=== PATIENT | female | born 1950 | race Caucasian/White ===

== ENCOUNTER → 2016-12-22 | Outpatient (REF) | payer MEDICARE ==
[2016-12-22 13:45] LABS: ALBUMIN 4.1 GM/DL (3.2-5.2); ALBUMIN/GLOBULIN RATIO 1.24 (1.00-1.93); ALKALINE PHOSPHATASE 90 U/L (45-117); ALT/SGPT 28 U/L (12-78); ANION GAP 11 MEQ/L (8-16); AST/SGOT 11 U/L (15-37); BILIRUBIN,TOTAL 0.6 MG/DL (0.2-1.0); BLOOD UREA NITROGEN 13 MG/DL (7-18); CALCIUM LEVEL 9.2 MG/DL (8.8-10.2); CARBON DIOXIDE LEVEL 27 MEQ/L (21-32); CHLORIDE LEVEL 106 MEQ/L (98-107); CHOLESTEROL LEVEL 152 MG/DL (<200); CREATININE FOR GFR 0.59 MG/DL (0.55-1.02); GLOMERULAR FILTRATION RATE > 60.0 (>45); GLUCOSE, FASTING 127 MG/DL (80-110); POTASSIUM SERUM 3.5 MEQ/L (3.5-5.1); SODIUM LEVEL 144 MEQ/L (136-145); TOTAL PROTEIN 7.4 GM/DL (6.4-8.2); TRIGLYCERIDES LEVEL 165 MG/DL (<150)
== END ==
LOC: M LABDRAW1 11:30
PROVIDERS: ATTEND General Practice
DX: I10 Essential (primary) hypertension (principal); E11.9 Type 2 diabetes mellitus without complications; E78.00 Pure hypercholesterolemia, unspecified

== ENCOUNTER → 2017-06-09 | Outpatient (REF) | payer MEDICARE ==
[2017-06-09 16:28] LABS: MEAN CORPUSCULAR HEMOGLOBIN 30.4 pg (27.0-33.0); MEAN CORPUSCULAR HGB CONC 33.5 g/dl (32.0-36.5); MEAN CORPUSCULAR VOLUME 90.7 fl (80.0-96.0); RED CELL DISTRIBUTION WIDTH 13.2 % (11.5-14.5); WHITE BLOOD COUNT 5.6 K/mm3 (4.0-10.0)
[2017-06-09 16:48] LABS: ALBUMIN 4.2 GM/DL (3.2-5.2); ALBUMIN/GLOBULIN RATIO 1.45 (1.00-1.93); ALKALINE PHOSPHATASE 82 U/L (45-117); ALT/SGPT 26 U/L (12-78); ANION GAP 8 MEQ/L (8-16); AST/SGOT 19 U/L (15-37); BILIRUBIN,TOTAL 0.9 MG/DL (0.2-1.0); BLOOD UREA NITROGEN 16 MG/DL (7-18); CALCIUM LEVEL 8.9 MG/DL (8.8-10.2); CARBON DIOXIDE LEVEL 26 MEQ/L (21-32); CHLORIDE LEVEL 108 MEQ/L (98-107); CHOLESTEROL LEVEL 175 MG/DL (<200); CREATININE FOR GFR 0.59 MG/DL (0.55-1.02); GLOMERULAR FILTRATION RATE > 60.0 (>45); GLUCOSE, FASTING 110 MG/DL (80-110); POTASSIUM SERUM 3.8 MEQ/L (3.5-5.1); SODIUM LEVEL 142 MEQ/L (136-145); TOTAL PROTEIN 7.1 GM/DL (6.4-8.2); TRIGLYCERIDES LEVEL 113 MG/DL (<150)
== END ==
LOC: M LABDRAW1 11:21
PROVIDERS: ATTEND General Practice
DX: G43.909 Migraine, unspecified, not intractable, without status migrainosus (principal); Z79.899 Other long term (current) drug therapy

== ENCOUNTER → 2017-07-24 | Outpatient (REF) ==
[2017-07-24 13:25] LABS: MEAN CORPUSCULAR HEMOGLOBIN 30.3 pg (27.0-33.0); MEAN CORPUSCULAR HGB CONC 33.6 g/dl (32.0-36.5); RED CELL DISTRIBUTION WIDTH 12.7 % (11.5-14.5); WHITE BLOOD COUNT 4.6 K/mm3 (4.0-10.0)
[2017-07-24 13:47] LABS: ANION GAP 11 MEQ/L (8-16); BLOOD UREA NITROGEN 11 MG/DL (7-18); CALCIUM LEVEL 7.9 MG/DL (8.8-10.2); CARBON DIOXIDE LEVEL 28 MEQ/L (21-32); CHLORIDE LEVEL 104 MEQ/L (98-107); CREATININE FOR GFR 0.41 MG/DL (0.55-1.02); GLOMERULAR FILTRATION RATE > 60.0 (>45); GLUCOSE, FASTING 151 MG/DL (80-110); POTASSIUM SERUM 3.7 MEQ/L (3.5-5.1); SODIUM LEVEL 143 MEQ/L (136-145)
== END ==
PROVIDERS: ATTEND Internal Medicine
DX: L03.115 Cellulitis of right lower limb (principal); Z96.641 Presence of right artificial hip joint

== ENCOUNTER → 2017-07-28 | Outpatient (REF) ==
[2017-07-28 10:36] LABS: MEAN CORPUSCULAR HEMOGLOBIN 30.1 pg (27.0-33.0); MEAN CORPUSCULAR HGB CONC 33.4 g/dl (32.0-36.5); MEAN CORPUSCULAR VOLUME 90.1 fl (80.0-96.0); RED CELL DISTRIBUTION WIDTH 13.5 % (11.5-14.5)
[2017-07-28 11:10] LABS: ANION GAP 11 MEQ/L (8-16); BLOOD UREA NITROGEN 14 MG/DL (7-18); CARBON DIOXIDE LEVEL 26 MEQ/L (21-32); CHLORIDE LEVEL 105 MEQ/L (98-107); CREATININE FOR GFR 0.54 MG/DL (0.55-1.02); GLOMERULAR FILTRATION RATE > 60.0 (>45); GLUCOSE, FASTING 169 MG/DL (80-110); MAGNESIUM LEVEL 2.3 MG/DL (1.8-2.4); POTASSIUM SERUM 4.2 MEQ/L (3.5-5.1); SODIUM LEVEL 142 MEQ/L (136-145)
== END ==
PROVIDERS: ATTEND Internal Medicine
DX: Z96.641 Presence of right artificial hip joint (principal); E11.9 Type 2 diabetes mellitus without complications; E55.9 Vitamin D deficiency, unspecified

== ENCOUNTER → 2017-07-31 | Outpatient (REF) | PROVIDERS: ATTEND Internal Medicine | DX: Z96.641 Presence of right artificial hip joint (principal); Z53.9 Procedure and treatment not carried out, unspecified reason ==

== ENCOUNTER → 2017-08-05 | Outpatient (REF) | payer MEDICARE, BC | PROVIDERS: ATTEND Internal Medicine | DX: R10.9 Unspecified abdominal pain (principal); R31.9 Hematuria, unspecified ==

== ENCOUNTER → 2017-10-15 | Outpatient (REF) | payer MEDICARE, BC | LOC: M SMT 13:15 | PROVIDERS: ATTEND Urology | DX: R33.9 Retention of urine, unspecified (principal) | CPT/HCPCS: 51701; 81001; 87186; G0463 ==

== ENCOUNTER → 2018-07-08 | Outpatient (REF) | payer MEDICARE, BC ==
[2018-07-08 13:44] LABS: APPEARANCE, URINE CLOUDY (CLEAR); BACTERIA, URINE AUTO 3+ (NEGATIVE); BILIRUBIN, URINE AUTO NEGATIVE (NEGATIVE); BLOOD, URINE BLOOD 3+ (NEGATIVE); COLOR, URINE YELLOW (YELLOW); GLUCOSE, URINE (UA) AUTO NEGATIVE (NEGATIVE); KETONE, URINE AUTO NEGATIVE (NEGATIVE); LEUKOCYTE ESTERASE, URINE AUTO 3+ (NEGATIVE); MUCUS, URINE SMALL (NEGATIVE); NITRITE, URINE AUTO POSITIVE (NEGATIVE); PROTEIN, URINE AUTO 1+ mg/dL (NEGATIVE); RBC, URINE AUTO 156 /HPF (0-3); SPECIFIC GRAVITY URINE AUTO 1.015 (1.002-1.035); SQUAMOUS EPITHELIAL CELL UR AU 1 /HPF (0-6); UROBILINOGEN, URINE AUTO 0.2 mg/dL (0.0-2.0); WBC, URINE AUTO TNTC /HPF (0-3)
== END ==
LOC: M SMT 13:21
DX: R82.90 Unspecified abnormal findings in urine (principal)
CPT/HCPCS: 81001

== ENCOUNTER → 2018-07-29 | Outpatient (REF) | payer MEDICARE, BC | LOC: M SMT 12:53 | DX: N39.0 Urinary tract infection, site not specified (principal) | CPT/HCPCS: 87186 ==

== ENCOUNTER → 2018-08-26 | Outpatient (REF) | payer MEDICARE, BC ==
[2018-08-26 14:00] LABS: APPEARANCE, URINE CLOUDY (CLEAR); BACTERIA, URINE AUTO 1+ (NEGATIVE); BILIRUBIN, URINE AUTO NEGATIVE (NEGATIVE); BLOOD, URINE BLOOD 1+ (NEGATIVE); COLOR, URINE YELLOW (YELLOW); GLUCOSE, URINE (UA) AUTO NEGATIVE (NEGATIVE); KETONE, URINE AUTO NEGATIVE (NEGATIVE); LEUKOCYTE ESTERASE, URINE AUTO 3+ (NEGATIVE); MUCUS, URINE SMALL (NEGATIVE); NITRITE, URINE AUTO NEGATIVE (NEGATIVE); PROTEIN, URINE AUTO NEGATIVE (NEGATIVE); RBC, URINE AUTO 25 /HPF (0-3); SPECIFIC GRAVITY URINE AUTO 1.015 (1.002-1.035); SQUAMOUS EPITHELIAL CELL UR AU 2 /HPF (0-6); UROBILINOGEN, URINE AUTO 0.2 mg/dL (0.0-2.0); WBC, URINE AUTO TNTC /HPF (0-3)
== END ==
LOC: M SMT 13:07
DX: N39.0 Urinary tract infection, site not specified (principal)
CPT/HCPCS: 81001

== ENCOUNTER → 2018-10-13 | Outpatient (CLI) | payer MEDICARE | LOC: M WHC 11:37 | DX: Z12.31 Encounter for screening mammogram for malignant neoplasm of breast (principal); Z80.0 Family history of malignant neoplasm of digestive organs | CPT/HCPCS: 77067 ==

== ENCOUNTER → 2018-10-28 | Outpatient (REF) | payer MEDICARE | LOC: M SMT 13:13 | DX: R33.9 Retention of urine, unspecified (principal) | CPT/HCPCS: 87186 ==

== ENCOUNTER → 2018-11-25 | Outpatient (REF) | payer MEDICARE ==
[2018-11-25 17:41] LABS: APPEARANCE, URINE MANUAL HAZY (CLEAR); BILIRUBIN, URINE MANUAL NEGATIVE (NEGATIVE); COLOR, URINE MANUAL YELLOW (YELLOW); GLUCOSE, URINE (UA) MANUAL NEGATIVE (NEGATIVE); KETONE, URINE MANUAL NEGATIVE (NEGATIVE); PROTEIN, URINE MANUAL 2+ mg/dL (NEGATIVE); UROBILINOGEN, URINE MANUAL NORMAL (NORMAL)
[2018-11-25 17:42] LABS: BLOOD URINE MANUAL POSITIVE (NEGATIVE); LEUKOCYTE ESTERASE, URINE MAN POSITIVE (NEGATIVE); NITRITE, URINE MANUAL NEGATIVE (NEGATIVE)
[2018-11-25 17:43] LABS: SQUAMOUS EPITHELIAL CELL URINE MOD AMOUNT /hpf (SMALL AMT); TRANSITIONAL EPI CELLS, URINE SMALL AMOUNT /hpf; WBC, URINE TNTC /hpf (0-3)
[2018-11-25 17:44] LABS: BACTERIA, URINE LARGE AMOUNT; HYALINE CAST, URINE NONE SEEN /lpf (0-1)
== END ==
LOC: M SMT 16:30
PROVIDERS: ATTEND Urology
DX: N39.0 Urinary tract infection, site not specified (principal)

== ENCOUNTER → 2019-01-24 | Outpatient (REF) | payer MEDICARE | LOC: M LAB REF 12:51 | PROVIDERS: ATTEND Internal Medicine Endocrinology, Diabetes & Metabolism | DX: E04.1 Nontoxic single thyroid nodule (principal) ==

== ENCOUNTER → 2019-02-04 | Outpatient (REF) | payer MEDICARE ==
[2019-02-04 14:43] LABS: C REACTIVE PROTEIN QUANTITATIV < 0.30 MG/DL (0.00-0.30); CORTISOL AM 18.5 UG/DL (4.3-22.4)
[2019-02-07 15:42] LABS: ESTROGENS TOTAL 77 pg/mL (.); TESTOSTERONE FREE (DIRECT) 2.8 pg/mL (0.0-4.2)
== END ==
LOC: M LAB REF 12:35
PROVIDERS: ATTEND Internal Medicine
DX: F07.81 Postconcussional syndrome (principal)

== ENCOUNTER 2019-04-01 17:34 | Emergency (ER) | payer MEDICARE ==
[~2019-04-01] VITALS: Ht 175.3 cm; Wt 93.9 kg
--- NOTE | 2019-04-01 20:05 | REPVR ---
EXAM: CT Cervical Spine Without Contrast EXAM DATE/TIME: 04/01/2019 7:02 PM CLINICAL HISTORY: 68 years old, female; Injury or trauma; Fall; Initial encounter; Blunt trauma; Additional info: Fall, chi TECHNIQUE: Imaging protocol: Axial computed tomography images of the cervical spine without contrast. Coronal and sagittal reformatted images were created and reviewed. Radiation optimization: All CT scans at this facility use at least one of these dose optimization techniques: automated exposure control; mA and/or kV adjustment per patient size (includes targeted exams where dose is matched to clinical indication); or iterative reconstruction. COMPARISON: No relevant prior studies available. FINDINGS: No traumatic segmental malalignment of cervical spine or craniocervical junction. Vertebral body height is maintained at all levels. No acute fracture. No destructive or blastic cervical spine osseous lesion. Disc height is decreased at multiple levels, with typical degenerative pattern and associated endplate, articular pillar and uncovertebral spurs. Posterior longitudinal ligament ossification C6-7 results in severe spinal canal stenosis at this level and C3-4 also demonstrates marked spinal canal stenosis secondary to degenerative retrolisthesis Prevertebral soft tissues demonstrate no asymmetry. No concerning abnormality of the imaged lung apices. IMPRESSION: No acute fracture or traumatic subluxation of the cervical spine. Multilevel degenerative disc and articular pillar arthropathy. High-grade osseous spinal canal stenosis C3-4 and C6-7 and multilevel severe degenerative facet arthropathy Electronically signed by: Richard aRmos On 04/01/2019 20:05:01 PM
--- NOTE | 2019-04-01 20:06 | REPVR ---
EXAM: CT Head Without Contrast EXAM DATE/TIME: 04/01/2019 7:02 PM CLINICAL HISTORY: 68 years old, female; Injury or trauma; Fall; Initial encounter; Blunt trauma (contusions or hematomas); Without loss of consciousness; Additional info: Fall, chi TECHNIQUE: Imaging protocol: Axial computed tomography images of the head/brain without contrast. Radiation optimization: All CT scans at this facility use at least one of these dose optimization techniques: automated exposure control; mA and/or kV adjustment per patient size (includes targeted exams where dose is matched to clinical indication); or iterative reconstruction. COMPARISON: No relevant prior studies available. FINDINGS: Brain: No intracranial mass, mass effect or midline shift. No acute intracranial hemorrhage. No focal effacement of cortical sulci to indicate acute cortical infarct. Ventricles: Ventricles, basilar cisterns, and sulci are normal in size for age. Bones/joints: No calvarial fracture or destructive process. Sinuses: No abnormal opacification of paranasal sinuses. Mastoid air cells: Mastoid air cells are normally aerated. Orbits: Imaged ocular globes and orbital structures are unremarkable. Soft tissues: Mild left frontal asymmetric extracranial scalp swelling. IMPRESSION: Mild left frontal extracranial scalp swelling. No underlying acute intracranial abnormality. Electronically signed by: Richard Ramos On 04/01/2019 20:05:53 PM
[2019-04-01 20:55] VITALS: BP 187/79
--- NOTE | 2019-04-04 15:11 | ED PDOC ---
Post-Departure Follow-Up dr tipton faxed formal report of ct c spine for fu Gisela Wilburn MD April 04, 2019 15:11
== END 2019-04-01 21:26 | disposition home or self-care (01) ==
LOC: M ED 17:34
DX: S00.93XA Contusion of unspecified part of head, initial encounter (principal); W01.198A Fall on same level from slipping, tripping and stumbling with subsequent striking against other object, initial encounter; Y92.098 Other place in other non-institutional residence as the place of occurrence of the external cause; E11.9 Type 2 diabetes mellitus without complications; Z89.512 Acquired absence of left leg below knee; M50.30 Other cervical disc degeneration, unspecified cervical region; M48.02 Spinal stenosis, cervical region; Z91.048 Other nonmedicinal substance allergy status; Z91.040 Latex allergy status; Z91.013 Allergy to seafood; Z88.4 Allergy status to anesthetic agent

== ENCOUNTER → 2019-05-23 | Outpatient (REF) | payer MEDICARE | LOC: M LAB REF 12:36 | PROVIDERS: ATTEND Internal Medicine | DX: F07.81 Postconcussional syndrome (principal) ==

== ENCOUNTER → 2019-06-01 | Outpatient (REF) | payer MEDICARE ==
[2019-06-01 13:41] LABS: APPEARANCE, URINE TURBID (CLEAR); BACTERIA, URINE AUTO 2+ (NEGATIVE); BILIRUBIN, URINE AUTO NEGATIVE (NEGATIVE); BLOOD, URINE BLOOD 3+ (NEGATIVE); COLOR, URINE YELLOW (YELLOW); GLUCOSE, URINE (UA) AUTO NEGATIVE (NEGATIVE); KETONE, URINE AUTO NEGATIVE (NEGATIVE); LEUKOCYTE ESTERASE, URINE AUTO 3+ (NEGATIVE); NITRITE, URINE AUTO POSITIVE (NEGATIVE); PROTEIN, URINE AUTO 2+ mg/dL (NEGATIVE); RBC, URINE AUTO TNTC /HPF (0-3); RENAL EPITHELIAL CELLS 2 /HPF; SPECIFIC GRAVITY URINE AUTO 1.016 (1.002-1.035); SQUAMOUS EPITHELIAL CELL UR AU 23 /HPF (0-6); UROBILINOGEN, URINE AUTO 0.2 mg/dL (0.0-2.0); WBC, URINE AUTO TNTC /HPF (0-3)
== END ==
LOC: M SMT 12:54
PROVIDERS: ATTEND Urology
DX: R82.90 Unspecified abnormal findings in urine (principal)

== ENCOUNTER → 2019-07-12 | Outpatient (CLI) | payer MEDICARE ==
--- NOTE | 2019-07-12 17:55 | REP ---
CT HEAD WITHOUT CONTRAST: REASON FOR EXAMINATION: Headaches, dizziness, status-post fall. COMPARISON: CT head without contrast of 04/01/2019. TECHNIQUE: Axial CT of the head was performed without contrast. FINDINGS: There is no soft swelling or acute calvarial fracture. There is no acute intracranial hemorrhage, midline shift or mass effect. Wagner white matter differentiation is maintained. There is similar mild diffuse hyperdensity of the vascular structures which may be related to calcification or dehydration. There is no basal cistern effacement. The orbit contents are unremarkable. The paranasal sinuses and mastoid air cells are clear. IMPRESSION: No acute intracranial abnormality. Electronically Signed by Saleem Bentley MD 07/13/2019 07:32 A
== END ==
LOC: M RAD 12:24
PROVIDERS: ATTEND Internal Medicine
DX: R51 Headache (principal); R42 Dizziness and giddiness; Z91.81 History of falling

== ENCOUNTER → 2019-08-29 | Outpatient (REF) | payer MEDICARE ==
[2019-08-29 11:07] LABS: APPEARANCE, URINE CLOUDY (CLEAR); BACTERIA, URINE AUTO 1+ (NEGATIVE); BILIRUBIN, URINE AUTO NEGATIVE (NEGATIVE); BLOOD, URINE BLOOD 1+ (NEGATIVE); COLOR, URINE YELLOW (YELLOW); GLUCOSE, URINE (UA) AUTO NEGATIVE (NEGATIVE); KETONE, URINE AUTO NEGATIVE (NEGATIVE); LEUKOCYTE ESTERASE, URINE AUTO 3+ (NEGATIVE); NITRITE, URINE AUTO NEGATIVE (NEGATIVE); PROTEIN, URINE AUTO NEGATIVE (NEGATIVE); RBC, URINE AUTO 4 /HPF (0-3); SPECIFIC GRAVITY URINE AUTO 1.009 (1.002-1.035); SQUAMOUS EPITHELIAL CELL UR AU 3 /HPF (0-6); UROBILINOGEN, URINE AUTO 0.2 mg/dL (0.0-2.0); WBC, URINE AUTO TNTC /HPF (0-3)
== END ==
LOC: M SMT 10:22
PROVIDERS: ATTEND Nurse Practitioner Family
DX: R32 Unspecified urinary incontinence (principal)
CPT/HCPCS: 51798; 81001; 87086; G0463

== ENCOUNTER → 2019-08-31 | Outpatient (CLI) | payer MEDICARE ==
--- NOTE | 2019-08-31 15:29 | REP ---
Renal sonography: History: Urinary retention. Findings: There is a simple cyst in the upper pole of the right kidney measuring 4.3 x 3.6 x 4.0 cm. No hydronephrosis is seen. No other cyst or mass is observed. Renal cortical echogenicity pattern is normal. Right renal dimensions are 11.7 x 4.5 x 5.8 cm. The left kidney measures 10.6 x 4.8 x 5.3 cm. Impression: 4.3 cm cyst right kidney. Otherwise negative renal sonography. Electronically Signed by Deepak Hogan MD 08/31/2019 04:07 P
--- NOTE | 2019-08-31 15:30 | REP ---
Limited pelvic bladder sonography: History: Urinary retention. Findings: The urinary bladder is somewhat distended. Prevoid volume is calculated at 668 ml. A 32% postvoid residual is seen calculated at 215 ml. No bladder mass lesion is observed. No extra vesicle abnormality is observed. Impression: Post void residual and mild bladder dilation. Electronically Signed by Deepak Hogan MD 08/31/2019 04:06 P
== END ==
LOC: M RAD 10:12
PROVIDERS: ATTEND Nurse Practitioner Family
DX: R33.9 Retention of urine, unspecified (principal)

== ENCOUNTER 2019-11-04 11:36 | Emergency (ER) | payer MEDICARE ==
[2019-11-04] MEDS ORDERED: ASPI81CH33 PO (11:56)
[2019-11-04] MEDS ORDERED: METF500T13 PO (11:56)
--- NOTE | 2019-11-04 12:39 | REP ---
CT brain: 11/04/2019. Indication: Head trauma. Comparison: 07/12/2019. New findings: There is no acute intracranial hemorrhage, acute cortical infarction, mass effect, hydrocephalus or acute calvarial fracture. The left parietal parenchymal calcification is redemonstrated with no significant mass effect. Age-related volume loss and chronic small vessel disease are present. Impression: No acute intracranial process. Electronically Signed by Jacob Herrmann DO 11/04/2019 12:31 P
--- NOTE | 2019-11-04 12:45 | REP ---
CT cervical spine: 11/04/2019. Indication: Cervical spine trauma. Comparison: 04/01/2019. Technique: Unenhanced axial images of the cervical spine were obtained with coronal and sagittal reconstructions provided. Findings: There is no acute fracture, subluxation or dislocation. Extensive multi level degenerative sequelae are redemonstrated most pronounced at C6/C7 with moderate to severe narrowing of the spinal canal. No hemorrhage or additional acute post traumatic findings of the central canal are present. The visualized lungs are clear. Impression: No acute osseous injuries of the cervical spine. Degenerative sequelae most pronounced at C6/C7. Electronically Signed by Jacob Herrmann DO 11/04/2019 12:37 P
[2019-11-04 14:18] VITALS: BP 142/82
== END 2019-11-04 14:19 | disposition home or self-care (01) ==
LOC: EDBD 11:36 → M ED 11:36
DX: S00.03XA Contusion of scalp, initial encounter (principal); W01.10XA Fall on same level from slipping, tripping and stumbling with subsequent striking against unspecified object, initial encounter; Y92.89 Other specified places as the place of occurrence of the external cause; Y93.9 Activity, unspecified; Y99.0 Civilian activity done for income or pay; E11.9 Type 2 diabetes mellitus without complications; Z79.82 Long term (current) use of aspirin; Z79.84 Long term (current) use of oral hypoglycemic drugs; Z91.040 Latex allergy status; Z91.89 Other specified personal risk factors, not elsewhere classified; Z91.013 Allergy to seafood; Z88.8 Allergy status to other drugs, medicaments and biological substances

== ENCOUNTER 2020-03-14 15:07 | Emergency (ER) | payer MEDICARE ==
[~2020-03-14] VITALS: Ht 172.7 cm; Wt 90.9 kg
[~2020-03-14 15:07] MED LIST: ASPI81CH33 PO; METF500T13 PO
[2020-03-14] MEDS ORDERED: NORCO, ANEXSIA 5/325MG TABLET (HYDROcodone/ACETAMINOPHEN) PO ONE (16:00)
[2020-03-14] MEDS ORDERED: IBUP-1022 PO (17:13)
[2020-03-14 17:35] VITALS: BP 151/65
--- NOTE | 2020-03-14 17:43 | REP ---
HISTORY: Left rib series: Four views of the left ribs performed. No fracture or bone lesion is seen. An accompanying view of the chest demonstrates minor linear fibroatelectatic change inferiorly in the left base. No pneumothorax or pleural effusion is seen. There are degenerative changes of the spine. IMPRESSION: No radiographic evidence of left rib fracture. Electronically Signed by Leonard Wagner MD 03/14/2020 07:28 P
== END 2020-03-14 18:41 | disposition home or self-care (01) ==
LOC: EDBD 15:07 → M ED 15:07
DX: S20.212A Contusion of left front wall of thorax, initial encounter (principal); W19.XXXA Unspecified fall, initial encounter; Y92.099 Unspecified place in other non-institutional residence as the place of occurrence of the external cause; Y93.9 Activity, unspecified; Y99.9 Unspecified external cause status; E11.9 Type 2 diabetes mellitus without complications; R33.9 Retention of urine, unspecified; M48.02 Spinal stenosis, cervical region; Z79.82 Long term (current) use of aspirin; Z79.84 Long term (current) use of oral hypoglycemic drugs; Z91.040 Latex allergy status; Z91.018 Allergy to other foods; Z88.8 Allergy status to other drugs, medicaments and biological substances; Z91.89 Other specified personal risk factors, not elsewhere classified

== ENCOUNTER → 2020-04-16 | Outpatient (REF) | payer MEDICARE ==
[~2020-04-16] MED LIST changes: +IBUP-1022 PO
[2020-04-16 18:07] LABS: APPEARANCE, URINE TURBID (CLEAR); BACTERIA, URINE AUTO NEGATIVE (NEGATIVE); BILIRUBIN, URINE AUTO NEGATIVE (NEGATIVE); BLOOD, URINE BLOOD 1+ (NEGATIVE); CALCIUM OXALATE CRYSTALS LARGE; COLOR, URINE YELLOW (YELLOW); GLUCOSE, URINE (UA) AUTO NEGATIVE (NEGATIVE); KETONE, URINE AUTO NEGATIVE (NEGATIVE); LEUKOCYTE ESTERASE, URINE AUTO 3+ (NEGATIVE); NITRITE, URINE AUTO NEGATIVE (NEGATIVE); PROTEIN, URINE AUTO 2+ mg/dL (NEGATIVE); RBC, URINE AUTO 23 /HPF (0-3); SPECIFIC GRAVITY URINE AUTO 1.018 (1.002-1.035); SQUAMOUS EPITHELIAL CELL UR AU 11 /HPF (0-6); TRANSITIONAL EPITHELIAL AUTO 1 /HPF; UROBILINOGEN, URINE AUTO 0.2 mg/dL (0.0-2.0); WBC, URINE AUTO TNTC /HPF (0-3)
== END ==
LOC: M SMT 17:20
PROVIDERS: ATTEND Nurse Practitioner Family
DX: R30.0 Dysuria (principal)

== ENCOUNTER → 2020-07-12 | Outpatient (REF) | payer MEDICARE ==
[2020-08-15 11:55] LABS: APPEARANCE, URINE TURBID (CLEAR); BACTERIA, URINE AUTO 3+ (NEGATIVE); BILIRUBIN, URINE AUTO NEGATIVE (NEGATIVE); BLOOD, URINE BLOOD 2+ (NEGATIVE); COLOR, URINE YELLOW (YELLOW); GLUCOSE, URINE (UA) AUTO 1+ mg/dL (NEGATIVE); KETONE, URINE AUTO NEGATIVE (NEGATIVE); LEUKOCYTE ESTERASE, URINE AUTO 2+ (NEGATIVE); NITRITE, URINE AUTO POSITIVE (NEGATIVE); PROTEIN, URINE AUTO 2+ mg/dL (NEGATIVE); RBC, URINE AUTO 19 /HPF (0-3); SPECIFIC GRAVITY URINE AUTO 1.011 (1.002-1.035); SQUAMOUS EPITHELIAL CELL UR AU 12 /HPF (0-6); UROBILINOGEN, URINE AUTO 0.2 mg/dL (0.0-2.0); WBC, URINE AUTO TNTC /HPF (0-3)
== END ==
LOC: M SMT 15:05
PROVIDERS: ATTEND Nurse Practitioner Family
DX: N39.0 Urinary tract infection, site not specified (principal)

== ENCOUNTER 2020-07-21 12:22 | Emergency (ER) | payer MEDICARE ==
[~2020-07-21] VITALS: Ht 172.7 cm; Wt 83.2 kg
--- NOTE | 2020-07-21 13:30 | REPVR ---
PROCEDURE INFORMATION: Exam: XR Chest, 1 View Exam date and time: 07/21/2020 12:44 PM Age: 69 years old Clinical indication: Shortness of breath; Additional info: Fall injury TECHNIQUE: Imaging protocol: XR of the chest Views: 1 view. COMPARISON: CR Ribs uni W-PA CHEST ONLY 03/14/2020 4:40 PM FINDINGS: Limitations: The image is overpenetrated, limiting evaluation of the lungs and skeleton. Lungs: No pulmonary consolidation or edema. Pleural space: No pleural effusion. No pneumothorax. Heart/Mediastinum: Heart size is within normal limits given the portable technique. Vasculature: Unchanged tortuosity of the thoracic aorta. Bones/joints: Left glenohumeral joint loose bodies redemonstrated. Narrowing of the left acromial humeral interval consistent with left rotator cuff thinning/tear. Bilateral glenohumeral osteoarthritis. Multilevel degenerative spine disease. IMPRESSION: 1. The image is overpenetrated, limiting evaluation of the lungs and skeleton. 2. No radiographic evidence of acute cardiopulmonary disease. Electronically signed by: Sherman Wright On 07/21/2020 13:30:18 PM
--- NOTE | 2020-07-21 13:34 | REPVR ---
PROCEDURE INFORMATION: Exam: XR Right Shoulder Exam date and time: 07/21/2020 12:44 PM Age: 69 years old Clinical indication: Pain; Shoulder; Right; Additional info: Fall injury TECHNIQUE: Imaging protocol: XR Right shoulder. Views: 2 or more views. COMPARISON: No relevant prior studies available. FINDINGS: Bones/joints: Glenohumeral osteophytosis consistent with osteoarthritis. Subacromial spurring. No acute fracture. No dislocation. Soft tissues: Unremarkable as visualized. IMPRESSION: No acute findings. Electronically signed by: Sherman Wright On 07/21/2020 13:35:15 PM
--- NOTE | 2020-07-21 13:44 | REPVR ---
PROCEDURE INFORMATION: Exam: XR Right Hip with Pelvis when Performed Exam date and time: 07/21/2020 12:44 PM Age: 69 years old Clinical indication: Hip pain; Right hip; Prior surgery; Surgery date: 6+ months; Additional info: Fall injury TECHNIQUE: Imaging protocol: XR Right hip with pelvis when performed. Views: 2 or 3 views. COMPARISON: No relevant prior studies available. FINDINGS: Bones/joints: The bones are diffusely demineralized. This limits evaluation for fractures. Bowel contents overlie and obscure portions of the pelvis, limiting evaluation. A small portion of the left lateral iliac wing is not imaged. The sacroiliac joints are unremarkable. The pubic symphysis is unremarkable. No acute pelvic fracture is identified. Multilevel degenerative appearing lumbar facet sclerosis. Indwelling right total hip arthroplasty hardware. No evidence of hardware failure. No acute right hip fracture is identified. No right hip dislocation. Soft tissues: Unremarkable as visualized. IMPRESSION: 1. No radiographic evidence of acute fracture is identified. If there is persistent clinical concern for an acute pelvic or hip fracture, then CT is recommended for further evaluation. 2. Indwelling right total hip arthroplasty hardware. No evidence of hardware failure. 3. The bones are diffusely demineralized. This limits evaluation for fractures. Electronically signed by: Sherman Wright On 07/21/2020 13:44:04 PM
--- NOTE | 2020-07-21 13:50 | REPVR ---
PROCEDURE INFORMATION: Exam: XR Right Femur Exam date and time: 07/21/2020 12:44 PM Age: 69 years old Clinical indication: Pain; Thigh; Right; Additional info: Fall injury TECHNIQUE: Imaging protocol: XR Right femur. Views: 2 views. COMPARISON: No relevant prior studies available. FINDINGS: Bones/joints: The bones are diffusely demineralized. This significantly limits evaluation for fractures. Evaluation of the distal femur and patella is limited on the lateral view due to the obliquity of the projection. The proximal femur is imaged on the contemporaneously performed right hip x-ray examination. Indwelling right total hip arthroplasty hardware. No acute femur fracture is identified. Inferior patella osteophytosis is present. There is additional cortical angularity of the superior posterior patella which may represent additional osteophytosis, however a nondisplaced patellar fracture is not excluded. Soft tissues: Unremarkable as visualized. IMPRESSION: 1. No acute femur fracture is identified. 2. Limited evaluation of the patella. Potential nondisplaced patellar fracture versus patellar osteophytosis. If there is any clinical concern for a patellar fracture, then further evaluation with a true lateral x-ray and sunrise x-ray of the patella is recommended. 3. The bones are diffusely demineralized. This significantly limits evaluation for fractures. Electronically signed by: Sherman Wright On 07/21/2020 13:51:05 PM
[2020-07-21 14:40] VITALS: O2SAT 98
[2020-07-21 15:04] VITALS: BP 130/78
== END 2020-07-21 15:06 | disposition home or self-care (01) ==
LOC: M ED 12:22 → EDBD 12:22 → M ED 15:06
DX: S70.01XA Contusion of right hip, initial encounter (principal); S40.011A Contusion of right shoulder, initial encounter; S20.211A Contusion of right front wall of thorax, initial encounter; W19.XXXA Unspecified fall, initial encounter; Y92.099 Unspecified place in other non-institutional residence as the place of occurrence of the external cause; Y93.89 Activity, other specified; Y99.9 Unspecified external cause status; E11.9 Type 2 diabetes mellitus without complications; Z96.641 Presence of right artificial hip joint; Z79.84 Long term (current) use of oral hypoglycemic drugs; Z88.8 Allergy status to other drugs, medicaments and biological substances; Z91.89 Other specified personal risk factors, not elsewhere classified; Z91.040 Latex allergy status; Z91.013 Allergy to seafood

== ENCOUNTER → 2020-10-22 | Outpatient (REF) | payer MEDICARE | LOC: M LAB REF 11:17 | PROVIDERS: ATTEND Internal Medicine | DX: R33.9 Retention of urine, unspecified (principal) ==

== ENCOUNTER → 2020-12-21 | Outpatient (REF) | payer MEDICARE ==
[~2020-12-21] MED LIST changes: +BIOT1000 PO; +CENT1TAB PO; +FURO20TA2 PO; +HM V4000 PO; +LEVO250T12 PO; +POTA10CA32 PO; +VITA-158 PO; +ZINC220CA PO; +ZINC220T6 PO
[2020-12-21 18:14] LABS: BLOOD UREA NITROGEN 16 MG/DL (7-18); CALCIUM LEVEL 9.7 MG/DL (8.8-10.2); CARBON DIOXIDE LEVEL 32 MEQ/L (21-32); CHLORIDE LEVEL 107 MEQ/L (98-107); CREATININE FOR GFR 0.78 MG/DL (0.55-1.30); GLOMERULAR FILTRATION RATE > 60.0 (>39); GLUCOSE, FASTING 123 MG/DL (70-100); POTASSIUM SERUM 3.8 MEQ/L (3.5-5.1); SODIUM LEVEL 143 MEQ/L (136-145)
== END ==
LOC: M LAB REF 16:25
PROVIDERS: ATTEND Internal Medicine
DX: E11.9 Type 2 diabetes mellitus without complications (principal); E87.6 Hypokalemia

== ENCOUNTER 2021-01-05 14:25 | Inpatient (IN) | payer MEDICARE ==
[~2021-01-05] VITALS: Ht 172.7 cm; Wt 77.3 kg
[~2021-01-05 14:25] MED LIST changes: -BIOT1000 PO; -CENT1TAB PO; -FURO20TA2 PO; -HM V4000 PO; -LEVO250T12 PO; -POTA10CA32 PO; -VITA-158 PO; -ZINC220CA PO; -ZINC220T6 PO
[2021-01-05] MEDS ORDERED: LIDOCAINE 2% 5ML JELLY UROJET TOP ONE (14:45)
[2021-01-05 15:18] LABS: HEMATOCRIT 34.3 % (36.0-47.0); HEMOGLOBIN 11.2 g/dl (12.0-15.5); LYMPH # 0.6 10^3/uL (1.5-5.0); LYMPH % 13.3 % (24.0-44.0); MEAN CORPUSCULAR HEMOGLOBIN 27.2 pg (27.0-33.0); MEAN CORPUSCULAR HGB CONC 32.7 g/dl (32.0-36.5); MEAN CORPUSCULAR VOLUME 83.3 fl (80.0-96.0); MONO # 0.5 10^3/uL (0.0-0.8); MONO % 10.5 % (0.0-5.0); NEUTROPHILS # 3.5 10^3/uL (1.5-8.5); NEUTROPHILS % 75.8 % (36.0-66.0); PLATELET COUNT, AUTOMATED 165 10^3/uL (150-450); RED BLOOD COUNT 4.12 10^6/uL (4.00-5.40); WHITE BLOOD COUNT 4.7 10^3/uL (4.0-10.0)
[2021-01-05] MEDS ORDERED: ACETAMINOPHEN 325 MG TAB PO ONE (15:30)
--- NOTE | 2021-01-05 15:37 | REP ---
INDICATION: DYSPNEA/COUGH. COMPARISON: [id number]. TECHNIQUE: SINGLE PORTABLE AP VIEW OF THE CHEST WAS PERFORMED. FINDINGS: THERE IS NO ACUTE INFILTRATE OR PULMONARY EDEMA. LUNGS ARE CLEAR. HEART IS NOT SIGNIFICANTLY ENLARGED. MEDIASTINAL SILHOUETTE IS UNREMARKABLE. THE VISUALIZED OSSEOUS STRUCTURES ARE INTACT. IMPRESSION: NO ACUTE PULMONARY DISEASE. <Electronically signed by Leonard Wagner > 01/05/21 [id number]
[2021-01-05 15:44] LABS: BILIRUBIN,DIRECT 0.2 MG/DL (0.0-0.2); BILIRUBIN,TOTAL 0.6 MG/DL (0.2-1.0); THYROID STIMULATING HORMONE 0.982 uIU/ML (0.358-3.740); THYROXINE (T4) 9.9 UG/DL (4.5-12.0); TOTAL PROTEIN 6.8 GM/DL (6.4-8.2)
[2021-01-05] MEDS ORDERED: POTASSIUM CHLORIDE 10 MEQ SR TABLET PO ONE (16:00)
--- NOTE | 2021-01-05 16:25 | REP ---
INDICATION: fall, w bumps mid leg COMPARISON: None. TECHNIQUE: AP and lateral views right lower leg. FINDINGS: There is an old healed fracture of the distal fibula. Probable old avulsion fracture noted of the medial malleolus. The ankle mortise is anatomic. Mild scattered vascular calcifications are seen in the soft tissues. There is mild medial joint space narrowing at the knee joint. There is mild inferior calcaneal and dorsal talonavicular spurring. There is no acute fracture or dislocation. IMPRESSION: No acute fracture or dislocation. Old healed fracture distal fibula and old avulsion fracture medial malleolus. Arthritic changes. <Electronically signed by Leonard Wagner > 01/05/21 [id number]
[2021-01-05] MEDS ORDERED: cefTRIAXone SOD 1 GM in D5W MINI-BAG PLUS 50 ML IV ONE (17:30)
--- NOTE | 2021-01-05 17:31 | ECGEPIP ---
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
[2021-01-05] MEDS ORDERED: POTA10CA32 PO (17:32)
[2021-01-05] MEDS ORDERED: FURO20TA2 PO (17:32)
[2021-01-05] MEDS ORDERED: CENT1TAB PO (17:42)
[2021-01-05] MEDS ORDERED: BIOT1000 PO (17:42)
[2021-01-05] MEDS ORDERED: VITA-158 PO (17:42)
[2021-01-05] MEDS ORDERED: HM V4000 PO (17:42)
[2021-01-05] MEDS ORDERED: ALBUTEROL 90 MCG/ACT 8GM HFA INHALER INH PRN (17:45)
[2021-01-05] MEDS ORDERED: ACETAMINOPHEN TAB 650MG DOSE (2X325MG) PO PRN (17:45)
--- NOTE | 2021-01-05 17:55 | HPEPDOC ---
General Date of Admission 01/05/21 Date of Service: Jan 05, 2021 Chief Complaint The patient is a 70-year-old female admitted with a reason for visit of General Weakness. Source: Patient Exam Limitations: Clinical conditions Timing/Duration: Day(s) Severity: Moderate History of Present Illness Patient 70 years old female with past medical history of type 2 diabetes, hypertension presented hospital with generalized weakness. According to her life partner patient developed generalized weakness for past few days with inability to take care about herself. In ER patient was found to have fever of 101, pyuria and positive COVID 19 test. Chest x-ray unremarkable Home Medications Scheduled Ascorbic Acid (Vitamin C) 500 Mg Tablet, 500 MG PO DAILY, (Reported) Biotin (Biotin) 1 Mg Tablet, 1,000 MCG PO DAILY, (Reported) Cholecalciferol (Vitamin D3) (Vitamin D3) 100 Mcg (4000 Unit) Capsule, 100 MCG PO DAILY, (Reported) Metformin HCl (Metformin HCl) 500 Mg Tablet, 500 MG PO BIDWM, (Reported) Multivit-Min/FA/Lycopen/Lutein (Centrum Silver Tablet) 1 Each Tablet, 1 TAB PO QPM, (Reported) WITH DINNER Allergies Coded Allergies: shrimp (Verified Allergy, Severe, throat swelling, 03/14/20) latex (Verified Allergy, Intermediate, "my skin peels", 03/14/20) nickel (Verified Allergy, Intermediate, "makes my skin peel", 03/14/20) thiopental (Verified Allergy, Unknown, 03/14/20) Past Medical History Medical History Type 2 diabetes, hypertension Surgical History HYSTERECTOMY, TOTAL WITH USO LEFT OVARY INTACT 1985 CHOLECYSTECTOMY 1979 ROTATOR CUFF TEAR REPAIR 2001 CATARACT SURGERY BILATERAL 2006 RIGHT HIP REPLACEMENT 06/2017 BELOW LEFT KNEE AMPUTATION Family History FATHER: , HEART ATTACK MOTHER: , BLADDER AND COLON CANCER 1 BROTHER(S) . MOTHER HAD BLADDER CANCER. Social History * Smoker: Denies Alcohol: Denies Drugs: denies A-FIB/CHADSVASC A-FIB History Current/History of A-Fib/PAF?: No Current PO Anticoag Therapy: No Review of Systems Constitutional: Reports: Chills, Fever, Weakness Eyes: Denies: Pain ENT: Reports: Head Aches Skin: Denies: Rash, Lesions Pulmonary: Denies: Dyspnea Cardiovascular: Denies: Chest Pain, Palpitations Gastrointestinal: Denies: Nausea, Vomiting Genitourinary: Denies: Dysuria Hematologic: Denies: Bruising Musculoskeletal: Denies: Neck Pain Neurological: Denies: Weakness Psych: Reports: Mood Normal Physical Examination General Exam: Positive: Alert, Cooperative ENT Exam: Positive: Atraumatic Neck Exam: Positive: Supple; Negative: JVD Chest Exam: Positive: Diminished Heart Exam: Positive: Rate Normal Telemetry: Positive: No significant arrhythmia Abdomen Exam: Positive: Normal bowel sounds Extremity Exam: Negative: Clubbing Skin Exam: Positive: Nl turgor and temperature Neuro Exam: Positive: Cranial Nerves 3-12 NL, Reflexes 2+ Psych Exam: Positive: Mental status NL Vital Signs Vital Signs Date Time Temp Pulse Resp B/P (MAP) Pulse Ox O2 Delivery O2 Flow Rate FiO2 01/05/21 15:40 68 97 01/05/21 15:24 101.0 16 Room Air 01/05/21 15:00 148/61 (90) Laboratory Data Labs 24H Laboratory Tests 2 01/05/21 15:01: Urine Color WILNER, Urine Appearance TURBIDH, Urine pH 5.0, Urine Specific Emery 1.012, Urine Protein 2+H, Urine Glucose (UA) NEGATIVE, Urine Ketones TRACEH, Urine Blood 2+H, Urine Nitrite POSITIVEH, Urine Bilirubin NEGATIVE, Urine Urobilinogen 0.2, Urine Leukocyte Esterase 3+H, Urine WBC (Auto) TNTCH, Urine RBC (Auto) 16H, Urine Hyaline Casts (Auto) 0, Urine Bacteria (Auto) NEGATIVE, Urine Squamous Epithelial Cells 0, Urine Sperm (Auto) 01/05/21 15:02: Immature Granulocyte % (Auto) 0.4, Neutrophils (%) (Auto) 75.8H, Lymphocytes (%) (Auto) 13.3L, Monocytes (%) (Auto) 10.5H, Eosinophils (%) (Auto) 0.0, Basophils (%) (Auto) 0.0, Neutrophils # (Auto) 3.5, Lymphocytes # (Auto) 0.6L, Monocytes # (Auto) 0.5, Eosinophils # (Auto) 0.0, Basophils # (Auto) 0.0, Nucleated Red Blood Cells % (auto) 0.0, Lactic Acid Level 1.3, Magnesium Level 2.0, Total Bilirubin 0.6, Direct Bilirubin 0.2, Aspartate Amino Transf (AST/SGOT) 30, Alanine Aminotransferase (ALT/SGPT) 19, Alkaline Phosphatase 64, [id number]-Gmw-[id number]-Type Natriuretic Peptide 727H, Total Protein 6.8, Albumin 3.0L, Albumin/Globulin Ratio 0.8L, Thyroid Stimulating Hormone (TSH) 0.982, Thyroxine (T4) 9.9 01/05/21 15:22: POC Glucose (Misc Panel) 115H, POC Sodium (Misc Panel) 139, POC Potassium (Misc Panel) 3.0L, POC Chloride (Misc Panel) 102, POC Total CO2 (Misc Panel) 24.0, POC Blood Urea Nitrogen (Misc Panel 23, POC Ionized Calcium (Misc Panel) 4.2L, POC Creatinine (Misc Panel) 1.1, POC Hematocrit (Misc Panel) 35.0L 01/05/21 15:31: POC Troponin I (Misc) 0.03 01/05/21 15:37: SARS Antigen (LFIA) POSITIVEH 01/05/21 15:39: Influenza A Immunofluorescence NEGATIVE, Influenza B Immunofluorescence NEGATIVE CBC/BMP Laboratory Tests 01/05/21 15:02 Microbiology Microbiology 01/05/21 Blood Culture, Received Pending 01/05/21 Urine Culture, Received Pending 01/05/21 Blood Culture, Received Pending Assessment/Plan Patient 70 years old female with past medical history of type 2 diabetes, hypertension presented hospital with generalized weakness. According to her life partner patient developed generalized weakness for past few days with inability to take care about herself. In ER patient was found to have fever of 101, pyuria and positive COVID 19 test. Chest x-ray unremarkable Problems (1) COVID-19 Status: Acute Problem Text: Patient febrile and has generalized weakness Remdesevir IV Levofloxacin IV due to pyuria and cover possible respiratory bacterial infection. Will check pro calcitonin Incentive spirometry PT/OT (2) Diabetes mellitus Status: Chronic Problem Text: Diabetes diet Insulin sliding scale (3) UTI (urinary tract infection) Status: Acute Problem Text: Levofloxacin IV (4) Inability to walk Status: Acute Problem Text: Secondary to viral infection with Covid 19 PT/OT (5) Weakness Status: Acute Problem Text: See above Plan / VTE VTE Prophylaxis Ordered?: Yes BERNADETTE LOCKETT DO Jan 05, 2021 17:55
[2021-01-05] MEDS ORDERED: GLUCAGON INJ 1MG VIAL SC PRN (18:00)
[2021-01-05] MEDS ORDERED: DEXTROSE 50% 50 ML SYRINGE IV PRN (18:00)
[2021-01-05] MEDS ORDERED: GLUCOSE 4GM CHEW TABLET PO PRN (18:00)
[2021-01-05] MEDS: dexameTHASONE 4 MG/ML 1ML VIAL (J1100 PER 1MG) IV SCH (18:19)
[2021-01-05] MEDS: NS 1,000 ML IV SCH (19:18)
[2021-01-05] MEDS ORDERED: REMDESIVIR 200 MG in NS 250 ML IV ONE (20:00)
[2021-01-05] MEDS: HumaLOG INSULIN (NovoLOG) PER UNIT SC SCH ×2 (20:17→21:00)
[2021-01-05 20:24] LABS: ALBUMIN 2.8 GM/DL (3.2-5.2); BILIRUBIN,DIRECT 0.2 MG/DL (0.0-0.2); BILIRUBIN,TOTAL 0.6 MG/DL (0.2-1.0); TOTAL PROTEIN 6.4 GM/DL (6.4-8.2)
[2021-01-05 21:15] VITALS: O2SAT 94
[2021-01-05] MEDS: ENOXAPARIN 40MG/0.4ML SYRINGE (J1650 PER 10MG) SC SCH (21:32)
[2021-01-05 21:37] VITALS: BP 159/68
[2021-01-05] MEDS ORDERED: SODIUM CHLORIDE 0.9% INJ 10 ML SYR IV ONE (22:00)
[2021-01-05] MEDS: LevoFLOXacin IV 750 MG in IV 1 EA IV SCH (22:51)
[2021-01-06] VITALS (11 sets, daily range): BP systolic 129–178; BP diastolic 62–77; O2SAT 96–100
[2021-01-06] MEDS: HumaLOG INSULIN (NovoLOG) PER UNIT SC SCH ×4 (07:30→19:55)
[2021-01-06 08:41] LABS: BASO % 0.3 % (0.0-1.0); EOS % 0.3 % (0.0-3.0); HEMATOCRIT 37.6 % (36.0-47.0); LYMPH # 0.7 10^3/uL (1.5-5.0); MEAN CORPUSCULAR HEMOGLOBIN 26.7 pg (27.0-33.0); MEAN CORPUSCULAR HGB CONC 31.9 g/dl (32.0-36.5); MEAN CORPUSCULAR VOLUME 83.7 fl (80.0-96.0); MONO # 0.4 10^3/uL (0.0-0.8); MONO % 12.6 % (0.0-5.0); NEUTROPHILS # 2.3 10^3/uL (1.5-8.5); NEUTROPHILS % 66.2 % (36.0-66.0); PLATELET COUNT, AUTOMATED 123 10^3/uL (150-450); RED BLOOD COUNT 4.49 10^6/uL (4.00-5.40); WHITE BLOOD COUNT 3.4 10^3/uL (4.0-10.0)
[2021-01-06 08:50] LABS: INR 1.24; PROTHROMBIN TIME 15.9 SECONDS (12.5-14.3)
[2021-01-06 09:08] LABS: ALBUMIN 2.7 GM/DL (3.2-5.2); ALT/SGPT 21 U/L (12-78); BILIRUBIN,DIRECT 0.2 MG/DL (0.0-0.2); BILIRUBIN,TOTAL 0.5 MG/DL (0.2-1.0); BLOOD UREA NITROGEN 23 MG/DL (7-18); CALCIUM LEVEL 8.4 MG/DL (8.8-10.2); CARBON DIOXIDE LEVEL 18 MEQ/L (21-32); CHLORIDE LEVEL 112 MEQ/L (98-107); CREATININE FOR GFR 0.94 MG/DL (0.55-1.30); GLOMERULAR FILTRATION RATE > 60.0 (>39); GLUCOSE, FASTING 107 MG/DL (70-100); MAGNESIUM LEVEL 2.3 MG/DL (1.8-2.4); POTASSIUM SERUM 3.8 MEQ/L (3.5-5.1); SODIUM LEVEL 144 MEQ/L (136-145); TOTAL PROTEIN 6.6 GM/DL (6.4-8.2)
[2021-01-06] MEDS: NS 1,000 ML IV SCH ×2 (09:34→20:00)
[2021-01-06] MEDS: dexameTHASONE 4 MG/ML 1ML VIAL (J1100 PER 1MG) IV SCH (09:34)
--- NOTE | 2021-01-06 12:28 | IPNPDOC ---
Text Note Date of Service The patient was seen on 01/06/21. NOTE Subjective: No any acute overnight. Patient is on the room air. Patient afebrile for 24 hours Objective: GENERAL APPEARANCE: NAD HEENT: no scleral icterus, no JVD, EOMI CARDIOVASCULAR: Diminished lung sounds bilaterally LUNGS: Diminished lung sounds bilaterally ABDOMEN: soft & not tender w palpitation MUSCULOSKELETAL: no cyanosis, no swelling INTEGUMENT: no generalized pallor NEUROLOGICAL: cranial nerve function from 2-12 intact intact, follows commands, speech not dysarthric Assessment/Plan Patient 70 years old female with past medical history of type 2 diabetes, hypertension presented hospital with generalized weakness. According to her life partner patient developed generalized weakness for past few days with inability to take care about herself. In ER patient was found to have fever of 101, pyuria and positive COVID 19 test. Chest x-ray unremarkable Problems COVID-19 Patient was febrile and had generalized weakness on admission Remdesevir IV Levofloxacin IV due to pyuria and cover possible respiratory bacterial infection. Incentive spirometry PT/OT (2) Diabetes mellitus Diabetes diet Insulin sliding scale (3) UTI (urinary tract infection) Levofloxacin IV (4) Inability to walk Secondary to viral infection with Covid 19 PT/OT (5) Weakness See above VS,Fishbone, I+O VS, Fishbone, I+O Laboratory Tests 01/05/21 15:02 01/06/21 08:24 Vital Signs Date Time Temp Pulse Resp B/P (MAP) Pulse Ox O2 Delivery O2 Flow Rate FiO2 01/06/21 11:29 97.0 74 18 129/62 (84) 98 Room Air I&O- Last 24 Hours up to 6 AM 01/06/21 06:00 Intake Total 50 ml Balance 50 ml BERNADETTE LOCKETT DO Jan 06, 2021 12:28
[2021-01-06] MEDS: REMDESIVIR 100 MG in NS 250 ML IV SCH (17:41)
[2021-01-06] MEDS: SODIUM CHLORIDE 0.9% INJ 10 ML SYR IV SCH (18:39)
[2021-01-06] MEDS: LevoFLOXacin IV 750 MG in IV 1 EA IV SCH (20:01)
[2021-01-06] MEDS: ENOXAPARIN 40MG/0.4ML SYRINGE (J1650 PER 10MG) SC SCH (20:01)
[2021-01-07] VITALS (8 sets, daily range): BP systolic 136–171; BP diastolic 65–76; O2SAT 92–97
[2021-01-07] MEDS: HumaLOG INSULIN (NovoLOG) PER UNIT SC SCH ×4 (07:30→20:25)
[2021-01-07 07:47] LABS: BASO % 0.2 % (0.0-1.0); HEMATOCRIT 36.3 % (36.0-47.0); HEMOGLOBIN 12.1 g/dl (12.0-15.5); LYMPH # 1.4 10^3/uL (1.5-5.0); LYMPH % 21.3 % (24.0-44.0); MEAN CORPUSCULAR HEMOGLOBIN 27.8 pg (27.0-33.0); MEAN CORPUSCULAR HGB CONC 33.3 g/dl (32.0-36.5); MEAN CORPUSCULAR VOLUME 83.3 fl (80.0-96.0); MONO # 0.7 10^3/uL (0.0-0.8); MONO % 11.2 % (0.0-5.0); NEUTROPHILS # 4.4 10^3/uL (1.5-8.5); NEUTROPHILS % 66.8 % (36.0-66.0); PLATELET COUNT, AUTOMATED 194 10^3/uL (150-450); RED BLOOD COUNT 4.36 10^6/uL (4.00-5.40); WHITE BLOOD COUNT 6.6 10^3/uL (4.0-10.0)
[2021-01-07 07:52] LABS: INR 1.19; PROTHROMBIN TIME 15.4 SECONDS (12.5-14.3)
[2021-01-07 07:53] LABS: PARTIAL THROMBOPLASTIN TIME 52.9 SECONDS (24.2-38.5)
[2021-01-07 08:17] LABS: ALBUMIN 2.5 GM/DL (3.2-5.2); ALT/SGPT 19 U/L (12-78); BILIRUBIN,DIRECT 0.2 MG/DL (0.0-0.2); BILIRUBIN,TOTAL 0.3 MG/DL (0.2-1.0); BLOOD UREA NITROGEN 26 MG/DL (7-18); CALCIUM LEVEL 8.3 MG/DL (8.8-10.2); CARBON DIOXIDE LEVEL 20 MEQ/L (21-32); CHLORIDE LEVEL 115 MEQ/L (98-107); CPK CREATINE PHOSPHOKINASE 231 U/L (26-192); CREATININE FOR GFR 1.01 MG/DL (0.55-1.30); FERRITIN 304 NG/ML (8-252); GLOMERULAR FILTRATION RATE 57.4 (>39); GLUCOSE, FASTING 102 MG/DL (70-100); LDH LACTATE DEHYDROGENASE 250 U/L (84-246); MAGNESIUM LEVEL 2.1 MG/DL (1.8-2.4); NT-PRO BNP 1124 PG/ML (<125); SODIUM LEVEL 145 MEQ/L (136-145); TOTAL PROTEIN 6.3 GM/DL (6.4-8.2); TROPONIN I < 0.02 NG/ML (< 0.10)
[2021-01-07] MEDS: dexameTHASONE 4 MG/ML 1ML VIAL (J1100 PER 1MG) IV SCH (09:29)
[2021-01-07] MEDS: NS 1,000 ML IV SCH (09:31)
--- NOTE | 2021-01-07 13:08 | IPNPDOC ---
Text Note Date of Service The patient was seen on 01/07/21. NOTE Subjective: No acute events overnight. Patient denies any headache, visual changes, chest pain, or abd pain. Patient states that she has been feeling slightly short of breath since admission and has been having occasional cough. She states that she has been using her incentive spirometer. Patient is on the room air and is sating around 94%. Patient has been afebrile for over 24 hours. Objective: GENERAL APPEARANCE: NAD HEENT: no scleral icterus, no JVD, EOMI CARDIOVASCULAR: Regular rate and rhythm. No murmurs, rubs, or gallops. LUNGS: Lungs clear to auscultation. No rhonchi, wheezes, or rales. ABDOMEN: soft & not tender w palpitation MUSCULOSKELETAL: no cyanosis, no edema INTEGUMENT: no generalized pallor NEUROLOGICAL: cranial nerve function from 2-12 intact intact, follows commands, speech not dysarthric Assessment/Plan: Patient 70 years old female with past medical history of type 2 diabetes, hy pertension presented hospital with generalized weakness. According to her life partner patient developed generalized weakness for past few days with inability to take care about herself. In ER patient was found to have fever of 101, pyuria and positive COVID 19 test. Chest x-ray unremarkable. Problems: # COVID-19 -Demonstrates continued clinical improvement. -Patient was febrile and had generalized weakness on admission. However patient has been afebrile for over 24 hours at this point -Dexamethasone (Day #3) -Will discontinue IV remdesevir as it is unclear why patient was started on antibody therapy. -Levofloxacin IV due to pyuria. Bacterial superinfection unlikely given negative procalcitonin. # Diabetes mellitus -Keep patient on a diabetes diet -Continue insulin sliding scale # UTI (urinary tract infection), history of neurogenic bladder -Continue Levofloxacin IV (Day #3) -Continues to be incontinent of urine -If discharged tomorrow, will give levofloxicin PO for a total of 5 days. #Inability to walk/weakness -S/P L knee amputation, prosthesis for ambulation -Home partner shares concerns that patient may not be safe at home and may be in need of home care given her physical limitations including DVT Prophylaxis: Prophylactic Lovenox Disposition: Anticipate D/C tomorrow VS,Bettina, I+O VS, Bettina, I+O Laboratory Tests 01/07/21 06:41 Vital Signs Date Time Temp Pulse Resp B/P (MAP) Pulse Ox O2 Delivery O2 Flow Rate FiO2 01/07/21 04:00 98.2 50 18 136/65 (88) 94 Room Air I&O- Last 24 Hours up to 6 AM 01/07/21 06:00 Intake Total 1290 ml Output Total 0 ml Balance 1290 ml GME ATTESTATION GME ATTESTATION My faculty preceptor for this patient encounter was physically present during the encounter and was fully available. All aspects of the patient interview, examination, medical decision making process, and medical care plan development were reviewed and approved by the faculty preceptor. The faculty preceptor is aware and concurs with the plan as stated in the body of this note and will attest to such by his/her cosignature. ATTENDING NOTE I, Jonathan Perez MD, have independently examined this patient and performed my own physical exam, as well as reviewed the documentation and edited where necessary. I have discussed in detail with the resident / student the findings and plan of treatment as documented by the resident / student and edited their note. I agree with their findings and treatment plan and have edited their documentation. I will continue to follow the patient during this hospital stay. On discharge, the patient would require a Wheelchair 1) The beneficiary has a mobility limitation that significantly impairs her ability to participate in one or more mobility related activities of daily living (MRADL) such as toileting, feeding dressing, grooming and bathing in customary locations in the home. A mobility limitation is one that: a) Prevents her from accomplishing an MRADL entirely b) Places the beneficiary at reasonably determined heightened risk of morbidity or mortality secondary to the attempts to perform an MRADL c) Prevents the beneficiary from completing an MRADL within a reasonable time f rame 2) The beneficiary's mobility limitation cannot be sufficiently resolved by the use of an appropriate fitted cane or walker 3) Her home provides adequate access between rooms, maneuvering space and surface for use of the manual wheelchair that is provided 4) Use of manual wheelchair will significantly improve the beneficiary's ability to participate in MRADLs and she will use it on a regular basis in the home 5) The beneficiary has not expressed unwillingness to use the manual wheelchair that is provided in the home. 6) She has a caregiver who is available, willing and able to provide assistance with the wheelchair Delphine PRESSLEY-3 Jan 07, 2021 10:54 BIBIANA CORTEZ DO Jan 07, 2021 13:08 JONATHAN PEREZ MD Jan 08, 2021 16:16
[2021-01-07] MEDS: REMDESIVIR 100 MG in NS 250 ML IV SCH (17:53)
[2021-01-07] MEDS: SODIUM CHLORIDE 0.9% INJ 10 ML SYR IV SCH (17:53)
[2021-01-07] MEDS: ENOXAPARIN 40MG/0.4ML SYRINGE (J1650 PER 10MG) SC SCH (20:23)
[2021-01-07] MEDS: LevoFLOXacin IV 750 MG in IV 1 EA IV SCH (20:24)
[2021-01-08] VITALS (10 sets, daily range): BP systolic 152–170; BP diastolic 62–82; O2SAT 93–97
[2021-01-08] MEDS: HumaLOG INSULIN (NovoLOG) PER UNIT SC SCH ×4 (07:30→20:00)
[2021-01-08 07:33] LABS: HEMATOCRIT 35.7 % (36.0-47.0); HEMOGLOBIN 11.9 g/dl (12.0-15.5); LYMPH # 1.6 10^3/uL (1.5-5.0); LYMPH % 25.7 % (24.0-44.0); MEAN CORPUSCULAR HEMOGLOBIN 27.8 pg (27.0-33.0); MEAN CORPUSCULAR HGB CONC 33.3 g/dl (32.0-36.5); MEAN CORPUSCULAR VOLUME 83.4 fl (80.0-96.0); MONO # 0.8 10^3/uL (0.0-0.8); MONO % 13.1 % (0.0-5.0); NEUTROPHILS # 3.8 10^3/uL (1.5-8.5); NEUTROPHILS % 60.7 % (36.0-66.0); PLATELET COUNT, AUTOMATED 193 10^3/uL (150-450); RED BLOOD COUNT 4.28 10^6/uL (4.00-5.40); WHITE BLOOD COUNT 6.2 10^3/uL (4.0-10.0)
[2021-01-08 07:44] LABS: INR 1.22; PROTHROMBIN TIME 15.7 SECONDS (12.5-14.3)
[2021-01-08 08:01] LABS: BLOOD UREA NITROGEN 29 MG/DL (7-18); CALCIUM LEVEL 8.5 MG/DL (8.8-10.2); CARBON DIOXIDE LEVEL 21 MEQ/L (21-32); CHLORIDE LEVEL 117 MEQ/L (98-107); CREATININE FOR GFR 0.94 MG/DL (0.55-1.30); GLOMERULAR FILTRATION RATE > 60.0 (>39); GLUCOSE, FASTING 92 MG/DL (70-100); POTASSIUM SERUM 3.7 MEQ/L (3.5-5.1); SODIUM LEVEL 147 MEQ/L (136-145)
[2021-01-08] MEDS: dexameTHASONE 4 MG/ML 1ML VIAL (J1100 PER 1MG) IV SCH (09:36)
[2021-01-08] MEDS ORDERED: LEVO250T12 PO (11:14)
[2021-01-08] MEDS ORDERED: ZINC220CA PO (11:18)
--- NOTE | 2021-01-08 11:48 | DS.PDOC ---
Discharge Summary General Date of Admission Jan 05, 2021 at 18:01 Date of Discharge 01/08/21 Attending Physician: JONATHAN MORENO MD Discharge Summary PROCEDURES PERFORMED DURING STAY: None ADMITTING DIAGNOSES: Covid 19 Urinary tract infection Diabetes mellitus Inability to walk Weakness DISCHARGE DIAGNOSES: Urinary tract infection, Enterobacter Covid 19 Diabetes mellitus Incontinence secondary to neurogenic bladder COMPLICATIONS/CHIEF COMPLAINT: Covid-19,Weakness,Inability To Walk. HISTORY OF PRESENT ILLNESS: Patient is a 70-year-old female, history of diabetes, left knee amputation with prosthesis, who was admitted to the hospital on 01/05/21 after presenting to the emergency department with chief complaint generalized weakness. According to patient's partner, she developed generalized weakness over the preceding 2-3 days and has since been incapable of appropriately taking care of herself. Bone emergency department, patient was found to be febrile with a fever of 101, pyuria and a positive Covid 19 test. Chest was unremarkable. Patient was admitt ed to the floor for continued management of her UTI in the setting of Covid 19. HOSPITAL COURSE: On admission and presentation floor, patient remained overly asymptomatic. She was started on remdesevir and dexamethasone IV for COVID 19. She was given antibiotic therapy with levofloxacin secondary to her pyuria. This was given at the respiratory dose to cover for possible bacterial infection secondary to her Covid 19. Procalcitonin was ordered and found to be unconvincing. Urine culture returned positive for Enterobacter with fair number of sensitivities, including levofloxacin. On 01/08/21, patient's IV levofloxacin was transitioned to oral over to continue at home. She has been afebrile, non-tachycardic, nontachypneic, normotensive and maintaining an appropriate saturation without supplemental oxygen. The morning of discharge, physical therapy cleared to return home with in-home PT. Clinically, the maximum benefit of the patient's hospitalization has been obtained. Given her physical limitations secondary to left knee amputation, home health services was also prescribed in addition to numerous items of DME. Discharge was explained to the patient as well as lack of any medical necessity for her to remain in the acute care setting. Unfortunately, patient stated that she did not agree with her decision for discharge. The risks of remaining in the hospital were explained to the patient in detail, particularly her increased risk of developing a bacterial infection in the setting of her underlying COVID- 19. Despite these risks, and per her rights, patient wishes to challenge the grounds of her discharge. DISCHARGE MEDICATIONS: Please see below. ALLERGIES: Please see below. PHYSICAL EXAMINATION ON DISCHARGE: VITAL SIGNS: Please see below. GENERAL APPEARANCE: NAD, pleasant. Pt was examined in her hospital room. She was on the resting in bed comfortably HEENT: no scleral icterus, no JVD, EOMI CARDIOVASCULAR: Regular rate and rhythm. No murmurs, rubs, or gallops. LUNGS: Lungs clear to auscultation. No rhonchi, wheezes, or rales. ABDOMEN: soft & not tender w palpitation MUSCULOSKELETAL: no cyanosis, no edema INTEGUMENT: no generalized pallor NEUROLOGICAL: cranial nerve function from 2-12 intact intact, follows commands, speech not dysarthric LABORATORY DATA: Please see below. IMAGING: Chest x-ray (01/05/21): No acute pulmonary disease Tibia/fibular x-ray (01/05/21): No acute fracture dislocation. Old healed fracture of the distal fibula and old avulsion fracture of the medial malleolus. Arthritic changes. PROGNOSIS: Fair ACTIVITY: As tolerated DIET: Diabetic diet DISCHARGE PLAN: Please take your medications as prescribed, including your Levofloxacin for 2 days. Please continue to remain under isolation per [facility] protocols. Please follow-up with your PCP when possible per [facility] protocols. Please continue with in-home physical therapy and home-health services. If your symptoms return, or should you begin to experience shortness of breath, chest pain or a fever, please return to the ED for evaluation. DISCHARGE CONDITION: Stable TIME SPENT ON DISCHARGE: Greater than 32 minutes. Vital Signs/I&Os Vital Signs Date Time Temp Pulse Resp B/P (MAP) Pulse Ox O2 Delivery O2 Flow Rate FiO2 01/08/21 08:00 97.0 59 18 152/67 (95) 97 Room Air I&O- Last 24 Hours up to 6 AM 01/08/21 06:00 Intake Total 1300 ml Output Total 0 ml Balance 1300 ml Laboratory Data Labs 24H Laboratory Tests 2 01/07/21 11:46: Bedside Glucose (Misc Panel) 125H 01/07/21 16:48: Bedside Glucose (Misc Panel) 161H 01/07/21 20:02: Bedside Glucose (Misc Panel) 183H 01/08/21 07:15: Immature Granulocyte % (Auto) 0.5, Neutrophils (%) (Auto) 60.7, Lymphocytes (%) (Auto) 25.7, Monocytes (%) (Auto) 13.1H, Eosinophils (%) (Auto) 0.0, Basophils (%) (Auto) 0.0, Neutrophils # (Auto) 3.8, Lymphocytes # (Auto) 1.6, Monocytes # (Auto) 0.8, Eosinophils # (Auto) 0.0, Basophils # (Auto) 0.0, Nucleated Red Blood Cells % (auto) 0.0, Prothrombin Time 15.7H, Prothromb Time International Ratio 1.22, Anion Gap 9, Glomerular Filtration Rate > 60.0, Calcium Level 8.5L, Magnesium Level 2.0 CBC/BMP Laboratory Tests 01/08/21 07:15 FSBS Laboratory Tests Test 01/07/21 11:46 01/07/21 16:48 01/07/21 20:02 Range/Units Bedside Glucose (Misc Panel) 125 161 183 83-110 MG/DL Microbiology Microbiology 01/05/21 Blood Culture - Preliminary, Resulted No Growth after 48 hours. All Specime... 01/05/21 Urine Culture - Final, Complete Enterobacter Aerogenes 01/05/21 Blood Culture - Preliminary, Resulted No Growth after 48 hours. All Specime... Discharge Medications Scheduled Ascorbic Acid (Vitamin C) 500 Mg Tablet, 500 MG PO DAILY, (Reported) Biotin (Biotin) 1 Mg Tablet, 1,000 MCG PO DAILY, (Reported) Cholecalciferol (Vitamin D3) (Vitamin D3) 100 Mcg (4000 Unit) Capsule, 100 MCG PO DAILY, (Reported) Levofloxacin (Levofloxacin) 250 Mg Tablet, 250 MG PO QHS, (Reported) FOR 2 DAYS, STARTED 01/09 Metformin HCl (Metformin HCl) 500 Mg Tablet, 500 MG PO BIDWM, (Reported) Multivit-Min/FA/Lycopen/Lutein (Centrum Silver Tablet) 1 Each Tablet, 1 TAB PO QPM, (Reported) WITH DINNER Zinc Sulfate (Zinc Sulfate) 220 Mg Tablet, 220 MG PO DAILY, (Reported) Allergies Coded Allergies: shrimp (Verified Allergy, Severe, throat swelling, 03/14/20) latex (Verified Allergy, Intermediate, "my skin peels", 03/14/20) nickel (Verified Allergy, Intermediate, "makes my skin peel", 03/14/20) thiopental (Verified Allergy, Unknown, 03/14/20) GME ATTESTATION GME ATTESTATION My faculty preceptor for this patient encounter was physically present during the encounter and was fully available. All aspects of the patient interview, examination, medical decision making process, and medical care plan development were reviewed and approved by the faculty preceptor. The faculty preceptor is aware and concurs with the plan as stated in the body of this note and will attest to such by his/her cosignature. ATTENDING NOTE I, Jonathan Moreno MD, have independently examined this patient and performed my own physical exam, as well as reviewed the documentation and edited where necessary. I have discussed in detail with the resident / student the findings and plan of treatment as documented by the resident / student and edited their note. I agree with their findings and treatment plan and have edited their documentation. BIBIANA CORTEZ DO Jan 08, 2021 11:48 JONATHAN MORNEO MD Jan 11, 2021 14:16
[2021-01-08] MEDS: REMDESIVIR 100 MG in NS 250 ML IV SCH (18:24)
[2021-01-08] MEDS: ENOXAPARIN 40MG/0.4ML SYRINGE (J1650 PER 10MG) SC SCH (20:01)
[2021-01-08] MEDS: SODIUM CHLORIDE 0.9% INJ 10 ML SYR IV SCH (20:02)
[2021-01-08] MEDS ORDERED: LevoFLOXacin 250 MG TABLET PO SCH (21:00)
[2021-01-09 04:00] VITALS: BP 177/86
[2021-01-09 05:31] VITALS: BP 170/80
[2021-01-09 05:55] VITALS: BP 170/80
[2021-01-09 06:38] LABS: HEMATOCRIT 34.9 % (36.0-47.0); HEMOGLOBIN 11.6 g/dl (12.0-15.5); MEAN CORPUSCULAR HEMOGLOBIN 27.9 pg (27.0-33.0); MEAN CORPUSCULAR HGB CONC 33.2 g/dl (32.0-36.5); MEAN CORPUSCULAR VOLUME 83.9 fl (80.0-96.0); PLATELET COUNT, AUTOMATED 182 10^3/uL (150-450); RED BLOOD COUNT 4.16 10^6/uL (4.00-5.40); WHITE BLOOD COUNT 5.6 10^3/uL (4.0-10.0)
[2021-01-09 07:13] LABS: INR 1.37; PROTHROMBIN TIME 17.2 SECONDS (12.5-14.3)
[2021-01-09 07:14] LABS: PARTIAL THROMBOPLASTIN TIME 44.7 SECONDS (24.2-38.5)
[2021-01-09 07:20] LABS: ALBUMIN 2.3 GM/DL (3.2-5.2); ALT/SGPT 22 U/L (12-78); BILIRUBIN,DIRECT 0.1 MG/DL (0.0-0.2); BILIRUBIN,TOTAL 0.4 MG/DL (0.2-1.0); BLOOD UREA NITROGEN 31 MG/DL (7-18); CALCIUM LEVEL 8.2 MG/DL (8.8-10.2); CARBON DIOXIDE LEVEL 19 MEQ/L (21-32); CHLORIDE LEVEL 115 MEQ/L (98-107); CPK CREATINE PHOSPHOKINASE 89 U/L (26-192); CREATININE FOR GFR 0.97 MG/DL (0.55-1.30); FERRITIN 243 NG/ML (8-252); GLOMERULAR FILTRATION RATE > 60.0 (>39); GLUCOSE, FASTING 108 MG/DL (70-100); LDH LACTATE DEHYDROGENASE 243 U/L (84-246); MAGNESIUM LEVEL 1.9 MG/DL (1.8-2.4); NT-PRO BNP 2205 PG/ML (<125); POTASSIUM SERUM 3.7 MEQ/L (3.5-5.1); SODIUM LEVEL 146 MEQ/L (136-145); TOTAL PROTEIN 6.3 GM/DL (6.4-8.2); TROPONIN I < 0.02 NG/ML (< 0.10)
[2021-01-09 07:25] LABS: ATYPICAL LYMPH 1 % (0-5); BURR CELLS 1+; LYMPHOCYTES 33 % (16-44); MONOCYTES 7 % (0-5); NEUTROPHILS 59 % (28-66); OVALOCYTES 1+; PLATELET ESTIMATE NORMAL (NORMAL)
[2021-01-09] MEDS: HumaLOG INSULIN (NovoLOG) PER UNIT SC SCH ×2 (07:50→12:00)
[2021-01-09] MEDS: dexameTHASONE 4 MG/ML 1ML VIAL (J1100 PER 1MG) IV SCH (07:50)
[2021-01-09] MEDS ORDERED: metFORMIN (GLUCOPHAGE) 500MG TAB PO SCH (18:00)
[2021-01-10] MEDS ORDERED: LEVO250T12 PO (12:44)
[2021-01-10] MEDS ORDERED: ZINC220T6 PO (12:44)
== END 2021-01-09 17:03 | disposition home health service (06) | DRG 178 ==
LOC: M ED 14:25 → EDBD 14:25 → M ED INP 18:01 → M 4MAIN 21:08
PROVIDERS: ADMIT Internal Medicine; ATTEND Internal Medicine
DX: U07.1 COVID-19 (principal); N39.0 Urinary tract infection, site not specified; E11.9 Type 2 diabetes mellitus without complications; R53.1 Weakness; N31.9 Neuromuscular dysfunction of bladder, unspecified; Z79.899 Other long term (current) drug therapy; Z91.040 Latex allergy status; Z91.013 Allergy to seafood; Z88.8 Allergy status to other drugs, medicaments and biological substances; Z89.512 Acquired absence of left leg below knee; Z96.641 Presence of right artificial hip joint; Z98.41 Cataract extraction status, right eye; Z98.42 Cataract extraction status, left eye

== ENCOUNTER 2021-01-10 09:11 | Observation (INO) | payer MEDICARE ==
[~2021-01-10] VITALS: Ht 172.7 cm; Wt 77.0 kg
[~2021-01-10 09:11] MED LIST changes: +BIOT1000 PO; +CENT1TAB PO; +FURO20TA2 PO; +HM V4000 PO; +LEVO250T12 PO; +POTA10CA32 PO; +VITA-158 PO; +ZINC220CA PO
--- NOTE | 2021-01-10 09:43 | ECGEPIP ---
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
--- NOTE | 2021-01-10 09:55 | REP ---
INDICATION: TRAUMA. COMPARISON: Comparison chest x-ray January 05, 2021.. TECHNIQUE: Sitting AP portable chest radiograph. FINDINGS: Monitoring electrodes are seen. Cardiomegaly is observed. The aorta is somewhat tortuous. There is no evidence of pneumothorax or hydrothorax. No definite infiltrate. The pleural angles are sharp. There are multiple rounded osteophytic bodies along the inferior margin and medial margin of the humeral head and glenohumeral articulation on the left consistent with intra-articular loose bodies. Osteoarthritic changes are seen in the right shoulder as well. IMPRESSION: Cardiomegaly. No active cardiopulmonary disease. Loose body suggested left shoulder. No traumatic abnormality seen. <Electronically signed by Duane Hogan > 01/10/21 [id number]
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
--- OUTSIDE RECORDS SUMMARY | 2021-01-10 09:56 | CCD | Continuity of Care Document ---
Author Author Reina SILVA Organization Unknown Address [address] [facility] [address] [place] [address] Phone [phone] Care Team Providers Care Field Broomer Name Role Phone Bren Silva DO AUTM Unavailable Chadwick Camarena M.D. AUTM [phone] Morgan Miller O.D. AUTM [phone] Rio Proctor MD AUTM [phone] [facility] Con[facility] AUTM [phone] Chadwick Camarena MD - Urology AUTM Arsalan Kenney OD AUTM [phone] Flaquito Hogue DPM AUTM [phone] Problems Description No Information Available Social History Type Date Description Comments Sex Unknown ETOH Use Denies alcohol use Tobacco Use Start: Unknown Patient has never smoked Allergies, Adverse Reactions, Alerts Active Allergies Reaction Severity Comments Date NKDA 03/04/2019 Latex hands peel 10/16/2017 Nickel hands peel 10/16/2017 Shrimp Edema 10/16/2017 Medications Active Medications SIG Qnty Indications Ordering Provide r Date Vitamin C 500mg Tablets 1 by mouth twice daily Bren Silva DO 12/25/2020 Lasix 20mg Tablets 1 p o every other day 30tabs Bren Silva DO 12/25/2020 Klor-Con Sprinkle 10Meq Capsules E R 1 by mouth daily. 30caps Bren Silva DO 10/23/2020 Shingrix 50mcg/0.5ML Suspension Re c administer 0.5 milliliters intramuscular, repeat in 2 to 6 months 2units Bren Silva,DO 06/11/2020 Vitamin D-3 1000Unit Capsules 4 by mouth every day Bren Silva,DO 03/04/2019 Biotin 1000mcg Chewtabs 1 by mouth qd prn Bren Silva DO 02/15/2018 Metformin HCL 500mg Tablets take 1 in am and 1 in pm 270tabs Bren SilvaDO 10/16/2017 Centrum Silver Tablets 1 by mouth everyday ( contains Vit D 1000mg) 30tabs Bren Silva,DO 10/16/2017 Magnesium 250mg Tablets 1 po qd prn constipation Bren Silva,DO 10/16/2017 History Medications Ciprofloxacin HCL 500mg Tablets one by mouth twice a day for 7 days 14tabs Bren Silva,DO - 12/25/2020 Levofloxacin 500mg Tablets one by mouth for 5 days 5tabs Bren Silva,DO 10/23/2020 - Lasix 20mg Tablets 2 by mouth every day for 3 days then once a day after that. 30tabs Bren almonte,DO 10/22/2020 - 12/25/2020 Immunizations CPT Code Status Date Vaccine Lot # [id number] Given 05/02/2016 Prevnar 13 U-Pneum Given 08/25/2012 Pneumococcal,Unspecified [id number] Given 07/11/2011 Zostavax [id number] Given 05/09/2010 Adacel- Tetanus Diphtheria P ertussis (Age64 & Under) 79189 Refused 11/03/2018 Influenza Virus Vaccine, Quadrivalent (Cciiv4), Derived From Cell [id number] Refused 10/16/2017 Influenza Vaccin e Quadrivalent Preser/Antibiotic Free Im Use Vital Signs Date Vital Result Comment 12/25/2020 2:19pm BP Systolic 136 mmHg RT Arm BP Diastolic 80 mmHg RT Arm Heart Rate 80 /min Height 68 inches 5'8" 10/22/2020 3:07pm BP Systolic 124 mmHg BP Diastolic 72 mmHg Heart Rate 88 /min Height 68 inches 5'8" Results Test Acquired Date Facility Test Result H/L Range Note Laboratory test finding 12/25/2020 [place] [address] [phone] Magnesium Level <pending> Thyroid Stimulating Hormone <pending> Basic Metabolic Profile 12/21/2020 [facility] [address] [place] [address] [phone] Glucose, Fasting 123 mg/dL High 70-100 Blood Urea Nitrogen 16 mg/dL Normal 7-18 Creatinine For GFR 0.78 mg/dL Normal 0.55-1.30 Glomerular Filtration Rate > 60.0 Normal >39 1 Sodium Level 143 mEq/L Normal 136-145 Potassium Serum 3.8 mEq/L Normal 3.5-5.1 Chloride Level 107 mEq/L Normal 98-107 Carbon Dioxide Level 32 mEq/L Normal 21-32 Anion Gap 4 mEq/L Low 8-16 Calcium Level 9.7 mg/dL Normal 8.8-10.2 A1c 12/21/2020 [facility] , Instructional Systems Design Consultant: Dr Tye Blanco [place], [place] [id number] [phone] Hba1c 6.9 % High <5.7 2 Est Avg Glucose 151 mg/dL High 60 - 110 Laboratory test finding 10/22/2020 [facility] [address] [id number] [phone] Urine Culture FULL REPORT IN L <SEE NOTE> Normal 3 Ua Dipstick Only 10/22/2020 [facility] Instructional Systems Design Consultant: [place] [address] [phone] Urine Color YELLOW Yellow Urine Appearance TURBID Abnormal Clear Urine PH 6.0 units 5.0 - 9.0 Urine Specific [place] 1.020 1.005 - 1.030 Urine Leukocytes LARGE Abnormal Negative Urine Blood LARGE Abnormal Negative Urine Protein 2+ Abnormal Negative -Trace Urine Glucose NEGATIVE mg/dL Negative Urine Nitrite POSITIVE Abnormal Negative Urine Ketone NEGATIVE mg/dL Negative Urine Bilirubin NEGATIVE Negative Urine Urobilinogen 0.2 mg/dL 0.2 - 1.0 Complete Blood Count 10/22/2020 [facility] Instructional Systems Design Consultant: [place] [address] [phone] WBC 9.1 x10*3/UL 4.1 - 10.9 RBC 4.13 x10*6/UL Low 4.20 - 6.30 Hemoglobin 12.2 g/dL 12.0 - 18.0 Hematocrit 35.3 % Low 37.0 - 51.0 MCV 85.6 fL 80.0 - 97.0 MCH 29.6 pg 26.0 - 32.0 MCHC 34.6 g/dL 31.0 - 38.0 RDW 13.2 % 11.6 - 13.7 PLT 308 x10*3/UL 140 - 440 MPV 9.4 FL 7.8 - 11.0 Lymph % 24.2 % 10.0 - 58.5 Mid % 6.2 % 1.7 - 9.3 Neut % 69.6 % 37.0 - 92.0 Lymph # 2.2 x10*3/UL 0.6 - 4.1 Mid # 0.6 x10*3/UL 0.1 - 0.6 Neut # 6.3 x10*3/UL 2.0 - 7.8 A1c 10/22/2020 [facility] , Instructional Systems Design Consultant: Dr Tye Blanco [place], [place] [id number] [phone] Hba1c 6.3 % High <5.7 4 Est Avg Glucose 134 mg/dL High 60 - 110 Comprehensive Chem Profile 10/22/2020 [facility], Instructional Systems Design Consultant: Dr Tye Blanco [place], [place] [id number] [phone] Glucose 131 mg/dL High 74 - 99 5 BUN 11 mg/dL 7 - 18 Creatinine 0.7 mg/dL 0.6 - 1.3 Sodium 144 mEq/L 136 - 145 Potassium 3.2 mEq/L Low 3.5 - 5.1 Chloride 106 mEq/L 98 - 107 Carbon Dioxide 27 mEq/L 21 - 32 Calcium 8.8 mg/dL 8.5 - 10.1 Alk. Phosphatase 100 mg/dL 46 - 116 Total Bilirubin 1.0 mg/dL 0.2 - 1.0 Ast (Sgot) 11 U/L Low 15 - 37 Alt (SGPT) 17 U/L 12 - 78 Albumin 3.7 g/dL 3.4 - 5.0 Total Protein 7.8 g/dL 6.4 - 8.2 A/G Ratio 0.90 CALC Low 1.00 - 1.90 GFR >= 60 mL/min >60 GFR >= 60 mL/min >60 6 Lipid Profile 10/22/2020 [facility] Instructional Systems Design Consultant: [place] [address] [phone] Cholesterol 167 mg/dL 131 - 200 Triglycerides 105 mg/dL 30 - 150 HDL Cholesterol 49 mg/dL 35 - 60 LDL (Calculated) 97 CALC 50 - 159 Laboratory test finding 10/22/2020 [facility] Instructional Systems Design Consultant: [place] [address] [phone] Magnesium 1.8 mg/dL 1.8 - 2.4 1 Units are mL/min/1.73 m2 Chronic Kidney Disease Staging per NKF: Stage I & II GFR >=60 Normal to Mildly Decreased Stage III GFR 30-59 Moderately Decreased Stage IV GFR 15-29 Severely Decreased Stage V GFR <15 Very Little GFR Left ESRD GFR <15 on PUBLIC HEALTH OFFICER 2 Lab Result Notes: Pre-Diabetes 5.7 - 6.4 % Diabetes = or > 6.5% 3 FULL REPORT IN LAB NOTES (eC W and Meddanny). ORGANISM 1: ESCHERICHIA COLI COLONY COUNT >100,000 ORGANISM 1: ESCHERICHIA COLI ESCHERICHIA COLI: REACTION TRIMETHOPRIM/SULFAMETHOXAZOLE IV 160mg TMP & 800mg SMXq6h <=20 S TRIMETHOPRIM/SULFAMETHOXAZOLE PO Bactrim DS Bid <=20 S AMPICILLIN IV 500mg q6h <=2 S AMPICILLIN PO 500mg q6h fasting <=2 S GENTAMICIN IV 80mg q8h <=1 S NITROFURANTOIN PO 100mg BID 32 S CEFAZOLIN IV 1gm q8h <=4 S LEVOFLOXACIN IV 500mg qd <=0.12 S LEVOFLOXACIN PO 250mg qd <=0.12 S LEVOFLOXACIN PO 500mg qd <=0.12 S TOBRAMYCIN IV 80mg q8h <=1 S CEFTRIAXONE IV 1gm q24h <=1 S CEFTAZIDIME IV 1gm q8h <=1 S AMPICILLIN/SULBACTAM IV 1.5g q6h <=2 S PIPERACILLIN/TAZOBACTAM IV 2.25 gm q6h <=4 S AZTREONAM IV 1gm q8h <=1 S ERTAPENEM IV 1gm qd <=0.5 S MEROPENEM IV 1 gm q8h <=0.25 S MEROPENEM IV 500 mg q8h <=0.25 S TIGECYCLINE IV 50mg q12h <=0.5 S CEFEPIME IV 1 gm q12h <=1 S CEFEPIME IV 2 gm q12h <=1 S EXTD BRD SPCTRM BETA LACTAMASE IV NEGATIVE FOR ESBL 4 Lab Result Notes: Pre-Diabetes 5.7 - 6.4 % Diabetes = or > 6.5% 5 100-125 mg/dL PRE-DIABET ES/FASTING >126 mg/dL DIABETES/FASTING 6 CHRONIC KIDNEY DISEASE STAGI NG PER NKF STAGE I & II GFR >= 60 NORMAL TO MILDLY DECREASED STAGE III GFR 30-59 MODERATELY DECREASED STAGE IV GFR 15-29 SEVERELY DECREASED STAGE V GFR <15 VERY LITTLE GFR LEFT ESRD GFR <15 ON PUBLIC HEALTH OFFICER Procedures Date Code Description Status 04/05/2019 [id number] Diabetic Foot Exam Completed 10/13/2018 [id number] Mammogram Completed 09/28/2017 [id number] Diabetic Retinal Eye Exam [facility] 12/12/2016 [id number] Diabetic Retinal Eye Exam [facility] 05/30/2016 [id number] Mammogram Completed Medical Devices Description No Information Available Encounters Type Date Location Provider Dx Diagnosis Office Visit 10/22/2020 2:45p [facility] Bren Silva , L04.3 Acute lymphadenitis of lower limb R29.6 Repeated falls R33.9 Retention of urine, unspecif ied I87.2 Venous insufficiency (chroni c) (peripheral) R60.0 Localized edema M48.061 Spinal stenosis, lumbar vincent on without neurogenic vivienne M48.02 Spinal stenosis, cervical re gion E11.9 Type 2 diabetes mellitus wit hout complications Z89.512 Acquired absence of left leg below knee E78.5 Hyperlipidemia, unspecified E87.6 Hypokalemia Assessments Date Code Description Provider 12/25/2020 I87.2 Venous insufficiency (chronic) ( peripheral) Bren Silva DO 12/25/2020 Z89.512 Acquired absence of left leg bel ow knee Bren Silva DO 12/25/2020 E11.9 Type 2 diabetes mellitus without complications Bren Silva DO 12/25/2020 R29.6 Repeated falls Bren Silva DO 12/25/2020 R33.9 Retention of urine, unspecified Bren Silva DO 12/25/2020 M48.061 [facility] Bren Silva,DO 12/25/2020 M48.02 Spinal stenosis, cervical region Bren Silva,DO 12/25/2020 E83.42 Hypomagnesemia Bren Silva,DO 12/25/2020 R00.2 Palpitations Bren Silva,DO 12/21/2020 E11.9 Type 2 diabetes mellitus without complications Bren Silva,DO 12/21/2020 E11.9 Type 2 diabetes mellitus without complications Lab Schedule 10/22/2020 L04.3 Acute lymphadenitis of lower doll b Bren Silva,DO 10/22/2020 R29.6 Repeated falls Bren Silva,DO 10/22/2020 R33.9 Retention of urine, unspecified Brenromario Silva,DO 10/22/2020 I87.2 Venous insufficiency (chronic) ( peripheral) Bren Silva,DO 10/22/2020 R60.0 Localized edema Bren Silva,DO 10/22/2020 M48.061 Spinal stenosis, lumbar region w [facility] neurogenic claudicati Bren Silva,DO 10/22/2020 M48.02 Spinal stenosis, cervical region Bren Silva,DO 10/22/2020 E11.9 Type 2 diabetes mellitus without complications Bren Silva,DO 10/22/2020 Z89.512 Acquired absence of left leg bel ow knee Bren Silva,DO 10/22/2020 E78.5 Hyperlipidemia, unspecified Casa Silva,DO 10/22/2020 E87.6 Hypokalemia Bren Sivla DO Plan of Treatment Future Appointment(s):* 07/01/2021 10:20 am - Bren Silva DO at [facility] 12/25/2020 - Bren SilvaDO* I87.2 Venous insufficiency (chronic) (peripheral) * Z89.512 Acquired absence of left leg below knee * E11.9 Type 2 diabetes mellitus without complications * R29.6 Repeated falls * R33.9 Retention of urine, unspecified * M48.061 Spinal stenosis, lumbar region without neurogenic claudicati * M48.02 Spinal stenosis, cervical region * E83.42 Hypomagnesemia * R00.2 Palpitations * All * New Medication:* Vitamin C 500 mg - 1 by mouth twice daily * Lasix 20 mg - 1 po every other day Functional Status Description No Information Available Mental Status Description No Information Available Referrals Description No Information Available
--- OUTSIDE RECORDS SUMMARY | 2021-01-10 09:56 | CCD | Continuity of Care Document ---
Author Author Reina SILVA Organization Unknown Address [address] [facility] [address] [place] [address] Phone [phone] Care Team Providers Care Assistant Professor Of Dietetics Name Role Phone Bren Silva DO AUTM Unavailable Chadwick Camarena M.D. AUTM [phone] Morgan Miller O.D. AUTM [phone] Rio Proctor MD AUTM [phone] [facility] Concussion Program AUTM Chadwick Camarena MD - Urology AUTM Arsalan Kenney OD AUTM [phone] Flaquito Hogue DPM AUTM [phone] Problems Description No Information Available Social History [...] Capsules 4 by mouth every day Bren Silva, 03/04/2019 Biotin 1000mcg Chewtabs 1 by mouth qd prn Bren Silva DO 02/15/2018 Metformin HCL 500mg Tablets take 1 in am and 1 in pm 270tabs Bren Silva,DO 10/16/2017 Centrum Silver Tablets 1 by mouth everyday ( contains Vit D 1000mg) 30tabs Bren Silva,DO 10/16/2017 Magnesium 250mg Tablets 1 po qd prn constipation Bren Silva,DO 10/16/2017 History Medications Ciprofloxacin HCL 500mg Tablets one by mouth twice a day for 7 days 14tabs Bren Silva,DO - 12/25/2020 Levofloxacin 500mg Tablets one by mouth for 5 days 5tabs Bren SilvaDO 10/23/2020 - Lasix 20mg Tablets 2 by mouth every day for 3 days then once a day after that. 30tabs Bren almonteDO 10/22/2020 - 12/25/2020 Immunizations CPT Code Status Date Vaccine Lot # U-PneuC Given 05/02/2016 Prevnar 13 U-Pneum Given 08/25/2012 Pneumococcal,Unspecified [id number] Given 07/11/2011 Zostavax [id number] Given 05/09/2010 Adacel- Tetanus Diphtheria P ertussis (Age64 & Under) 23265 Refused 11/03/2018 Influenza Virus Vaccine, Quadrivalent (Cciiv4), Derived From Cell 92881 Refused 10/16/2017 Influenza Vaccin e Quadrivalent Preser/Antibiotic [...] Date Facility Test Result H/L Range Note Basic Metabolic Profile 12/21/[address] [id number] [phone] Glucose, Fasting 123 mg/dL High 70-100 Blood [...] 8-16 Calcium Level 9.7 mg/dL Normal 8.8-10.2 Laboratory test finding 12/21/2020 [facility] [address] [place] [address] [phone] Magnesium Level 2.0 mg/dL Normal 1.8-2.4 Thyroid Stimulating Hormone 1.580 uIU/ML Normal 0.358-3.740 A1c 12/21/2020 [facility] , Magazine Designer: [place] [address] [phone] Hba1c 6.9 % High <5.7 2 Est Avg Glucose 151 mg/dL High 60 - 110 Laboratory test finding 10/22/[address] [address] [phone] Urine Culture FULL REPORT IN L <SEE NOTE> Normal 3 Ua Dipstick Only 10/22/2020 [facility] Magazine Designer: [place] [address] [phone] Urine Color YELLOW Yellow Urine Appearance TURBID Abnormal Clear Urine PH 6.0 units 5.0 - 9.0 Urine Specific Ryan 1.020 1.005 - 1.030 Urine Leukocytes LARGE Abnormal Negative Urine Blood LARGE Abnormal Negative Urine Protein 2+ Abnormal Negative -Trace Urine Glucose NEGATIVE mg/dL Negative Urine Nitrite POSITIVE Abnormal Negative Urine Ketone NEGATIVE mg/dL Negative Urine Bilirubin NEGATIVE Negative Urine Urobilinogen 0.2 mg/dL 0.2 - 1.0 Complete Blood Count 10/22/2020 [facility] Magazine Designer: [place] [address] [phone] WBC 9.1 x10*3/UL 4.1 - 10.9 RBC [...] 6.3 x10*3/UL 2.0 - 7.8 A1c 10/22/2020 [facility] , Magazine Designer: [place] [address] [phone] Hba1c 6.3 % High <5.7 4 Est Avg Glucose 134 mg/dL High 60 - 110 Comprehensive Chem Profile 10/22/2020 [facility], Magazine Designer: [place] [address] [phone] Glucose 131 mg/dL High 74 - 99 [...] 60 mL/min >60 6 Lipid Profile 10/22/2020 [facility] Magazine Designer: [place] [address] [phone] Cholesterol 167 mg/dL 131 - 200 Triglycerides 105 mg/dL 30 - 150 HDL Cholesterol 49 mg/dL 35 - 60 LDL (Calculated) 97 CALC 50 - 159 Laboratory test finding 10/22/2020 [facility] Magazine Designer: Dr Tye [place] [id number] [phone] Magnesium 1.8 mg/dL 1.8 - 2.4 1 Units are mL/min/1.73 m2 Chronic Kidney Disease Staging per NKF: Stage I & II GFR >=60 Normal to Mildly Decreased Stage III GFR 30-59 Moderately Decreased Stage IV GFR 15-29 Severely Decreased Stage V GFR <15 Very Little GFR Left ESRD GFR <15 on DRILL IN[employer]CTOR 2 Lab Result Notes: Pre-Diabetes 5.7 - [...] LITTLE GFR LEFT ESRD GFR <15 ON [employer] IN[employer] Procedures Date Code Description Status 04/05/2019 [id number] Diabetic Foot Exam Completed 10/13/2018 [id number] Mammogram Completed 09/28/2017 [id number] Diabetic Retinal Eye Exam [facility] 12/12/2016 [id number] Diabetic Retinal Eye Exam [facility] 05/30/2016 [id number] Mammogram Completed Medical Devices Description No Information Available Encounters Type Date Location Provider Dx Diagnosis Office Visit 12/25/2020 2:30p [facility] DO I87.2 Venous insufficiency (chronic) (peripheral) Z89.512 Acquired absence of left leg below knee E11.9 Type 2 diabetes mellitus wit hout complications R29.6 Repeated falls R33.9 Retention of urine, unspecif ied M48.061 Spinal stenosis, lumbar vincent on without neurogenic vivienne M48.02 Spinal stenosis, cervical re gion E83.42 Hypomagnesemia R00.2 Palpitations E03.9 Hypothyroidism, unspecified Office Visit 10/22/2020 2:45p [facility] DO L04.3 Acute lymphadenitis of lower limb R29.6 [...] Venous insufficiency (chronic) ( peripheral) Bren Silva,DO 12/25/2020 Z89.512 Acquired absence of left leg bel ow knee Bren Silva,DO 12/25/2020 E11.9 Type 2 diabetes mellitus without complications Bren Silva,DO 12/25/2020 R29.6 Repeated falls Bren Gisselle,DO 12/25/2020 R33.9 Retention of urine, unspecified Bren Gisselle,DO 12/25/2020 M48.061 Spinal stenosis, [facility] w [facility] neurogenic claudicati Bren Silva,DO 12/25/2020 M48.02 Spinal stenosis, cervical region Bren Gisselle,DO 12/25/2020 E83.42 Hypomagnesemia Bren Silva,DO 12/25/2020 R00.2 Palpitations Bren Silva,DO 12/25/2020 E03.9 Hypothyroidism, unspecified Casa romario Gisselle,DO 12/21/2020 E11.9 Type 2 diabetes mellitus without complications Bren Silva,DO 12/21/2020 E11.9 Type 2 diabetes mellitus without complications Lab Schedule 10/22/2020 L04.3 Acute lymphadenitis of lower doll b Bren Silva,DO 10/22/2020 R29.6 Repeated falls Bren Jorgegs,DO 10/22/2020 R33.9 Retention of urine, unspecified Bren Gisselle,DO 10/22/2020 I87.2 Venous insufficiency (chronic) ( peripheral) Bren Gisselle,DO 10/22/2020 R60.0 Localized edema Bren Silva,DO 10/22/2020 M48.061 Spinal stenosis, lumbar region w ithout neurogenic claudicati Bren Gisselle,DO 10/22/2020 M48.02 Spinal stenosis, cervical region Bren Gisselle,DO 10/22/2020 E11.9 Type 2 diabetes mellitus without complications Bren Gisselle,DO 10/22/2020 Z89.512 Acquired absence of left leg bel ow knee Bren Jorgegs,DO 10/22/2020 E78.5 Hyperlipidemia, unspecified Casa a Gisselle,DO 10/22/2020 E87.6 Hypokalemia Bren Silva DO Plan of Treatment Future Appointment(s):* 07/01/2021 10:00 am - Nurse #2 at [facility] * 07/01/2021 10:20 am - Bren Silva DO at [facility] 12/25/2020 - Bren Silva DO* I87.2 Venous insufficiency (chronic) (peripheral) * Z89.512 Acquired absence of left leg below knee * E11.9 Type 2 diabetes mellitus without complications * R29.6 Repeated falls * R33.9 Retention of urine, unspecified * M48.061 Spinal stenosis, lumbar region without neurogenic claudicati * M48.02 Spinal stenosis, cervical region * E83.42 Hypomagnesemia * R00.2 Palpitations * E03.9 Hypothyroidism, unspecified * All * New Medication:* Vitamin C 500 mg - 1 by mouth twice daily * Lasix 20 mg - 1 po every other day Functional Status Description No Information Available Mental Status Description No Information Available Referrals Description No Information Available
--- OUTSIDE RECORDS SUMMARY | 2021-01-10 09:56 | CCD | Continuity of Care Document ---
Author Author Lab Schedule, Reina Desai Organization Unknown Address [address] [address] Phone Unavailable Care Team Providers Care Venetian Blind Cleaner Name Role Phone Bren Pitts DO AUTM Unavailable Chadwick Camarena M.D. AUTM [phone] Morgan Miller O.D. AUTM [phone] Rio Proctor MD AUTM [phone] [facility] Concussion Program AUTM Chadwick Camarena MD - Urology AUTM [phone] Arsalan Kenney OD AUTM [phone] Flaquito Hogue DPM AUTM [phone] Problems Description No Information Available Social History Type Date Description Comments Sex Unknown ETOH Use Denies alcohol use Tobacco Use Start: Unknown Patient has never smoked Allergies, Adverse Reactions, Alerts Active Allergies Reaction Severity Comments Date NKDA 03/04/2019 Latex hands peel 10/16/2017 Nickel hands peel 10/16/2017 Shrimp Edema 10/16/2017 Medications Active Medications SIG Qnty Indications Ordering Provide r Date Ciprofloxacin HCL 500mg Tablets one by mouth twice a day for 7 days 14tabs Bren Pitts DO Klor-Con Sprinkle 10Meq Capsules E R 1 by mouth daily. 30caps Bren Pitts DO 10/23/2020 Lasix 20mg Tablets 2 by mouth every day for 3 days then once a day after that. 30tabs Bren almonte DO 10/22/2020 Shingrix 50mcg/0.5ML Suspension Re c administer 0.5 milliliters intramuscular, repeat in 2 to 6 months 2units Bren Pitts DO 06/11/[address] 1 by mouth daily Bren Pitts DO 03/04/2019 Vitamin D-3 1000Unit Capsules 3 by mouth every day Bren Pitts DO 03/04/2019 Biotin 1000mcg Chewtabs 1 by mouth qd prn Bren Pitts DO 02/15/2018 Metformin HCL 500mg Tablets take 1 in am and 1 in pm 270tabs Bren Pitts DO 10/16/2017 Centrum Silver Tablets 1 by mouth everyday ( contains Vit D 1000mg) 30tabs Bren Pitts DO 10/16/2017 Magnesium 250mg Tablets 1 po qd prn ( uses for a laxative ) Bren Pitts DO 10/16/2017 History Medications Levofloxacin 500mg Tablets one by mouth for 5 days 5tabs Bren Pitts DO 10/23/2020 - Immunizations CPT Code Status Date Vaccine Lot # [id number] Given 05/02/2016 Prevnar 13 U-Pneum Given 08/25/2012 Pneumococcal,Unspecified 72382 Given 07/11/2011 Zostavax 51208 Given 05/09/2010 Adacel- Tetanus Diphtheria P ertussis (Age64 & Under) 43680 Refused 11/03/2018 Influenza Virus Vaccine, Quadrivalent (Cciiv4), Derived From Cell 00289 Refused 10/16/2017 Influenza Vaccin e Quadrivalent Preser/Antibiotic Free Im Use Vital Signs Date Vital Result Comment 10/22/2020 3:07pm BP Systolic 124 mmHg BP Diastolic 72 mmHg Heart Rate 88 /min Height 68 inches 5'8" 06/11/2020 1:45pm BP Systolic 120 mmHg BP Diastolic 70 mmHg Height 68 inches 5'8" Weight 183.50 lb BMI (Body Mass Index) 27.9 kg/m2 Results Test Acquired Date Facility Test Result H/L Range Note Laboratory test finding 12/21/2020 [facility] beatrice lee Reservations Agent: Dr Tye Blanco [place], [place] [id number] [phone] A1c <pending> Laboratory test finding 10/22/2020 [facility] [address] [place], [place] [id number] [phone] Urine Culture FULL REPORT IN L <SEE NOTE> Normal 1 Ua Dipstick Only 10/22/2020 [facility] , Reservations Agent: [place] [address] [phone] Urine Color YELLOW Yellow Urine Appearance TURBID Abnormal Clear Urine PH 6.0 units 5.0 - 9.0 Urine Specific [place] 1.020 1.005 - 1.030 Urine Leukocytes LARGE Abnormal Negative Urine Blood LARGE Abnormal Negative Urine Protein 2+ Abnormal Negative -Trace Urine Glucose NEGATIVE mg/dL Negative Urine Nitrite POSITIVE Abnormal Negative Urine Ketone NEGATIVE mg/dL Negative Urine Bilirubin NEGATIVE Negative Urine Urobilinogen 0.2 mg/dL 0.2 - 1.0 Complete Blood Count 10/22/2020 [facility], Reservations Agent: Dr Tye [place] [address] [phone] WBC 9.1 x10*3/UL 4.1 - 10.9 RBC [...] 6.3 x10*3/UL 2.0 - 7.8 A1c 10/22/2020 [facility] , Reservations Agent: [place] [address] [phone] Hba1c 6.3 % High <5.7 2 Est Avg Glucose 134 mg/dL High 60 - 110 Comprehensive Chem Profile 10/22/2020 [facility] Reservations Agent: [place] [address] [phone] Glucose 131 mg/dL High 74 - 99 3 BUN 11 mg/dL 7 - 18 Creatinine [...] mL/min >60 GFR >= 60 mL/min >60 4 Lipid Profile 10/22/2020 [facility] Reservations Agent: [place] [address] [phone] Cholesterol 167 mg/dL 131 - 200 Triglycerides 105 mg/dL 30 - 150 HDL Cholesterol 49 mg/dL 35 - 60 LDL (Calculated) 97 CALC 50 - 159 Laboratory test finding 10/22/2020 [facility] Reservations Agent: [place] [address] [phone] Magnesium 1.8 mg/dL 1.8 - 2.4 1 FULL REPORT IN LAB NOTES (eC W and Medent). ORGANISM 1: ESCHERICHIA COLI COLONY COUNT >100,000 [...] SPCTRM BETA LACTAMASE IV NEGATIVE FOR ESBL 2 Lab Result Notes: Pre-Diabetes 5.7 - 6.4 % Diabetes = or > 6.5% 3 100-125 mg/dL PRE-DIABET ES/FASTING >126 mg/dL DIABETES/FASTING 4 CHRONIC KIDNEY DISEASE STAGI NG PER NKF STAGE I & II GFR >= 60 NORMAL TO MILDLY DECREASED STAGE III GFR 30-59 MODERATELY DECREASED STAGE IV GFR 15-29 SEVERELY DECREASED STAGE V GFR <15 VERY LITTLE GFR LEFT ESRD GFR <15 ON FOREST BOTANY INSTRUCTOR Procedures Date Code Description Status 04/05/2019 [id number] Diabetic Foot Exam Completed 10/13/2018 [id number] Mammogram Completed 09/28/2017 [id number] Diabetic Retinal Eye Exam [facility] 12/12/2016 [id number] Diabetic Retinal Eye Exam [facility] 05/30/2016 [id number] Mammogram Completed Medical Devices Description No Information Available Encounters Type Date Location Provider Dx Diagnosis Office Visit 10/22/2020 2:45p [facility] Bren Pitts DO L04.3 Acute lymphadenitis of lower limb [...] E87.6 Hypokalemia Assessments Date Code Description Provider 10/22/2020 L04.3 Acute lymphadenitis of lower doll b Bren Gisselle,DO 10/22/2020 R29.6 Repeated falls Brenromario Pitts,DO 10/22/2020 R33.9 Retention of urine, unspecified Bren Pitts,DO 10/22/2020 I87.2 Venous insufficiency (chronic) ( peripheral) Bren Pitts,DO 10/22/2020 R60.0 Localized edema Brenromario Pitts,DO 10/22/2020 M48.061 Spinal stenosis, lumbar region w ithout neurogenic claudicati Bren Pitts,DO 10/22/2020 M48.02 Spinal stenosis, cervical region Bren Pitts,DO 10/22/2020 E11.9 Type 2 diabetes mellitus without complications Brenromario Pitts,DO 10/22/2020 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 10/22/2020 - Bren Pitts DO* L04.3 Acute lymphadenitis of lower limb * R29.6 Repeated falls * R33.9 Retention of urine, unspecified * I87.2 Venous insufficiency (chronic) (peripheral) * R60.0 Localized edema * M48.061 Spinal stenosis, lumbar region without neurogenic claudicati * M48.02 Spinal stenosis, cervical region * E11.9 Type 2 diabetes mellitus without complications * Z89.512 Acquired absence of left leg below knee * E78.5 Hyperlipidemia, unspecified * E87.6 Hypokalemia * All * New Medication:* Lasix 20 mg - 2 by mouth every day for 3 days then once a day after that. Functional Status Description No Information Available Mental Status Description No Information Available Referrals Description No Information Available
--- OUTSIDE RECORDS SUMMARY | 2021-01-10 09:56 | CCD | Continuity of Care Document ---
Author Author Lab Schedule, Reina Desai Organization Unknown Address [address] [address] Phone Unavailable Care Team Providers Care Financial Accounting Analyst Name Role Phone Bren Pitts DO AUTM Unavailable Chadwick Camarena M.D. AUTM [phone] Morgan Miller O.D. AUTM [phone] Rio Proctor MD AUTM [phone] [facility] Concussion Program AUTM Chadwick Camarena MD - Urology AUTM Arsalan Kenney OD AUTM [phone] Flaquito Hogue DPM AUTM [phone] Problems Description No Information Available Social History [...] Tablets 1 by mouth twice daily Bren Pitts DO 12/25/2020 Lasix 20mg Tablets 1 p o every other day 30tabs Bren Pitts DO 12/25/2020 Klor-Con Sprinkle 10Meq Capsules E R 1 by mouth daily. 30caps Bren Pitts DO 10/23/2020 Shingrix 50mcg/0.5ML Suspension Re c administer 0.5 milliliters intramuscular, repeat in 2 to 6 months 2units Bren Pitts DO 06/11/2020 Vitamin D-3 1000Unit Capsules 4 by mouth every day Bren Pitts,DO 03/04/2019 Biotin 1000mcg Chewtabs 1 by mouth qd prn Bren Pitts,DO 02/15/2018 Metformin HCL 500mg Tablets take 1 in am and 1 in pm 270tabs Bren Pitts,DO 10/16/2017 Centrum Silver Tablets 1 by mouth everyday ( contains Vit D 1000mg) 30tabs Bren Pitts,DO 10/16/2017 Magnesium 250mg Tablets 1 po qd prn constipation Bren Pitts,DO 10/16/2017 History Medications Ciprofloxacin HCL 500mg Tablets one by mouth twice a day for 7 days 14tabs Bren Pitts,DO - 12/25/2020 Levofloxacin 500mg Tablets one by mouth for 5 days 5tabs Bren Pitts,DO 10/23/2020 - Lasix 20mg Tablets 2 by mouth every day for 3 days then once a day after that. 30tabs Bren almonte,DO 10/22/2020 - 12/25/2020 Immunizations CPT Code Status Date Vaccine Lot # U-PneuC Given 05/02/2016 Prevnar 13 U-Pneum Given 08/25/2012 Pneumococcal,Unspecified 34840 Given 07/11/2011 Zostavax 89823 Given 05/09/2010 Adacel- Tetanus Diphtheria P ertussis (Age64 & Under) 50049 Refused 11/03/2018 Influenza Virus Vaccine, Quadrivalent (Cciiv4), Derived From Cell 21416 Refused 10/16/2017 Influenza Vaccin e Quadrivalent Preser/Antibiotic [...] H/L Range Note Basic Metabolic Profile 12/21/[address] [address] [phone] Glucose, Fasting 123 mg/dL High 70-100 Blood [...] mg/dL Normal 8.8-10.2 Laboratory test finding 12/21/2020 [facility] [address] [place] [address] [phone] Magnesium Level 2.0 mg/dL Normal 1.8-2.4 Thyroid Stimulating Hormone 1.580 uIU/ML Normal 0.358-3.740 A1c 12/21/2020 [facility] Meat Inspector: Dr Tye Blanco [place] [id number] [phone] Hba1c 6.9 % High <5.7 2 Est Avg Glucose 151 mg/dL High 60 - 110 Laboratory test finding 10/22/2020 [place] [address] [place] [id number] [phone] Urine Culture FULL REPORT IN L <SEE NOTE> Normal 3 Ua Dipstick Only 10/22/2020 [facility] , Meat Inspector: [place] [address] [phone] Urine Color YELLOW Yellow Urine Appearance TURBID Abnormal Clear Urine PH 6.0 units 5.0 - 9.0 Urine Specific [place] 1.020 1.005 - 1.030 Urine Leukocytes LARGE Abnormal Negative Urine Blood LARGE Abnormal Negative Urine Protein 2+ Abnormal Negative -Trace Urine Glucose NEGATIVE mg/dL Negative Urine Nitrite POSITIVE Abnormal Negative Urine Ketone NEGATIVE mg/dL Negative Urine Bilirubin NEGATIVE Negative Urine Urobilinogen 0.2 mg/dL 0.2 - 1.0 Complete Blood Count 10/22/2020 [facility] Meat Inspector: [place] [address] [phone] WBC 9.1 x10*3/UL 4.1 - 10.9 RBC [...] 6.3 x10*3/UL 2.0 - 7.8 A1c 10/22/2020 [facility] , Meat Inspector: [place] [address] [phone] Hba1c 6.3 % High <5.7 4 Est Avg Glucose 134 mg/dL High 60 - 110 Comprehensive Chem Profile 10/22/2020 [facility], Meat Inspector: [place] [address] [phone] Glucose 131 mg/dL High 74 - 99 [...] 60 mL/min >60 6 Lipid Profile 10/22/2020 [facility] Meat Inspector: [place] [address] [phone] Cholesterol 167 mg/dL 131 - 200 Triglycerides 105 mg/dL 30 - 150 HDL Cholesterol 49 mg/dL 35 - 60 LDL (Calculated) 97 CALC 50 - 159 Laboratory test finding 10/22/2020 [facility] Meat Inspector: [place] [address] [phone] Magnesium 1.8 mg/dL 1.8 - 2.4 1 Units are mL/min/1.73 m2 Chronic Kidney Disease Staging per NKF: Stage I & II GFR >=60 Normal to Mildly Decreased Stage III GFR 30-59 Moderately Decreased Stage IV GFR 15-29 Severely Decreased Stage V GFR <15 Very Little GFR Left ESRD GFR <15 on MIXOLOGIST 2 Lab Result Notes: Pre-Diabetes 5.7 - [...] LITTLE GFR LEFT ESRD GFR <15 ON MIXOLOGIST Procedures Date Code Description Status 04/05/2019 [id number] Diabetic Foot Exam Completed 10/13/2018 [id number] Mammogram Completed 09/28/2017 [id number] Diabetic Retinal Eye Exam [facility] 12/12/2016 [id number] Diabetic Retinal Eye Exam [facility] 05/30/2016 [id number] Mammogram Completed Medical Devices Description No Information Available Encounters Type Date Location Provider Dx Diagnosis Office Visit 10/22/2020 2:45p [facility] 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 Bren Pitts DO 12/25/2020 E11.9 Type 2 diabetes mellitus without complications Bren Pitts DO 12/25/2020 R29.6 Repeated falls Bren Pitts DO 12/25/2020 R33.9 Retention of urine, unspecified Bren Pitts DO 12/25/2020 M48.061 Spinal stenosis, lumbar region w ithout neurogenic claudicati Bren Pitts,DO 12/25/2020 M48.02 Spinal stenosis, cervical region Bren Pitts,DO 12/25/2020 E83.42 Hypomagnesemia Bren Pitts,DO 12/25/2020 R00.2 Palpitations Bren Pitts,DO 12/21/2020 E11.9 Type 2 diabetes mellitus without complications Bren Pitts,DO 12/21/2020 E11.9 Type 2 diabetes mellitus without complications Lab Schedule 10/22/2020 L04.3 Acute lymphadenitis of lower doll b Bren Pitts,DO 10/22/2020 R29.6 Repeated falls Bren Pitts,DO 10/22/2020 R33.9 Retention of urine, unspecified Bren Pitts,DO 10/22/2020 I87.2 Venous insufficiency (chronic) ( peripheral) Bren Pitts,DO 10/22/2020 R60.0 Localized edema Bren Pitts,DO 10/22/2020 M48.061 Spinal stenosis, lumbar region w ithout neurogenic claudicati Bren Pitts,DO 10/22/2020 M48.02 Spinal stenosis, cervical region Bren Pitts,DO 10/22/2020 E11.9 Type 2 diabetes mellitus without complications Bren Pitts,DO 10/22/2020 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 * 07/01/2021 10:20 am - Bren Pitts DO at [facility] 12/25/2020 - Bren Pitts DO* I87.2 Venous insufficiency (chronic) (peripheral) * [...]
--- OUTSIDE RECORDS SUMMARY | 2021-01-10 09:56 | CCD | Continuity of Care Document ---
Author Author Lab Schedule, Reina Desai Organization Unknown Address [address] [address] Phone Unavailable Care Team Providers Care Hand Plug Shaper Name Role Phone Bren Pitts DO AUTM Unavailable Chadwick Camarena M.D. AUTM [phone] Morgan Miller O.D. AUTM [phone] Rio Proctor MD AUTM [phone] [facility] Concussion Program AUTM Chadwick Camarena MD - Urology AUTM Arsalan Kenney OD AUTM [phone] Flaquito Hogue DPM AUTM [phone] Problems Description No Information Available Social History [...] 05/02/2016 Prevnar 13 U-Pneum Given 08/25/2012 Pneumococcal,Unspecified 96974 Given 07/11/2011 Zostavax 30685 Given 05/09/2010 Adacel- Tetanus Diphtheria P ertussis (Age64 & Under) 52649 Refused 11/03/2018 Influenza Virus Vaccine, Quadrivalent (Cciiv4), Derived From Cell 63964 Refused 10/16/2017 Influenza Vaccin e Quadrivalent Preser/Antibiotic [...] H/L Range Note Laboratory test finding 12/21/2020 [facility] beatrice lee Eligibility Worker: Dr Tye Blanco [place], [place] [id number] [phone] A1c <pending> Laboratory test finding 10/22/2020 [facility] [address] [place], [place] [id number] [phone] Urine Culture FULL REPORT IN L <SEE NOTE> Normal 1 Ua Dipstick Only 10/22/2020 [facility] , Eligibility Worker: [place] [address] [phone] Urine Color YELLOW Yellow Urine Appearance TURBID Abnormal Clear Urine PH 6.0 units 5.0 - 9.0 Urine Specific [place] 1.020 1.005 - 1.030 Urine Leukocytes LARGE Abnormal Negative Urine Blood LARGE Abnormal Negative Urine Protein 2+ Abnormal Negative -Trace Urine Glucose NEGATIVE mg/dL Negative Urine Nitrite POSITIVE Abnormal Negative Urine Ketone NEGATIVE mg/dL Negative Urine Bilirubin NEGATIVE Negative Urine Urobilinogen 0.2 mg/dL 0.2 - 1.0 Complete Blood Count 10/22/2020 [facility], Eligibility Worker: [place] [address] [phone] WBC 9.1 x10*3/UL 4.1 - 10.9 RBC [...] 6.3 x10*3/UL 2.0 - 7.8 A1c 10/22/2020 [facility] , Eligibility Worker: [place] [address] [phone] Hba1c 6.3 % High <5.7 2 Est Avg Glucose 134 mg/dL High 60 - 110 Comprehensive Chem Profile 10/22/2020 [facility] Eligibility Worker: [place] [address] [phone] Glucose 131 mg/dL High 74 - 99 [...] 60 mL/min >60 4 Lipid Profile 10/22/2020 [facility] Eligibility Worker: [place] [address] [phone] Cholesterol 167 mg/dL 131 - 200 Triglycerides 105 mg/dL 30 - 150 HDL Cholesterol 49 mg/dL 35 - 60 LDL (Calculated) 97 CALC 50 - 159 Laboratory test finding 10/22/2020 [facility] Eligibility Worker: [place] [address] [phone] Magnesium 1.8 mg/dL 1.8 - 2.4 1 [...] LITTLE GFR LEFT ESRD GFR <15 ON PROTECTIVE SIGNAL SUPERINTENDENT Procedures Date Code Description Status 04/05/2019 [id number] Diabetic Foot Exam Completed 10/13/2018 [id number] Mammogram Completed 09/28/2017 [id number] Diabetic Retinal Eye Exam [facility] 12/12/2016 [id number] Diabetic Retinal Eye Exam [facility] 05/30/2016 [id number] Mammogram Completed Medical Devices Description No Information Available Encounters Type Date Location Provider Dx Diagnosis Office Visit 10/22/2020 2:45p [facility] Bren Pitts DO L04.3 Acute [...] Pitts,DO 10/22/2020 R33.9 Retention of urine, unspecified rBen Pitts,DO 10/22/2020 I87.2 Venous insufficiency (chronic) ( [...] 2:30 pm - Bren Pitts DO at [facility] 10/22/2020 - Bren Pitts DO* [...]
--- OUTSIDE RECORDS SUMMARY | 2021-01-10 09:57 | CCD | Continuity of Care Document ---
Author Author Reina SILVA Organization Unknown Address [address] [facility] [address] [place] [address] Phone [phone] Care Team Providers Care Parts Cleaner Name Role Phone Bren Silva DO AUTM Unavailable Chadwick Camarena M.D. AUTM [phone] Morgan Miller O.D. AUTM [phone] Rio Proctor MD AUTM [phone] [facility] AUTM [phone] Chadwick Camarena MD - Urology AUTM Arsalan Kenney OD AUTM [phone] Flaquito Hogue DPM AUTM [phone] Problems Description No Information Available Social History Type Date Description Comments Sex Unknown ETOH Use Denies alcohol use Tobacco Use Start: Unknown Patient has never smoked Allergies, Adverse Reactions, Alerts Active Allergies Reaction Severity Comments Date NKDA 03/04/2019 Latex hands peel 10/16/2017 Nickel hands peel 10/16/2017 Shrimp Edema 10/16/2017 Medications Active Medications SIG Qnty Indications Ordering Provide r Date Klor-Con Sprinkle 10Meq Capsules E R 2 by mouth daily. 60caps Bren Silva DO 10/23/2020 Levofloxacin 500mg Tablets one by mouth for 5 days 5tabs Bren Silva DO 10/23/2020 Lasix 20mg Tablets 2 by mouth every day for 3 days then once a day after that. 30tabs Bren almonte DO 10/22/2020 Shingrix 50mcg/0.5ML Suspension Re c administer 0.5 milliliters intramuscular, repeat in 2 to 6 months 2units Bren Silva DO 06/11/[address] 1 by mouth daily Bren Silva DO 03/04/2019 Vitamin D-3 1000Unit Capsules 3 by mouth every day Bren Silva DO 03/04/2019 Biotin 1000mcg Chewtabs 1 by mouth qd prn Bren Silva DO 02/15/2018 Metformin HCL 500mg Tablets take 1 in am and 1 in pm 270tabs Bren Silva DO 10/16/2017 Centrum Silver Tablets 1 by mouth everyday ( contains Vit D 1000mg) 30tabs Bren Silva DO 10/16/2017 Magnesium 250mg Tablets 1 po qd prn ( uses for a laxative ) Bren Silva DO 10/16/2017 Immunizations CPT Code Status Date Vaccine Lot # U-PneuC Given 05/02/2016 Prevnar 13 U-Pneum Given 08/25/2012 Pneumococcal,Unspecified [id number] Given 07/11/2011 Zostavax 14420 Given 05/09/2010 Adacel- Tetanus Diphtheria P ertussis (Age64 & Under) 18629 Refused 11/03/2018 Influenza Virus Vaccine, Quadrivalent (Cciiv4), Derived From Cell [id number] Refused 10/16/2017 Influenza Vaccin e Quadrivalent Preser/Antibiotic [...] Result H/L Range Note Laboratory test finding 10/22/2020 [facility] [address] [place] [address] [phone] Urine Culture <pending> Ua Dipstick Only 10/22/2020 [facility] Terrazzo Polisher Helper: [place] [address] [phone] Urine Color YELLOW Yellow Urine Appearance TURBID Abnormal Clear Urine PH 6.0 units 5.0 - 9.0 Urine Specific [place] 1.020 1.005 - 1.030 Urine Leukocytes LARGE Abnormal Negative Urine Blood LARGE Abnormal Negative Urine Protein 2+ Abnormal Negative -Trace Urine Glucose NEGATIVE mg/dL Negative Urine Nitrite POSITIVE Abnormal Negative Urine Ketone NEGATIVE mg/dL Negative Urine Bilirubin NEGATIVE Negative Urine Urobilinogen 0.2 mg/dL 0.2 - 1.0 Complete Blood Count 10/22/2020 [facility] Terrazzo Polisher Helper: [place] [address] [phone] WBC 9.1 x10*3/UL 4.1 - 10.9 RBC [...] 6.3 x10*3/UL 2.0 - 7.8 A1c 10/22/2020 [facility] , Terrazzo Polisher Helper: [place] [address] [phone] Hba1c 6.3 % High <5.7 1 Est Avg Glucose 134 mg/dL High 60 - 110 Comprehensive Chem Profile 10/22/2020 [facility] Terrazzo Polisher Helper: [place] [address] [phone] Glucose 131 mg/dL High 74 - 99 2 BUN 11 mg/dL 7 - 18 Creatinine [...] mL/min >60 GFR >= 60 mL/min >60 3 Lipid Profile 10/22/2020 [facility] , Terrazzo Polisher Helper: [place] [address] [phone] Cholesterol 167 mg/dL 131 - 200 Triglycerides 105 mg/dL 30 - 150 HDL Cholesterol 49 mg/dL 35 - 60 LDL (Calculated) 97 CALC 50 - 159 Laboratory test finding 10/22/2020 [facility] Terrazzo Polisher Helper: Dr Tye [place] [id number] [phone] Magnesium 1.8 mg/dL 1.8 - 2.4 Complete Blood Count 06/06/2020 [facility] Terrazzo Polisher Helper: Dr Tye [place] [address] [phone] WBC 8.7 x10*3/UL 4.1 - 10.9 RBC 4.33 x10*6/UL 4.20 - 6.30 Hemoglobin 12.6 g/dL 12.0 - 18.0 Hematocrit 36.8 % Low 37.0 - 51.0 MCV 85.0 fL 80.0 - 97.0 MCH 29.3 pg 26.0 - 32.0 MCHC 34.4 g/dL 31.0 - 38.0 RDW 13.1 % 11.6 - 13.7 PLT 238 x10*3/UL 140 - 440 MPV 9.9 FL 7.8 - 11.0 Lymph % 23.2 % 10.0 - 58.5 Mid % 8.0 % 1.7 - 9.3 Neut % 68.8 % 37.0 - 92.0 Lymph # 2.0 x10*3/UL 0.6 - 4.1 Mid # 0.7 x10*3/UL High 0.1 - 0.6 Neut # 6.0 x10*3/UL 2.0 - 7.8 A1c 06/06/2020 [facility] , Terrazzo Polisher Helper: [place] [address] [phone] Hba1c 6.7 g/dL High 4.8 - 5.6 4 Est Avg Glucose 146 mg/dL High 60 - 110 Comprehensive Chem Profile 06/06/2020 [facility], Terrazzo Polisher Helper: [place] [address] [phone] Glucose 127 mg/dL High 74 - 99 5 BUN 19 mg/dL High 7 - 18 Creatinine 0.8 mg/dL 0.6 - 1.3 Sodium 145 mEq/L 136 - 145 Potassium 3.7 mEq/L 3.5 - 5.1 Chloride 108 mEq/L High 98 - 107 Carbon Dioxide 22 mEq/L 21 - 32 Calcium 9.3 mg/dL 8.5 - 10.1 Alk. Phosphatase 95 mg/dL 46 - 116 Total Bilirubin 1.1 mg/dL High 0.2 - 1.0 Ast (Sgot) 11 U/L Low 15 - 37 Alt (SGPT) 21 U/L 12 - 78 Albumin 4.0 g/dL 3.4 - 5.0 Total Protein 7.5 g/dL 6.4 - 8.2 A/G Ratio 1.14 CALC 1.00 - 1.90 GFR >= 60 mL/min >60 GFR >= 60 mL/min >60 6 Lipid Profile 06/06/2020 [facility] Terrazzo Polisher Helper: [place] [address] [phone] Cholesterol 164 mg/dL 131 - 200 Triglycerides 94 mg/dL 30 - 150 HDL Cholesterol 45 mg/dL 35 - 60 LDL (Calculated) 100 CALC 50 - 159 1 Lab Result Notes: Pre-Diabetes 5.7 - 6.4 % Diabetes = or > 6.5% 2 100-125 mg/dL PRE-DIABET ES/FASTING >126 mg/dL DIABETES/FASTING 3 CHRONIC KIDNEY DISEASE STAGI NG PER NKF STAGE I & II GFR >= 60 NORMAL TO MILDLY DECREASED STAGE III GFR 30-59 MODERATELY DECREASED STAGE IV GFR 15-29 SEVERELY DECREASED STAGE V GFR <15 VERY LITTLE GFR LEFT ESRD GFR <15 ON SERVICE SPRINKLER HELPER 4 Lab Result Notes: Pre-Diabetes 5.7 - [...] LITTLE GFR LEFT ESRD GFR <15 ON SERVICE SPRINKLER HELPER Procedures Date Code Description Status 04/05/2019 [id number] Diabetic Foot Exam Completed 10/13/2018 [id number] Mammogram Completed 09/28/2017 [id number] Diabetic Retinal Eye Exam Comple divya 12/12/2016 [id number] Diabetic Retinal Eye Exam Comple divya 05/30/2016 [id number] Mammogram Completed Medical Devices Description No Information Available Encounters Type Date Location Provider Dx Diagnosis Office Visit 06/11/2020 2:00p [facility] Bren Silva ,DO I87.2 Venous insufficiency (chronic) (peripheral) R33.9 Retention of urine, unspecif ied M48.061 Spinal stenosis, lumbar vincent on without neurogenic vivienne M48.02 Spinal stenosis, cervical re gion E11.9 Type 2 diabetes mellitus wit hout complications R26.9 Unspecified abnormalities of gait and mobility Z89.512 Acquired absence of left leg below knee R29.6 Repeated falls Z13.89 Encounter for screening for other disorder Assessments Date Code Description Provider 10/22/2020 I87.2 Venous insufficiency (chronic) ( peripheral) Bren Silva,DO 10/22/2020 R60.0 Localized edema Bren Silva,DO 10/22/2020 R33.9 Retention of urine, unspecified Bren Silva,DO 10/22/2020 M48.061 Spinal stenosis, lumbar region w ithout neurogenic claudicati Bren Silva,DO 10/22/2020 M48.02 Spinal stenosis, cervical region Bren Silva,DO 10/22/2020 E11.9 Type 2 diabetes mellitus without complications Bren Silva,DO 10/22/2020 Z89.512 Acquired absence of left leg bel ow knee Bren Silva,DO 10/22/2020 R29.6 Repeated falls Bren Silva,DO 10/22/2020 L04.3 Acute lymphadenitis of lower doll b Brenromario Silva,DO 06/11/2020 I87.2 Venous insufficiency (chronic) ( peripheral) Bren Gisselle,DO 06/11/2020 R33.9 Retention of urine, unspecified Bren Silva,DO 06/11/2020 M48.061 Spinal stenosis, lumbar region w ithout neurogenic claudicati Bren Silva,DO 06/11/2020 M48.02 Spinal stenosis, cervical region Bren Gisselle,DO 06/11/2020 E11.9 Type 2 diabetes mellitus without complications Bren Silva,DO 06/11/2020 R26.9 Unspecified abnormalities of gai t and mobility Bren Silva,DO 06/11/2020 Z89.512 Acquired absence of left leg bel ow knee Bren Silva,DO 06/11/2020 R29.6 Repeated falls Bren Silva,DO 06/11/2020 Z13.89 Encounter for screening for othe r disorder Bren Silva,DO 06/06/2020 E11.9 Type 2 diabetes mellitus without complications Bren Silva,DO 06/06/2020 E11.9 Type 2 diabetes mellitus without complications Lab Schedule 06/06/2020 E78.5 Hyperlipidemia, unspecified Casa Silva,DO 06/06/2020 E78.5 Hyperlipidemia, unspecified Lab Schedule Plan of Treatment Future Appointment(s):* 12/18/2020 10:40 am - Bren Silva DO at [facility] 10/22/2020 - Bren Silva DO* I87.2 Venous insufficiency (chronic) (peripheral) * R60.0 Localized edema * R33.9 Retention of urine, unspecified * M48.061 Spinal stenosis, lumbar region without neurogenic claudicati * M48.02 Spinal stenosis, cervical region * E11.9 Type 2 diabetes mellitus without complications * Z89.512 Acquired absence of left leg below knee * R29.6 Repeated falls * L04.3 Acute lymphadenitis of lower limb * All * New Medication:* Lasix 20 mg - 2 by mouth every day for 3 days then once a day after that. Functional Status Description No Information Available Mental Status Description No Information Available Referrals Refer to Dr Reason for Referral Status Appt Date Miguel Pizarro MD CONSULT FOR SCREENING COLONOSCOPY Estefany hi Notified 08/30/[address] [place], [place] [address] [phone]
--- OUTSIDE RECORDS SUMMARY | 2021-01-10 09:57 | CCD ---
Author Author [facility] Organization [facility] Address Unknown Phone Unavailable Care Team Providers Care Toe Former Stitchdowns Name Role Phone MigueChadwick szymanski Unavailable PROBLEMS Type Condition ICD9-CM Code JHK96-SC Code Onset Dates Condition S tatus SNOMED Code Notes Problem UTI (urinary tract infection) N39.0 Active 68 887549 Problem Incontinence R32 Active 89997076 Problem Furuncle 680.9 Active 60124328 Problem Urinary retention R33.9 Active 219944746 ALLERGIES Allergen (clinical drug ingredient) Drug/Non Drug Allergy do cumented on EMR Reaction Allergy Type Onset Date Status Latex (for allergy use only) CAUSES PEELING OF SKIN Drug A llergy Active nickel Rash Non Drug Allergy Active dust Rash Non Drug Allergy Active ENCOUNTERS from 1950 to 2020-10-28 Encounter Location Date Provider Diagnosis [facility] [address] [place] [address] Jun Chadwick Camarena Urinary retention R33.9 and UTI (urinary tract infection) N39.0 IMMUNIZATIONS Vaccine Route Administration Date Status Influenza (6mo & up) Fluzone Unknown February 18, 2018 Ref used SOCIAL HISTORY Tobacco Use: Social History Observation Description Date Details (start date - stop date) Former Smoker Sex Assigned At : Social History Observation Description Sex Assigned At Unknown Language: Question Answer Notes Languages spoken: Faroese Congregation: Question Answer Notes Congregation No holiness beliefs that would impact health care. Sexual [...] REASON FOR REFERRAL No Information VITAL SIGNS Weight 200 lbs Jun, Height 67 in Jun, BMI 31.32 kg/m2 Jun, Heart Rate 78 /min Jun, Respiratory Rate 18 /min Jun, Temperature 97.1 degrees Fahrenheit Jun, Oximetry 96 Jun, Blood pressure systolic 120 mm Hg Jun, Blood pressure diastolic 82 mm Hg Jun, MEDICATIONS Medication SIG (Take, Route, Frequency, Duration) [...] for 30 da y(s) Oct, Not-Taking PROCEDURES Procedure Date Ordered Result Body Site Chapman Catheter Insertion 16F 2018-07-29 N/A Medication: Lidocaine HCl 2% Jelly 5mL Intravesically 2018-07-29 N/A RESULTS Component Value Reference Range URINE CULTURE Reviewed date:08/03/2018 10:30:51 Interpretation: Performing Lab:[facility] [place] [address], ,[place] [address] REASON FOR VISIT Give urine sample - possible UTI MEDICAL (GENERAL) HISTORY Type Description Date Medical [...] No Information FUNCTIONAL STATUS No Information ASSESSMENTS Encounter Date Diagnosis Assessment Notes Treatment Notes Treatm ent Clinical Notes Jun, Urinary retention (ICD-10 - R33.9) Jun, UTI (urinary tract infection) (ICD-10 - N39.0) PLAN OF TREATMENT Medication Medication Name Sig Start Date Stop Date Bactrim DS 800-160 MG 1 tablet Orally Twice a day for 14 days March, Next Appt Details 4 Weeks Reason:cath change Follow Up:4 Weekscath change Insurance Providers Payer Name Payer Address Payer Phone Insured Name Patient Relati onship to Insured Coverage Start Date Coverage End Date [employer] [facility] CLAIM DIV [address] [facility] [place] [id number] SHAKIRA CUTLER MEDICARE Part A and B [address] [facility] [id number] SHAKIRA CUTLER
--- OUTSIDE RECORDS SUMMARY | 2021-01-10 09:57 | CCD | Continuity of Care Document ---
Author Author Reina SILVA Organization Unknown Address [address] [facility] [address] [place] [address] Phone [phone] Care Team Providers Care Rural Health Consultant Name Role Phone Bren Silva DO AUTM Unavailable Chadwick Camarena M.D. AUTM [phone] Morgan Miller O.D. AUTM [phone] Rio Proctor MD AUTM [phone] [facility] Concussion Program AUTM [phone] Chadwick Camarena MD - Urology AUTM Arsalan Kenney OD AUTM [phone] Flaquito Hogue DPM AUTM [phone] Problems Description No Information Available Social History [...] a day for 7 days 14tabs Bren Silva DO Klor-Con Sprinkle 10Meq Capsules E R 2 by mouth daily. 60caps Bren Silva DO 10/23/2020 Lasix 20mg Tablets 2 by mouth every day for 3 days then once a day after that. 30tabs Bren almonte DO 10/22/2020 Shingrix 50mcg/0.5ML Suspension Re c administer 0.5 milliliters intramuscular, repeat in 2 to 6 months 2units Bren Silva, 06/11/[address] 1 [...] ( contains Vit D 1000mg) 30tabs Bren SilvaDO 10/16/2017 Magnesium 250mg Tablets 1 po qd prn ( uses for a laxative ) Bren Silva DO 10/16/2017 History Medications Levofloxacin 500mg Tablets one by mouth for 5 days 5tabs Bren SilvaDO 10/23/2020 - Immunizations CPT Code Status Date Vaccine Lot # U-PneuC Given 05/02/2016 Prevnar 13 U-Pneum Given 08/25/2012 Pneumococcal,Unspecified 66762 Given 07/11/2011 Zostavax 94684 Given 05/09/2010 Adacel- Tetanus Diphtheria P ertussis (Age64 & Under) 40565 Refused 11/03/2018 Influenza Virus Vaccine, Quadrivalent (Cciiv4), Derived From Cell 38520 Refused 10/16/2017 Influenza Vaccin e Quadrivalent Preser/Antibiotic [...] H/L Range Note Laboratory test finding 10/22/2020 [facility] [address] [place] [address] [phone] Urine Culture FULL REPORT IN L <SEE NOTE> Normal 1 Ua Dipstick Only 10/22/2020 [facility] Safety Supervisor: [place] [address] [phone] Urine Color YELLOW Yellow Urine Appearance TURBID Abnormal Clear Urine PH 6.0 units 5.0 - 9.0 Urine Specific [place] 1.020 1.005 - 1.030 Urine Leukocytes LARGE Abnormal Negative Urine Blood LARGE Abnormal Negative Urine Protein 2+ Abnormal Negative -Trace Urine Glucose NEGATIVE mg/dL Negative Urine Nitrite POSITIVE Abnormal Negative Urine Ketone NEGATIVE mg/dL Negative Urine Bilirubin NEGATIVE Negative Urine Urobilinogen 0.2 mg/dL 0.2 - 1.0 Complete Blood Count 10/22/2020 [facility] Safety Supervisor: [place] [address] [phone] WBC 9.1 x10*3/UL 4.1 - 10.9 RBC [...] 6.3 x10*3/UL 2.0 - 7.8 A1c 10/22/2020 [facility] , Safety Supervisor: [place] [address] [phone] Hba1c 6.3 % High <5.7 2 Est Avg Glucose 134 mg/dL High 60 - 110 Comprehensive Chem Profile 10/22/2020 [facility], Safety Supervisor: [place] [address] [phone] Glucose 131 mg/dL High 74 - 99 [...] 60 mL/min >60 4 Lipid Profile 10/22/2020 [facility] , Safety Supervisor: [place] [address] [phone] Cholesterol 167 mg/dL 131 - 200 Triglycerides 105 mg/dL 30 - 150 HDL Cholesterol 49 mg/dL 35 - 60 LDL (Calculated) 97 CALC 50 - 159 Laboratory test finding 10/22/2020 [facility] Safety Supervisor: [place] [address] [phone] Magnesium 1.8 mg/dL 1.8 - 2.4 Complete Blood Count 06/06/2020 [facility] Safety Supervisor: [place] [address] [phone] WBC 8.7 x10*3/UL 4.1 - 10.9 RBC [...] 6.0 x10*3/UL 2.0 - 7.8 A1c 06/06/2020 [facility] , Safety Supervisor: [place] [address] [phone] Hba1c 6.7 g/dL High 4.8 - 5.6 5 Est Avg Glucose 146 mg/dL High 60 - 110 Comprehensive Chem Profile 06/06/2020 [facility], Safety Supervisor: [place] [address] [phone] Glucose 127 mg/dL High 74 - 99 6 BUN 19 mg/dL High 7 - 18 [...] mL/min >60 GFR >= 60 mL/min >60 7 Lipid Profile 06/06/2020 [facility] , Safety Supervisor: [place] [address] [phone] Cholesterol 164 mg/dL 131 - 200 Triglycerides 94 mg/dL 30 - 150 HDL Cholesterol 45 mg/dL 35 - 60 LDL (Calculated) 100 CALC 50 - 159 1 FULL REPORT IN LAB NOTES (eC [...] LITTLE GFR LEFT ESRD GFR <15 ON GLASS ROBOT OPERATOR 5 Lab Result Notes: Pre-Diabetes 5.7 - 6.4 % Diabetes = or > 6.5% 6 100-125 mg/dL PRE-DIABET ES/FASTING >126 mg/dL DIABETES/FASTING 7 CHRONIC KIDNEY DISEASE STAGI NG PER NKF STAGE I & II GFR >= 60 NORMAL TO MILDLY DECREASED STAGE III GFR 30-59 MODERATELY DECREASED STAGE IV GFR 15-29 SEVERELY DECREASED STAGE V GFR <15 VERY LITTLE GFR LEFT ESRD GFR <15 ON GLASS ROBOT OPERATOR Procedures Date Code Description Status 04/05/2019 [id number] Diabetic Foot Exam Completed 10/13/2018 [id number] Mammogram Completed 09/28/2017 [id number] Diabetic Retinal Eye Exam Comple divya 12/12/2016 [id number] Diabetic Retinal Eye Exam Comple divya 05/30/2016 [id number] Mammogram Completed Medical Devices Description No Information Available Encounters Type Date Location Provider Dx Diagnosis Office Visit 10/22/2020 2:45p [facility] L04.3 Acute lymphadenitis of lower limb R29.6 Repeated falls R33.9 Retention of urine, unspecif ied I87.2 Venous insufficiency (chroni c) (peripheral) R60.0 Localized edema M48.061 Spinal stenosis, lumbar vincent on without neurogenic vivienne M48.02 Spinal stenosis, cervical re gion E11.9 Type 2 diabetes mellitus wit hout complications Z89.512 Acquired absence of left leg below knee E78.5 Hyperlipidemia, unspecified E87.6 Hypokalemia Office Visit 06/11/2020 2:00p [facility] Silva[facility] I87.2 Venous insufficiency (chronic) (peripheral) R33.9 Retention [...] disorder Assessments Date Code Description Provider 10/22/2020 L04.3 Acute lymphadenitis of lower doll b Bren Silva,DO 10/22/2020 R29.6 Repeated falls Bren Silva,DO 10/22/2020 R33.9 Retention of urine, unspecified Bren Silva,DO 10/22/2020 I87.2 Venous insufficiency (chronic) ( peripheral) Bren Silva,DO 10/22/2020 R60.0 Localized edema Bren Silva,DO 10/22/2020 M48.061 Spinal stenosis, lumbar region w ithout neurogenic claudicati Bren Silva,DO 10/22/2020 M48.02 Spinal stenosis, cervical region Bren Silva,DO 10/22/2020 E11.9 Type 2 diabetes mellitus without complications Bren Silva,DO 10/22/2020 Z89.512 Acquired absence of left leg bel ow knee Bren Silva,DO 10/22/2020 E78.5 Hyperlipidemia, unspecified Casa doss Gisselle,DO 10/22/2020 E87.6 Hypokalemia Bren Gisselle,DO 06/11/2020 I87.2 Venous insufficiency (chronic) ( peripheral) Bren Gisselle,DO 06/11/2020 R33.9 Retention of urine, unspecified Bren Jorgegs,DO 06/11/2020 M48.061 Spinal stenosis, lumbar region w [facility] neurogenic claudicati Bren Silva,DO 06/11/2020 M48.02 Spinal stenosis, cervical region Bren Silva,DO 06/11/2020 E11.9 Type 2 diabetes mellitus without complications Bren Gisselle,DO 06/11/2020 R26.9 Unspecified abnormalities of gai t and mobility Bren Silva,DO 06/11/2020 Z89.512 Acquired absence of left leg bel ow knee Bren Silva,DO 06/11/2020 R29.6 Repeated falls Brenromario Silva,DO 06/11/2020 Z13.89 Encounter for screening for othe r disorder Bren Silva,DO 06/06/2020 E11.9 Type 2 diabetes mellitus without complications Bren Silva,DO 06/06/2020 E11.9 Type 2 diabetes mellitus without complications Lab Schedule 06/06/2020 E78.5 Hyperlipidemia, unspecified Casa Silva,DO 06/06/2020 E78.5 Hyperlipidemia, unspecified Lab Schedule Plan of Treatment Future Appointment(s):* 12/18/2020 10:40 am - Bren Silva DO at [facility] 10/22/2020 - Bren Silva DO* L04.3 Acute lymphadenitis of lower limb [...] FOR SCREENING COLONOSCOPY Estefany hi Notified 08/30/[address] [place] [address] [phone]
--- OUTSIDE RECORDS SUMMARY | 2021-01-10 09:57 | CCD | Continuity of Care Document ---
Author Author Reina SÁNCHEZ DPM Organization Unknown Address [address] [place] [address], [address] [place] [address] Phone [phone] Care Team Providers Care Guide Domestic Tour Name Role Phone Gisselle RM, Bren DE LOS SANTOSM [phone] Problems Active Problems Provider Date Onychomycosis Flaquito Sánchez DPM Onset: 04/19/2019 Dystrophia unguium Flaquito Sánchez DPM Onset: 04/19/2019 Hammer toe Flaquito Sánchez DPM Onset: 04/19/2019 Type 2 diabetes mellitus Flaquito Sánchez DPM Onset: 019 Injury of lower leg Flaquito Sánchez DPM Onset: 05/30/2019 Social History Type Date Description Comments Sex Unknown ETOH Use Never used alcohol Tobacco Use Start: Unknown Patient has never smoked Allergies, Adverse Reactions, Alerts Active Allergies Reaction Severity Comments Date Shrimp 04/05/2019 Nickel 04/05/2019 Latex 04/05/2019 Pentobarbital Sodium 019 Medications Active Medications SIG Qnty Indications Ordering Provide r Date Ahajermo-Otjdlylvy-BR 1% Solution apply one drop to base of nail after betadine soaks as directed 10units Flaquito Sánchez DPM 04/26/2019 Ciclopirox 8% Solution apply to affected nail(s) as directed 6.6units Flaquito Sánchez DPM 019 Metformin HCL 500mg Tablets Take One Tablet By Mouth Twice A Day Unknown 00/0 Sulfamethoxazole/Trimethoprim DS 800-160mg Tablets Take One Tablet By Mouth Twice A Day For 10 Days Unknown Amoxicillin 500mg Capsules take four capsules by mouth 1 hour prior to procedure 4caps Andr chris Sánchez DPM Nitrofurantoin Monohyd Macro 100mg Capsules Take One Capsule By Mouth Every 12 Hours For 10 Days Unknown Ciprofloxacin HCL 500mg Tablets Take One Tablet By Mouth Every 12 Hours For 10 Days Unkno wn Immunizations Description No Information Available Vital Signs Date Vital Result Comment 06/15/2020 10:25am Height 68 inches 5'8" Weight 183.00 lb BP Systolic 122 mmHg BP Diastolic 68 mmHg Heart Rate 92 /min BMI (Body Mass Index) 27.8 kg/m2 04/05/2019 10:02am Height 68 inches 5'8" Weight 202.00 lb BP Systolic 136 mmHg BP Diastolic 70 mmHg Heart Rate 95 /min BMI (Body Mass Index) 30.7 kg/m2 Results Description No Information Available Procedures Date Code Description Status 09/03/2020 10994 Debridement 5 Nails Electric Com pleted Medical Devices Description No Information Available Encounters Type Date Location Provider Dx Diagnosis Office Visit 06/15/2020 10:00a [facility] Flaquito Sánchez DPM B35.1 Tinea unguium E11.9 Type 2 diabetes mellitus wit hout complications Assessments Date Code Description Provider 09/03/2020 B35.1 Tinea unguium Flaquito Sánchez DPM 09/03/2020 E11.9 Type 2 diabetes mellitus without complications Flaquito Sánchez DPM 06/15/2020 B35.1 Tinea unguium Flaquito Sánchez DPM 06/15/2020 E11.9 Type 2 diabetes mellitus without complications Flaquito Sánchez DPM Plan of Treatment Future Appointment(s):* 01/21/2021 8:45 am - Flaquito Sánchez DPM at [facility] Functional Status Description No Information Available Mental Status Description No Information Available Referrals Description No Information Available
--- OUTSIDE RECORDS SUMMARY | 2021-01-10 09:57 | CCD ---
Author Author [facility] Organization [facility] Address Unknown Phone Unavailable Care Team Providers Care Radiation Protection Technician Name Role Phone MigueChadwick szymanski Unavailable PROBLEMS Type Condition ICD9-CM Code [id number] Code Onset Dates Condition S tatus SNOMED Code Notes Problem UTI (urinary tract infection) N39.0 Active 68 093203 Problem Incontinence R32 Active 39909117 Problem Furuncle 680.9 Active 97375472 Problem Urinary retention R33.9 Active 041928578 ALLERGIES Allergen (clinical drug ingredient) Drug/Non Drug Allergy do cumented on EMR Reaction Allergy Type Onset Date Status Latex (for allergy use only) CAUSES PEELING OF SKIN Drug A llergy Active nickel Rash Non Drug Allergy Active dust Rash Non Drug Allergy Active ENCOUNTERS from 1950 to 2020-10-27 Encounter Location Date Provider Diagnosis [facility] [address] [place] [address] Jun Chadwick Camarena Urinary retention R33.9 and [...] Unknown Language: Question Answer Notes Languages spoken: Romanian Orthodoxy: Question Answer Notes Orthodoxy No temple beliefs that would impact health care. Sexual [...] URINE CULTURE Reviewed date:08/03/2018 10:30:51 Interpretation: Performing Lab:[facility],[address] [place] [address], ,[place] [address] REASON FOR VISIT Give urine sample - [...] Coverage End Date [employer] OPTIONS [facility] CLAIM DIV [address] [facility] [phone] SHAKIRA CUTLER MEDICARE Part A and B [address] [facility] [phone] SHAKIRA CUTLER
--- OUTSIDE RECORDS SUMMARY | 2021-01-10 09:57 | CCD | Continuity of Care Document ---
Author Author Reina SÁNCHEZ DPM Organization Unknown Address [address] [place] [address], [address] [place] [address] Phone [phone] Care Team Providers Care Water Pipe Installer Name Role Phone Gisselle RM, Bren DE LOS SANTOSM [phone] Problems Active Problems Provider Date Onychomycosis Flaquito [...] SIG Qnty Indications Ordering Provide r Date Ljwnoxyv-Pnsqzautf-IS 1% Solution apply one drop to base [...] Available Procedures Date Code Description Status 09/03/2020 61232 Debridement 5 Nails Electric Com pleted Medical Devices Description No Information Available Encounters Type Date Location Provider Dx Diagnosis Office Visit 11/12/2020 8:45a [facility] Flaquito Sánchez DPM B35.1 Tinea unguium E11.9 Type 2 diabetes mellitus wit hout complications Office Visit 06/15/2020 10:00a [facility] Flaquito Sánchez DPM B35.1 Tinea unguium E11.9 Type 2 diabetes mellitus wit hout complications Assessments Date Code Description Provider 11/12/2020 B35.1 Tinea unguium Flqauito Sánchez DPM 11/12/2020 E11.9 Type 2 diabetes mellitus without complications Flaquito Sánchez DPM 09/03/2020 B35.1 Tinea unguium Flaquito Sánchez DPM 09/03/2020 E11.9 Type 2 diabetes mellitus without complications Flaquito Sánchez DPM 06/15/2020 B35.1 Tinea unguium Flaquito Sánchez DPM 06/15/2020 E11.9 Type 2 diabetes mellitus without complications Flaquito Sánchez DPM Plan of Treatment Future Appointment(s):* 01/21/2021 8:45 am - Flaquito Sánchez DPM at [facility] Functional Status Description No Information Available Mental Status Description No Information Available Referrals Description No Information Available
--- OUTSIDE RECORDS SUMMARY | 2021-01-10 09:57 | CCD | Continuity of Care Document ---
Author Author Reina SILVA Organization Unknown Address [address] [facility] [address] [place] [address] Phone [phone] Care Team Providers Care Police Academy Instructor Name Role Phone Bren Silva DO AUTM Unavailable Chadwick Camarena M.D. AUTM [phone] Morgan Miller O.D. AUTM [phone] Rio Proctor MD AUTM [phone] [facility] Concussion Program AUTM [phone] Chadwick Camarena MD - Urology AUTM [phone] Arsalan Kenney OD AUTM [phone] Flaquito Hogue DPM AUTM [phone] Problems Description No Information Available Social History [...] 05/02/2016 Prevnar 13 U-Pneum Given 08/25/2012 Pneumococcal,Unspecified 44819 Given 07/11/2011 Zostavax 49556 Given 05/09/2010 Adacel- Tetanus Diphtheria P ertussis (Age64 & Under) 20373 Refused 11/03/2018 Influenza Virus Vaccine, Quadrivalent (Cciiv4), Derived From Cell 52720 Refused 10/16/2017 Influenza Vaccin e Quadrivalent Preser/Antibiotic [...] H/L Range Note Laboratory test finding 10/22/2020 [facility] [address] [place] [address] [phone] Urine Culture FULL REPORT IN L <SEE NOTE> Normal 1 Ua Dipstick Only 10/22/2020 [facility] Fiscal Technician: [place] [address] [phone] Urine Color YELLOW Yellow Urine Appearance TURBID Abnormal Clear Urine PH 6.0 units 5.0 - 9.0 Urine Specific [place] 1.020 1.005 - 1.030 Urine Leukocytes LARGE Abnormal Negative Urine Blood LARGE Abnormal Negative Urine Protein 2+ Abnormal Negative -Trace Urine Glucose NEGATIVE mg/dL Negative Urine Nitrite POSITIVE Abnormal Negative Urine Ketone NEGATIVE mg/dL Negative Urine Bilirubin NEGATIVE Negative Urine Urobilinogen 0.2 mg/dL 0.2 - 1.0 Complete Blood Count 10/22/2020 [facility] Fiscal Technician: [place] [address] [phone] WBC 9.1 x10*3/UL 4.1 - 10.9 RBC [...] 6.3 x10*3/UL 2.0 - 7.8 A1c 10/22/2020 [facility] , Fiscal Technician: [place] [address] [phone] Hba1c 6.3 % High <5.7 2 Est Avg Glucose 134 mg/dL High 60 - 110 Comprehensive Chem Profile 10/22/2020 [facility], Fiscal Technician: [place] [address] [phone] Glucose 131 mg/dL High 74 - 99 [...] 60 mL/min >60 4 Lipid Profile 10/22/2020 [facility] , Fiscal Technician: [place] [address] [phone] Cholesterol 167 mg/dL 131 - 200 Triglycerides 105 mg/dL 30 - 150 HDL Cholesterol 49 mg/dL 35 - 60 LDL (Calculated) 97 CALC 50 - 159 Laboratory test finding 10/22/2020 [facility] Fiscal Technician: [place] [address] [phone] Magnesium 1.8 mg/dL 1.8 - 2.4 Complete Blood Count 06/06/2020 [facility], Fiscal Technician: Dr Tye [place] [id number] [phone] WBC 8.7 x10*3/UL 4.1 - 10.9 RBC [...] 6.0 x10*3/UL 2.0 - 7.8 A1c 06/06/2020 [facility] , Fiscal Technician: [place] [address] [phone] Hba1c 6.7 g/dL High 4.8 - 5.6 5 Est Avg Glucose 146 mg/dL High 60 - 110 Comprehensive Chem Profile 06/06/2020 [facility], Fiscal Technician: [place] [address] [phone] Glucose 127 mg/dL High 74 - 99 [...] 60 mL/min >60 7 Lipid Profile 06/06/2020 [facility] , Fiscal Technician: [place] [address] [phone] Cholesterol 164 mg/dL 131 - 200 Triglycerides [...] LITTLE GFR LEFT ESRD GFR <15 ON FINANCE BUSINESS PARTNER 5 Lab Result Notes: Pre-Diabetes 5.7 - [...] LITTLE GFR LEFT ESRD GFR <15 ON FINANCE BUSINESS PARTNER Procedures Date Code Description Status 04/05/2019 [id number] Diabetic Foot Exam Completed 10/13/2018 [id number] Mammogram Completed 09/28/2017 [id number] Diabetic Retinal Eye Exam Comple divya 12/12/2016 [id number] Diabetic Retinal Eye Exam Comple divya 05/30/2016 [id number] Mammogram Completed Medical Devices Description No Information Available Encounters Type Date Location Provider Dx Diagnosis Office Visit 06/11/2020 2:00p [facility] 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 10/22/2020 - Bren Silva DO* [...] Description No Information Available Referrals Refer to Reason for Referral Status Appt Date Miguel Pizarro MD CONSULT FOR SCREENING COLONOSCOPY Estefany hi Notified 08/30/2020 [address] [id number] [phone]
--- OUTSIDE RECORDS SUMMARY | 2021-01-10 09:57 | CCD | Continuity of Care Document ---
Author Author Reina PACE Organization Unknown Address [address] [place] [address] Phone [phone] Care Team Providers Care Iron Installer Name Role Phone Buster Tatum M.D. AUTM [phone] Bren Pitts M.D. AUTM [phone] Problems Description No Information Available Social History Type Date Description Comments Sex Unknown ETOH Use Denies alcohol use Tobacco Use Start: Unknown End: Unknown Denies Nons moker Smoking Status Reviewed: 10/19/20 Denies Nonsmoker Allergies, Adverse Reactions, Alerts Active Allergies Reaction Severity Comments Date NKDA 10/19/2020 Latex skin peeling 10/19/2020 Shrimp swelling 10/19/2020 Nickel skin peeling 10/19/2020 Medications Active Medications SIG Qnty Indications Ordering Provide r Date Metformin HCL 500mg Tablets twice a day Unknown Immunizations Description No Information Available Vital Signs Date Vital Result Comment 10/19/2020 11:46am Height 68 inches 5'8" Weight 180.00 lb Weight 81.648 kg BMI (Body Mass Index) 27.4 kg/m2 Results Description No Information Available Procedures Description No Information Available Medical Devices Description No Information Available Encounters Type Date Location Provider Dx Diagnosis Office Visit 10/19/2020 11:00a Main Office Maryam Bowman I89.0 Lymphedema, not elsewhere classified Assessments Date Code Description Provider 10/19/2020 I89.0 Lymphedema, not elsewhere classi Maryam Velasco Plan of Treatment Future Appointment(s):* 01/21/2021 1:00 pm - Maryam Bowman at Main Office 10/19/2020 - Maryam Bowman* I89.0 Lymphedema, not elsewhere classified * * Follow up:* 3 MONTH OV/ Functional Status Description No Information Available Mental Status Description No Information Available Referrals Description No Information Available
--- OUTSIDE RECORDS SUMMARY | 2021-01-10 09:57 | CCD | Continuity of Care Document ---
Author Author Reina SILVA Organization Unknown Address [address] [facility] [address] [place] [address] Phone [phone] Care Team Providers Care Grocery Packer Name Role Phone Bren Silva DO AUTM Unavailable Chadwick Camarena M.D. AUTM [phone] Morgan Miller O.D. AUTM [phone] Rio Proctor MD AUTM [phone] [facility] Concussion Program AUTM Chadwick Camarena MD - Urology AUTM Arsalan Kenney OD AUTM [phone] Flaquito Hogue DPM AUTM [phone] Problems Description No Information Available Social History [...] 05/02/2016 Prevnar 13 U-Pneum Given 08/25/2012 Pneumococcal,Unspecified 93623 Given 07/11/2011 Zostavax 68494 Given 05/09/2010 Adacel- Tetanus Diphtheria P ertussis (Age64 & Under) 80710 Refused 11/03/2018 Influenza Virus Vaccine, Quadrivalent (Cciiv4), Derived From Cell 57895 Refused 10/16/2017 Influenza Vaccin e Quadrivalent Preser/Antibiotic [...] H/L Range Note Laboratory test finding 10/22/2020 [facility] [address] [place] [address] [phone] Urine Culture <pending> Ua Dipstick Only 10/22/2020 [facility] Escalator Constructor: [place] [address] [phone] Urine Color YELLOW Yellow Urine Appearance TURBID Abnormal Clear Urine PH 6.0 units 5.0 - 9.0 Urine Specific [place] 1.020 1.005 - 1.030 Urine Leukocytes LARGE Abnormal Negative Urine Blood LARGE Abnormal Negative Urine Protein 2+ Abnormal Negative -Trace Urine Glucose NEGATIVE mg/dL Negative Urine Nitrite POSITIVE Abnormal Negative Urine Ketone NEGATIVE mg/dL Negative Urine Bilirubin NEGATIVE Negative Urine Urobilinogen 0.2 mg/dL 0.2 - 1.0 Complete Blood Count 10/22/2020 [facility] Escalator Constructor: [place] [address] [phone] WBC 9.1 x10*3/UL 4.1 - 10.9 RBC [...] 6.3 x10*3/UL 2.0 - 7.8 A1c 10/22/2020 [facility] , Escalator Constructor: [place] [address] [phone] Hba1c 6.3 % High <5.7 1 Est Avg Glucose 134 mg/dL High 60 - 110 Comprehensive Chem Profile 10/22/2020 [facility] Escalator Constructor: [place] [address] [phone] Glucose 131 mg/dL High 74 - 99 [...] 60 mL/min >60 3 Lipid Profile 10/22/2020 [facility] , Escalator Constructor: Dr Tye [place] [address] [phone] Cholesterol 167 mg/dL 131 - 200 Triglycerides 105 mg/dL 30 - 150 HDL Cholesterol 49 mg/dL 35 - 60 LDL (Calculated) 97 CALC 50 - 159 Laboratory test finding 10/22/2020 [facility] Escalator Constructor: Dr Tye Blanco [place] [address] [phone] Magnesium 1.8 mg/dL 1.8 - 2.4 Complete Blood Count 06/06/2020 [facility] Escalator Constructor: Dr Tye [place] [address] [phone] WBC 8.7 x10*3/UL 4.1 - 10.9 RBC [...] 6.0 x10*3/UL 2.0 - 7.8 A1c 06/06/2020 [facility] , Escalator Constructor: [place] [address] [phone] Hba1c 6.7 g/dL High 4.8 - 5.6 4 Est Avg Glucose 146 mg/dL High 60 - 110 Comprehensive Chem Profile 06/06/2020 [facility], Escalator Constructor: [place] [address] [phone] Glucose 127 mg/dL High 74 - 99 [...] 60 mL/min >60 6 Lipid Profile 06/06/2020 [facility] , Escalator Constructor: [place] [address] [phone] Cholesterol 164 mg/dL 131 - 200 Triglycerides [...] LITTLE GFR LEFT ESRD GFR <15 ON COMBINATION PRESSER 4 Lab Result Notes: Pre-Diabetes 5.7 - [...] LITTLE GFR LEFT ESRD GFR <15 ON COMBINATION PRESSER Procedures Date Code Description Status 04/05/2019 [id number] Diabetic Foot Exam Completed 10/13/2018 [id number] Mammogram Completed 09/28/2017 [id number] Diabetic Retinal Eye Exam Comple divya 12/12/2016 [id number] Diabetic Retinal Eye Exam Comple divya 05/30/2016 [id number] Mammogram Completed Medical Devices Description No Information Available Encounters Type Date Location Provider Dx Diagnosis Office Visit 06/11/2020 2:00p [facility] Bren Silva ,DO I87.2 Venous [...] 10:40 am - Bren Silva DO at [facility] 10/22/2020 - Bren Silva DO* [...] FOR SCREENING COLONOSCOPY Estefany hi Notified 08/30/[address] [place], [place] [address] [phone]
--- OUTSIDE RECORDS SUMMARY | 2021-01-10 09:58 | CCD | Continuity of Care Document ---
Author Author Reina SILVA Organization Unknown Address [address] [facility] [address] [place] [address] Phone [phone] Care Team Providers Care Jailer Name Role Phone Bren Silva DO AUTM Unavailable Chadwick Camarena M.D. AUTM [phone] Morgan Miller O.D. AUTM [phone] Rio Proctor MD AUTM [phone] [facility] Concussion Program AUTM Chadwick Camarena MD - Urology AUTM [phone] Arsalan Kenney OD AUTM [phone] Flaquito Hogue DPM AUTM [phone] Problems Description No Information Available Social History [...] 05/02/2016 Prevnar 13 U-Pneum Given 08/25/2012 Pneumococcal,Unspecified 91461 Given 07/11/2011 Zostavax 31434 Given 05/09/2010 Adacel- Tetanus Diphtheria P ertussis (Age64 & Under) 36033 Refused 11/03/2018 Influenza Virus Vaccine, Quadrivalent (Cciiv4), Derived From Cell 44940 Refused 10/16/2017 Influenza Vaccin e Quadrivalent Preser/Antibiotic [...] H/L Range Note Laboratory test finding 10/22/2020 [facility] [address] [place] [address] [phone] Urine Culture <pending> Ua Dipstick Only 10/22/2020 [facility] Technical Aid: [place] [address] [phone] Urine Color YELLOW Yellow Urine Appearance TURBID Abnormal Clear Urine PH 6.0 units 5.0 - 9.0 Urine Specific [place] 1.020 1.005 - 1.030 Urine Leukocytes LARGE Abnormal Negative Urine Blood LARGE Abnormal Negative Urine Protein 2+ Abnormal Negative -Trace Urine Glucose NEGATIVE mg/dL Negative Urine Nitrite POSITIVE Abnormal Negative Urine Ketone NEGATIVE mg/dL Negative Urine Bilirubin NEGATIVE Negative Urine Urobilinogen 0.2 mg/dL 0.2 - 1.0 Complete Blood Count 10/22/2020 [facility] Technical Aid: [place] [address] [phone] WBC 9.1 x10*3/UL 4.1 - 10.9 RBC [...] 6.3 x10*3/UL 2.0 - 7.8 A1c 10/22/2020 [facility] , Technical Aid: [place] [address] [phone] Hba1c 6.3 % High <5.7 1 Est Avg Glucose 134 mg/dL High 60 - 110 Comprehensive Chem Profile 10/22/2020 [facility] Technical Aid: [place] [address] [phone] Glucose 131 mg/dL High 74 - 99 [...] 60 mL/min >60 3 Lipid Profile 10/22/2020 [facility] , Technical Aid: [place] [address] [phone] Cholesterol 167 mg/dL 131 - 200 Triglycerides 105 mg/dL 30 - 150 HDL Cholesterol 49 mg/dL 35 - 60 LDL (Calculated) 97 CALC 50 - 159 Laboratory test finding 10/22/2020 [facility] Technical Aid: Dr Tye Blanco [place] [address] [phone] Magnesium, Serum <pending> Complete Blood Count 06/06/2020 [facility] Technical Aid: [place] [address] [phone] WBC 8.7 x10*3/UL 4.1 - 10.9 RBC [...] 6.0 x10*3/UL 2.0 - 7.8 A1c 06/06/2020 [facility] , Technical Aid: [place] [address] [phone] Hba1c 6.7 g/dL High 4.8 - 5.6 4 Est Avg Glucose 146 mg/dL High 60 - 110 Comprehensive Chem Profile 06/06/2020 [facility], Technical Aid: [place] [address] [phone] Glucose 127 mg/dL High 74 - 99 [...] 60 mL/min >60 6 Lipid Profile 06/06/2020 [facility] , Technical Aid: [place] [address] [phone] Cholesterol 164 mg/dL 131 - 200 Triglycerides [...] LITTLE GFR LEFT ESRD GFR <15 ON SANITATION WORKER 4 Lab Result Notes: Pre-Diabetes 5.7 - [...] LITTLE GFR LEFT ESRD GFR <15 ON SANITATION WORKER Procedures Date Code Description Status 04/05/2019 [id number] Diabetic Foot Exam Completed 10/13/2018 [id number] Mammogram Completed 09/28/2017 [id number] Diabetic Retinal Eye Exam Comple divya 12/12/2016 [id number] Diabetic Retinal Eye Exam Comple divya 05/30/2016 [id number] Mammogram Completed Medical Devices Description No Information Available Encounters Type Date Location Provider Dx Diagnosis Office Visit 06/11/2020 2:00p [facility] 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 Bren Silva,DO 10/22/2020 R29.6 Repeated falls Bren Silva,DO 10/22/2020 L04.3 Acute lymphadenitis of lower doll b Bren Silva,DO 06/11/2020 I87.2 Venous insufficiency (chronic) ( peripheral) Bren Jorgegs,DO 06/11/2020 R33.9 Retention of urine, unspecified Bren Gisselle,DO 06/11/2020 M48.061 Spinal stenosis, lumbar region w ithout neurogenic claudicati Bren Silva,DO 06/11/2020 M48.02 Spinal stenosis, cervical region Brenromario Silva,DO 06/11/2020 E11.9 Type 2 diabetes mellitus without complications Bren Gisselle,DO 06/11/2020 R26.9 Unspecified abnormalities of gai t and mobility Bren Gisselle,DO 06/11/2020 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 10/22/2020 - Bren Silva DO* [...] FOR SCREENING COLONOSCOPY Estefany hi Notified 08/30/[address] [place], [place] [address] [phone]
--- OUTSIDE RECORDS SUMMARY | 2021-01-10 09:58 | CCD | Continuity of Care Document ---
Author Author Reina PACE Organization Unknown Address [address] [place] [address] Phone [phone] Care Team Providers Care Knurling Machine Operator Name Role Phone Buster Tatum M.D. AUTM [phone] Bren Pitts M.D. AUTM [phone] Problems Description No Information Available Social History [...] Medical Devices Description No Information Available Encounters Description No Information Available Assessments Description No Information Available Plan of Treatment Future Appointment(s):* 01/21/2021 1:00 pm - Maryam Bowman at Main Office 10/19/2020 - Maryam Bowman* * Follow up:* 3 MONTH OV/ Functional Status Description No Information Available Mental Status Description No Information Available Referrals Description No Information Available
--- OUTSIDE RECORDS SUMMARY | 2021-01-10 09:58 | CCD | Continuity of Care Document ---
Author Author Reina SILVA Organization Unknown Address [address] [facility] [address] [place] [address] Phone [phone] Care Team Providers Care Grocery Sacker Name Role Phone Bren Silva DO AUTM Unavailable Chadwick Camarena M.D. AUTM [phone] Morgan Miller O.D. AUTM [phone] Rio Proctor MD AUTM [phone] [facility] AUTM [phone] Chadwick Camarena MD - Urology AUTM Arsalan Kenney OD AUTM [phone] Flaquito Hogue DPM AUTM [phone] Problems Description No Information Available Social History Type Date Description Comments Sex Unknown ETOH Use Denies alcohol use Tobacco Use Start: Unknown Patient has never smoked Allergies, Adverse Reactions, Alerts Active Allergies Reaction Severity Comments Date NKDA 03/04/2019 Latex hands peel 10/16/2017 Nickel hands peel 10/16/2017 Shrimp Edema 10/16/2017 Medications Active Medications SIG Qnty Indications Ordering Provide r Date Lasix 20mg Tablets 2 by mouth every [...] 05/02/2016 Prevnar 13 U-Pneum Given 08/25/2012 Pneumococcal,Unspecified 06241 Given 07/11/2011 Zostavax 55062 Given 05/09/2010 Adacel- Tetanus Diphtheria P ertussis (Age64 & Under) 00634 Refused 11/03/2018 Influenza Virus Vaccine, Quadrivalent (Cciiv4), Derived From Cell 48374 Refused 10/16/2017 Influenza Vaccin e Quadrivalent Preser/Antibiotic [...] H/L Range Note Laboratory test finding 10/22/2020 [facility] [address] [place], [place] [id number] [phone] Urine Culture <pending> Laboratory test finding 10/22/2020 [facility]: [place] [address] [phone] A1c <pending> Complete Blood Count 06/06/2020 [facility]: Dr Tye [address] [place], [place] [id number] [phone] WBC 8.7 x10*3/UL 4.1 - 10.9 RBC [...] 6.0 x10*3/UL 2.0 - 7.8 A1c 06/06/2020 [facility]: [place] [address] [phone] Hba1c 6.7 g/dL High 4.8 - 5.6 1 Est Avg Glucose 146 mg/dL High 60 - 110 Comprehensive Chem Profile 06/06/2020 [facility]: [place] [address] [phone] Glucose 127 mg/dL High 74 - 99 2 BUN 19 mg/dL High 7 - 18 [...] >= 60 mL/min >60 3 Lipid Profile 06/06/2020 [facility]: [place] [address] [phone] Cholesterol 164 mg/dL 131 - 200 Triglycerides [...] GFR LEFT ESRD GFR <15 ON PUBLIC RELATIONS REPRESENTATIVE Procedures Date Code Description Status 04/05/2019 [id number] Diabetic Foot Exam Completed 10/13/2018 [id number] Mammogram Completed 09/28/2017 [id number] Diabetic Retinal Eye Exam [facility] 12/12/2016 [id number] Diabetic Retinal Eye Exam [facility] 05/30/2016 [id number] Mammogram Completed Medical Devices Description No Information Available Encounters Type Date Location Provider Dx Diagnosis Office Visit 06/11/2020 2:00p [facility] Bren Silva DO I87.2 Venous insufficiency (chronic) (peripheral) R33.9 Retention [...] other disorder Assessments Date Code Description Provider 06/11/2020 I87.2 Venous insufficiency (chronic) ( peripheral) Bren Silav DO 06/11/2020 R33.9 Retention of urine, unspecified Bren Silva DO 06/11/2020 M48.061 Spinal stenosis, lumbar region w ithout neurogenic claudicati Bren Silva DO 06/11/2020 M48.02 Spinal stenosis, cervical region Bren Silva DO 06/11/2020 E11.9 Type 2 diabetes mellitus without [...] 10:40 am - Bren Silva DO at [facility] 06/11/2020 - Bren Silva DO* I87.2 Venous insufficiency (chronic) (peripheral) * R33.9 Retention of urine, unspecified * M48.061 Spinal stenosis, lumbar region without neurogenic claudicati * M48.02 Spinal stenosis, cervical region * E11.9 Type 2 diabetes mellitus without complications * R26.9 Unspecified abnormalities of gait and mobility * Z89.512 Acquired absence of left leg below knee * R29.6 Repeated falls * Z13.89 Encounter for screening for other disorder * All * New Medication:* Shingrix 50 mcg/0.5ML - administer 0.5 milliliters intramuscular, repeat in 2 to 6 months Functional Status Description No Information Available Mental Status Description No Information Available Referrals Refer to Reason for Referral Status Appt Date Miguel Pizarro MD CONSULT FOR SCREENING COLONOSCOPY Estefany hi Notified 08/30/2020 [address] [address] [phone]
--- OUTSIDE RECORDS SUMMARY | 2021-01-10 09:58 | CCD ---
Author Author [facility] Organization [facility] Address Unknown Phone Unavailable Care Team Providers Care Floor Polisher Name Role Phone Kali Urrutia Unavailable PROBLEMS Type Condition ICD9-CM Code NYJ63-FV Code Onset Dates Condition S tatus SNOMED Code Notes Problem UTI (urinary tract infection) N39.0 Active 68 871337 Problem Incontinence R32 Active 84588396 Problem Furuncle 680.9 Active 36025629 Problem Urinary retention R33.9 Active 786791378 ALLERGIES Allergen (clinical drug ingredient) Drug/Non Drug Allergy do cumented on EMR Reaction Allergy Type Onset Date Status Latex (for allergy use only) CAUSES PEELING OF SKIN Drug A llergy Active nickel Rash Non Drug Allergy Active dust Rash Non Drug Allergy Active ENCOUNTERS from 1950 to 2020-10-12 Encounter Location Date Provider Diagnosis [facility] [address] [facility] [facility] [place] [address] May Kali Urrutia UTI (urinary tract infection) N39.0 IMMUNIZATIONS Vaccine Route Administration Date Status Influenza (6mo & up) Fluzone Unknown February 18, 2018 Ref used SOCIAL HISTORY Tobacco Use: Social History Observation Description Date Details (start date - stop date) Former Smoker Sex Assigned At : Social History Observation Description Sex Assigned At Unknown Language: Question Answer Notes Languages spoken: Luxembourgish Religious: Question Answer Notes Religious No tenriism beliefs that would impact health care. Sexual [...] MEDICATIONS Medication SIG (Take, Route, Frequency, Duration) Start Date En d Date Status Ciprofloxacin HCl 500 MG 1 tablet Orally every 12 hrs for 10 day(s) Sep, Not-Taking ASA 2 tab Oral DAILY Not-Taking Bactrim DS 800-160 MG 1 tablet Orally Twice a day for 10 day(s) Oct, Not-Taking Lasix 20 MG 1 tablet Orally Once a day for 30 day(s) Not-Taking Biotin 1000 MCG Orally twice daily Activ e Vitamin D 2000 UNIT 1 tablet Orally Once a day Not-Taking Aspirin 81 81 MG 1 tablet Orally bid Acti ve Bactrim DS 800-160 MG 1 tablet Orally Twice a day for 14 days 2019 Active Metformin HCl 500 mg 1 tablet with meals p.o. Twice a day for 30 da y(s) Active Bactrim DS 800-160 MG 1 tablet Orally Twice a day for 10 day(s) Jun, Not-Taking Aspirin 325 MG 1 tablet Orally once daily as needed Not-Taking Vitamin B Complex - as directed Orally Ac tive Lidocaine Viscous 2 % 5 ml intravesically as needed for catheter ch nuviaes Not-Taking Catheters - 16fr catheter transurethral monthly Sep, Not-Taking Macrobid 100 MG 1 capsule with food Orally every 12 hrs for 10 day(s) Aug, Not-Taking Centrum - Orally Active Magnesium 250 MG 1 tablet with a meal Orally Once a day prn Not-Taking Bactrim DS 800-160 MG 1 tablet Orally Twice a day for 14 day(s) May, Not-Taking Septra DS 160-800 MG 1 tablet Orally Twice a day for 10 day(s) 24 O 2012 Not-Taking Bactrim DS 800-160 MG 1 tablet Orally as directed- 1 hour prior to cystoscopy for 1 dose(s) Jul, Not-Taking Oxybutynin Chloride ER 5 MG 1 tablet Orally Once a day for 3 0 day(s) Oct, Not-Taking PROCEDURES No Information RESULTS Component Value Reference Range UA URINALYSIS Reviewed date:08/29/2020 11:49:47 Interpretation: Performing Lab:[facility] [address] [address] , ,[place] [address] URINE CULTURE Reviewed date:08/29/2020 15:30:17 Interpretation: Performing Lab:[facility] [address] [address] , ,[place] [address] REASON FOR VISIT UTI?? MEDICAL (GENERAL) HISTORY Type Description Date Medical [...] STATUS No Information ASSESSMENTS Encounter Date Diagnosis Notes May, UTI (urinary tract infection) (ICD-10 - N39.0) PLAN OF TREATMENT Medication Medication Name Sig Start Date Stop Date Bactrim DS 800-160 MG 1 tablet Orally Twice a day for 14 days March, Insurance Providers Payer Name Payer Address Payer Phone Insured Name Patient Relati onship to Insured Coverage Start Date Coverage End Date MEDICARE Part A and B [address] [place] [phone] SHAKIRA CUTLER [facility] [employer] [facility] CLAIM DIV [address] [facility] [phone] SHAKIRA CUTLER
[2021-01-10 09:59] LABS: BASO % 0.2 % (0.0-1.0); EOS # 0.1 10^3/uL (0.0-0.5); EOS % 0.5 % (0.0-3.0); HEMATOCRIT 39.7 % (36.0-47.0); HEMOGLOBIN 13.2 g/dl (12.0-15.5); LYMPH # 1.9 10^3/uL (1.5-5.0); LYMPH % 15.7 % (24.0-44.0); MEAN CORPUSCULAR HEMOGLOBIN 27.6 pg (27.0-33.0); MEAN CORPUSCULAR HGB CONC 33.2 g/dl (32.0-36.5); MEAN CORPUSCULAR VOLUME 83.1 fl (80.0-96.0); MONO # 1.2 10^3/uL (0.0-0.8); MONO % 10.2 % (0.0-5.0); NEUTROPHILS # 8.5 10^3/uL (1.5-8.5); PLATELET COUNT, AUTOMATED 226 10^3/uL (150-450); RED BLOOD COUNT 4.78 10^6/uL (4.00-5.40); WHITE BLOOD COUNT 11.8 10^3/uL (4.0-10.0)
--- OUTSIDE RECORDS SUMMARY | 2021-01-10 09:59 | CCD ---
Author Author [facility] Organization [facility] Address Unknown Phone Unavailable Care Team Providers Care Tax Map Technician Name Role Phone DANIEL TATUM MD Unavailable Unavailable DANIEL TATUM MD Unavailable Unavailable DANIEL TATUM MD Unavailable Unavailable DANIEL TATUM MD Unavailable Unavailable DANIEL TATUM MD Unavailable Unavailable DANIEL TATUM MD Unavailable Unavailable DANIEL TATUM MD Unavailable Unavailable DANIEL TATUM MD Unavailable Unavailable DANIEL TATUM MD Unavailable Unavailable DANIEL TATUM MD Unavailable Unavailable DANIEL TATUM MD Unavailable Unavailable DANIEL TATUM MD Unavailable Unavailable DANIEL TATUM MD Unavailable Unavailable DANIEL TATUM MD Unavailable Unavailable DANIEL TATUM MD Unavailable Unavailable DANIEL TATUM MD Unavailable Unavailable DANIEL TATUM MD Unavailable Unavailable DANIEL TATUM MD Unavailable Unavailable DANIEL TATUM MD Unavailable Unavailable DANIEL TATUM MD Unavailable Unavailable DANIEL TATUM MD Unavailable Unavailable DANIEL TATUM MD Unavailable Unavailable DANIEL TATUM MD Unavailable Unavailable DANIEL TATUM MD Unavailable Unavailable DANIEL TATUM MD Unavailable Unavailable DANIEL TATUM MD Unavailable Unavailable DANIEL TATUM MD Unavailable Unavailable DANIEL TATUM MD Unavailable Unavailable DANIEL TATUM MD Unavailable Unavailable DANIEL TATUM MD Unavailable Unavailable JUAN RDANIEL CARR MD Unavailable Unavailable DANIEL TATUM MD Unavailable Unavailable DANIEL TATUM MD Unavailable Unavailable DANIEL TATUM MD Unavailable Unavailable DANIEL TATUM MD Unavailable Unavailable DANIEL TATUM MD Unavailable Unavailable JUAN RDANIEL CARR MD Unavailable Unavailable JUAN RDANIEL CARR MD Unavailable Unavailable DANIEL TATUM MD Unavailable Unavailable DANIEL TATUM MD Unavailable Unavailable DANIEL TATUM MD Unavailable Unavailable DANIEL TATUM MD Unavailable Unavailable DANIEL TATUM MD Unavailable Unavailable DANIEL TATUM MD Unavailable Unavailable DANIEL TATUM MD Unavailable Unavailable DANIEL TATUM MD Unavailable Unavailable DANIEL TATUM MD Unavailable Unavailable DANIEL TATUM MD Unavailable Unavailable DANIEL TATUM MD Unavailable Unavailable DANIEL TATUM MD Unavailable Unavailable DANIEL TATUM MD Unavailable Unavailable DANIEL TATUM MD Unavailable Unavailable DANIEL TATUM MD Unavailable Unavailable DANIEL TATUM MD Unavailable Unavailable DANIEL TATUM MD Unavailable Unavailable DANIEL TATUM MD Unavailable Unavailable DANIEL TATUM MD Unavailable Unavailable DANIEL TATUM MD Unavailable Unavailable DANIEL TATUM MD Unavailable Unavailable DANIEL TATUM MD Unavailable Unavailable DANIEL TATUM MD Unavailable Unavailable DANIEL TATUM MD Unavailable Unavailable DANIEL TATUM MD Unavailable Unavailable DANIEL TATUM MD Unavailable Unavailable DANIEL TATUM MD Unavailable Unavailable DANIEL TATUM MD Unavailable Unavailable DANIEL TATUM MD Unavailable Unavailable DANIEL TATUM MD Unavailable Unavailable DANIEL TATUM MD Unavailable Unavailable DANIEL TATUM MD Unavailable Unavailable DANIEL TATUM MD Unavailable Unavailable DANIEL TATUM MD Unavailable Unavailable DANIEL TATUM MD Unavailable Unavailable DANIEL TATUM MD Unavailable Unavailable Gisselle, Bren DO Unavailable Unavailable Gisselle, Bren DO Unavailable Unavailable Gisselle, Bren DO Unavailable Unavailable Gisselle, Bren DO Unavailable Unavailable Gisselle, Bren DO Unavailable Unavailable Gisselle, Bren DO Unavailable Unavailable Gisselle, Bren DO Unavailable Unavailable Gisselle, Bren DO Unavailable Unavailable Gisselle, Bren DO Unavailable Unavailable Gisselle, Bren DO Unavailable Unavailable Gisselle, Bren DO Unavailable Unavailable Gisselle, Bren DO Unavailable Unavailable Gisselle, Bren DO Unavailable Unavailable Gisselle, Bren DO Unavailable Unavailable Gisselle, Bren DO Unavailable Unavailable Gisselle, Bren DO Unavailable Unavailable Gisselle, Bren DO Unavailable Unavailable Gisselle, Bren DO Unavailable Unavailable Gisselle, Bren DO Unavailable Unavailable Gisselle, Bren DO Unavailable Unavailable Giseslle, Bren DO Unavailable Unavailable Gisselle, Bren DO Unavailable Unavailable Gisselle, Bren DO Unavailable Unavailable Gisselle, Bren DO Unavailable Unavailable Gisselle, Bren DO Unavailable Unavailable Gisselle, Bren DO Unavailable Unavailable Gisselle, Bren DO Unavailable Unavailable Gisselle, Bren DO Unavailable Unavailable Gisselle, Bren DO Unavailable Unavailable Gisselle, Bren DO Unavailable Unavailable Gisselle, Bren DO Unavailable Unavailable Gisselle, Bren DO Unavailable Unavailable Gisselle, Bren DO Unavailable Unavailable Gisselle, Bren DO Unavailable Unavailable Gisselle, Bren DO Unavailable Unavailable Gisselle, Bren DO Unavailable Unavailable Gisselle, Bren DO Unavailable Unavailable Gisselle, Bren DO Unavailable Unavailable Gisselle, Bren DO Unavailable Unavailable Gisselle, Bren DO Unavailable Unavailable Gisselle, Bren DO Unavailable Unavailable Gisselle, Bren DO Unavailable Unavailable Gisselle, Bren DO Unavailable Unavailable Gisselle, Bren DO Unavailable Unavailable Gisselle, Bren DO Unavailable Unavailable Gisselle, Bren DO Unavailable Unavailable Gisselle, Bren DO Unavailable Unavailable Gisselle, Bren DO Unavailable Unavailable Gisselle, Bren DO Unavailable Unavailable Gisselle, Bren DO Unavailable Unavailable Gisselle, Bren DO Unavailable Unavailable Gisselle, Bren DO Unavailable Unavailable Gisselle, Bren DO Unavailable Unavailable Gisselle, Bren DO Unavailable Unavailable Gisselle, Bren DO Unavailable Unavailable Gisselle, Bren DO Unavailable Unavailable Gisselle, Bren DO Unavailable Unavailable Gisselle, Bren DO Unavailable Unavailable Gisselle, Bren DO Unavailable Unavailable Gisselle, Bren DO Unavailable Unavailable Gisselle, Bren DO Unavailable Unavailable Gisselle, Bren DO Unavailable Unavailable Gisselle, Bren DO Unavailable Unavailable Gisselle, Bren DO Unavailable Unavailable Gisselle, Bren DO Unavailable Unavailable Gisselle, Bren DO Unavailable Unavailable Gisselle, Bren DO Unavailable Unavailable Gisselle, Bren DO Unavailable Unavailable Gisselle, Bren DO Unavailable Unavailable Gisselle, Bren DO Unavailable Unavailable Gisselle, Bren DO Unavailable Unavailable Gsiselle, Bren DO Unavailable Unavailable MAJAK, R JOSE DPM Unavailable Unavailable MAJAK, R JOSE DPM Unavailable Unavailable MAJAK, R JOSE DPM Unavailable Unavailable MAJAK, R JOSE DPM Unavailable Unavailable MAJAK, R JOSE DPM Unavailable Unavailable MAJAK, R JOSE DPM Unavailable Unavailable MAJAK, R JOSE DPM Unavailable Unavailable MAJAK, R JOSE DPM Unavailable Unavailable MAJAK, R JOSE DPM Unavailable Unavailable MAJAK, R JOSE DPM Unavailable Unavailable MAJAK, R JOSE DPM Unavailable Unavailable MAJAK, R JOSE DPM Unavailable Unavailable MAJAK, R JOSE DPM Unavailable Unavailable MAJAK, R JOSE DPM Unavailable Unavailable MAJAK, R JOSE DPM Unavailable Unavailable MAJAK, R JOSE DPM Unavailable Unavailable MAJAK, R JOSE DPM Unavailable Unavailable MAJAK, R JOSE DPM Unavailable Unavailable MAJAK, R JOSE DPM Unavailable Unavailable MAJAK, R JOSE DPM Unavailable Unavailable MAJAK, R JOSE DPM Unavailable Unavailable MAJAK, R JOSE DPM Unavailable Unavailable MAJAK, R JOSE DPM Unavailable Unavailable MAJAK, R JOSE DPM Unavailable Unavailable MAJAK, R JOSE DPM Unavailable Unavailable MAJAK, R JOSE DPM Unavailable Unavailable MAJAK, R JOSE DPM Unavailable Unavailable MAJAK, R JOSE DPM Unavailable Unavailable MAJAK, R JOSE DPM Unavailable Unavailable MAJAK, R JOSE DPM Unavailable Unavailable Kieran, D Luke Unavailable Unavailable Kieran, D Luke Unavailable Unavailable Kieran, D Luke Unavailable Unavailable Kieran, D Luke Unavailable Unavailable Kieran, D Luke Unavailable Unavailable Kieran, D Luke Unavailable Unavailable Kieran, D Luke Unavailable Unavailable Kieran, D Luke Unavailable Unavailable Kieran, D Luke Unavailable Unavailable Kieran, D Luke Unavailable Unavailable Kieran, D Luke Unavailable Unavailable Kieran, D Luke Unavailable Unavailable Kieran, D Luke Unavailable Unavailable Kieran, D Luke Unavailable Unavailable Kieran, D Luke Unavailable Unavailable Kieran, D Luke Unavailable Unavailable Kieran, D Luke Unavailable Unavailable Kieran, D Luke Unavailable Unavailable Kieran, D Luke Unavailable Unavailable Kieran, D Luke Unavailable Unavailable Kieran, D Luke Unavailable Unavailable Kieran, D Luke Unavailable Unavailable Kieran, D Luke Unavailable Unavailable Kieran, D Luke Unavailable Unavailable Kieran, D Luke Unavailable Unavailable Kieran, D Luke Unavailable Unavailable Kieran, D Luke Unavailable Unavailable Kieran, D Luke Unavailable Unavailable Kieran, D Luke Unavailable Unavailable Kieran, D Luke Unavailable Unavailable Kieran, D Luke Unavailable Unavailable Kieran, D Luke Unavailable Unavailable Kieran, D Luke Unavailable Unavailable Kieran, D Luke Unavailable Unavailable Kieran, D Luke Unavailable Unavailable Kieran, D Luke Unavailable Unavailable Kieran, D Luke Unavailable Unavailable Kieran, D Ulke Unavailable Unavailable Kieran, D Luke Unavailable Unavailable Kieran, D Luke Unavailable Unavailable Kieran, D Luke Unavailable Unavailable Kieran, D Luke Unavailable Unavailable Kieran, D Luke Unavailable Unavailable Kieran, D Luke Unavailable Unavailable Kieran, D Luke Unavailable Unavailable Kieran, D Luke Unavailable Unavailable Kieran, D Luke Unavailable Unavailable Kieran, D Luke Unavailable Unavailable Kieran, D Luke Unavailable Unavailable Kieran, D Luke Unavailable Unavailable Kieran, D Luke Unavailable Unavailable Kieran, D Luke Unavailable Unavailable GERRI, DO BINH Unavailable Unavailable Charles, Cyn PA Unavailable Unavailable Charles, Cyn PA Unavailable Unavailable Charles, Cyn PA Unavailable Unavailable Charles, Cyn PA Unavailable Unavailable Charles, Cyn PA Unavailable Unavailable Charles, Cyn PA Unavailable Unavailable Charles, Cyn PA Unavailable Unavailable Charles, Cyn PA Unavailable Unavailable Charles, Cyn PA Unavailable Unavailable Charles, Cyn PA Unavailable Unavailable Charles, Cyn PA Unavailable Unavailable Charles, Cyn PA Unavailable Unavailable Charles, Cyn PA Unavailable Unavailable Charles, Cyn PA Unavailable Unavailable Charles, Cyn PA Unavailable Unavailable Charles, Cyn PA Unavailable Unavailable Charles, Cyn PA Unavailable Unavailable Charles, Cyn PA Unavailable Unavailable Charles, Cyn PA Unavailable Unavailable Charles, Cyn PA Unavailable Unavailable Charles, Cyn PA Unavailable Unavailable Charles, Cyn PA Unavailable Unavailable Charles, Cyn PA Unavailable Unavailable Charles, Cyn PA Unavailable Unavailable Charles, Cyn PA Unavailable Unavailable Charles, Cyn PA Unavailable Unavailable Charles, Cyn PA Unavailable Unavailable Charles, Cyn PA Unavailable Unavailable Charles, Cyn PA Unavailable Unavailable Charles, Cyn PA Unavailable Unavailable Charles, Cyn PA Unavailable Unavailable Charles, Cyn PA Unavailable Unavailable Charles, Cyn PA Unavailable Unavailable Charles, Cyn PA Unavailable Unavailable Charles, Cyn PA Unavailable Unavailable Charles, Cyn PA Unavailable Unavailable Charles, Cyn PA Unavailable Unavailable Charles, Cyn PA Unavailable Unavailable Charles, Cyn PA Unavailable Unavailable Charles, Cyn PA Unavailable Unavailable Charles, Cyn PA Unavailable Unavailable Charles, Cyn PA Unavailable Unavailable Charles, Cyn PA Unavailable Unavailable Charles, Cyn PA Unavailable Unavailable Gisselle, Bren DO Unavailable Unavailable Gisselle, Bren DO Unavailable Unavailable Gisselle, Bren DO Unavailable Unavailable Gisselle, Bren DO Unavailable Unavailable Gisselle, Bren DO Unavailable Unavailable Gisselle, Bren DO Unavailable Unavailable Gisselle, Bren DO Unavailable Unavailable Gisselle, Bren DO Unavailable Unavailable Gisselle, Bren DO Unavailable Unavailable Gisselle, Bren DO Unavailable Unavailable Gisselle, Bren DO Unavailable Unavailable Gisselle, Bren DO Unavailable Unavailable Gisselle, Bren DO Unavailable Unavailable Gisselle, Bren DO Unavailable Unavailable Gisselle, Bren DO Unavailable Unavailable Gisselle, Bren DO Unavailable Unavailable Gisselle, Bren DO Unavailable Unavailable Gisselle, Bren DO Unavailable Unavailable Gisselle, Bren DO Unavailable Unavailable Gisselle, Bren DO Unavailable Unavailable Gisselle, Bren DO Unavailable Unavailable Gisselle, Bren DO Unavailable Unavailable Gisselle, Bren DO Unavailable Unavailable Gisselle, Bren DO Unavailable Unavailable Gisselle, Bren DO Unavailable Unavailable Gisselle, Bren DO Unavailable Unavailable Gisselle, Bren DO Unavailable Unavailable Gisselle, Bren DO Unavailable Unavailable Gisselle, Bren DO Unavailable Unavailable Gisselle, Bren DO Unavailable Unavailable Gisselle, Bren DO Unavailable Unavailable Gisselle, Bren DO Unavailable Unavailable Gisselle, Bren DO Unavailable Unavailable Gisselle, Bren DO Unavailable Unavailable Gisselle, Bren DO Unavailable Unavailable Gisselle, Bren DO Unavailable Unavailable Gisselle, Bren DO Unavailable Unavailable Gisselle, Bren DO Unavailable Unavailable Gisselle, Bren DO Unavailable Unavailable Gisselle, Bren DO Unavailable Unavailable Gisselle, Bren DO Unavailable Unavailable Gisselle, Bren DO Unavailable Unavailable Gisselle, Bren DO Unavailable Unavailable Gisselle, Bren DO Unavailable Unavailable Gisselle, Bren DO Unavailable Unavailable Gisselle, Bren DO Unavailable Unavailable Gisselle, Bren DO Unavailable Unavailable Gisselle, Bren DO Unavailable Unavailable Gisselle, Bren DO Unavailable Unavailable Gisselle, Bren DO Unavailable Unavailable Gisselle, Bren DO Unavailable Unavailable Gisselle, Bren DO Unavailable Unavailable Gisselle, Bren DO Unavailable Unavailable Gisselle, Bren DO Unavailable Unavailable Giseslle, Bren DO Unavailable Unavailable Gisselle, Bren DO Unavailable Unavailable Gisselle, Bren DO Unavailable Unavailable Gisselle, Bren DO Unavailable Unavailable Gisselle, Bren DO Unavailable Unavailable Gisselle, Bren DO Unavailable Unavailable Gisselle, Bren DO Unavailable Unavailable Gisselle, Bren DO Unavailable Unavailable Gisselle, Bren DO Unavailable Unavailable Gisselle, Bren DO Unavailable Unavailable Gisselle, Bren DO Unavailable Unavailable Gisselle, Bren DO Unavailable Unavailable Gisselle, Bren DO Unavailable Unavailable Gisselle, Bren DO Unavailable Unavailable Gisselle, Bren DO Unavailable Unavailable Gisselle, Bren DO Unavailable Unavailable Gisselle, Bren DO Unavailable Unavailable Gisselle, Bren DO Unavailable Unavailable DANIEL TATUM MD Unavailable Unavailable DANIEL TATUM MD Unavailable Unavailable DANIEL TATUM MD Unavailable Unavailable DANIEL TATUM MD Unavailable Unavailable DANIEL TATUM MD Unavailable Unavailable DANIEL TATUM MD Unavailable Unavailable DANIEL TATUM MD Unavailable Unavailable DANIEL TATUM MD Unavailable Unavailable DANIEL TATUM MD Unavailable Unavailable DANIEL TATUM MD Unavailable Unavailable DANIEL TATUM MD Unavailable Unavailable DANIEL TATUM MD Unavailable Unavailable DANIEL TATUM MD Unavailable Unavailable DANIEL TATUM MD Unavailable Unavailable DANIEL TATUM MD Unavailable Unavailable DANIEL TATUM MD Unavailable Unavailable DANIEL TATUM MD Unavailable Unavailable DANIEL TATUM MD Unavailable Unavailable DANIEL TATUM MD Unavailable Unavailable DANIEL TATUM MD Unavailable Unavailable DANIEL TATUM MD Unavailable Unavailable DANIEL TATUM MD Unavailable Unavailable DANIEL TATUM MD Unavailable Unavailable DANIEL TATUM MD Unavailable Unavailable DANIEL TATUM MD Unavailable Unavailable DANIEL TATUM MD Unavailable Unavailable DANIEL TATUM MD Unavailable Unavailable DANIEL TATUM MD Unavailable Unavailable DANIEL TATUM MD Unavailable Unavailable DANIEL TATUM MD Unavailable Unavailable DANIEL TATUM MD Unavailable Unavailable DANIEL TATUM MD Unavailable Unavailable DANIEL TATUM MD Unavailable Unavailable DANIEL TATUM MD Unavailable Unavailable DANIEL TATUM MD Unavailable Unavailable DANIEL TATUM MD Unavailable Unavailable DANIEL TATUM MD Unavailable Unavailable DANIEL TATUM MD Unavailable Unavailable DANIEL TATUM MD Unavailable Unavailable DANIEL TATUM MD Unavailable Unavailable DANIEL TATUM MD Unavailable Unavailable DANIEL TATUM MD Unavailable Unavailable DANIEL TATUM MD Unavailable Unavailable DANIEL TATUM MD Unavailable Unavailable DANIEL TATUM MD Unavailable Unavailable DANIEL TATUM MD Unavailable Unavailable DANIEL TATUM MD Unavailable Unavailable DANIEL TATUM MD Unavailable Unavailable DANIEL TATUM MD Unavailable Unavailable DANIEL TATUM MD Unavailable Unavailable DANIEL TATUM MD Unavailable Unavailable DANIEL TATUM MD Unavailable Unavailable DANIEL TATUM MD Unavailable Unavailable DANIEL TATUM MD Unavailable Unavailable DANIEL TATUM MD Unavailable Unavailable DANIEL TATUM MD Unavailable Unavailable DANIEL TATUM MD Unavailable Unavailable DANIEL TATUM MD Unavailable Unavailable DANIEL TATUM MD Unavailable Unavailable DANIEL TATUM MD Unavailable Unavailable DANIEL TATUM MD Unavailable Unavailable DANIEL TATUM MD Unavailable Unavailable DANIEL TATUM MD Unavailable Unavailable DANIEL TATUM MD Unavailable Unavailable DANIEL TATUM MD Unavailable Unavailable DANIEL TATUM MD Unavailable Unavailable DANIEL TATUM MD Unavailable Unavailable DANIEL TATUM MD Unavailable Unavailable DANIEL TATUM MD Unavailable Unavailable DANIEL TATUM MD Unavailable Unavailable DANIEL TATUM MD Unavailable Unavailable DANIEL TATUM MD Unavailable Unavailable DANIEL TATUM MD Unavailable Unavailable DANIEL TATUM MD Unavailable Unavailable Juan Jose ORTEGA MD Unavailable Unavailable Juan Jose ORTEGA MD Unavailable Unavailable Juan Jose ORTEGA MD Unavailable Unavailable Juan Jose ORTEGA MD Unavailable Unavailable Juan Jose ORTEGA MD Unavailable Unavailable Juan Jose ORTEGA MD Unavailable Unavailable Juan Jose ORTEGA MD Unavailable Unavailable Juan Jose ORTEGA MD Unavailable Unavailable Juan Jose ORTEGA MD Unavailable Unavailable Juan Jose ORTEGA MD Unavailable Unavailable Juan Jose ORTEGA MD Unavailable Unavailable Juan Jose ORTEGA MD Unavailable Unavailable Juan Jose ORTEGA MD Unavailable Unavailable Juan Jose ORTEGA MD Unavailable Unavailable Juan Jose ORTEGA MD Unavailable Unavailable Juan Jose ORTEGA MD Unavailable Unavailable Juan Jose ORTEGA MD Unavailable Unavailable Juan Jose ORTEGA MD Unavailable Unavailable Juan Jose ORTEGA MD Unavailable Unavailable Juan Jose ORTEGA MD Unavailable Unavailable GREENKY, B DALE MD Unavailable Unavailable GREENKY, B DALE MD Unavailable Unavailable GREENKY, B DALE MD Unavailable Unavailable GREENKY, B DALE MD Unavailable Unavailable GREENKY, B DALE MD Unavailable Unavailable GREENKY, B DALE MD Unavailable Unavailable GREENKY, B DALE MD Unavailable Unavailable GREENKY, B DALE MD Unavailable Unavailable GREENKY, B DALE MD Unavailable Unavailable GREENKY, B DALE MD Unavailable Unavailable GREENKY, B DALE MD Unavailable Unavailable GREENKY, B DALE MD Unavailable Unavailable GREENKY, B DALE MD Unavailable Unavailable GREENKY, B DALE MD Unavailable Unavailable GREENKY, B DALE MD Unavailable Unavailable GREENKY, B DALE MD Unavailable Unavailable GREENKY, B DALE MD Unavailable Unavailable GREENKY, B DALE MD Unavailable Unavailable GREENKY, B DALE MD Unavailable Unavailable GREENKY, B DLAE MD Unavailable Unavailable GREENKY, B DALE MD Unavailable Unavailable GREENKY, B DALE MD Unavailable Unavailable GREENKY, B DALE MD Unavailable Unavailable GREENKY, B DALE MD Unavailable Unavailable GREENKY, B DALE MD Unavailable Unavailable GREENKY, B DALE MD Unavailable Unavailable GREENKY, B DALE MD Unavailable Unavailable GREENKY, B DALE MD Unavailable Unavailable GREENKY, B DALE MD Unavailable Unavailable GREENKY, B DALE MD Unavailable Unavailable GREENKY, B DALE MD Unavailable Unavailable GREENKY, B DALE MD Unavailable Unavailable GREENKY, B DALE MD Unavailable Unavailable GREENKY, B DALE MD Unavailable Unavailable GREENKY, B DALE MD Unavailable Unavailable GREENKY, B DALE MD Unavailable Unavailable GREENKY, B DALE MD Unavailable Unavailable GREENKY, B DALE MD Unavailable Unavailable GREENKY, B DALE MD Unavailable Unavailable GREENKY, B DALE MD Unavailable Unavailable GREENKY, B DALE MD Unavailable Unavailable GREENKY, B DALE MD Unavailable Unavailable GREENKY, B DALE MD Unavailable Unavailable GREENKY, B DALE MD Unavailable Unavailable GREENKY, B DALE MD Unavailable Unavailable GREENKY, B DALE MD Unavailable Unavailable GREENKY, B DALE MD Unavailable Unavailable GREENKY, B DALE MD Unavailable Unavailable GREENKY, B DALE MD Unavailable Unavailable GREENKY, B DALE MD Unavailable Unavailable GREENKY, B DALE MD Unavailable Unavailable GREENKY, B DALE MD Unavailable Unavailable GREENKY, B DALE MD Unavailable Unavailable GREENKY, B DALE MD Unavailable Unavailable GREENKY, B DALE MD Unavailable Unavailable GREENKY, B DALE MD Unavailable Unavailable GREENKY, B DALE MD Unavailable Unavailable GREENKY, B DALE MD Unavailable Unavailable GREENKY, B DALE MD Unavailable Unavailable GREENKY, B DALE MD Unavailable Unavailable GREENKY, B DALE MD Unavailable Unavailable GREENKY, B DALE MD Unavailable Unavailable GREENKY, B DALE MD Unavailable Unavailable GREENKY, B DALE MD Unavailable Unavailable GREENKY, B DALE MD Unavailable Unavailable GREENKY, B DALE MD Unavailable Unavailable GREENKY, B DALE MD Unavailable Unavailable GREENKY, B DALE MD Unavailable Unavailable GREENKY, B DALE MD Unavailable Unavailable GERRI DOCARRINGTON MD Unavailable Unavailable GERRI DO, CARRINGTON PURCELL MD Unavailable Unavailable Re-disclosure Warning The records that you are about to access may contain information from federally-assisted alcohol or drug abuse programs. If such information is present, then the following federally mandated warning applies: This information has been disclosed to you from records protected by federal confidentiality rules (42 CFR part 2). The federal rules prohibit you from making any further disclosure of this information unless further disclosure is expressly permitted by the written consent of the person to whom it pertains or as otherwise permitted by 42 CFR part 2. A general authorization for the release of medical or other information is NOT sufficient for this purpose. The Federal rules restrict any use of the information to criminally investigate or prosecute any alcohol or drug abuse patient.The records that you are about to access may contain highly sensitive health information, the redisclosure of which is protected by Article 27-F of the [facility] Public Health law. If you continue you may have access to information: Regarding HIV / AIDS; Provided by facilities licensed or operated by the [facility] Office of Mental Health; or Provided by the [facility] Office for People With Developmental Disabilities. If such information is present, then the following [facility] mandated warning applies: This information has been disclosed to you from confidential records which are protected by state law. State law prohibits you from making any further disclosure of this information without the specific written consent of the person to whom it pertains, or as otherwise permitted by law. Any unauthorized further disclosure in violation of state law may result in a fine or long-term sentence or both. A general authorization for the release of medical or other information is NOT sufficient authorization for further disc losure. Allergies and Adverse Reactions Type Description Substance Reaction Status Data Source(s ) dust dust dust Rash Active eCW1 ([facility]) nickel nickel nickel Rash Active eCW1 ([facility]) Latex (for allergy use only) Latex (for allergy use only) [place] (for allergy use only) CAUSES PEELING OF SKIN Active eCW1 ([facility]) nickel nickel nickel Rash Active eCW1 ([facility]) dust dust dust Rash Active eCW1 ([facility]) Latex (for allergy use only) Latex (for allergy use only) [place] rose (for allergy use only) CAUSES PEELING OF SKIN Active eCW1 ([facility]) Family History Family Member Name Family Member Gender Family Member Status Date o f Status Description Data Source(s) Unknown Male Problem [facility] ([facility] Unknown Male Problem MEDENT ([facility]) Encounters Encounter Providers Location Date Indications Data Source(s ) Unknown [address] [facility] [address] 12/31/2020 12:00:00 AM EST eCW1 ([facility]) Office Visit Attender: Bren Ramos 12/25 01:30:00 PM EST MEDENT ([facility] ) Outpatient Attender: JOSE SÁNCHEZ [facility] Office 10/30 07:45:00 AM EST MEDENT ([facility] Office Visit Attender: Bren Ramos 10/22 01:45:00 PM EST MEDENT ([facility] ) Outpatient Attender: Cyn Soto [facility] Office 10/19/2020 10:00:00 A M EST MEDENT ([facility]) Outpatient Referrer: DANIEL TATUM MD 10/01/2020 12:53:28 P M EST [facility] Outpatient Referrer: DANIEL TATUM MD 09/26/2020 10:31:22 A M EDT [facility] Outpatient Attender: DANIEL TATUM MDReferrer: Bren Smith 09/25/2020 03:49:50 PM EDT [facility] Outpatient Referrer: DANIEL TATUM MD 09/25/2020 02:19:32 P M EDT [facility] Recurring Patient Attender: DALE ORTEGA MDReferrer: Bren Sam machado DO 09/25/2020 01:16:41 PM EDT [facility] Recurring Patient Attender: DALEAARON ORTEGA MDReferrer: Bren Sam machado DO 09/25/2020 01:16:23 PM EDT [facility] Outpatient Attender: Luke Alcaraz 09/12/2020 12:00:00 AM EDT [facility] Outpatient Attender: BINH Cooper: Bren Pitts DO [id number] 07/02/2020 12:00:00 AM EDT - 07/02/2020 02:34:55 PM EDT [facility] Unknown [address] [facility] [address] 06/19/2020 12:00:00 AM EDT eCW1 ([facility]) Outpatient Attender: JOSE SÁNCHEZ [facility] Office 05/30 10:00:00 AM EDT MEDENT ([facility] Outpatient Attender: Bren Ramos 06/11 02:00:00 PM EDT MEDENT ([facility] ) [facility] [address] [place] [address] 04/30/2020 12:00:00 AM EDT eCW1 ([facility]) [facility] [address] [place] [address] 04/18/2020 12:00:00 AM EDT eCW1 ([facility]) [facility] [address] [place] [address] 04/16/2020 12:00:00 AM EDT eCW1 ([facility]) Outpatient Attender: BINH Cooper: Bren Pitts DO [id number] 03/26/2020 12:00:00 AM EDT Concussion without loss of consciousness , subsequent encounter [facility] Concussion without loss of consciousness , subsequent encounter Outpatient Attender: Luke Alcaraz 03/15/2020 12:00:00 AM EDT [facility] Outpatient Attender: Luke Alcaraz 03/15/2020 12:00:00 AM EDT [facility] Outpatient Referrer: DO BINH TALLEY 02/28/2020 02:23:00 PM EDT [facility] [address] [facility] [address] 02/07/2020 12:00:00 AM EDT eCW1 ([facility]) [facility] [address] [facility] [address] 02/07/2020 12:00:00 AM EDT eCW1 ([facility]) [facility] [address] [place] [address], [place] [address] 02/02/2020 12:00:00 AM EST eCW1 ([facility]) Outpatient Attender: Bren Ramos 01/11 09:00:00 AM EST MEDENT ([facility] ) [facility] [address] [facility] [address] 01/04/2020 12:00:00 AM EST eCW1 ([facility]) Outpatient Attender: Luke Alcaraz 12/29/2019 12:00:00 AM EST [facility] Immunizations Vaccine Date Status Description Data Source(s) VARICELLA-ZOSTER VIRUS GLYCOPROTEIN E,REC/AS01B ADJUVA NT/PF 07/06/2020 12:00:00 AM EDT completed [facility] Medications Medication Brand Name Start Date Product Form Dose Route Admi nistrative Instructions Pharmacy Instructions Status Indications Reaction Description Data Source(s) 250 mg 01/08/2021 12:00:00 AM EST tablet 2 TAKE ONE TABLET BY MOUTH EVERY DAY TAKE ONE TABLET BY MOUTH EVERY DAY SOLD: 01/09/2021 [facility] Zinc Sulfate 220 MG Oral Tablet ZINC SULFATE 01/08/2021 12:00:00 AM EST tablet 7 TAKE ONE TABLET BY MOUTH EVERY DAY FOR S LEEP TAKE ONE TABLET BY MOUTH EVERY DAY FOR SLEEP SOLD: 01/09/2021 [facility] Furosemide 20 MG Oral Tablet [Lasix] Lasix 12/25/2020 12:00:00 AM EST ORAL active MEDENT ([facility]) Ascorbic Acid 500 MG Oral Tablet Vitamin C 12/25/2020 12:00:00 AM EST ORAL active MEDENT ([facility]) 500 mg 2020 12:00:00 AM EST tablet 14 TAKE ONE TABLET BY MOUTH TWICE A DAY FOR 7 DAYS TAKE ONE TABLET BY MOUTH TWICE A DAY FOR 7 DAYS SOLD: 10/30/2020 [facility] Ciprofloxacin 500 MG Oral Tablet Ciprofloxacin HCL 2020 12:00 :00 AM EST ORAL completed MEDENT ([facility]) Potassium Chloride 10 MEQ Extended Release Oral Capsule POTA SSIUM CHLORIDE 10/23/2020 12:00:00 AM EST capsule, extended release 60 TAKE TWO CAPSULES BY MOUTH EVERY DAY TAKE TWO CAPSULES BY MOUTH EVERY DAY SOLD: 12/03/2020 [facility] Levofloxacin 500 MG Oral Tablet Levofloxacin 10/23/2020 12:00:[address] ORAL completed MEDENT ([facility]) 10 mEq 10/23/2020 12:00:00 AM EST capsule, extended relea se 60 TAKE TWO CAPSULES BY MOUTH EVERY DAY TAKE TWO CAPSULES BY MOUTH EVERY DAY SOLD: 10/23/2020 [facility] Potassium Chloride 10 MEQ Extended Release Oral Capsul e [Klor-Con] Klor-Con Sprinkle 10/23/2020 12:00:00 AM EST ORAL active MEDENT ([facility]) 500 mg 10/23/2020 12:00:00 AM EST tablet 5 TAKE ONE TABLET BY MOUTH EVERY DAY FOR 5 DAYS TAKE ONE TABLET BY MOUTH EVERY DAY FOR 5 DAYS SOLD: 10/23/2020 [facility] 20 mg 10/22/2020 12:00:00 AM EST tablet 30 TAKE ONE TABLET BY MOUTH EVERY DAY TAKE ONE TABLET BY MOUTH EVERY DAY SOLD: 12/22/2020 [facility] Furosemide 20 MG Oral Tablet [Lasix] Lasix 10/22/2020 12:00:00 AM EST ORAL completed MEDENT ([facility]) 20 mg 10/22/2020 12:00:00 AM EST tablet 30 TAKE ONE TABLET BY MOUTH EVERY DAY TAKE ONE TABLET BY MOUTH EVERY DAY SOLD: 10/22/2020 [facility] 20 mg 10/22/2020 12:00:00 AM EST tablet 30 TAKE ONE TABLET BY MOUTH EVERY DAY TAKE ONE TABLET BY MOUTH EVERY DAY SOLD: 11/20/2020 [facility] Sulfamethoxazole 800 MG / Trimethoprim 160 MG Oral Tab let 800-160 mg SULFAMETHOXAZOLE/TRIMETHOPRIM 07/17/2020 12:00:00 AM EDT tablet 28 TAKE ONE TABLET BY MOUTH TWICE A DAY FOR 14 DAYS TAKE ONE TABLET BY MOUTH TWICE A DAY FOR 14 DAYS SOLD: 07/19/2020 [facility] Shingrix Shingrix 06/11/2020 12:00:00 AM EDT activ e MEDENT ([facility]) Sulfamethoxazole 800 MG / Trimethoprim 1 60 MG Oral Tablet [Bactrim] Bactrim DS 800-160 MG Bactrim DS 800-160 MG 04/18/2020 12:00:00 AM EDT active 1 tablet eCW1 ([facility]) Sulfamethoxazole 800 MG / Trimethoprim 1 60 MG Oral Tablet [Bactrim] Bactrim DS 800-160 MG Bactrim DS 800-160 MG 04/18/2020 12:00:00 AM EDT 1.0 {table t} active Bactrim DS 800-160 MG eCW1 ( [facility]) Sulfamethoxazole 800 MG / Trimethoprim 1 60 MG Oral Tablet [Bactrim] Bactrim DS 800-160 MG Bactrim DS 800-160 MG 04/18/2020 12:00:00 AM EDT 1.0 {table t} active Bactrim DS 800-160 MG eCW1 ( [facility]) Sulfamethoxazole 800 MG / Trimethoprim 1 60 MG Oral Tablet [Bactrim] Bactrim DS 800-160 MG Bactrim DS 800-160 MG 04/18/2020 12:00:00 AM EDT 1.0 {table t} active Bactrim DS 800-160 MG eCW1 ( [facility]) Sulfamethoxazole 800 MG / Trimethoprim 1 60 MG Oral Tablet [Bactrim] Bactrim DS 800-160 MG Bactrim DS 800-160 MG 04/18/2020 12:00:00 AM EDT 1.0 {table t} active Bactrim DS 800-160 MG eCW1 ( [facility]) Sulfamethoxazole 800 MG / Trimethoprim 1 60 MG Oral Tablet [Bactrim] Bactrim DS 800-160 MG Bactrim DS 800-160 MG 04/18/2020 12:00:00 AM EDT 1.0 {table t} active Bactrim DS 800-160 MG eCW1 ( [facility]) 800-160 mg 04/18/2020 12:00:00 AM EDT tablet 28 TAKE ONE TABLET BY MOUTH TWICE A DAY FOR 14 DAYS TAKE ONE TABLET BY MOUTH TWICE A DAY FOR 14 DAYS SOLD: 04/19/2020 [facility] 500 mg 01/20/2020 12:00:00 AM EST tablet 270 TAKE 2 TABLETS BY MOUTH IN THE MORNING AND 1 IN THE EVENING TAKE 2 TABLETS BY MOUTH IN THE MORNING A ND 1 IN THE EVENING SOLD: 04/27/2020 [facility] 500 mg 01/20/2020 12:00:00 AM EST tablet 270 TAKE 2 TABLETS BY MOUTH IN THE MORNING AND 1 IN THE EVENING TAKE 2 TABLETS BY MOUTH IN THE MORNING A ND 1 IN THE EVENING SOLD: 08/22/2020 [facility] 500 mg 01/20/2020 12:00:00 AM EST tablet 270 TAKE 2 TABLETS BY MOUTH IN THE MORNING AND 1 IN THE EVENING TAKE 2 TABLETS BY MOUTH IN THE MORNING A ND 1 IN THE EVENING SOLD: 01/24/2020 [facility] Insurance Providers Payer name Policy type / Coverage type Policy ID Covered alliance party ID Covered alliance party's relationship to huitron Policy Huitron Plan Information MEDICARE [id number] SP [id number] AARP HEALTH CARE OPTIONS [id number] SP [id number] MEDICARE C [id number] S [id number] P36 AARP O [id number] S [id number] 111 [facility] AARP Supplemental F [id number] SELF [id number] DME Jurisdiction A NHIC C [id number] SELF [id number] Medicare C [id number] SELF [id number] MEDICARE A [id number] Self [id number] P36 AARP U [id number] Self [id number] MEDICARE C [id number] S [id number] A ANSI-Commercial [id number] ANSI-Medicare Part B [id number] [facility] AARP Supplemental F [id number] SELF [id number] ANSI-Medicare Part B [id number] ANSI-Commercial [id number] ANSI-Medicare Part B [id number] ANSI-Commercial [id number]-[id number] Medicare Medicare Primary [id number] Self [id number] Aarp Insurance Medigap Part B [id number] 11 Self [id number] Aarp Healthcare Opt Medigap Part B [id number] 11 Self [id number] Medicare Natl Govt Servic Medicare Primary [id number] Self [id number] MEDICARE A [id number] Self [id number] A ANSI-Commercial [id number] ANSI-Medicare Part B [id number] ANSI-Commercial [id number] ANSI-Medicare Part B [id number] Medicare Medicare Primary [id number] Self [id number] Medicare Medicare Primary [id number] Self [id number] ANSI-Commercial [id number] ANSI-Medicare Part B [id number] ANSI-Commercial [id number]-8qxl-56tk-xumv-[id number] vl0sxvhb-4fzq-38we-eqcj-[id number] ANSI-Medicare Part B [id number] ANSI-Commercial [id number]-[id number]-8v16-m98b-[id number] ANSI-Medicare Part B [id number] ANSI-Commercial [id number]-[id number] ANSI-Medicare Part B [id number] ANSI-Medicare Part B [id number] ANSI-Commercial [id number]-3hz5-d7ui-[id number] [id number]-6hj3-c2dw-[id number] ANSI-Commercial [id number]-tos0-8141-c531-lcu6k184y7a2 891k42a3-gaj2-1691-d289-xpv5k796v5m7 ANSI-Medicare Part B [id number] ANSI-Medicare Part B [id number] ANSI-Commercial [id number]-fkf4-g722o0w08nu1 x31s0440-6234-75y7-sqh1-a186j2p90gq8 [facility] Part B [id number] Self [id number] Medicare Natl Govt Servic Medicare Primary [id number] Self [id number] ANSI-Medicare Part B [id number] ANSI-Commercial [id number]-467t-02bm-[id number] [id number]-565x-53ud-2989a1zp00u6 ANSI-Medicare Part B [id number] ANSI-Commercial [id number]-2yh1-9287-o4s1-9d4t7jih654s hj77858e-3yb5-5298-r5y0-1u6b4jeu264o MEDICARE A [id number] Self [id number] T ANSI-Medicare Part B [id number] ANSI-Commercial 31745b7n-7618-7590-y671-ymd268m68a56 [id number]-4138-5627-k246-tnt325r09i30 ANSI-Medicare Part B [id number] ANSI-Commercial 4s9u8ow5-b8w7-28he-0134-7c01s8fz8p3q 8x9e4io5-s1r5-76re-0737-7r19c0kv5f9c [facility] [place] Medigap Part B [id number] Self [id number] [employer] Options Medigap Part B [id number] Self [id number] [place] Primary [id number] Self [id number] ANSI-Commercial [id number]-[id number] 81133m4b-41iq-97w9-z8a7-5e5i842q9980 ANSI-Medicare Part B [id number] ANSI-Commercial [id number]-icnw-660wu8j90l8f 6zaqt8w6-2634-9h83-eaai-403hl7w34h3c ANSI-Medicare Part B [id number] ANSI-Medicare Part B [id number]-[id number] ANSI-Commercial [id number]-lzd3-67zekl97426x 19709we3-9t59-7cbp-wmt8-54bryv78332o ANSI-Commercial 9594uw3j-5h77-4ld7-943x-2237e0no8f94 8208rk7p-5j12-0gz6-522j-4953t2mq6z10 ANSI-Medicare Part B [id number] ANSI-Medicare Part B [id number]-[id number] ANSI-Commercial wm07uq63-b64x-1etu-hfp3-8k2n9r02e119 mh80nf17-c59s-4iwc-oer3-9o0n7p64a706 ANSI-Commercial 2155olk3-w4p5-1639-7828-7k806t6t5j2e 4414xsp7-n6v4-4031-8216-7l591s0z0g7a ANSI-Medicare Part B [id number] ANSI-Commercial zqnnuugw-02gm-1487-h84b-yb766qyf6k97 oatfoqqx-95vz-9161-l88q-vj578cec4o51 ANSI-Medicare Part B [id number] ANSI-Commercial e1789g87-1v6x-1t85-z29n-44636w9kn30i w5071r85-0d3w-0o60-q15t-71679t7ew36o ANSI-Medicare Part B [id number]-[id number] ANSI-Medicare Part B [id number]-60rl-734m-zzfs-[id number] ANSI-Commercial 808z6l82-l90h-216z-356r-736166jp97z3 700r4t15-b02p-806g-129r-173690dr86i8 [facility] Part B [id number] 11 Self [id number] 11 Medicare [facility] Govt Servic Medicare Primary [id number] Self [id number] ANSI-Commercial [id number]-[id number]-p6ct-[id number] ANSI-Medicare Part B [id number]-[id number] ANSI-Medicare Part B [id number]-2a94-7fds-8i16-[id number] ANSI-Commercial [id number]-t043-08z23235g2s7 7s539u34-1yc5-5106-d574-94e20633r7k6 ANSI-Medicare Part B [id number] ANSI-Commercial 5016t6v3-478l-5h4c-n49b-4puy920132j8 5298z6w2-553p-2n8m-p94r-7bhq592878t8 Medicare Part B [facility] Other 0 Se lf 0 ANSI-Commercial je7hume6-h48k-7hk6-51e1-[id number] lh8drba9-h81o-8ur9-21k1-mf0y39101e34 ANSI-Medicare Part B [id number]-[id number] ANSI-Commercial s3370r60-v70r-19n6-kc9g-y7ti9jx3qq77 s8648v01-p54n-53v8-sn0o-e7rg2mj3se27 ANSI-Medicare Part B [id number] ANSI-Medicare Part B [id number]-[id number] ANSI-Commercial 8k2xe03c-9vcr-3ghc-kxcl-[id number] 1g2fz16b-6bze-0tca-jrqx-50n999l72314 ANSI-Commercial mx62h321-46p0-4476-y6h4-hsupr18p2q2a wo61t870-16z1-4258-j8r7-tclro78g5q1w ANSI-Medicare Part B [id number]-785e-5t3m-[id number] [employer] [place] 304/804 [id number] SP [id number] ANSI-Commercial 02wq57y7-4e68-1mj7-8522-k82kj4hg0740 26hg37o7-6y79-9ip4-3088-j53nt8fh1218 ANSI-Medicare Part B [id number]-4xw4-55wa-8e6m-j98uih8f06t8 ANSI-Medicare Part B [id number] xv20p2b5-4407-5lyv-12h5-7j8r2fo5dkc0 ANSI-Commercial 2xcy991a-74o1-838f-73x1-3qe2790c6060 9cgt741u-52t8-467b-10g7-8fz2081x4137 ANSI-Commercial 1721u1xw-174y-571r-p5hr-7s757g4t52so 5130d7jc-790x-627u-h1dz-5u498v1z34zf ANSI-Medicare Part B [id number]-[id number] ANSI-Medicare Part B [id number] ANSI-Commercial r0g3t61y-8vw7-5ui4-z242-h5790zs12a79 j2p3v77r-1zv2-6nw3-w980-t3738lz29g81 ANSI-Medicare Part B [id number] [id number]-a77c-7sb4e65yvn58 ANSI-Commercial 64556lmn-6t6b-4508-30nq-m8594752190x 21657vsk-5v4s-5554-90zm-d6182430491r ANSI-Commercial y2668f3k-v74q-529r-oull-4l2043x87a68 c8077j0j-u75t-515e-eyrh-3b5839v97l35 ANSI-Medicare Part B [id number] c494oops-ku6z-8a87-1244-ie22qusfu534 ANSI-Medicare Part B [id number]-9ni5ln2qo12m ANSI-Commercial 48l8r58g-2z9g-7229-a50r-300c470623yq 79u5y50e-9i7r-7802-j16h-404c452949wo ANSI-Medicare Part B [id number]-[id number] hu6ed3tf-sym4-145k-2242-83px5645o787 ANSI-Commercial 7q01t136-xz07-2v11-v5dg-rc8b1151p2kz 3w91v462-yl62-1q98-f2qk-re2r2118n6ur ANSI-Commercial ow7q81z0-45k4-7264-r1nf-071294o355l2 uf2m09u1-11q7-5353-m3us-997724c439c0 ANSI-Medicare Part B [id number]-[id number]-35z7-890j-[id number] ANSI-Commercial gc10zp22-n75m-2585-0576-9295t890cxb0 kh31bn91-p00s-8073-6772-1659q799hxq4 ANSI-Medicare Part B [id number]-76le-6z5w-b320-1hcb1w77j08c 0082304l-43qi-6q0n-n288-7yoi4j45i80h ANSI-Commercial 872492bn-g086-2r98-7p44-0961ov565017 717284nc-c064-1x12-1z06-4367fn512323 ANSI-Medicare Part B [id number]-8m1x-7088e08k5h49 3844w701-z4o5-864a-9k4k-3677j98x6k98 ANSI-Commercial 8x320248-o6j0-8122-8951-185xi438c447 4p758809-p6b1-7688-6876-541co305n822 ANSI-Medicare Part B [id number]-r87x-u30bk84kl300 [id number]-r89r-l68jz58lt847 [facility] Part B [id number] Self [id number] 11 Medicare [facility] Govt Serv Medicare Primary [id number] Self [id number] ANSI-Commercial h420wuu2-670l-4pgx-9bde-ksw7x6lvy61f m333cnn6-662o-3ohd-2xmm-fdn4j8pyp75h ANSI-Medicare Part B [id number]-i627-hc404u1w9u7t ex568886-1t51-0339-h449-cs858w9o2x8m ANSI-Commercial 9w8by5n4-00d8-704g-2297-64r252emw3v8 7f3ym4k0-35a2-485c-9318-50u560sut2s8 ANSI-Medicare Part B [id number]-y02q76kz36t9 [id number]-nv3l-s47b35oe19u5 ANSI-Commercial 150k7b48-9189-395h-n5i9-n0dpmt2216nc 729z2h59-8343-338v-g9b2-p6gyqy4876ul ANSI-Medicare Part B [id number] ANSI-Medicare Part B [id number]-c71i2k62o85p hkv4q0rq-3ge7-0m28-2542-b38n4a86q27c ANSI-Commercial 64jq0zxb-b0p7-7ts0-5sd8-m612975j8252 26aq9sog-v3f8-8je9-1xs3-g469535x4066 MEDICARE [id number] SP [id number] A ANSI-Commercial 98l975vt-yij2-56c5-215d-74lb22122032 [id number]-gsv1-72s4-357t-30gl98790075 ANSI-Medicare Part B [id number]-[id number] [id number]-o6y1-2184-2359-a3zlobydk8ez ANSI-Commercial 56kk58wo-0206-53m6-a5mm-85x7a92dot17 22fq50od-4870-05o4-s8nx-82w9f41vyp07 ANSI-Medicare Part B [id number]-uv1w8kb5f83w 6gw34k3m-9913-13h1-7832-jc5h9ml6i83l ANSI-Medicare Part B [id number]-pkr2-[id number] 6m1985h5-4563-517y-oug8-dh3g50k359hy ANSI-Commercial k977y9ke-61py-2926-460f-fo1n892r2wh4 s385g4yb-24zb-8866-766f-yz9h107y9xe1 ANSI-Medicare Part B [id number]-[id number] 30h29yak-087s-9zm7-ss18-71p4012y1w16 ANSI-Commercial 25036o67-9613-44o2-70w9-cq9w4053vu0c 92638v90-9981-88d7-41n6-qo9v4547pp0z ANSI-Commercial 1197820t-e66f-86h8-sp2d-p84nm780358n 5251815r-g96y-72p2-ma5z-e46ka517513h ANSI-Medicare Part B [id number] [id number]-908q-94n3ag4u9w83 ANSI-Medicare Part B [id number] ANSI-Commercial 5239560f-qek8-41ma-5e0l-1d32759vc75r 7949000e-vpn3-09le-9n3w-5y34961yh95u DME Jurisdiction A [facility] C [id number] SELF [id number] Medicare C [id number] SELF [id number] A Medicare Part B [facility] Other 0 Se lf 0 Medicare Part B of [facility] Other 0 Se lf 0 [facility] Opt Medigap Part B [id number] 11 Self [id number] 11 Medicare [place] [employer] [employer] [place] Primary [id number] Self [id number] [facility] Opt Medigap Part B [id number] 11 Self [id number] 11 Medicare [place] [employer] Medicare Primary [id number] Self [id number] [facility] Medig[facility] Part B [id number] 11 Self [id number] 11 Medicare [place] [employer] Medicare Primary [id number] Self [id number] MEDICARE PI PI [facility] PI PI [facility] [id number] Marla [id number] 111 MEDICARE [id number] Marla [id number] A AARP [id number] 18 [id number] 111 Medicare [facility] Division [id number] 18 [id number] AARP [facility] Supplemental F [id number] SELF [id number] [facility] [id number] 18 [id number] Surgeries/Procedures Procedure Description Date Indications Data Source(s) DEBRIDEMENT NAIL ANY METHOD 1-5 09/03/2020 12:00:00 AM EDT [facility] ([facility] Office Visit, Est Pt., Level 2 FC 02/07/2020 12:00:00 AM EDT eCW1 ([facility]) Office Visit, Est Pt., Level 3 PC 02/07/2020 12:00:00 AM EDT eCW1 ([facility]) US URINE CAPACITY MEASURE 01/04/2020 12:00:00 AM EST eCW1 ([facility]) Results ID Date Data Source [id number] 01/05/2021 03:37:00 PM EST [facility] Name Value Range Interpretation Code Description Data Oriana rce(s) Supporting Document(s) SARS COVID ANTIGEN POSITIVE [facility] This lab was ordered by HENNY doss nd reported by [facility]. ID Date Data Source [id number] 12/25/2020 12:56:00 PM EST [facility] ([facility]) Name Value Range Interpretation Code Description Data Oriana rce(s) Supporting Document(s) Magnesium [Moles/volume] in Serum or Plasma Laboratory test result [facility] ([facility]) Thyrotropin [Units/volume] in Serum or Plasma by Detec tion limit <= 0.05 mIU/L Laboratory test result [facility] ([facility]) ID Date Data Source [id number] 12/21/2020 12:57:00 PM EST [facility] ([facility]) Name Value Range Interpretation Code Description Data Oriana rce(s) Supporting Document(s) Magnesium [Moles/volume] in Serum or Plasma 2.0 mg/dL 1.8-2.4 [facility] ([facility]) Thyrotropin [Units/volume] in Serum or Plasma by Detec tion limit <= 0.05 mIU/L 1.580 uIU/ML 0.358-3.740 [facility] ([facility] ) ID Date Data Source [id number] 12/21/2020 12:57:00 PM EST [facility] ([facility]) Name Value Range Interpretation Code Description Data Oriana rce(s) Supporting Document(s) Glucose, Fasting 123 mg/dL 70-100 [facility] ([facility]) Creatinine For GFR 0.78 mg/dL 0.55-1.30 [facility] ([facility] [facility]) Blood Urea Nitrogen 16 mg/dL 7-18 [facility] ([facility]) Glomerular Filtration Rate Laboratory test result [facility] ([facility]) <content>Units are mL/min/1.73 m2</content>
<content></content>
<content>Chronic Kidney Disease Staging per NKF:</content>
<content></content>
<content>Stage I & II GFR >=60 Normal to Mildly Decreased</content>
<content>Stage III GFR 30- 59 Moderately Decreased</content>
<content>Stage IV GFR 15-29 Severely Decreased</content>
<content>Stage V GFR <15 Very Little GFR Left</content>
<content>ESRD GFR <15 on BILLIARD TABLE MECHANIC</content>
<content></content> Potassium Serum 3.8 meq/L 3.5-5.1 [facility] ([facility]) Sodium Level 143 meq/L 136-145 [facility] ([facility]) Chloride Level 107 meq/L 98-107 [facility] ([facility]) Anion Gap 4 meq/L 8-16 [facility]) Carbon Dioxide Level 32 meq/L 21-32 [facility] ([facility]) Calcium Level 9.7 mg/dL 8.8-10.2 [facility] ([facility]) ID Date Data Source [id number] 12/21/2020 12:56:00 PM EST [facility] ([facility]) Name Value Range Interpretation Code Description Data Oriana rce(s) Supporting Document(s) Hemoglobin A1c/Hemoglobin.total in Blood 6.9 % [facility] ([facility]) Lab Result Notes: Pre-Diabetes 5.7 - 6.4 % Diabetes = or > 6.5% Glucose mean value [Mass/volume] in Blood Estimated fr om glycated hemoglobin 151 mg/dL 60-110 [facility] ([facility] ) ID Date Data Source [id number] 12/21/2020 12:56:00 PM EST [facility] ([facility]) Name Value Range Interpretation Code Description Data Oriana rce(s) Supporting Document(s) Hemoglobin A1c/Hemoglobin.total in Blood Laboratory test result [facility] ([facility]) ID Date Data Source [id number] 11/07/2020 12:00:00 AM EST [facility] Imaging Bren Pitts DO Patient Name: REINA KRAMER[age] [facility] Date of : 1950[address] Date [facility] Exam: [facility]2020[facility] [id number] Fax: [phone] EXAM: CT ABDOMEN & PELVIS WITHOUT&WITH CONTRASTCLINICAL INFORMATION: Right inguinal lymph node enlargement.No comparison studies.Low dose [address] scanning of the abdomen and pelvis wasobtained with oral contrast, before and after the administration ofintravenous contrast using 3 mm increments and reconstructed in bothsagittal and coronal scan planes. Immediate and delayed post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 YT1POZGkTQQdPPLoVQVuEJInWVIcOUKaYDAnREWjAPWnUKZoJEQjAQHdALTqPRHdRIVfZPBjRTXoOKWm OROgHJWxNRBgQJStVRYzSZWgLVNoVVTwDUAxAMFbWWJpFYHtFZRtIVWoKS9FMX70oJLfb9E4ZUIxXM0a dyc/La6ALMxxasXhvAStFE8AFpKcSR6qth8HMjGsGM 8sdr0FGArUOnHeF4Z6sNYqBKYgSQBDVuJxX95kMKkaSo65NZsfWAWsHfXxVNh9Bp7YSsJgP4taFROdXr N6FAEmJrR9UXCfZzK4UOSwFfRkHTSdGFGnXUIlKEXRBVG0KTDcFsBkIObxHM9Qt9BfaAV0ZWj+Pg0KZW 2of4NfYFkaPhUnSZ1zuo9KICyFXrPoD2MgwyM0DOZ8 VGSlCq6BOKMmGIWzaOWeFVBqNISHYwArP3YaxY44BNTOZn9+BJuuofIhBtgQRfH8JSHhx1ZaRGh8VI6I CBXbYOx7vJTdZZNzE8Xbi9YsDo54BTHpIugiObYiKPCoYjp9oHRdFAINQtBvqFT1WfYvCjDrDRHaUZkn YSMFJRtCVlAcI2Tcf9ShYgI9FCVjTfFhRQndLRIkBK scWJ72qCeaMD1MYLKfJQInIN41HNF7PSOrTf5EZd6AWjRbNE5hvr0AJcelVSMiCexVCwx0JExzSH7TrT WtO7ZqkKCea9oCLoJyF6OCMWS6MOAvEh7HAPWeTxPqFOQrDYcbTL2xFGSjFKJBzMoosmM8SF6RTF1zat QgYG4WHoTtXa1nHc2DJvYaX6NbT3SaGXNvHJWHLOyc GW5QODcvPV8aXJ0Zb4IDxLOuzK0klo4YKYHbDNRbTnyczy9APqtvM6U5aDqjEWOjYnlqRFSJOXmdZQ8T POTwQXX5HUCcKjUuVDTNAiDiU44gJK1ZO3Yos80wJpO3AXLcNsYsZIbwZR89kCbvojOmtYAouYywZX8S Cj4+DQplbmRvYmoNCnhyZWYNCjAgNDANCjAwMDAwMD ApHROiTtK5WvApZn6JPVUlDAJjCPQgVsXrDAAmLIUyIYepUCWnRVLoNlF7JCZnLYIxWY2AXxNbMXSlCt VuNUKfRMCyQVAaxn9KEGLiVEEuWDI4OyKdMAYiKQUeHWisAMZpMXD7OXalBLIvTCVbMK2YYfEkTTTqPT QrDGSyZWMgEPYmfs1FPXOeIKKhAyw3FiHdAOEwFRIo UHhlDJUqHGP5EBJ9NBOwCZMfOD6GIrCfZGNoCYL2UyEvTJLmDEGica4FIHGzVHUhGCa6TBLuNNYgOTXl JZwgVIDrKGQ5ILJmNAQeEFMlEK9GUxLgEPInLITfZkUdLOUfOUBtyk8NLVSwYMRoVQp6QNDsRKNeJLDl ZDghTUGkLYI3UOlrPOFjRGIySQ4APzJtYJBrOgGeRa poXEGcRKTcoo9NWIXvAMRmJJK5ZDBaKLWqCLWvPCjzUGGwUGNyFSM9KIGlZSIoRK9DIgOjTSIwQuM0VB EcZWSpMCPlsl6KYOTxDYFqWJh2KTOcNXWoRLLaESzcHQRpGIZiGqN2AUXiUVYnXM2IAbUgINBoGkH9MZ JgREZeFBYrkd1ZUVXkZODfXcDaQLVfDNEtXIRiEBwz ATXhRCEfZCt4QDTfHZRwWP7NTpDlFCVzGFDtBSLmLKYfUQBkgi1VUKCfULT2BPFlLUNtBFRsOGCfELtr GDIdQAI9ILa9ZGOfSGXhGE7LAoAoIAUyOBJhHxAvGGEyTPQgct0YIEOjOEZ5XBF4CERhIPYiRLTpKKjf SDScQGOtBbh8VQQpOGDeRB0AVkLnKDBoFaZ2IZWuED QtYFEiuj4XVKFhVHW3JKf7ELNbTAQvAJDjRGisDUIhLCHcSXc2NTAeFIJaZB2HOzNqWGBlQuX2JASmCL PeEIHhko1EJRUtMNE8MaZqYZXqCXLrZEUhXTosZCHxKCIhSnQ8VRYlFFXbQQ2RPjNcNWBnMeQ6QYUyRC UuBJPeoo6VBXJaZLN2WFBdVVLkBRHrHFEbYPpvXEVf YFH7GvduWNShHKGkSV1TAfSxSFShQfQ1CwclREOjTOLbzn2BoIFvnYfkht1WSBbQRt3RpLdzOICwLAwk Zl7fmXDeOTAeIQFXDd4WeaEbKRTiAQWZABqtBGCsHUKzVEapNTarCqWtHMQeRJY0HaTjQfSdRfTbSOAe MKW1SiR3HII8RUB9QTS5GCN9T4UhTYNmRVRpW4BlGT JcN7XsCYx+DO3vXGc+Bh2In1JgaqP8ljXuFYd3ELT6Qx1EVKMHQ7DDVv== ID Date Data Source [id number] 06/06/2020 11:48:00 AM EDT [facility] ([facility]) Name Value Range Interpretation Code Description Data Oriana rce(s) Supporting Document(s) Cholesterol in HDL [Mass/volume] in Serum or Plasma 45 mg/dL 35-60 [facility] ([facility]) Cholesterol [Mass/volume] in Serum or Plasma 164 mg/dL 131-200 [facility] ([facility]) Triglyceride [Mass/volume] in Serum or Plasma 94 mg/dL 30-150 [facility] ([facility]) Cholesterol in LDL [Mass/volume] in Serum or Plasma by calcu lation 100 CALC 50-159 [facility] ([facility]) ID Date Data Source [id number] 06/06/2020 11:48:00 AM EDT [facility] ([facility]) Name Value Range Interpretation Code Description Data Oriana rce(s) Supporting Document(s) Urea nitrogen [Mass/volume] in Serum or Plasma 19 mg/dL 7-18 [facility] ([facility]) Glucose [Mass/volume] in Serum or Plasma 127 mg/dL 74-99 [facility] ([facility]) 100-125 mg/dL PRE-DIABETES/FASTING >126 mg/dL DIABETES/FASTING Creatinine 0.8 mg/dL 0.6-1.3 [facility] ([facility]) Sodium [Moles/volume] in Serum or Plasma 145 meq/L 136-145 [facility] ([facility]) Potassium [Moles/volume] in Serum or Plasma 3.7 meq/L 3.5-5.1 [facility] ([facility]) Carbon dioxide, total [Moles/volume] in Serum or Plasma 22 meq/L 21 -32 [facility] ([facility]) Chloride [Moles/volume] in Serum or Plasma 108 meq/L 98-107 [facility] ([facility]) Alkaline phosphatase isoenzyme [Units/volume] in Serum or Pl asma 95 mg/dL 46-116 [facility] ([facility]) Calcium [Mass/volume] in Serum or Plasma 9.3 mg/dL 8.5-10.1 [facility] ([facility]) Aspartate aminotransferase [Enzymatic activity/volume] in Serum or Plasma 11 U/L 15-37 [facility] ([facility] ) Total Bilirubin 1.1 mg/dL 0.2-1.0 [facility] ([facility]) Alanine aminotransferase [Enzymatic activity/volume] in Seru m or Plasma 21 U/L 12-78 [facility]) Proteinase 3 Ab [Units/volume] in Serum 7.5 g/dL 6.4-8.2 [facility] ([facility] Albumin [Mass/volume] in Serum or Plasma 4.0 g/dL 3.4-5.0 [facility] ([facility]) A/G Ratio 1.14 CALC 1.00-1.90 [facility] ([facility]) Glomerular filtration rate/1.73 sq M pre dicted among blacks [Volume Rate/Area] in Serum or Plasma by Creatinine-based formula (MDRD) Laboratory test result [facility] ([facility]) <content>CHRONIC KIDNEY DISEASE STAGING PER NKF</content>
<content></content>
<content>STAGE I & II GFR >= 60 NORMAL TO MILDLY DECREASED</content>
<content>STAGE III GFR 30-59 MODERATELY DECREASED</content>
<content>STAGE IV GFR 15-29 SEVERELY DECREASED</content>
<content>STAGE V GFR <15 VERY LITTLE GFR LEFT</content>
<content>ESRD GFR <15 ON BILLIARD TABLE MECHANIC</content>
<content></content> Glomerular filtration rate/1.73 sq M pre dicted among non-blacks [Volume Rate/Area] in Serum or Plasma by Creatinine-based formula (MDRD) Laboratory test result [facility] ([facility] ) ID Date Data Source [id number] 06/06/2020 11:48:00 AM EDT [facility] ([facility] Name Value Range Interpretation Code Description Data Oriana rce(s) Supporting Document(s) Hemoglobin A1c/Hemoglobin.total in Blood 6.7 g/dL 4.8-5.6 [facility] ([facility] Lab Result Notes: Pre-Diabetes 5.7 - 6.4 % Diabetes = or > 6.5% Glucose mean value [Mass/volume] in Blood Estimated fr om glycated hemoglobin 146 mg/dL 60-110 [facility] ([facility] ) ID Date Data Source [id number] 06/06/2020 11:48:00 AM EDT [facility] ([facility]) Name Value Range Interpretation Code Description Data Oriana rce(s) Supporting Document(s) Leukocytes [#/volume] in Blood by Automated count 8.7 x10*3/UL 4.1-10 .9 [facility] ([facility]) Erythrocytes [#/volume] in Blood by Automated count 4.33 x10*6/UL 4.2 0-6.30 [facility] ([facility]) Hematocrit [Volume Fraction] of Blood by Automated count 36.8 % 3 7.0-51.0 [facility] ([facility]) Hemoglobin [Mass/volume] in Blood 12.6 g/dL 12.0-18.0 [facility] ([facility]) MCH 29.3 pg 26.0-32.0 [facility] ([place] [facility]) MCHC 34.4 g/dL 31.0-38.0 [facility] ([place] [facility]) MCV 85.0 fL 80.0-97.0 [facility] ([place] [facility]) Platelets [#/volume] in Blood by Automated count 238 x10*3/UL 140-440 [facility] ([facility]) Erythrocyte distribution width [Ratio] by Automated count 13.1 % 11.6-13.7 [facility] ([facility]) Lymph % 23.2 % 10.0-58.5 [facility] ([place] [facility]) MPV 9.9 FL 7.8-11.0 [facility] ([place] [facility]) Lymph # 2.0 x10*3/UL 0.6-4.1 [facility] ([facility]) Mid % 8.0 % 1.7-9.3 [facility] ([place] [facility]) Neut % 68.8 % 37.0-92.0 [facility] ([place] [facility]) Mid # 0.7 x10*3/UL 0.1-0.6 [facility] ([facility]) Neut # 6.0 x10*3/UL 2.0-7.8 [facility] ([facility]) ID Date Data Source [id number] 03/26/2020 02:47:16 PM EDT [facility] Name Value Range Interpretation Code Description Data Oriana rce(s) Supporting Document(s) Progress Note [facility] XMTMOa3nXxWMEeFd65/MFIrnNUHwz1EnRRmiJYj2OUaaTEWzK7PsRHE5oC7iGTE7QDlSTbFnOoOmKFF5 lbm [file] market research associate/EhPqJmioURtxBdbN49LYraKeBMhB4qNsCXEU0t [file] AgICAgICAgICAgICAgICAgICAgICAgICAgICAgICAgICAgICAgICAgICAgICAgICAgICAgICAgICAgIC YgMWQoOFKjOMXnBE0UELNkOIRaNWOjSZRnZDTqHGKuNXMlUDHtTAHrNXOjDABuCTLjUDUsADFeBQIsGS AgICAgICAgICAgICAgICAgICAgICAgICAgICAgICAg QCPiKYMkGWEuWCWqQJVyZTMxJLYeYS5WWWLrFEZoWFQrPIDaGBCbJUAgGOKrYFLkPMVxAPBmLUDbDHYi ICAgICAgICAgICAgICAgICAgICAgICAgICAgICAgICAgICAgICAgICAgICAgICAgICAgICAgICAgICAg IUWtKF8CGFJgPKBaAGQyESAwHLRzSJYbADHlCWXeZY AgICAgICAgICAgICAgICAgICAgICAgICAgICAgICAgICAgICAgICAgICAgICAgICAgICAgICAgICAgIC YpRFWwUISxYUNuXCRmST2IQDQhMFZzCZTnTLZbNKRmOZWdXEAtCVBaNZObODRdXARfSBHhWIOnPVHeZQ AgICAgICAgICAgICAgICAgICAgICAgICAgICAgICAg NDJgQXZzWMVjXVEeQCPiDRYsPYZgWOCrQU7TFKFxYDOgFWKbQNHmNMMxPXMuGWPePNVsIEQwDKPnRPPz ICAgICAgICAgICAgICAgICAgICAgICAgICAgICAgICAgICAgICAgICAgICAgICAgICAgICAgICAgICAg JCNmKHMqVI9FZATdVXRmSHBsNDTsLEYfSBFwJTJrFW AgICAgICAgICAgICAgICAgICAgICAgICAgICAgICAgICAgICAgICAgICAgICAgICAgICAgICAgICAgIC HnDICgJFTyJYRwMYKfOJWiII7VXQNwEJQtFZKwAEQlFTRbPIStVQVvLQEbPWHnHFMwDDCaXZTmSILoIB AgICAgICAgICAgICAgICAgICAgICAgICAgICAgICAg GQPtCKIzQLCrWZUpYMWeUGPwLBBpPTTpTUEzVB2TFVFlQLZgPQQzYZVzRCGbGVNwCIKyVHZgLQKqVKIk ICAgICAgICAgICAgICAgICAgICAgICAgICAgICAgICAgICAgICAgICAgICAgICAgICAgICAgICAgICAg PKSdJQYpKZYtID6CLLOwHZHdRLQbFKWpOXXqQLNlXI AgICAgICAgICAgICAgICAgICAgICAgICAgICAgICAgICAgICAgICAgICAgICAgICAgICAgICAgICAgIC ClQMOrVMAdXCNmQWNoUWHaAYZiGK5JBA59gNKqu2T2RAKyOO6uuco/Mu4IWIjpykGkxZWgKE2ZItNjNX 7jhx1DNoVeFD1miv1QPXkLLvPiI0Y1bOCaJJAxLYBZ CyFcN80uLLxePs79UIqaVKEcYzMlUNq7Sv6AXpMqR8ytQBGaCuR8GDWmMgS6UTFtVsD0BIJhQuLzUWCo RPAyGOQlRQJOVDH9RUMtAoBgYeWdAKRfFJ9HBGVkS901pwTmMj3JYj1VDvFfYE1mxo6TMYWjXTDnYakT Baz9PDnrPI7BxPOygTK9HoQpKXXCNtUpT8uvi8GiOV UtJKRPBWlvZH4Vu0TksDIiWWx+Oe8EZY8hk3TwCYe6TpEvTH7xqq3UVOlLJnPjM3NocUunULMph0ckWO QxKE1jhRXjMQF0CN4msQPjZOddDCLAsychauzaMN9dCFLbCB8oDq9aOBHfRRUyWeR8EEAAJG7NOMIaPI ModKNgRTNmDSRZGB4ENYzaJVM9HZAptoYgrIAiLRhy PB0ADZLxaaItYYSiGFUIZJu+Jb1RWF2dm1JvOYd4VrTuXK9bev3VXKzFNkExU1J6hWHzU1Y0RYjxNf8H POUlHJOmCEErEDHSTAdpMZ8AZO3sjzO0MO7GbKZyPXVhOJFgnFZjTNs5V01wmTJhDEynVE5UOUK+Bhupendra+ Kx8MYLHvHHDfBBRxEgBsGGJFHyLdG5RiN5OFc3HpM8 EsIJ38oAflupIcQYymMV1IPI1tEIFnDRRJFT4IaYNfzF2hcdW6HQOjJLSJZrXkE94xiYIgVQYhAWC1DV NwHm8PBWXcM8CzcgOltWxfzeXfSBRrHHSWLZ7XTCmrubTzxTIdiUjvUA27cGpjWS6QZi7XYyJjVN3jch 2TeMGyQq8AKTV6CX0SHMJyFRCeTYQaIXB7PJCjBqJj IWmnHUKkFFDyUEK7PCXdAAIgJC6OCmWbCXYpSvU8HsitGPHcCLXaph8CWBSrGBW8GLZ0KQCfHVJaHMZs IZdzCZVfWXNiXGX3JKKgFZDwTK4OAmPvTWDlOBW3ALDgQQAyXMTuhg5FNERvTMNuZCT2ThWgBDAsRJNf NJnsBWUhITS1QROaTAVsQIHoQG2EOmCnNUKxFYn5Ir PgMASeNYOpxs4GKRVcPUWoSLe5XwWgFRKgLBPqJCnuUKIgUDEvKNEdWNXgYWBpQR0WQoRiOQVuYNImVJ DnZICbGVGmuz7RKHQdNSNpXXV6SOMhTVUgRUKuYGsnWFXvHLJ0ZOK5EILzHTSjXU8XSnBpGTKrSUh5Kr JxWHYgMGHkcf8TYRXqZIDrBWY7CWStNEPjNOTxQPga IWRfYUYgMtx4REFiHGZjXQ9GXhBkCMXfKjF0NrIlVKYkBYAioz1ENXDvQLYhDzB4AJCsZTQeZMNsOAkv PXQaJIIcJIF0AHKjVYAaBJ6QFzRlPNQwPzJxPsLaSCRsYSJfch5SQZXzCUUlXmHoSVQcZIAhHJBpWJag KJDyBAA8TZk0EHNgZNFbNM6MOsMkWHAdPwJ4EJTdIC EyXIOero1KEOIqFQEdWWl8RDTzXTEaIZWbQFstIOAgGKA5SkSqLFHyAKPbXW8RIoSeCCXrWNU7DmPcFU UgZLJquk2UARRmEZG8FzXpQVRwFVEyJSWkFPtoEDPgOLU3UGPoPOQqMTBlNF1DJvCwXGBfIBX3HOzfLZ SsWNJqkm6IMKFfUFX1FsnsTpLcBFOjUZJhAYuwZFUy BOR9AYd2NYRaZIUpEM5RYqYoXPTpPXeiUTEsFSPdEAQlaq0IVDMhQDF4ZRC2LrFqQWDkJTOmOVrxOMVh NNH8Ewb4RCBhOYDzCS2RWgTxJFAaUFu4VoIcHUGeHRKavf3NMAHgRJZ2TTKaCNVnATFcPENsLSlfOWCd PBX0IdS0JYTnLOQuFE0DGlPvPADtWlT1PAyoZTMrMS Fefr3PAHGjEDU0QIF9UYZjEMZxZAQhTExmAUUlLII9LgI2PLEyOHYvXU2WUvXhCUOwFrQlBIMwJCFxGN Nsdf4DLDQfJRF9ZvC0QNSjKVGtKFKrJAyuOKNfVIZ2JdB3XNHhGFGlQE8MFyTeNSXxIxyzKPAuJDKbEC Nhot5PXRHdJGH3GDQ0IDQlFFOyNFDkTXzvUQEbSEQ7 RdSwLRWoIDLxBX5CAgCuDIAdAae4UYZcLLHpVVLsiy2AiFYvmOpuht3LSUtXTu2IeIyvYVI2BMqkNs3c qJA9WoZjQIIAWh4AquPbCHGcGJVSYYvcWXObFSDgTLzzLNP4I6KgMCP4AMIuUpF4YKS9NgYeDXL6ITP8 PzV1TYAePvFbRWQaTlXnKgLeDjZzDhu9JqD6DDVuWU k0YTg+VY8vGKo+[id number]== ID Date Data Source [id number] 01/11/2020 09:51:00 AM EST [facility] ([facility]) Name Value Range Interpretation Code Description Data Oriana rce(s) Supporting Document(s) Hemoglobin A1c/Hemoglobin.total in Blood 7.7 g/dL 4.8-5.6 [facility] ([facility]) Lab Result Notes: Pre-Diabetes 5.7 - 6.4 % Diabetes = or > 6.5% Glucose mean value [Mass/volume] in Blood Estimated fr om glycated hemoglobin 174 mg/dL 60-110 [facility] ([facility] ) ID Date Data Source [id number] 01/11/2020 09:51:00 AM EST [facility] ([facility]) Name Value Range Interpretation Code Description Data Oriana rce(s) Supporting Document(s) Urea nitrogen [Mass/volume] in Serum or Plasma 20 mg/dL 7-18 [facility] ([facility]) Creatinine 0.7 mg/dL 0.6-1.3 [facility] Glucose [Mass/volume] in Serum or Plasma 186 mg/dL 74-99 [facility] ([facility]) 100-125 mg/dL PRE-DIABETES/FASTING >126 mg/dL DIABETES/FASTING Potassium [Moles/volume] in Serum or Plasma 4.0 meq/L 3.5-5.1 [facility] ([facility]) Carbon dioxide, total [Moles/volume] in Serum or Plasma 27 meq/L 21 -32 [facility] ([facility]) Chloride [Moles/volume] in Serum or Plasma 102 meq/L 98-107 [facility] ([facility]) Sodium [Moles/volume] in Serum or Plasma 142 meq/L 136-145 [facility] ([facility]) Calcium [Mass/volume] in Serum or Plasma 9.6 mg/dL 8.5-10.1 [facility] ([facility]) Glomerular filtration rate/1.73 sq M pre dicted among blacks [Volume Rate/Area] in Serum or Plasma by Creatinine-based formula (MDRD) Laboratory test result [facility] ([facility]) <content>CHRONIC KIDNEY DISEASE STAGING PER NKF</content>
<content></content>
<content>STAGE I & II GFR >= 60 NORMAL TO MILDLY DECREASED</content>
<content>STAGE III GFR 30-59 MODERATELY DECREASED</content>
<content>STAGE IV GFR 15-29 SEVERELY DECREASED</content>
<content>STAGE V GFR <15 VERY LITTLE GFR LEFT</content>
<content>ESRD GFR <15 ON BILLIARD TABLE MECHANIC</content>
<content></content> Glomerular filtration rate/1.73 sq M pre dicted among non-blacks [Volume Rate/Area] in Serum or Plasma by Creatinine-based formula (MDRD) Laboratory test result [facility] ([facility] ) Procedure Social History Code Duration Value Status Description Data Source(s ) Smoking 10/19/2020 12:00:00 AM EST Denies completed Denies [facility] ([facility]) Smoking 02/07/2020 12:00:00 AM EDT Former Smoker completed Former Smoker eCW1 ([facility]) Smoking 02/07/2020 12:00:00 AM EDT Former Smoker completed Former Smoker eCW1 ([facility]) Smoking 02/07/2020 12:00:00 AM EDT Former Smoker completed Former Smoker eCW1 ([facility]) Smoking 02/07/2020 12:00:00 AM EDT Former Smoker completed Former Smoker eCW1 ([facility]) Smoking 02/07/2020 12:00:00 AM EDT Former Smoker completed Former Smoker eCW1 ([facility]) Vital Signs ID Date Data Source UNK Name Value Range Interpretation Code Description Data Source(s) Body height 68 [in_i] 68 [in_i] [facility] ([facility]) 5'8" Heart rate 80 /min 80 /min [facility] ([facility]) Diastolic blood pressure 80 mm[Hg] 80 mm[Hg] [facility] ([facility]) RT Arm Systolic blood pressure 136 mm[Hg] 136 mm[Hg] M [facility]ENT ([facility]) RT Arm Body height 68 [in_i] 68 [in_i] [facility] ([facility]) 5'8" Heart rate 88 /min 88 /min [facility] ([facility]) Diastolic blood pressure 72 mm[Hg] 72 mm[Hg] [facility] ([facility]) Systolic blood pressure 124 mm[Hg] 124 mm[facility]Hg] [facility] Body mass index (BMI) [Ratio] 27.4 kg/m2 27.4 k g/m2 [facility] ([facility]) Body weight 81.648 kg 81.648 kg [facility] ([facility] Body weight 180.00 [lb_av] 180.00 [lb_av] MED[facility] T ([facility]) Body height 68 [in_i] 68 [in_i] [facility] ([facility]) 5'8" Body mass index (BMI) [Ratio] 27.8 kg/m2 27.8 k g/m2 [facility] ([facility] Heart rate 92 /min 92 /min [facility] ([facility] Diastolic blood pressure 68 mm[Hg] 68 mm[Hg] [facility] ([facility] Systolic blood pressure 122 mm[Hg] 122 mm[Hg] [facility] Body weight 183.00 [lb_av] 183.00 [lb_av] MED[facility] T ([facility] Body height 68 [in_i] 68 [in_i] [facility] ([facility] 5'8" Body mass index (BMI) [Ratio] 27.9 kg/m2 27.9 k g/m2 [facility] ([facility]) Body weight 183.50 [lb_av] 183.50 [lb_av] MED[facility] T ([facility]) Body height 68 [in_i] 68 [in_i] [facility] ([facility]) 5'8" Diastolic blood pressure 70 mm[Hg] 70 mm[Hg] [facility] ([facility]) Systolic blood pressure 120 mm[Hg] 120 mm[Hg] M EDENT ([facility]) Diastolic blood pressure mm[Hg] eCW1 ([facility]) Systolic blood pressure 142 mm[Hg] 142 mm[Hg] e CW1 ([facility]) Body temperature 98.0 [degF] 98.0 [degF] eCW1 ( [facility]) Respiratory rate 18 /min 18 /min eCW1 ([facility]) Heart rate 79 /min 79 /min eCW1 ([facility]) Body mass index (BMI) [Ratio] 30.76 kg/m2 30.76 kg/m2 W1 ([facility]) Body height 67 [in_us] 67 [in_us] eCW1 (On license of [facility]) Body weight Measured 196.4 [lb_av] 196.4 [lb_av ] eCW1 ([facility]) Body mass index (BMI) [Ratio] 30.1 kg/m2 30.1 k g/m2 [facility] ([facility]) Body weight 198.00 [lb_av] 198.00 [lb_av] [facility] T ([facility]) Body height 68 [in_i] 68 [in_i] [facility] ([facility]) 5'8" Diastolic blood pressure 80 mm[Hg] 80 mm[Hg] [facility] ([facility]) Systolic blood pressure 130 mm[Hg] 130 mm[Hg] M EDENT ([facility]) Respiratory rate 18 /min 18 /min eCW1 ([facility]) Heart rate 80 /min 80 /min eCW1 ([facility]) Body mass index (BMI) [Ratio] 31.63 kg/m2 31.63 kg/m2 eCW1 ([facility]) Body height 67 [in_us] 67 [in_us] eCW1 (On license of [facility]) Body weight Measured 202 [lb_av] 202 [lb_av] eC W1 ([facility]) Diastolic blood pressure mm[Hg] eCW1 ([facility]) Systolic blood pressure 148 mm[Hg] 148 mm[Hg] e CW1 ([facility]) Body temperature 98.0 [degF] 98.0 [degF] eCW1 ( [facility]) Patient Treatment Plan of Care Planned Activity Planned Date Details Description Data Source (s) Sulfamethoxazole 800 MG / Trimethoprim 160 MG Oral Tab let [Bactrim] 04/18/2020 12:00:00 AM EDT eCW1 ([facility]) Sulfamethoxazole 800 MG / Trimethoprim 160 MG Oral Tab let [Bactrim] 04/18/2020 12:00:00 AM EDT eCW1 ([facility]) Sulfamethoxazole 800 MG / Trimethoprim 160 MG Oral Tab let [Bactrim] 04/18/2020 12:00:00 AM EDT eCW1 ([facility]) Sulfamethoxazole 800 MG / Trimethoprim 160 MG Oral Tab let [Bactrim] 04/18/2020 12:00:00 AM EDT eCW1 ([facility]) Sulfamethoxazole 800 MG / Trimethoprim 160 MG Oral Tab let [Bactrim] 04/18/2020 12:00:00 AM EDT [email or web address] ([facility]) Sulfamethoxazole 800 MG / Trimethoprim 160 MG Oral Tab let [Bactrim] 04/18/2020 12:00:00 AM EDT [email or web address] ([facility])
[2021-01-10 10:36] LABS: ALBUMIN 3.3 GM/DL (3.2-5.2); ALT/SGPT 27 U/L (12-78); BILIRUBIN,DIRECT 0.3 MG/DL (0.0-0.2); BILIRUBIN,TOTAL 0.7 MG/DL (0.2-1.0); BLOOD UREA NITROGEN 38 MG/DL (7-18); CALCIUM LEVEL 8.6 MG/DL (8.8-10.2); CARBON DIOXIDE LEVEL 21 MEQ/L (21-32); CHLORIDE LEVEL 110 MEQ/L (98-107); CK-MB VALUE MASS 2.7 NG/ML (<3.6); CPK CREATINE PHOSPHOKINASE 133 U/L (26-192); CREATININE FOR GFR 1.09 MG/DL (0.55-1.30); FERRITIN 292 NG/ML (8-252); GLOMERULAR FILTRATION RATE 52.5 (>39); GLUCOSE, FASTING 131 MG/DL (70-100); LDH LACTATE DEHYDROGENASE 319 U/L (84-246); MB/CK RELATIVE INDEX 2.03 (< OR =4); POTASSIUM SERUM 3.6 MEQ/L (3.5-5.1); SODIUM LEVEL 145 MEQ/L (136-145); THYROID STIMULATING HORMONE 0.926 uIU/ML (0.358-3.740); TOTAL PROTEIN 7.4 GM/DL (6.4-8.2); TROPONIN I < 0.02 NG/ML (< 0.10)
[2021-01-10] MEDS: HumaLOG INSULIN (NovoLOG) PER UNIT SC SCH ×3 (12:00→20:50)
[2021-01-10] MEDS ORDERED: GLUCOSE 4GM CHEW TABLET PO PRN (12:30)
[2021-01-10] MEDS ORDERED: GLUCAGON INJ 1MG VIAL SC PRN (12:30)
[2021-01-10] MEDS ORDERED: ACETAMINOPHEN TAB 650MG DOSE (2X325MG) PO PRN (12:30)
[2021-01-10] MEDS ORDERED: DEXTROSE 50% 50 ML SYRINGE IV PRN (12:30)
--- OUTSIDE RECORDS SUMMARY | 2021-01-10 12:39 | CCD ---
Author Author [facility] Organization [facility] Address Unknown Phone Unavailable Care Team Providers Care Paper Maker Name Role Phone DANIEL TATUM MD Unavailable [...] Unavailable Unavailable Gisselle, Bren DO Unavailable Unavailable MAJAK, R JOSE [...] Unavailable Unavailable Charles, Cyn PA Unavailable Unavailable Charels, Cyn PA Unavailable Unavailable Charles, Cyn PA [...] Unavailable DANIEL TATUM MD Unavailable Unavailable DANIEL TAUTM MD Unavailable Unavailable DANIEL TATUM MD Unavailable [...] is protected by Article 27-F of the [facility] Public Health law. If you continue you may have access to information: Regarding HIV / AIDS; Provided by facilities licensed or operated by the [facility] Office of Mental Health; or Provided by the [facility] Office for People With Developmental Disabilities. If such information is present, then the following [facility] mandated warning applies: This information has been [...] law may result in a fine or retirement sentence or both. A general authorization for the release of medical or other information is NOT sufficient authorization for further disc losure. Allergies and Adverse Reactions Type Description Substance Reaction Status Data Source(s ) dust dust dust Rash Active eCW1 ([facility]) nickel nickel nickel Rash Active eCW1 ([facility]) Latex (for allergy use only) Latex (for allergy use only) La rose (for allergy use only) CAUSES PEELING OF SKIN Active [facility] nickel nickel nickel Rash Active eCW1 ([facility]) dust dust dust Rash Active eCW1 ([facility]) Latex (for allergy use only) Latex (for allergy use only) La rose (for allergy use only) CAUSES PEELING OF SKIN Active [facility]) Family History Family Member Name Family Member Gender Family Member Status Date o f Status Description Data Source(s) Unknown Male Problem MEDENT ([facility] Unknown Male Problem MEDENT ([facility]) Encounters Encounter Providers Location Date Indications Data Source(s ) Unknown [address] [facility] [address] 12/31/2020 12:00:00 AM EST eCW1 ([facility]) Office Visit Attender: Bren Ramos 12/25 01:30:00 PM EST MEDENT ([facility] ) Outpatient Attender: JOSE SÁNCHEZ [facility] Office 10/30 07:45:00 AM EST MEDENT ([facility] Office Visit Attender: Bren Ramos 10/22 01:45:00 PM EST MEDENT ([facility] ) Outpatient Attender: Cyn Soto [facility] Office 10/19/2020 10:00:00 A M EST MEDENT ([facility]) Outpatient Referrer: DANIEL TATUM MD 10/01/2020 12:53:28 P M EST [facility] Outpatient Referrer: DANIEL TATUM MD 09/26/2020 10:31:22 A M EDT [facility] Outpatient Attender: DANIEL TATUM MDReferrer: Bren Smith 09/25/2020 03:49:50 PM EDT [facility] Outpatient Referrer: DANIEL TATUM MD 09/25/2020 02:19:32 P M EDT [facility] Recurring Patient Attender: DALE ORTEGA MDReferrer: Bren Sam machado DO 09/25/2020 01:16:41 PM EDT [facility] Recurring Patient Attender: DALEAARON ORTEGA MDReferrer: Bren Sam machado DO 09/25/2020 01:16:23 PM EDT [facility] Outpatient Attender: Luke Alcaraz 09/12/2020 12:00:00 AM EDT [facility] Outpatient Attender: BINH Cooper: Bren Pitts DO [id number] 07/02/2020 12:00:00 AM EDT - 07/02/2020 02:34:55 PM EDT [facility] Unknown [address] [facility] [address] 06/19/2020 12:00:00 AM EDT eCW1 ([facility]) Outpatient Attender: JOSE SÁNCHEZ [facility] Office 05/30 10:00:00 AM EDT MEDENT ([facility] Outpatient Attender: Bren Ramos 06/11 02:00:00 PM EDT MEDENT ([facility] ) [facility] [address] [place] [phone] 04/30/2020 12:00:00 AM EDT eCW1 ([facility]) [facility] [address] [place] [phone] 04/18/2020 12:00:00 AM EDT eCW1 ([facility]) [facility] [address] [place] [phone] 04/16/2020 12:00:00 AM EDT eCW1 ([facility]) Outpatient Attender: BINH Cooper: Bren Pitts DO [id number] 03/26/2020 12:00:00 AM EDT Concussion without loss of consciousness , subsequent encounter [facility] Concussion without loss of consciousness , subsequent encounter Outpatient Attender: Luke Alcaraz 03/15/2020 12:00:00 AM EDT [facility] Outpatient Attender: Luke Alcaraz 03/15/2020 12:00:00 AM EDT [facility] Outpatient Referrer: DO BINH TALLEY 02/28/2020 02:23:00 PM EDT [facility] [address] [facility] [address] 02/07/2020 12:00:00 AM EDT eCW1 ([facility]) [facility] [address] [facility] [address] 02/07/2020 12:00:00 AM EDT eCW1 ([facility]) [facility] [address] [place] [address], [place] [address] 02/02/2020 12:00:00 AM EST eCW1 ([facility]) Outpatient Attender: Bren Ramos 01/11 09:00:00 AM EST MEDENT ([facility] ) [facility] [address] [facility] [address] 01/04/2020 12:00:00 AM EST eCW1 ([facility]) Outpatient Attender: Luke Alcaraz 12/29/2019 12:00:00 AM EST [facility] Immunizations Vaccine Date Status Description Data [...] 12:00:00 AM EST ORAL active MEDENT ([facility]) Ascorbic Acid 500 MG Oral Tablet Vitamin C 12/25/2020 12:00:00 AM EST ORAL active MEDENT ([facility]) 500 mg 2020 12:00:00 AM EST tablet 14 TAKE ONE TABLET BY MOUTH TWICE A DAY FOR 7 DAYS TAKE ONE TABLET BY MOUTH TWICE A DAY FOR 7 DAYS SOLD: 10/30/2020 [facility] Ciprofloxacin 500 MG Oral Tablet Ciprofloxacin HCL 2020 12:00 :00 AM EST ORAL completed MEDENT ([facility]) Potassium Chloride 10 MEQ Extended Release Oral Capsule POTA SSIUM CHLORIDE 10/23/2020 12:00:00 AM EST capsule, extended release 60 TAKE TWO CAPSULES BY MOUTH EVERY DAY TAKE TWO CAPSULES BY MOUTH EVERY DAY SOLD: 12/03/2020 [facility] Levofloxacin 500 MG Oral Tablet Levofloxacin 10/23/2020 12:00:[address] ORAL completed MEDENT ([facility]) 10 mEq 10/23/2020 12:00:00 AM EST capsule, extended relea se 60 TAKE TWO CAPSULES BY MOUTH EVERY DAY TAKE TWO CAPSULES BY MOUTH EVERY DAY SOLD: 10/23/2020 [facility] Potassium Chloride 10 MEQ Extended Release Oral Capsul e [Klor-Con] Klor-Con Sprinkle 10/23/2020 12:00:00 AM EST ORAL active MEDENT ([facility]) 500 mg 10/23/2020 12:00:00 AM EST [...] 10/22/2020 12:00:00 AM EST ORAL completed MEDENT ([facility]) 20 mg 10/22/2020 12:00:00 AM [...] 06/11/2020 12:00:00 AM EDT activ e MEDENT ([facility]) Sulfamethoxazole 800 MG / Trimethoprim 1 60 MG Oral Tablet [Bactrim] Bactrim DS 800-160 MG Bactrim DS 800-160 MG 04/18/2020 12:00:00 AM EDT active 1 tablet eCW1 ([facility]) Sulfamethoxazole 800 MG / Trimethoprim 1 60 MG Oral Tablet [Bactrim] Bactrim DS 800-160 MG Bactrim DS 800-160 MG 04/18/2020 12:00:00 AM EDT 1.0 {table t} active Bactrim DS 800-160 MG [facility] ( [facility] Sulfamethoxazole 800 MG / Trimethoprim 1 60 MG Oral Tablet [Bactrim] Bactrim DS 800-160 MG Bactrim DS 800-160 MG 04/18/2020 12:00:00 AM EDT 1.0 {table t} active Bactrim DS 800-160 MG [facility]CW[facility] ( [facility]) Sulfamethoxazole 800 MG / Trimethoprim 1 60 MG Oral Tablet [Bactrim] Bactrim DS 800-160 MG Bactrim DS 800-160 MG 04/18/2020 12:00:00 AM EDT 1.0 {table t} active Bactrim DS 800-160 MG eCW1 ( [facility]) Sulfamethoxazole 800 MG / Trimethoprim 1 60 MG Oral Tablet [Bactrim] Bactrim DS 800-160 MG Bactrim DS 800-160 MG 04/18/2020 12:00:00 AM EDT 1.0 {table t} active Bactrim DS 800-160 MG eCW1 ( [facility]) Sulfamethoxazole 800 MG / Trimethoprim 1 60 MG Oral Tablet [Bactrim] Bactrim DS 800-160 MG Bactrim DS 800-160 MG 04/18/2020 12:00:00 AM EDT 1.0 {table t} active Bactrim DS 800-160 MG eCW1 ( [facility]) 800-160 mg 04/18/2020 12:00:00 AM EDT tablet [...] type / Coverage type Policy ID Covered constitution party ID Covered constitution party's relationship to huitron Policy Huitron Plan Information MEDICARE [id number] SP [id number] [id number] AARP HEALTH CARE OPTIONS [id number] SP [id number] MEDICARE C [id number] S [id number] P36 AARP O [id number] S [id number] 111 [facility] AARP Supplemental F [id number] SELF [id number] DME Jurisdiction A NHIC C [id number] SELF [id number] Medicare C [id number] SELF [id number] MEDICARE A [id number] Self [id number] P36 AARP U [id number] Self [id number] MEDICARE C [id number] S [id number] A ANSI-Commercial [id number] ANSI-Medicare Part B [id number] [facility] AARP Supplemental F [id number] SELF [id number] ANSI-Medicare Part B [id number] ANSI-Commercial [id number] ANSI-Medicare Part B [id number] ANSI-Commercial [id number]-19a6-[id number] [id number]-65y3-[id number] Medicare Medicare Primary [id number] Self [id number] Aarp Insurance Medigap Part B [id number] 11 Self [id number] Aarp Healthcare Opt Medigap Part B [id number] 11 Self [id number] 11 Medicare [place] Govt Servic Medicare Primary [id number] Self [id number] MEDICARE A [id number] Self [id number] A ANSI-Commercial [id number] ANSI-Medicare Part B [id number] ANSI-Commercial [id number]-[id number]-eob0-9a67-[id number] ANSI-Medicare Part B [id number] Medicare Medicare Primary [id number] Self [id number] Medicare Medicare Primary [id number] Self [id number] ANSI-Commercial [id number]-[id number] ANSI-Medicare Part B [id number] ANSI-Commercial sd8npnlw-6bgv-27yt-ioeu-[id number] tu8yhihj-8aof-46ha-payg-5i8688g4libs ANSI-Medicare Part B [id number]-[id number]-auw4-[id number] ANSI-Commercial [id number]-68fy-2w73-e08j-[id number] sh14312g-29os-8v67-o86y-[id number] ANSI-Medicare Part B [id number]-[id number] ANSI-Commercial [id number]-[id number] [id number]-9fcuq7219123 ANSI-Medicare Part B [id number]-1s06-60po-id6a-[id number] ANSI-Medicare Part B [id number] ANSI-Commercial [id number]-3hd9-u5rf-t5c14iz15900 0bt2p531-55lm-5gn1-i9kl-s8w45sx14675 ANSI-Commercial 822n49k0-juz5-1637-r209-uhr4j487x5z8 165s19u3-ypu5-8782-j434-ovz7k569x5r3 ANSI-Medicare Part B [id number]v2m0 ANSI-Medicare Part B [id number]-[id number] ANSI-Commercial y36k0518-0919-07i1-yxd3-j464l6d36qa6 g48s1956-5543-11q4-uvd9-[id number] [facility] Part B [id number] 11 Self [id number] Medicare Natl Govt Servic Medicare Primary [id number] Self [id number] ANSI-Medicare Part B [id number] ANSI-Commercial 1574ex86-201o-397b-59xa-5135c2fm43t2 8481sz29-843q-509c-72uc-9658r8ja90r1 ANSI-Medicare Part B [id number] ANSI-Commercial by85703t-4ws5-4097-p7b6-1l6o4xci434q nf09525d-7tg7-5259-y4h7-1q8j1fit017f MEDICARE A [id number] Self [id number] ANSI-Medicare Part B [id number]-[id number]-[id number] ANSI-Commercial 03062s1j-1581-1095-x474-fvi867l64x90 21079a2w-2343-3180-n878-jxa507r49p00 ANSI-Medicare Part B [id number]-[id number] ANSI-Commercial 4l3u6bw8-k2m1-12yz-5540-6e67n5fs4g0s 5z3n8fp3-u2q4-92di-2784-8w47j8fy0w7p BS [place] Medigap Part B [id number] Self [id number] Aarp Healthcare Options Medigap Part B [id number] Self [id number] [place] Primary [id number] Self [id number] ANSI-Commercial [id number]-33uv-16i6-[id number] 24415r3z-19wo-87l9-o7m3-4c1z931k6447 ANSI-Medicare Part B [id number] ANSI-Commercial 8gyay9c1-5873-0t44-pqqg-051at1h22o0m 6qtox1u2-1854-8z12-zwyp-772cu1z09l2i ANSI-Medicare Part B [id number] ANSI-Medicare Part B [id number]-332x-0qd8-7vs4-7qyo3b400fyf ANSI-Commercial 23051qk6-1n52-2gmt-zvu1-61tkbk09434m 97625lb9-1f38-0aic-lpk7-49pjpt37978i ANSI-Commercial 9942ds0s-4q71-7ft3-150b-3200v3ot9v00 4287kc4a-5f82-7wp4-242c-9401j3vd6h26 ANSI-Medicare Part B [id number]-5sw1-965v-[id number] ANSI-Medicare Part B [id number]-486o-2jp0-073h-[id number] ANSI-Commercial pn72nu28-m39i-8rvc-gsg0-6c5c4y84w171 lt97sw73-d84p-3xql-amf8-7c6t0c74t281 ANSI-Commercial 8825gdu6-a2d8-5352-1648-2k956i6r2k3n 6592qfm0-f0u9-2797-0295-3f989u2p8h9v ANSI-Medicare Part B [id number] ANSI-Commercial ozbfgnnz-54hp-7382-n54x-gc266crv0c53 lnewoecs-17bo-7759-h00a-zx305bay9a53 ANSI-Medicare Part B [id number]-[id number] ANSI-Commercial c6082i24-8l6c-8c69-s82x-17449a2up38i e2706p80-1k1g-9i24-x65m-42609f6ew47q ANSI-Medicare Part B [id number]-dco1-4p51-n494-46q7j9jjf449 ANSI-Medicare Part B [id number]-77vj-755v-uysq-96rh7i0qq935 ANSI-Commercial 582y0f48-y98a-936r-938c-986306dd52a8 660k7x63-f07f-730l-798d-105664xg58h5 [facility] Part B [id number] 11 Self [id number] 11 Medicare [facility] Govt Servic Medicare Primary [id number] Self [id number] ANSI-Commercial 095p39h3-90s3-23z5-r0cc-[id number] 916j44k6-45f0-41l2-k8ta-o196o1855819 ANSI-Medicare Part B [id number]-ji25-5576-[id number] ANSI-Medicare Part B [id number]-1e96-9rjw-3h01-r1bfh6a3q4c8 ANSI-Commercial 0v601z75-0fb1-2330-d619-68n11669d6g7 9p487b98-8qh3-5960-d101-35c06070s6c0 ANSI-Medicare Part B [id number] [id number]-ab5n-2l93-x6d1-[id number] ANSI-Commercial 7733y5s3-011l-2u0p-a59w-0qwq422589t5 1376n4z7-638r-0s3r-s55s-0jvj214657b4 Medicare Part B [facility] Other 0 Se lf 0 ANSI-Commercial [id number]-b71y-9xb9-16n9-[id number] aa2gsyf0-a75y-6ux9-68a2-ak4q23228f43 ANSI-Medicare Part B [id number]-[id number]-cd8q-[id number] ANSI-Commercial t7481x40-l09f-47h2-yv8f-q5tn2vs3jq56 t1841q90-k58i-87t3-yx3y-u5hu0kk0jh95 ANSI-Medicare Part B [id number]-i7qy-4124-90uc-[id number] ANSI-Medicare Part B [id number]-[id number] ANSI-Commercial 1e0ps40c-0vkf-3ijc-fwer-83a918m19822 4v1hn14n-2auc-5toc-fold-78q954g02948 ANSI-Commercial wv51g313-06m7-6646-s5v6-qbrzr52e1k3u ej62g216-29v1-7403-c0b6-rchmt13e7c0m ANSI-Medicare Part B [id number]-[id number]-928u-7u3p-[id number] [employer] 304/804 [id number] SP [id number] ANSI-Commercial 37kn54i2-0s47-2jt8-3354-n99th0uq1071 60zl22e7-3d99-1sp3-1373-z58vz5sf2934 ANSI-Medicare Part B [id number] h17rf84u-1zg1-40kt-5c8s-e02ojo6v17z8 ANSI-Medicare Part B [id number]-[id number] xi37p2z9-8930-4lan-77p4-1j6h8jk1tir7 ANSI-Commercial 7shi442j-37e4-255m-28v7-1su3967i6838 6cnw597z-16l1-894v-99c6-5am7807l9876 ANSI-Commercial 3313z6jo-185r-013j-d6dl-6h500x5o62st 7455v5vx-378p-459r-o9hp-3m625j7x66st ANSI-Medicare Part B [id number]-3380-v656-7109f6279go7 ANSI-Medicare Part B [id number] 6t70s6v6-5853-6jr3-640t-8984360dsji1 ANSI-Commercial w4u3l50o-9ol4-8ww9-u502-c5183rr28w08 h0o8b61z-8mv8-7jy2-m548-e1112sw97q75 ANSI-Medicare Part B [id number]-i38m-3qa7y82lph49 24pjr446-6715-2ylh-f15d-6pu3j73obt50 ANSI-Commercial 74964oyv-5j4g-0975-45ak-a8568017537n 53756rjn-7q8e-3233-99yf-h8054247170z ANSI-Commercial e9271u2f-u56o-387j-ubxn-9h8909i64p44 s3601i1p-q90v-969f-cdfr-8n8998b28b65 ANSI-Medicare Part B [id number]-hl54ehggh129 q584qlwe-yy3j-7e65-0385-dw51ynnrv658 ANSI-Medicare Part B [id number]-2za5qi5ul17v ANSI-Commercial 42f8a16s-2y8o-1770-u12k-402b674183lz 39b3b69c-3f0p-9026-t03k-359j664400wg ANSI-Medicare Part B [id number]-[id number] lc1kc5cu-kok8-455g-5668-11en4044n920 ANSI-Commercial 5w82u042-gm17-9s75-y4ob-ns8s7904f3zl 2k43o592-iz79-1y85-f3az-ck6u0882i1as ANSI-Commercial pe5y00f5-78v1-9095-s0vd-356960w930k8 ki5q86u3-11a6-7786-g3fv-472327r648n6 ANSI-Medicare Part B [id number]-[id number]-21c3-299z-07v1-582262a75920 ANSI-Commercial qk49vk03-c13w-4863-0171-1876c989mtc0 mq80ow19-u71b-3355-7763-9022o411mtc0 ANSI-Medicare Part B [id number]-8r9z-[id number] ANSI-Commercial [id number]-[id number] [id number]-s020-0t83-8i33-3504dw170380 ANSI-Medicare Part B [id number] [id number]-p8o2-674m-1x8k-[id number] ANSI-Commercial [id number]-m6f0-0683-5593-706pj840z235 [id number]-[id number] ANSI-Medicare Part B [id number]-m79z-[id number] [facility] Part B [id number] 11 Self [id number] Medicare [facility] Govt Serv Medicare Primary [id number] Self [id number] ANSI-Commercial m887vht5-660u-3cep-4gjl-izy9q2yjv56z p492oym5-186m-5ujm-3nbf-gtz0q7acq02s ANSI-Medicare Part B [id number]-z177-[id number] ANSI-Commercial 3k7pp3w1-74d2-942q-1610-98a505iqn7s4 4p1fj7j2-17l1-842y-5601-55s839geq2o6 ANSI-Medicare Part B [id number]-wr9p-[id number] ANSI-Commercial 922t4p00-2384-074s-u7e3-q1nqsb3611ck 876v2m83-9916-483e-t3u8-p3lnju9467fu ANSI-Medicare Part B [id number] ANSI-Medicare Part B [id number] yct5f4fp-[id number] ANSI-Commercial 45kk4hky-l0v4-6vu0-9qr3-[id number] 63np2fvg-p1p6-0kc1-2ok3-l250253c7659 MEDICARE [id number] SP [id number] ANSI-Commercial [id number]-[id number]-byj4-17x0-915v-[id number] ANSI-Medicare Part B [id number]-[id number]-g6uhapxsn6cj ANSI-Commercial 82on89gh-3042-33b4-w9ym-13o3o10vbk50 27ry69vy-8713-58q6-u5mh-91n5n97zfs61 ANSI-Medicare Part B [id number]-0234-25n4-2292-ve0w3nr4i82p ANSI-Medicare Part B [id number]-vqo6-[id number] ANSI-Commercial h112s8gd-52zz-8815-364h-wi4m441r1oz6 d793v8ui-02cr-1014-132j-kb0h597c0vc3 ANSI-Medicare Part B [id number] [id number]-2ds6-[id number] ANSI-Commercial 90080t07-3769-44y2-01z5-wn9d6340ep3k [id number]-aa4h6278zz0k ANSI-Commercial [id number]-h36i-19p4-qo9y-[id number]-n76d-95m3-ak0a-[id number] ANSI-Medicare Part B [id number] ANSI-Medicare Part B [id number] ANSI-Commercial [id number]-ncf5-53ln-1l2n-[id number] [id number]-ggf8-18yl-3o1s-[id number] DME Jurisdiction A [facility] C [id number] SELF [id number] Medicare C [id number] SELF [id number] A Medicare Part B [facility] Other 0 Se lf 0 Medicare Part B of [facility] Other 0 Se lf 0 [facility] Opt Medigap Part B [id number] 11 Self [id number] 11 [place] Primary [id number] Self [id number] [facility] Opt Medigap Part B [id number] 11 Self [id number] 11 [place] Primary [id number] Self [id number] [facility] Opt Medigap Part B [id number] 11 Self [id number] 11 Medicare [place] [employer] [employer] Medicare Primary [id number] Self [id number] MEDICARE PI PI [facility] PI PI [facility] [id number] Marla [id number] MEDICARE [id number] Marla [id number] A AARP [id number] 18 [id number] 111 Medicare [facility] [id number] 18 [id number] AARP [facility] Supplemental F [id number] SELF [id number] [facility] [id number] 18 [id number] Surgeries/Procedures Procedure Description Date Indications Data Source(s) DEBRIDEMENT NAIL ANY METHOD 1-5 09/03/2020 12:00:00 AM EDT [facility] ([facility] Office Visit, Est Pt., Level 2 FC 02/07/2020 12:00:00 AM EDT [facility] Visit, Est Pt., Level 3 PC 02/07/2020 12:00:00 AM EDT [facility] ([facility]) US URINE CAPACITY MEASURE 01/04/2020 12:00:00 AM EST [facility] ([facility]) Results ID Date Data Source [id number] 01/05/2021 03:37:00 PM EST [facility] Name Value Range Interpretation Code Description Data Oriana rce(s) Supporting Document(s) SARS COVID ANTIGEN POSITIVE [facility] This lab was ordered by HENNY doss nd reported by [facility]. ID Date Data Source [id number] 12/25/2020 12:56:00 PM EST [facility] ([facility]) Name Value Range Interpretation Code Description Data Oriana rce(s) Supporting Document(s) Magnesium [Moles/volume] in Serum or Plasma Laboratory test result [facility] ([facility]) Thyrotropin [Units/volume] in Serum or Plasma by Detec tion limit <= 0.05 mIU/L Laboratory test result [facility] ([facility]) ID Date Data Source [id number] 12/21/2020 12:57:00 PM EST [facility] ([facility]) Name Value Range Interpretation Code Description Data Oriana rce(s) Supporting Document(s) Magnesium [Moles/volume] in Serum or Plasma 2.0 mg/dL 1.8-2.4 [facility] ([facility]) Thyrotropin [Units/volume] in Serum or Plasma by Detec tion limit <= 0.05 mIU/L 1.580 uIU/ML 0.358-3.740 [facility] ([facility] ) ID Date Data Source [id number] 12/21/2020 12:57:00 PM EST [facility] ([facility]) Name Value Range Interpretation Code Description Data Oriana rce(s) Supporting Document(s) Glucose, Fasting 123 mg/dL 70-100 [facility] ([facility]) Creatinine For GFR 0.78 mg/dL 0.55-1.30 [facility] ([facility] [facility]) Blood Urea Nitrogen 16 mg/dL 7-18 [facility] ([facility]) Glomerular Filtration Rate Laboratory test result [facility] ([facility]) <content>Units are mL/min/1.73 m2</content>
<content></content>
<content>Chronic Kidney Disease Staging per NKF:</content>
<content></content>
<content>Stage I & II GFR >=60 Normal to Mildly Decreased</content>
<content>Stage III GFR 30- 59 Moderately Decreased</content>
<content>Stage IV GFR 15-29 Severely Decreased</content>
<content>Stage V GFR <15 Very Little GFR Left</content>
<content>ESRD GFR <15 on AMMONIUM NITRATE CRYSTALLIZER</content>
<content></content> Potassium Serum 3.8 meq/L 3.5-5.1 [facility] ([facility]) Sodium Level 143 meq/L 136-145 [facility] ([facility]) Chloride Level 107 meq/L 98-107 [facility] ([facility]) Anion Gap 4 meq/L 8-16 [facility] Carbon Dioxide Level 32 meq/L 21-32 [facility] ([facility]) Calcium Level 9.7 mg/dL 8.8-10.2 [facility] ([facility]) ID Date Data Source [id number] 12/21/2020 12:56:00 PM EST [facility] ([facility]) Name Value Range Interpretation Code Description Data Oriana rce(s) Supporting Document(s) Hemoglobin A1c/Hemoglobin.total in Blood 6.9 % [facility] ([facility]) Lab Result Notes: Pre-Diabetes 5.7 - 6.4 % Diabetes = or > 6.5% Glucose mean value [Mass/volume] in Blood Estimated fr om glycated hemoglobin 151 mg/dL 60-110 [facility] ([facility] ) ID Date Data Source [id number] 12/21/2020 12:56:00 PM EST [facility] ([facility]) Name Value Range Interpretation Code Description Data Oriana rce(s) Supporting Document(s) Hemoglobin A1c/Hemoglobin.total in Blood Laboratory test result [facility] ([facility]) ID Date Data Source [id number] 11/07/2020 12:00:00 AM EST [facility] Bren Pitts DO Patient Name: REINA [id number] [facility] Date of : 1950[address] Date [facility]: [facility] [place] [id number] Fax: [phone] EXAM: CT ABDOMEN & PELVIS [...] degenerativechanges of the spine. There is a mnyz-ez-lsxfwgit compression deformity ofthe L3 vertebral body which [...] of 2020 with negative radiographs of the righthip.Yooi-uo-fvjyuvlp compression deformity L3 that is likely chronic. Noretropulsed fragments.Sigmoid and left colonic diverticulosis without acute diverticulitis.Accredited by the [employer] in [place].SANDHYA Nails/Maddi you for referring REINA KRAMER to our office. Electronically Signed - BART DAMON MD 11/07/20 17:18 Name Value Range Interpretation Code Description Data Oriana rce(s) Supporting Document(s) ID Date Data Source [id number]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 HjMVEjZNNwcy7JJQVdDOPlNKe7SiDsSPNzNVPzXYqsPQToVJKoKEWtFBHjWODzXM3SPdCuLTWpLGBtLL DiMJViZORusd6IZEKpJRPxTAU8VTFdJYFeRJRdKQitLAIaOPY5VAV6OIEwNNKfVZ5FMiPiINZdDOq3Rz DfAOKoXUEffb0TLFFjYPOqPDK1LVEkZRJpTZOjTWtd NIQtQVPuOws8CJWkWCGcXF4VWzBxENBhIrG4YnJoKXSvUVNlxh9SQKThDTRvVnD3QFHaVLFoVXNiSDzd GNWkOKCpOWP3BDKqUPDbZA7FOqZfABYrNgGcTsArGAXzITTfvh6XPFZlVJXzEcLfPZUiMMPdGYWhSWjg FRVrXHX6NSa7TZHyAAQaAS3UDqCkNSRiOdH0ZFEjLS KrVFUvys9MSESqJLAvPZr1DTMbFNCnZVFpLOakONRiUAP7ZzMkRRFnQNVuWY8XXuEmFXGnZCF1EuEqAE AgWIBnod4PVMFiHYT3BxZrPGPnQPDvDBLdNMlfMJWpMPX8TGLzHPQyWHUdQO3WGnGhGRKzFIR9JHbqAT YoFELekc5RNIGuDDP1DwomPbMtFFIaYGLiPVajUMMi KOF5FGw2GQLzYPGxDD3XGeSmNWTmRNqeZGAlRZAiRIKops6TGODdDFE5GSJ2WzNxWLRmZDQaEVgpFFMc MHM0Uab9MWXtZGPwCD4DEcKiXMOxWAh8NnEnMVWqYYFjdt3HYGOnFYX5RKIkIRTfBJWfAHQnEMtfCOMy BVT8AsC1NFWiXMLzXF7QDyOiMSMvYuL6KLscBNNeID Ntiy7CZIRyZLK5ORK0VQZwBIHdBNPyDGguCDGyYHN9GmO3JFKyEVCpSC1VIkDfKZHkFtKdPUWtYRQjFM Gpeq4NSXYwZBE2XeH1MFRhVSRrEWAvGUleSOYiMCR8ZsF9GJSqFAJcBC5WBbChHHEtEzuoPBKkYZKwSG Xhus7VQIUmWAI9WPM2BYJyXMZyDYLgSBtaTVYbORJ1 YoAaXXGuPSDmTG1XRlZjGQJzYkw2OVSpOENiYOIvwe5TpVFxuQvysr3LUMrXVm7XdXqmFKP3NZqxUe7e eWH1KkYbGXXFXc9AcoXfWGEvXIPTQXlpCSOqKINqLGflOJH3W9CtOOV7TZWtGgL1WWR2KnZkDPH4MYV9 ZrU0LDLoDoUpCRNqEjEkVhSgJxPqOgm7KjC6MMQhCV k0YTg+UO8uNTb+Qd9Yq4ZvibX0meWtVBi4ZXE8WZ0JWSNCM8BCCf== ID Date Data Source [id number] 01/11/2020 09:51:00 AM EST [facility] ([facility]) Name Value Range Interpretation Code Description Data Oriana rce(s) Supporting Document(s) Hemoglobin A1c/Hemoglobin.total in Blood 7.7 g/dL 4.8-5.6 [facility] ([facility]) Lab Result Notes: Pre-Diabetes 5.7 - 6.4 % Diabetes = or > 6.5% Glucose mean value [Mass/volume] in Blood Estimated fr om glycated hemoglobin 174 mg/dL 60-110 [facility] ([facility] ) ID Date Data Source [id number] 01/11/2020 09:51:00 AM EST [facility] ([facility]) Name Value Range Interpretation Code Description Data Oriana rce(s) Supporting Document(s) Urea nitrogen [Mass/volume] in Serum or Plasma 20 mg/dL 7-18 [facility] ([facility]) Creatinine 0.7 mg/dL 0.6-1.3 [facility] Glucose [Mass/volume] in Serum or Plasma 186 mg/dL 74-99 [facility] ([facility]) 100-125 mg/dL PRE-DIABETES/FASTING >126 mg/dL DIABETES/FASTING Potassium [Moles/volume] in Serum or Plasma 4.0 meq/L 3.5-5.1 [facility] ([facility]) Carbon dioxide, total [Moles/volume] in Serum or Plasma 27 meq/L 21 -32 [facility] ([facility]) Chloride [Moles/volume] in Serum or Plasma 102 meq/L 98-107 [facility] ([facility]) Sodium [Moles/volume] in Serum or Plasma 142 meq/L 136-145 [facility] ([facility]) Calcium [Mass/volume] in Serum or Plasma 9.6 mg/dL 8.5-10.1 [facility] ([facility]) Glomerular filtration rate/1.73 sq M pre dicted among blacks [Volume Rate/Area] in Serum or Plasma by Creatinine-based formula (MDRD) Laboratory test result [facility] ([facility]) <content>CHRONIC KIDNEY DISEASE STAGING PER NKF</content>
<content></content>
<content>STAGE I & II GFR >= 60 NORMAL TO MILDLY DECREASED</content>
<content>STAGE III GFR 30-59 MODERATELY DECREASED</content>
<content>STAGE IV GFR 15-29 SEVERELY DECREASED</content>
<content>STAGE V GFR <15 VERY LITTLE GFR LEFT</content>
<content>ESRD GFR <15 ON AMMONIUM NITRATE CRYSTALLIZER</content>
<content></content> Glomerular filtration rate/1.73 sq M pre dicted among non-blacks [Volume Rate/Area] in Serum or Plasma by Creatinine-based formula (MDRD) Laboratory test result [facility] ([facility] ) Procedure Social History Code Duration Value Status Description Data Source(s ) Smoking 10/19/2020 12:00:00 AM EST Denies completed Denies [facility] ([facility]) Smoking 02/07/2020 12:00:00 AM EDT Former Smoker completed Former Smoker [facility] Smoking 02/07/2020 12:00:00 AM EDT Former Smoker completed Former Smoker [facility] ([facility]) Smoking 02/07/2020 12:00:00 AM EDT Former Smoker completed Former Smoker [facility] ([facility]) Smoking 02/07/2020 12:00:00 AM EDT Former Smoker completed Former Smoker [facility] ([facility]) Smoking 02/07/2020 12:00:00 AM EDT Former Smoker completed Former Smoker [facility] ([facility]) Vital Signs ID Date Data Source [id number] Name Value Range Interpretation Code Description Data Source(s) Body height 68 [in_i] 68 [in_i] [facility] ([facility]) 5'8" Heart rate 80 /min 80 /min [facility] ([facility]) Diastolic blood pressure 80 mm[Hg] 80 mm[Hg] [facility] ([facility]) RT Arm Systolic blood pressure 136 mm[Hg] 136 mm[Hg] [facility] ([facility]) RT Arm Body height 68 [in_i] 68 [in_i] [facility] ([facility]) 5'8" Heart rate 88 /min 88 /min [facility] ([facility]) Diastolic blood pressure 72 mm[Hg] 72 mm[Hg] [facility] ([facility]) Systolic blood pressure 124 mm[Hg] 124 [facility]] [facility] Body mass index (BMI) [Ratio] 27.4 kg/m2 27.4 k g/m2 [facility] Body weight 81.648 kg 81.648 kg [facility] ([facility] Body weight 180.00 [lb_av] 180.00 [lb_av] [facility] ([facility] Body height 68 [in_i] 68 [in_i] [facility] ([facility] 5'8" Body mass index (BMI) [Ratio] 27.8 kg/m2 27.8 k g/m2 [facility] ([facility] Heart rate 92 /min 92 /min [facility] ([facility] Diastolic blood pressure 68 mm[Hg] 68 mm[Hg] [facility] ([facility] Systolic blood pressure 122 mm[Hg] 122 mm[Hg] [facility] Body weight 183.00 [lb_av] 183.00 [lb_av] [facility] ([facility] Body height 68 [in_i] 68 [in_i] [facility] 5'8" Body mass index (BMI) [Ratio] 27.9 kg/m2 27.9 k g/m2 [facility] ([facility]) Body weight 183.50 [lb_av] 183.50 [lb_av] [facility] ([facility]) Body height 68 [in_i] 68 [in_i] [facility] ([facility]) 5'8" Diastolic blood pressure 70 mm[Hg] 70 mm[Hg] [facility] ([facility]) Systolic blood pressure 120 mm[Hg] 120 mm[Hg] [facility] ([facility]) Diastolic blood pressure mm[Hg] [facility] Systolic blood pressure 142 mm[Hg] 142 mm[Hg] e CW1 ([facility]) Body temperature 98.0 [degF] 98.0 [degF] [facility] ( [facility]) Respiratory rate 18 /min 18 /min eCW1 ([facility]) Heart rate 79 /min 79 /min eCW1 ([facility]) Body mass index (BMI) [Ratio] 30.76 kg/m2 30.76 kg/m2 W[facility] ([facility]) Body height 67 [in_us] 67 [in_us] eCW1 ([facility]) Body weight Measured 196.4 [lb_av] 196.4 [lb_av ] e[facility]1 [facility]) Body mass index (BMI) [Ratio] 30.1 kg/m2 30.1 k g/m2 [facility] ([facility]) Body weight 198.00 [lb_av] 198.00 [lb_av] [facility] ([facility]) Body height 68 [in_i] 68 [in_i] [facility] ([facility]) 5'8" Diastolic blood pressure 80 mm[Hg] 80 mm[Hg] [facility] ([facility]) Systolic blood pressure 130 mm[Hg] 130 mm[Hg] [facility] ([facility]) Respiratory rate 18 /min 18 /min eCW1 ([facility]) Heart rate 80 /min 80 /min eCW1 ([facility]) Body mass index (BMI) [Ratio] 31.63 kg/m2 31.63 kg/m2 [facility] Body height 67 [in_us] 67 [in_us] eCW1 ([facility]) Body weight Measured 202 [lb_av] 202 [lb_av] eC W1 ([facility]) Diastolic blood pressure mm[Hg] eCW1 ([facility]) Systolic blood pressure 148 mm[Hg] 148 mm[Hg] e CW1 ([facility]) Body temperature 98.0 [degF] 98.0 [degF] [facility] ( [facility]) Patient Treatment Plan of Care Planned Activity Planned Date Details Description Data Source (s) Sulfamethoxazole 800 MG / Trimethoprim 160 MG Oral Tab let [Bactrim] 04/18/2020 12:00:00 AM EDT eCW1 ([facility]) Sulfamethoxazole 800 MG / Trimethoprim 160 MG Oral Tab let [Bactrim] 04/18/2020 12:00:00 AM EDT eCW1 ([facility]) Sulfamethoxazole 800 MG / Trimethoprim 160 MG Oral Tab let [Bactrim] 04/18/2020 12:00:00 AM EDT eCW1 ([facility]) Sulfamethoxazole 800 MG / Trimethoprim 160 MG Oral Tab let [Bactrim] 04/18/2020 12:00:00 AM EDT eCW1 ([facility]) Sulfamethoxazole 800 MG / Trimethoprim 160 MG Oral Tab let [Bactrim] 04/18/2020 12:00:00 AM EDT eCW1 ([facility]) Sulfamethoxazole 800 MG / Trimethoprim 160 MG Oral Tab let [Bactrim] 04/18/2020 12:00:00 AM EDT eCW1 ([facility])
[2021-01-10] MEDS ORDERED: LEVO250T12 PO (12:44)
[2021-01-10] MEDS ORDERED: ZINC220T6 PO (12:44)
[2021-01-10] MEDS ORDERED: FUROSEMIDE 20 MG TAB PO ONE (12:45)
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
[2021-01-10 15:40] VITALS: BP 135/64
[2021-01-10] MEDS: ZINC SULFATE 220 MG CAP PO SCH (16:47)
[2021-01-10] MEDS: VITAMIN D 1,000 INTERNATIONAL UNITS TABLET PO SCH (16:47)
[2021-01-10] MEDS: ASCORBIC ACID 500 MG TAB PO SCH (16:49)
[2021-01-10] MEDS: MULTIVITAMINS/MINERALS THERAP 1 TAB PO SCH (20:50)
[2021-01-10 20:52] VITALS: BP 125/61
[2021-01-10] MEDS ORDERED: LevoFLOXacin 250 MG TABLET PO SCH (21:00)
[2021-01-11 03:54] VITALS: BP 130/63
[2021-01-11 06:48] LABS: BASO % 0.1 % (0.0-1.0); EOS # 0.2 10^3/uL (0.0-0.5); EOS % 2.8 % (0.0-3.0); HEMATOCRIT 32.9 % (36.0-47.0); LYMPH # 1.5 10^3/uL (1.5-5.0); LYMPH % 19.6 % (24.0-44.0); MEAN CORPUSCULAR HEMOGLOBIN 27.8 pg (27.0-33.0); MEAN CORPUSCULAR HGB CONC 33.7 g/dl (32.0-36.5); MEAN CORPUSCULAR VOLUME 82.3 fl (80.0-96.0); MONO # 1.1 10^3/uL (0.0-0.8); MONO % 14.6 % (0.0-5.0); NEUTROPHILS # 4.8 10^3/uL (1.5-8.5); NEUTROPHILS % 61.9 % (36.0-66.0); PLATELET COUNT, AUTOMATED 205 10^3/uL (150-450); WHITE BLOOD COUNT 7.8 10^3/uL (4.0-10.0)
[2021-01-11 06:53] LABS: HEMOGLOBIN 11.1 g/dl (12.0-15.5)
[2021-01-11 07:08] LABS: CALCIUM LEVEL 7.7 MG/DL (8.8-10.2); CREATININE FOR GFR 1.21 MG/DL (0.55-1.30); GLOMERULAR FILTRATION RATE 46.6 (>39); MAGNESIUM LEVEL 1.8 MG/DL (1.8-2.4); POTASSIUM SERUM 3.6 MEQ/L (3.5-5.1)
[2021-01-11] MEDS: HumaLOG INSULIN (NovoLOG) PER UNIT SC SCH ×5 (07:30→19:48)
[2021-01-11 08:00] VITALS: BP 122/68
[2021-01-11] MEDS: VITAMIN D 1,000 INTERNATIONAL UNITS TABLET PO SCH (08:04)
[2021-01-11] MEDS: ZINC SULFATE 220 MG CAP PO SCH (08:05)
[2021-01-11] MEDS: ASCORBIC ACID 500 MG TAB PO SCH (08:05)
[2021-01-11] MEDS: ENOXAPARIN 40MG/0.4ML SYRINGE (J1650 PER 10MG) SC SCH (08:05)
--- NOTE | 2021-01-11 12:01 | IPNPDOC ---
Text Note Date of Service The patient was seen on 01/11/21. NOTE Subjective: Patient is a 70-year-old female who presents to the emergency room with weakness. Patient was recently admitted to [facility] from 01/05-01/09. She had initially presented with weakness and cough. She was found to have COVID-19 on 01/05. Patient was not hypoxic and did not require extensive therapy. She was given Levaquin for suspected UTI. Patient has been working with physical therapy throughout the hospitalization, however had refused rehabilitation and instead was discharged home with services on 01/08. Patient had appealed her decision for discharge with Medicare and was given a denial and she subsequently left the hospital on 01/09 with home services and Levofloxacin for 2 days. Patient was transported home via medical transport. On the day of admission she noted that she was ambulating to the bathroom and sat down the toilet and couldnt get up. She then contacted EMS for further assistance. EMS had helped her up and she couldnt ambulate that well and they suggested she come to the ER for further evaluation. After an extensive discussion with the patient about our goals of therapy. Currently, patient is willing to work with PT and is open to seeking rehabilitation moving forward. At baseline patient uses crutches and has a left below the knee amputation. Patient was seen and examined at the bedside. Patient has had no significant changes since yesterday has had an uneventful evening. Has not spent any chest pain, palpitations, cough, belly pain, nausea, vomiting, diarrhea, or discomfort with urination. Patient was able to work with physical therapy yesterday, who have recommended rehabilitation. Objective: Vitals (See below) General: Lying in bed, appears comfortable, AAOx3 HEENT: NC, AT CVS: +S1S2 Lungs: Fair air entry b/l, -w/r/r Abdomen: Soft, ND, NT Extremities: L BKA, R leg with trace edema, - Calf tenderness Assessment and plan: Weakness / Debility - likely 2/2 viral illness - 2/2 COVID-19 infection - Presented to the ER after she sat on the toilet and couldnt get up - Patient was recently at [facility] from 01/05 to 01/09; had refused to seek rehab and PT had recommended home with services thereafter - Patient has been working with physical therapy yesterday, who have recommended rehabilitation - c/w PT and OT - PFS on board for placement to rehab / swing bed - likely transition to [facility] on 01/14/2021 Recent UTI - Urine culture 01/05: Enterobacter aerogenes - s/p Levaquin course COVID19 - Currently is asymptomatic; denies chest pain, shortness of breath or cough - Saturating well on room air - c/w supportive care HTN / Edema - BP well controlled currently - Trace edema of R leg - s/p Furosemide in ER - Currently not on any therapy DM2 - c/w ISS while inpatient Vitamin D deficiency - c/w Supplementation DVT prophylaxis - c/w Lovenox Disposition: - c/w PT and OT - Awaiting transition to rehabilitation - likely [facility] on 01/14/2021 - Will transition to [facility] status VS,Bettina, I+O VS, [place], I+O Laboratory Tests 01/11/21 06:29 Vital Signs Date Time Temp Pulse Resp B/P (MAP) Pulse Ox O2 Delivery O2 Flow Rate FiO2 01/11/21 08:00 97.0 79 18 122/68 (86) 94 Room Air I&O- Last 24 Hours up to 6 AM 01/11/21 06:00 Intake Total 840 ml Output Total 0 ml Balance 840 ml SAKSHI CUEVAS MD Jan 11, 2021 12:01
[2021-01-11 15:39] VITALS: BP 165/73
[2021-01-11] MEDS: MULTIVITAMINS/MINERALS THERAP 1 TAB PO SCH (20:01)
[2021-01-11 20:04] VITALS: BP 131/63
[2021-01-12 08:00] VITALS: BP 156/68
[2021-01-12 08:06] LABS: BASO % 0.1 % (0.0-1.0); EOS # 0.3 10^3/uL (0.0-0.5); EOS % 3.8 % (0.0-3.0); HEMATOCRIT 32.4 % (36.0-47.0); HEMOGLOBIN 10.8 g/dl (12.0-15.5); LYMPH # 1.5 10^3/uL (1.5-5.0); LYMPH % 20.5 % (24.0-44.0); MEAN CORPUSCULAR HEMOGLOBIN 27.7 pg (27.0-33.0); MEAN CORPUSCULAR HGB CONC 33.3 g/dl (32.0-36.5); MEAN CORPUSCULAR VOLUME 83.1 fl (80.0-96.0); MONO # 0.8 10^3/uL (0.0-0.8); MONO % 11.5 % (2.0-8.0); NEUTROPHILS # 4.6 10^3/uL (1.5-8.5); NEUTROPHILS % 62.7 % (36.0-66.0); PLATELET COUNT, AUTOMATED 205 10^3/uL (150-450); WHITE BLOOD COUNT 7.3 10^3/uL (4.0-10.0)
[2021-01-12 08:21] LABS: CALCIUM LEVEL 7.8 MG/DL (8.8-10.2); CREATININE FOR GFR 1.23 MG/DL (0.55-1.30); GLOMERULAR FILTRATION RATE 45.7 (>39); POTASSIUM SERUM 3.7 MEQ/L (3.5-5.1)
[2021-01-12] MEDS: ENOXAPARIN 40MG/0.4ML SYRINGE (J1650 PER 10MG) SC SCH (09:36)
[2021-01-12] MEDS: VITAMIN D 1,000 INTERNATIONAL UNITS TABLET PO SCH (09:37)
[2021-01-12] MEDS: HumaLOG INSULIN (NovoLOG) PER UNIT SC SCH ×4 (09:37→20:55)
[2021-01-12] MEDS: ASCORBIC ACID 500 MG TAB PO SCH (09:37)
[2021-01-12] MEDS: ZINC SULFATE 220 MG CAP PO SCH (09:37)
[2021-01-12 14:00] VITALS: BP 107/54
[2021-01-12 20:00] VITALS: BP 140/65
[2021-01-12] MEDS: MULTIVITAMINS/MINERALS THERAP 1 TAB PO SCH (20:55)
[2021-01-13 04:00] VITALS: BP 134/60
[2021-01-13 07:51] LABS: BASO % 0.5 % (0.0-1.0); EOS # 0.3 10^3/uL (0.0-0.5); EOS % 3.9 % (0.0-3.0); HEMATOCRIT 35.1 % (36.0-47.0); HEMOGLOBIN 11.3 g/dl (12.0-15.5); LYMPH # 1.6 10^3/uL (1.5-5.0); LYMPH % 20.8 % (24.0-44.0); MEAN CORPUSCULAR HEMOGLOBIN 26.8 pg (27.0-33.0); MEAN CORPUSCULAR HGB CONC 32.2 g/dl (32.0-36.5); MEAN CORPUSCULAR VOLUME 83.2 fl (80.0-96.0); MONO # 0.7 10^3/uL (0.0-0.8); MONO % 8.8 % (2.0-8.0); NEUTROPHILS # 4.9 10^3/uL (1.5-8.5); NEUTROPHILS % 64.7 % (36.0-66.0); PLATELET COUNT, AUTOMATED 246 10^3/uL (150-450); RED BLOOD COUNT 4.22 10^6/uL (4.00-5.40); WHITE BLOOD COUNT 7.6 10^3/uL (4.0-10.0)
[2021-01-13] MEDS: ASCORBIC ACID 500 MG TAB PO SCH (07:59)
[2021-01-13] MEDS: ENOXAPARIN 40MG/0.4ML SYRINGE (J1650 PER 10MG) SC SCH (07:59)
[2021-01-13] MEDS: VITAMIN D 1,000 INTERNATIONAL UNITS TABLET PO SCH (08:00)
[2021-01-13] MEDS: HumaLOG INSULIN (NovoLOG) PER UNIT SC SCH ×5 (08:00→20:09)
[2021-01-13] MEDS: ZINC SULFATE 220 MG CAP PO SCH (08:00)
[2021-01-13 08:07] LABS: CALCIUM LEVEL 8.1 MG/DL (8.8-10.2); CREATININE FOR GFR 1.26 MG/DL (0.55-1.30); GLOMERULAR FILTRATION RATE 44.4 (>39); MAGNESIUM LEVEL 2.1 MG/DL (1.8-2.4); POTASSIUM SERUM 3.9 MEQ/L (3.5-5.1)
[2021-01-13 20:07] VITALS: BP 141/63
[2021-01-13] MEDS: MULTIVITAMINS/MINERALS THERAP 1 TAB PO SCH (20:09)
[2021-01-14 05:42] LABS: BASO % 0.3 % (0.0-1.0); EOS # 0.3 10^3/uL (0.0-0.5); EOS % 3.3 % (0.0-3.0); HEMATOCRIT 32.8 % (36.0-47.0); HEMOGLOBIN 10.6 g/dl (12.0-15.5); LYMPH # 1.8 10^3/uL (1.5-5.0); LYMPH % 24.1 % (24.0-44.0); MEAN CORPUSCULAR HGB CONC 32.3 g/dl (32.0-36.5); MEAN CORPUSCULAR VOLUME 83.7 fl (80.0-96.0); MONO # 0.8 10^3/uL (0.0-0.8); NEUTROPHILS # 4.6 10^3/uL (1.5-8.5); NEUTROPHILS % 61.1 % (36.0-66.0); PLATELET COUNT, AUTOMATED 227 10^3/uL (150-450); RED BLOOD COUNT 3.92 10^6/uL (4.00-5.40); WHITE BLOOD COUNT 7.5 10^3/uL (4.0-10.0)
[2021-01-14 06:00] VITALS: BP 128/62
[2021-01-14 06:14] LABS: CALCIUM LEVEL 8.5 MG/DL (8.8-10.2); CREATININE FOR GFR 1.37 MG/DL (0.55-1.30); GLOMERULAR FILTRATION RATE 40.3 (>39); POTASSIUM SERUM 4.2 MEQ/L (3.5-5.1)
[2021-01-14] MEDS: ASCORBIC ACID 500 MG TAB PO SCH (08:17)
[2021-01-14] MEDS: ZINC SULFATE 220 MG CAP PO SCH (08:17)
[2021-01-14] MEDS: VITAMIN D 1,000 INTERNATIONAL UNITS TABLET PO SCH (08:17)
[2021-01-14] MEDS: HumaLOG INSULIN (NovoLOG) PER UNIT SC SCH (08:18)
[2021-01-14] MEDS: ENOXAPARIN 40MG/0.4ML SYRINGE (J1650 PER 10MG) SC SCH (08:18)
--- NOTE | 2021-01-14 11:24 | DS.PDOC ---
Discharge Summary General Date of Admission Jan 10, 2021 at 09:12 Date of Discharge 01/14/2021 Discharge Summary PROCEDURES PERFORMED DURING STAY: [None]. ADMITTING DIAGNOSES / DISCHARGE DIAGNOSES: Weakness / Debility - likely 2/2 viral illness - 2/2 COVID-19 infection Recent UTI Slight elevation of Cr COVID19 HTN / Edema DM2 Vitamin D deficiency DVT prophylaxis COMPLICATIONS/CHIEF COMPLAINT: Weakness. HISTORY OF PRESENT ILLNESS: Patient is a 70-year-old female who presents to the emergency room with weakness. Patient was recently admitted to [facility] from 01/05-01/09. She had initially presented with weakness and cough. She was found to have COVID-19 on 01/05. Patient was not hypoxic and did not require extensive therapy. She was given Levaquin for suspected UTI. Patient has been working with physical therapy throughout the hospitalization, however had refused rehabilitation and instead was discharged home with services on 01/08. Patient had appealed her decision for discharge with Medicare and was given a denial and she subsequently left the hospital on 01/09 with home services and Levofloxacin for 2 days. Patient was transported home via medical transport. On the day of admission she noted that she was ambulating to the bathroom and sat down the toilet and couldnt get up. She then contacted EMS for further assistance. EMS had helped her up and she couldnt ambulate that well and they suggested she come to the ER for further evaluation. After an extensive discussion with the patient about our goals of therapy. Currently, patient is willing to work with PT and is open to seeking rehabilitation moving forward. At baseline patient uses crutches and has a left below the knee amputation. HOSPITAL COURSE: Weakness / Debility - likely 2/2 viral illness - 2/2 COVID-19 infection - Presented to the ER after she sat on the toilet and couldnt get up - Patient was recently at [facility] from 01/05 to 01/09; had refused to seek rehab and PT had recommended home with services thereafter - Patient has been working with physical therapy; has been progressing - c/w PT and OT; anticipate transition to [facility] today Recent UTI - Urine culture 01/05: Enterobacter aerogenes - s/p Levaquin course Slight elevation of Cr - Encourage increased oral intake of fluids COVID19 - Currently is asymptomatic; denies chest pain, shortness of breath or cough - Saturating well on room air - c/w supportive care HTN / Edema - BP well controlled currently - LE without any edema - s/p Furosemide in ER DM2 - c/w ISS while inpatient Vitamin D deficiency - c/w Supplementation DVT prophylaxis - c/w Lovenox DISCHARGE MEDICATIONS: Please see below. ALLERGIES: Please see below. PHYSICAL EXAMINATION ON DISCHARGE: Vitals (See below) General: Patient is lying in bed, appears to be comfortable, is awake, alert, oriented to person, place and time HEENT: NC, AT CVS: +S1S2 Lungs: Fair air entry b/l, auscultation is without any rhonchi, rales or wheezing Abdomen: Abdomen remains soft without any appreciated tenderness or distention Extremities: RLE without evidence of edema, L BKA LABORATORY DATA: Please see below. ACTIVITY: [As tolerated]. DISCHARGE PLAN: Follow-up with primary care provider within the next 7 days Remain compliant with treatment plan and medications Return to the ER if you experience any problems DISPOSITION: Swing bed/rehabilitation DISCHARGE CONDITION: [Stable]. TIME SPENT ON DISCHARGE: 35 minutes. Vital Signs/I&Os Vital Signs Date Time Temp Pulse Resp B/P (MAP) Pulse Ox O2 Delivery O2 Flow Rate FiO2 01/14/21 06:00 99.2 74 18 128/62 (84) 95 Room Air I&O- Last 24 Hours up to 6 AM 01/14/21 06:00 Intake Total 1380 ml Output Total 300 ml Balance 1080 ml Laboratory Data Labs 24H Laboratory Tests 2 01/13/21 11:52: Bedside Glucose (Misc Panel) 190H 01/13/21 16:39: Bedside Glucose (Misc Panel) 78L 01/13/21 20:09: Bedside Glucose (Misc Panel) 143H 01/14/21 05:13: Immature Granulocyte % (Auto) 1.2, Neutrophils (%) (Auto) 61.1, Lymphocytes (%) (Auto) 24.1, Monocytes (%) (Auto) 10.0H, Eosinophils (%) (Auto) 3.3H, Basophils (%) (Auto) 0.3, Neutrophils # (Auto) 4.6, Lymphocytes # (Auto) 1.8, Monocytes # (Auto) 0.8, Eosinophils # (Auto) 0.3, Basophils # (Auto) 0.0, Nucleated Red Blood Cells % (auto) 0.0, Anion Gap 7L, Glomerular Filtration Rate 40.3, Calcium Level 8.5L, Magnesium Level 2.0 01/14/21 09:00: Coronavirus (COVID-19)(PCR) POSITIVEA CBC/BMP Laboratory Tests 01/14/21 05:13 FSBS Laboratory Tests Test 01/13/21 11:52 01/13/21 16:39 01/13/21 20:09 Range/Units Bedside Glucose (Misc Panel) 190 78 143 83-110 MG/DL Discharge Medications Scheduled Ascorbic Acid (Vitamin C) 500 Mg Tablet, 500 MG PO DAILY, (Reported) Biotin (Biotin) 1 Mg Tablet, 1,000 MCG PO DAILY, (Reported) Cholecalciferol (Vitamin D3) (Vitamin D3) 100 Mcg (4000 Unit) Capsule, 100 MCG PO DAILY, (Reported) Metformin HCl (Metformin HCl) 500 Mg Tablet, 500 MG PO BIDWM, (Reported) Multivit-Min/FA/Lycopen/Lutein (Centrum Silver Tablet) 1 Each Tablet, 1 TAB PO QPM, (Reported) WITH DINNER Zinc Sulfate (Zinc Sulfate) 220 Mg Tablet, 220 MG PO DAILY, (Reported) Allergies Coded Allergies: shrimp (Verified Allergy, Severe, throat swelling, 03/14/20) latex (Verified Allergy, Intermediate, "my skin peels", 03/14/20) nickel (Verified Allergy, Intermediate, "makes my skin peel", 03/14/20) thiopental (Verified Allergy, Unknown, 03/14/20) SAKSHI CUEVAS MD Jan 14, 2021 11:24
== END 2021-01-14 10:38 ==
LOC: M ED 09:11 → EDBD 09:11 → M ED INP 09:12 → M 4MAIN 15:47
PROVIDERS: ADMIT Internal Medicine; ATTEND Internal Medicine
DX: R53.1 Weakness (principal); R54 Age-related physical debility; U07.1 COVID-19; I10 Essential (primary) hypertension; R60.0 Localized edema; E11.9 Type 2 diabetes mellitus without complications; E55.9 Vitamin D deficiency, unspecified; Z79.84 Long term (current) use of oral hypoglycemic drugs; Z79.899 Other long term (current) drug therapy; Z91.041 Radiographic dye allergy status; Z91.013 Allergy to seafood; Z88.8 Allergy status to other drugs, medicaments and biological substances
CPT/HCPCS: 36415; 71045; 80048; 80076; 82550; 82553; 82728; 83605; 83615; 83735; 84443; 84484; 85025; 85379; 86140; 93005; 96372; 97161; 97165; 97530; 99285; G0378; J1650; U0002

== ENCOUNTER → 2021-07-29 | Outpatient (REF) | payer MEDICARE ==
[~2021-07-29] MED LIST changes: +ZINC220T6 PO
== END ==
LOC: M LAB REF 16:24
PROVIDERS: ATTEND Internal Medicine
DX: N39.0 Urinary tract infection, site not specified (principal)

== ENCOUNTER 2021-10-26 15:14 | Inpatient (IN) | payer MEDICARE ==
[~2021-10-26] VITALS: Ht 172.7 cm; Wt 78.6 kg
[~2021-10-26 15:14] MED LIST changes: -LEVO250T12 PO; +LEVO250T3 PO
[2021-10-26] MEDS ORDERED: NS 1,000 ML IV ONE (17:45)
[2021-10-26 18:47] LABS: BASO % 0.3 % (0.0-1.0); EOS # 0.1 10^3/uL (0.0-0.5); EOS % 0.6 % (0.0-3.0); HEMATOCRIT 41.2 % (36.0-47.0); HEMOGLOBIN 13.6 g/dl (12.0-15.5); LYMPH # 1.6 10^3/uL (1.5-5.0); MEAN CORPUSCULAR HEMOGLOBIN 29.2 pg (27.0-33.0); MEAN CORPUSCULAR VOLUME 88.6 fl (80.0-96.0); MONO # 0.7 10^3/uL (0.0-0.8); MONO % 7.6 % (2.0-8.0); NEUTROPHILS # 6.5 10^3/uL (1.5-8.5); NEUTROPHILS % 73.2 % (36.0-66.0); PLATELET COUNT, AUTOMATED 240 10^3/uL (150-450); RED BLOOD COUNT 4.65 10^6/uL (4.00-5.40); WHITE BLOOD COUNT 8.9 10^3/uL (4.0-10.0)
[2021-10-26 19:19] LABS: CK-MB VALUE MASS < 1.0 NG/ML (<3.6); CPK CREATINE PHOSPHOKINASE 64 U/L (26-192); MB/CK RELATIVE INDEX 1.56 (< OR =4)
[2021-10-26 19:24] LABS: RSV AMPLIFICATION NEGATIVE (NEGATIVE)
[2021-10-26 19:37] LABS: ACETAMINOPHEN LEVEL < 2.0 UG/ML (10.0-30.0); ALBUMIN 3.9 GM/DL (3.2-5.2); ALT/SGPT 15 U/L (12-78); BILIRUBIN,DIRECT 0.2 MG/DL (0.0-0.2); BILIRUBIN,TOTAL 0.8 MG/DL (0.2-1.0); ETHYL ALCOHOL (ETHANOL) < 0.003 % (0.000-0.010); SALICYLATE LEVEL < 1.7 MG/DL (5.0-30.0); TOTAL PROTEIN 7.7 GM/DL (6.4-8.2)
[2021-10-26] MEDS ORDERED: MEROPENEM INJ 1 GM in IV 1 EA IV ONE (20:20)
[2021-10-26 20:35] LABS: AMPHETAMINES LEVEL URINE NEGATIVE (NEGATIVE); BARBITURATES URINE NEGATIVE (NEGATIVE); BENZODIAZEPINES URINE NEGATIVE (NEGATIVE); CANNABINOIDS URINE NEGATIVE (NEGATIVE); COCAINE METABOLITE URINE NEGATIVE (NEGATIVE); METHADONE URINE NEGATIVE (NEGATIVE); OPIATES URINE NEGATIVE (NEGATIVE); PHENCYCLIDINE URINE NEGATIVE (NEGATIVE)
[2021-10-26 20:36] LABS: OSMOLALITY SERUM 296 MOSM/KG (280-301)
[2021-10-26] MEDS: PHENAZOPYRIDINE 100 MG TAB PO SCH (21:00)
[2021-10-26] MEDS ORDERED: POTASSIUM CHLORIDE 10MEQ SR TABLET PO ONE (21:10)
[2021-10-26] MEDS ORDERED: MAALOX 30 ML SUSP *UDC PO PRN (21:55)
[2021-10-26] MEDS ORDERED: MOM 30ML SUSPENSION UDC PO PRN (21:55)
[2021-10-26] MEDS: NS 1,000 ML IV SCH (21:55)
[2021-10-26] MEDS ORDERED: HOME MED LIST COMPLETE! XX SCH (22:05)
[2021-10-26 23:08] LABS: INR 1.19; PROTHROMBIN TIME 15.6 SECONDS (12.7-14.5)
[2021-10-26 23:09] LABS: PARTIAL THROMBOPLASTIN TIME 42.1 SECONDS (25.9-37.0)
[2021-10-27] MEDS: ACETAMINOPHEN TAB 650MG DOSE (2X325MG) PO PRN (04:59)
[2021-10-27] MEDS: NS 1,000 ML IV SCH ×3 (05:55→22:44)
[2021-10-27] MEDS ORDERED: POTASSIUM CHLORIDE 10MEQ SR TABLET PO ONE (06:25)
[2021-10-27 07:01] LABS: HEMATOCRIT 33.8 % (36.0-47.0); MEAN CORPUSCULAR HEMOGLOBIN 29.7 pg (27.0-33.0); MEAN CORPUSCULAR HGB CONC 32.8 g/dl (32.0-36.5); MEAN CORPUSCULAR VOLUME 90.4 fl (80.0-96.0); PLATELET COUNT, AUTOMATED 214 10^3/uL (150-450); RED BLOOD COUNT 3.74 10^6/uL (4.00-5.40); WHITE BLOOD COUNT 8.8 10^3/uL (4.0-10.0)
[2021-10-27 07:03] LABS: HEMOGLOBIN 11.1 g/dl (12.0-15.5)
[2021-10-27 07:20] LABS: BLOOD UREA NITROGEN 17 MG/DL (7-18); CALCIUM LEVEL 8.5 MG/DL (8.8-10.2); CARBON DIOXIDE LEVEL 23 MEQ/L (21-32); CHLORIDE LEVEL 110 MEQ/L (98-107); CREATININE FOR GFR 0.59 MG/DL (0.55-1.30); GLOMERULAR FILTRATION RATE > 60.0 (>39); GLUCOSE, FASTING 118 MG/DL (70-100); SODIUM LEVEL 140 MEQ/L (136-145)
[2021-10-27 07:21] LABS: MAGNESIUM LEVEL 2.2 MG/DL (1.8-2.4)
[2021-10-27 07:55] VITALS: BP 111/55
[2021-10-27] MEDS: ENOXAPARIN 40MG/0.4ML SYRINGE (J1650 PER 10MG) SC SCH (09:00)
[2021-10-27] MEDS: cefTRIAXone SOD 1 GM in D5W MINI-BAG PLUS 50 ML IV SCH (09:00)
[2021-10-27] MEDS: DOCUSATE SODIUM 100MG CAPSULE PO SCH ×2 (09:00→20:37)
[2021-10-27] MEDS: PHENAZOPYRIDINE 100 MG TAB PO SCH ×3 (10:18→20:37)
[2021-10-27 14:00] VITALS: BP 130/64
[2021-10-27 22:00] VITALS: BP 135/66
[2021-10-28] MEDS: NS 1,000 ML IV SCH ×3 (05:55→21:55)
[2021-10-28 06:00] VITALS: BP 142/68
[2021-10-28] MEDS: PHENAZOPYRIDINE 100 MG TAB PO SCH ×3 (08:12→21:38)
[2021-10-28] MEDS: ENOXAPARIN 40MG/0.4ML SYRINGE (J1650 PER 10MG) SC SCH (08:13)
[2021-10-28] MEDS: cefTRIAXone SOD 1 GM in D5W MINI-BAG PLUS 50 ML IV SCH (08:13)
[2021-10-28] MEDS: DOCUSATE SODIUM 100MG CAPSULE PO SCH ×2 (08:14→21:00)
[2021-10-28 09:06] LABS: HEMATOCRIT 37.6 % (36.0-47.0); HEMOGLOBIN 12.5 g/dl (12.0-15.5); MEAN CORPUSCULAR HEMOGLOBIN 29.9 pg (27.0-33.0); MEAN CORPUSCULAR HGB CONC 33.2 g/dl (32.0-36.5); PLATELET COUNT, AUTOMATED 216 10^3/uL (150-450); RED BLOOD COUNT 4.18 10^6/uL (4.00-5.40); WHITE BLOOD COUNT 7.6 10^3/uL (4.0-10.0)
[2021-10-28 09:48] LABS: BLOOD UREA NITROGEN 15 MG/DL (7-18); CALCIUM LEVEL 8.9 MG/DL (8.8-10.2); CARBON DIOXIDE LEVEL 21 MEQ/L (21-32); CHLORIDE LEVEL 113 MEQ/L (98-107); CREATININE FOR GFR 0.64 MG/DL (0.55-1.30); GLOMERULAR FILTRATION RATE > 60.0 (>39); GLUCOSE, FASTING 135 MG/DL (70-100); MAGNESIUM LEVEL 1.7 MG/DL (1.8-2.4); POTASSIUM SERUM 4.2 MEQ/L (3.5-5.1); SODIUM LEVEL 143 MEQ/L (136-145)
[2021-10-28] MEDS: MAG SULF 1GM/100ML (MAG RUN) 1 GM in IV 1 EA IV SCH ×2 (13:49→15:20)
[2021-10-28 14:00] VITALS: BP 138/73
[2021-10-28 22:00] VITALS: BP 133/69
[2021-10-29 06:05] LABS: HEMATOCRIT 32.5 % (36.0-47.0); HEMOGLOBIN 10.7 g/dl (12.0-15.5); MEAN CORPUSCULAR HEMOGLOBIN 29.7 pg (27.0-33.0); MEAN CORPUSCULAR HGB CONC 32.9 g/dl (32.0-36.5); MEAN CORPUSCULAR VOLUME 90.3 fl (80.0-96.0); PLATELET COUNT, AUTOMATED 190 10^3/uL (150-450); WHITE BLOOD COUNT 5.2 10^3/uL (4.0-10.0)
[2021-10-29 06:23] LABS: BLOOD UREA NITROGEN 13 MG/DL (7-18); CALCIUM LEVEL 8.3 MG/DL (8.8-10.2); CARBON DIOXIDE LEVEL 24 MEQ/L (21-32); CHLORIDE LEVEL 115 MEQ/L (98-107); CREATININE FOR GFR 0.53 MG/DL (0.55-1.30); GLOMERULAR FILTRATION RATE > 60.0 (>39); GLUCOSE, FASTING 124 MG/DL (70-100); MAGNESIUM LEVEL 2.3 MG/DL (1.8-2.4); POTASSIUM SERUM 3.6 MEQ/L (3.5-5.1); SODIUM LEVEL 145 MEQ/L (136-145)
[2021-10-29 06:29] VITALS: BP 140/71
[2021-10-29] MEDS: DOCUSATE SODIUM 100MG CAPSULE PO SCH ×2 (08:38→21:00)
[2021-10-29] MEDS: cefTRIAXone SOD 1 GM in D5W MINI-BAG PLUS 50 ML IV SCH (08:39)
[2021-10-29] MEDS: PHENAZOPYRIDINE 100 MG TAB PO SCH ×3 (08:39→22:00)
[2021-10-29] MEDS: ENOXAPARIN 40MG/0.4ML SYRINGE (J1650 PER 10MG) SC SCH (08:39)
[2021-10-29 14:00] VITALS: BP 131/60
[2021-10-29 22:00] VITALS: BP 159/77
[2021-10-29] MEDS: ACETAMINOPHEN TAB 650MG DOSE (2X325MG) PO PRN (22:00)
[2021-10-30 06:00] VITALS: BP 128/68
[2021-10-30 06:14] LABS: HEMATOCRIT 33.7 % (36.0-47.0); HEMOGLOBIN 10.9 g/dl (12.0-15.5); MEAN CORPUSCULAR HEMOGLOBIN 29.2 pg (27.0-33.0); MEAN CORPUSCULAR HGB CONC 32.3 g/dl (32.0-36.5); MEAN CORPUSCULAR VOLUME 90.3 fl (80.0-96.0); PLATELET COUNT, AUTOMATED 198 10^3/uL (150-450); RED BLOOD COUNT 3.73 10^6/uL (4.00-5.40); WHITE BLOOD COUNT 5.8 10^3/uL (4.0-10.0)
[2021-10-30 06:40] LABS: BLOOD UREA NITROGEN 11 MG/DL (7-18); CARBON DIOXIDE LEVEL 25 MEQ/L (21-32); CHLORIDE LEVEL 114 MEQ/L (98-107); CREATININE FOR GFR 0.58 MG/DL (0.55-1.30); GLOMERULAR FILTRATION RATE > 60.0 (>39); GLUCOSE, FASTING 121 MG/DL (70-100); MAGNESIUM LEVEL 2.2 MG/DL (1.8-2.4); POTASSIUM SERUM 3.6 MEQ/L (3.5-5.1); SODIUM LEVEL 146 MEQ/L (136-145)
[2021-10-30] MEDS: cefTRIAXone SOD 1 GM in D5W MINI-BAG PLUS 50 ML IV SCH (08:34)
[2021-10-30] MEDS ORDERED: LEVO500T4 PO (08:47)
[2021-10-30] MEDS ORDERED: ACET1TAB55 PO (08:47)
[2021-10-30] MEDS: PHENAZOPYRIDINE 100 MG TAB PO SCH (09:00)
[2021-10-30] MEDS: DOCUSATE SODIUM 100MG CAPSULE PO SCH (09:00)
[2021-10-30] MEDS: ENOXAPARIN 40MG/0.4ML SYRINGE (J1650 PER 10MG) SC SCH (09:52)
== END 2021-10-30 12:35 | disposition home health service (06) | DRG 698 ==
LOC: M ED 15:14 → M ED INP 21:51 → ENRESERV 10-27 06:55 → M MS5PR 10-27 07:55
PROVIDERS: ADMIT Internal Medicine; ATTEND Internal Medicine
DX: T83.518A Infection and inflammatory reaction due to other urinary catheter, initial encounter (principal); G93.41 Metabolic encephalopathy; N39.0 Urinary tract infection, site not specified; E11.9 Type 2 diabetes mellitus without complications; Z96.0 Presence of urogenital implants; R33.9 Retention of urine, unspecified; Z98.49 Cataract extraction status, unspecified eye; Z90.79 Acquired absence of other genital organ(s); Z90.49 Acquired absence of other specified parts of digestive tract; E87.6 Hypokalemia; Z20.822 Contact with and (suspected) exposure to COVID-19; Z91.013 Allergy to seafood; Z91.040 Latex allergy status; Z91.048 Other nonmedicinal substance allergy status; Z89.512 Acquired absence of left leg below knee; R29.6 Repeated falls; M54.59 Other low back pain

== ENCOUNTER 2022-04-24 17:27 | Emergency (ER) | payer MEDICARE ==
[~2022-04-24] VITALS: Ht 172.7 cm; Wt 83.2 kg
[~2022-04-24 17:27] MED LIST changes: +ACET1TAB55 PO; +LEVO500T4 PO
[2022-04-24 20:04] VITALS: BP 144/75
== END 2022-04-24 20:05 | disposition home or self-care (01) ==
LOC: M ED 17:27
DX: S83.91XA Sprain of unspecified site of right knee, initial encounter (principal); S80.00XA Contusion of unspecified knee, initial encounter; W19.XXXA Unspecified fall, initial encounter; Y92.89 Other specified places as the place of occurrence of the external cause; Y93.89 Activity, other specified; Y99.0 Civilian activity done for income or pay; M17.10 Unilateral primary osteoarthritis, unspecified knee; Z87.81 Personal history of (healed) traumatic fracture; Z79.899 Other long term (current) drug therapy; Z91.040 Latex allergy status; Z91.89 Other specified personal risk factors, not elsewhere classified; Z91.013 Allergy to seafood; Z88.8 Allergy status to other drugs, medicaments and biological substances

== ENCOUNTER → 2023-01-19 | Outpatient (REF) | payer MEDICARE ==
[~2023-01-19] MED LIST changes: +LEVO1TAB38 PO; +LEVO1TAB39 PO; -LEVO250T3 PO; -LEVO500T4 PO; -POTA10CA32 PO; +POTA10CA33 PO
== END ==
LOC: M LAB REF 16:07
PROVIDERS: ATTEND Internal Medicine
DX: D51.9 Vitamin B12 deficiency anemia, unspecified (principal)

== ENCOUNTER → 2023-02-17 | Outpatient (REF) | payer MEDICARE | LOC: M LAB REF 16:25 | PROVIDERS: ATTEND Internal Medicine | DX: Z80.41 Family history of malignant neoplasm of ovary (principal) ==

== ENCOUNTER → 2023-03-12 | Outpatient (CLI) | payer MEDICARE ==
[~2023-03-12] MED LIST changes: +GASTROGRAFIN SOLUTION 30ML As Ordered ONE; +ISOVUE-370 76% 100ML VIAL As Ordered ONE
== END ==
LOC: M RAD 10:55
PROVIDERS: ATTEND Internal Medicine
DX: R10.2 Pelvic and perineal pain (principal); Z80.41 Family history of malignant neoplasm of ovary; N28.1 Cyst of kidney, acquired; K57.90 Diverticulosis of intestine, part unspecified, without perforation or abscess without bleeding; Z96.641 Presence of right artificial hip joint
CPT/HCPCS: 74177; Q9963; Q9967

== ENCOUNTER 2023-04-13 17:52 | Emergency (ER) | payer MEDICARE ==
[~2023-04-13 17:52] MED LIST changes: -GASTROGRAFIN SOLUTION 30ML As Ordered ONE; -ISOVUE-370 76% 100ML VIAL As Ordered ONE
[2023-04-13] MEDS ORDERED: ISOVUE-370 76% 100ML VIAL As Ordered ONE (18:05)
[2023-04-13 18:27] VITALS: BP 193/85
[2023-04-13 18:40] LABS: BASO # 0.1 10^3/uL (0.0-0.2); BASO % 0.7 % (0.0-1.0); EOS # 0.2 10^3/uL (0.0-0.5); EOS % 2.7 % (0.0-3.0); HEMATOCRIT 40.2 % (36.0-47.0); HEMOGLOBIN 13.7 g/dl (12.0-15.5); LYMPH # 2.4 10^3/uL (1.5-5.0); MEAN CORPUSCULAR HGB CONC 34.1 g/dl (32.0-36.5); MONO # 0.5 10^3/uL (0.0-0.8); MONO % 7.1 % (2.0-8.0); NEUTROPHILS # 3.9 10^3/uL (1.5-8.5); NEUTROPHILS % 55.4 % (36.0-66.0); PLATELET COUNT, AUTOMATED 221 10^3/uL (150-450); RED BLOOD COUNT 4.57 10^6/uL (4.00-5.40); WHITE BLOOD COUNT 7.1 10^3/uL (4.0-10.0)
[2023-04-13 18:54] LABS: INR 1.04; PROTHROMBIN TIME 13.8 SECONDS (12.5-14.5)
[2023-04-13 18:55] LABS: PARTIAL THROMBOPLASTIN TIME 38.2 SECONDS (24.8-34.2)
[2023-04-13 19:14] LABS: CK-MB VALUE MASS < 1.0 NG/ML (<3.6)
[2023-04-13 19:17] LABS: CPK CREATINE PHOSPHOKINASE 71 U/L (34-145)
== END 2023-04-13 21:07 | disposition home or self-care (01) ==
LOC: M ED 17:52
DX: R29.6 Repeated falls (principal); H53.2 Diplopia; W18.30XA Fall on same level, unspecified, initial encounter; Y92.009 Unspecified place in unspecified non-institutional (private) residence as the place of occurrence of the external cause; Z97.13 Presence of artificial right leg (complete) (partial); M50.30 Other cervical disc degeneration, unspecified cervical region; E07.89 Other specified disorders of thyroid; E11.9 Type 2 diabetes mellitus without complications; Z89.519 Acquired absence of unspecified leg below knee; Z96.641 Presence of right artificial hip joint; Z87.820 Personal history of traumatic brain injury; Z87.891 Personal history of nicotine dependence; Z79.899 Other long term (current) drug therapy; Z88.8 Allergy status to other drugs, medicaments and biological substances; Z91.040 Latex allergy status; Z91.013 Allergy to seafood; Z91.048 Other nonmedicinal substance allergy status
CPT/HCPCS: 70450; 70496; 70498; 71045; 72125; 73502; 73610; 80047; 82550; 82553; 84484; 85025; 85610; 85730; 86850; 86900; 86901; 93005; 93041; 94760; 99284; Q9967

== ENCOUNTER → 2023-04-24 | Outpatient (CLI) | payer MEDICARE | LOC: M RAD 12:44 | PROVIDERS: ATTEND Physical Medicine & Rehabilitation | DX: R47.1 Dysarthria and anarthria (principal); G31.1 Senile degeneration of brain, not elsewhere classified; R29.818 Other symptoms and signs involving the nervous system ==

== ENCOUNTER 2023-04-29 17:43 | Emergency (ER) | payer MEDICARE ==
[~2023-04-29] VITALS: Ht 172.7 cm; Wt 84.1 kg
[2023-04-29 21:27] VITALS: BP 137/70
[2023-05-01] MEDS ORDERED: CYAN100049 PO (15:00)
[2023-05-01] MEDS ORDERED: C 50TAB PO (15:00)
[2023-05-01] MEDS ORDERED: CENT1TAB PO (15:00)
[2023-05-01] MEDS ORDERED: CURC500C PO (15:00)
[2023-05-01] MEDS ORDERED: BIOT10009 PO (15:00)
[2023-05-01] MEDS ORDERED: VITA200020 PO (15:00)
[2023-05-01] MEDS ORDERED: BAYE325T13 PO (15:00)
== END 2023-04-29 22:08 | disposition home or self-care (01) ==
LOC: M ED 17:43
DX: R26.9 Unspecified abnormalities of gait and mobility (principal); E11.9 Type 2 diabetes mellitus without complications; M54.9 Dorsalgia, unspecified; Z79.82 Long term (current) use of aspirin; Z79.899 Other long term (current) drug therapy; Z91.040 Latex allergy status; Z91.89 Other specified personal risk factors, not elsewhere classified; Z88.8 Allergy status to other drugs, medicaments and biological substances; Z91.018 Allergy to other foods

== ENCOUNTER 2023-04-30 02:52 | Emergency (ER) | payer MEDICARE ==
[~2023-04-30 02:52] MED LIST changes: -POTA10CA33 PO; +POTA10CA60 PO
[2023-04-30 10:33] VITALS: BP 113/65; TEMP 97.5; O2SAT 100
[2023-04-30] MEDS ORDERED: NS 1,000 ML IV ONE (11:05)
[2023-05-01] MEDS ORDERED: BIOT10009 PO (15:00)
[2023-05-01] MEDS ORDERED: VITA200020 PO (15:00)
[2023-05-01] MEDS ORDERED: CYAN100049 PO (15:00)
[2023-05-01] MEDS ORDERED: C 50TAB PO (15:00)
[2023-05-01] MEDS ORDERED: CURC500C PO (15:00)
[2023-05-01] MEDS ORDERED: CENT1TAB PO (15:00)
[2023-05-01] MEDS ORDERED: BAYE325T13 PO (15:00)
[2023-05-06] MEDS ORDERED: CEFD300CAP PO (12:08)
[2023-05-06] MEDS ORDERED: COLA100C5 PO (12:08)
== END 2023-04-30 12:47 | disposition left against medical advice (07) ==
LOC: M ED 02:52 → EDBD 02:52 → M ED 12:47
DX: R19.7 Diarrhea, unspecified (principal); R26.9 Unspecified abnormalities of gait and mobility; R53.1 Weakness; W19.XXXA Unspecified fall, initial encounter; Z53.9 Procedure and treatment not carried out, unspecified reason; R33.9 Retention of urine, unspecified; Z88.8 Allergy status to other drugs, medicaments and biological substances; Z91.040 Latex allergy status; Z91.013 Allergy to seafood

== ENCOUNTER → 2023-08-14 | Outpatient (REF) | payer MEDICARE ==
[~2023-08-14] MED LIST changes: +BAYE325T13 PO; +BIOT10009 PO; +C 50TAB PO; +CEFD300CAP PO; +COLA100C5 PO; +CURC500C PO; +CYAN100049 PO; +VITA200020 PO
== END ==
LOC: M LAB REF 13:41
PROVIDERS: ATTEND Internal Medicine
DX: D51.9 Vitamin B12 deficiency anemia, unspecified (principal)

== ENCOUNTER → 2023-12-24 | Outpatient (REF) | payer MEDICARE ==
[2023-12-24 16:03] LABS: APPEARANCE, URINE CLOUDY (CLEAR); BACTERIA, URINE AUTO 1+ (NEGATIVE); BILIRUBIN, URINE AUTO NEGATIVE (NEGATIVE); BLOOD, URINE BLOOD 1+ (NEGATIVE); COLOR, URINE YELLOW (YELLOW); GLUCOSE, URINE (UA) AUTO NEGATIVE (NEGATIVE); KETONE, URINE AUTO NEGATIVE (NEGATIVE); LEUKOCYTE ESTERASE, URINE AUTO 3+ (NEGATIVE); MUCUS, URINE SMALL (NEGATIVE); NITRITE, URINE AUTO POSITIVE (NEGATIVE); PROTEIN, URINE AUTO 1+ mg/dL (NEGATIVE); RBC, URINE AUTO 32 /HPF (0-3); SPECIFIC GRAVITY URINE AUTO 1.019 (1.002-1.035); SQUAMOUS EPITHELIAL CELL UR AU 13 /HPF (0-6); UROBILINOGEN, URINE AUTO 0.2 mg/dL (0.0-2.0); WBC, URINE AUTO TNTC /HPF (0-3)
== END ==
LOC: M SMT 15:19
PROVIDERS: ATTEND Urology
DX: R30.0 Dysuria (principal)

== ENCOUNTER 2024-02-05 16:53 | Emergency (ER) | payer MEDICARE ==
[~2024-02-05] VITALS: Ht 172.7 cm; Wt 88.6 kg
[~2024-02-05 16:53] MED LIST changes: -POTA10CA60 PO; +POTA10CA70 PO
[2024-02-05] MEDS: ACETAMINOPHEN TAB 650MG DOSE (2X325MG) PO ONE (18:20)
[2024-02-05 20:34] LABS: BASO % 0.3 % (0.0-1.0); EOS # 0.1 10^3/uL (0.0-0.5); EOS % 1.3 % (0.0-3.0); HEMATOCRIT 34.6 % (36.0-47.0); HEMOGLOBIN 11.6 g/dl (12.0-15.5); LYMPH # 0.5 10^3/uL (1.5-5.0); LYMPH % 7.4 % (24.0-44.0); MEAN CORPUSCULAR HEMOGLOBIN 30.3 pg (27.0-33.0); MEAN CORPUSCULAR HGB CONC 33.5 g/dl (32.0-36.5); MEAN CORPUSCULAR VOLUME 90.3 fl (80.0-96.0); MONO # 0.7 10^3/uL (0.0-0.8); MONO % 10.8 % (2.0-8.0); NEUTROPHILS % 79.9 % (36.0-66.0); PLATELET COUNT, AUTOMATED 180 10^3/uL (150-450); RED BLOOD COUNT 3.83 10^6/uL (4.00-5.40); WHITE BLOOD COUNT 6.2 10^3/uL (4.0-10.0)
[2024-02-05] MEDS ORDERED: HOME MED LIST COMPLETE! XX SCH (20:40)
[2024-02-05 21:00] LABS: BLOOD UREA NITROGEN 18 MG/DL (9-23); CALCIUM LEVEL 8.1 MG/DL (8.3-10.6); CARBON DIOXIDE LEVEL 24 MMOL/L (20-31); CHLORIDE LEVEL 109 MMOL/L (98-107); CREATININE FOR GFR 0.51 MG/DL (0.55-1.30); GLOMERULAR FILTRATION RATE > 60.0 (>39); GLUCOSE, FASTING 125 MG/DL (74-106); POTASSIUM SERUM 3.7 MMOL/L (3.5-5.1); SODIUM LEVEL 141 MMOL/L (136-145)
[2024-02-05 21:05] LABS: RSV AMPLIFICATION NEGATIVE (NEGATIVE)
[2024-02-06] MEDS ORDERED: ASPIRIN 325 MG TAB PO PRN (07:10)
[2024-02-06] MEDS: LIDOCAINE 5% (LIDODERM) PATCH TD ONE (09:00)
[2024-02-06] MEDS: ASCORBIC ACID 500 MG TAB PO SCH (09:00)
[2024-02-06] MEDS ORDERED: GLUCAGON INJ 1MG VIAL SC PRN (10:45)
[2024-02-06] MEDS ORDERED: DEXTROSE 50% 50ML SYRINGE IV PRN (10:45)
[2024-02-06] MEDS ORDERED: GLUCOSE 4 GM CHEW PO PRN (10:45)
[2024-02-06] MEDS ORDERED: IBUPROFEN 600MG TAB PO PRN (10:50)
[2024-02-06] MEDS ORDERED: PERCOCET 5MG/325MG TAB PO PRN (10:50)
[2024-02-06] MEDS: INSULIN LISPRO (NovoLOG) PER UNIT SC SCH (12:00)
[2024-02-06 12:30] LABS: HEMATOCRIT 33.7 % (36.0-47.0); HEMOGLOBIN 11.2 g/dl (12.0-15.5); MEAN CORPUSCULAR HEMOGLOBIN 30.3 pg (27.0-33.0); MEAN CORPUSCULAR HGB CONC 33.2 g/dl (32.0-36.5); MEAN CORPUSCULAR VOLUME 91.1 fl (80.0-96.0); PLATELET COUNT, AUTOMATED 150 10^3/uL (150-450); WHITE BLOOD COUNT 4.9 10^3/uL (4.0-10.0)
[2024-02-06] MEDS: ENOXAPARIN 40MG/0.4ML SYRINGE (J1650 PER 10MG) SC SCH (16:15)
[2024-02-06] MEDS: MULTIVITAMINS/MINERALS THERAP 1 TAB PO SCH (21:00)
[2024-02-07] MEDS: AUGMENTIN 875 MG TAB PO SCH (09:33)
[2024-02-07 10:58] LABS: HEMATOCRIT 33.1 % (36.0-47.0); HEMOGLOBIN 11.1 g/dl (12.0-15.5); MEAN CORPUSCULAR HEMOGLOBIN 30.4 pg (27.0-33.0); MEAN CORPUSCULAR HGB CONC 33.5 g/dl (32.0-36.5); MEAN CORPUSCULAR VOLUME 90.7 fl (80.0-96.0); PLATELET COUNT, AUTOMATED 132 10^3/uL (150-450); RED BLOOD COUNT 3.65 10^6/uL (4.00-5.40); WHITE BLOOD COUNT 4.2 10^3/uL (4.0-10.0)
[2024-02-07 11:02] LABS: ERYTHROCYTE SEDIMENTATION RATE 13 mm/hr (0-30)
[2024-02-07 11:19] LABS: BLOOD UREA NITROGEN 15 MG/DL (9-23); CALCIUM LEVEL 7.6 MG/DL (8.3-10.6); CARBON DIOXIDE LEVEL 24 MMOL/L (20-31); CHLORIDE LEVEL 106 MMOL/L (98-107); CREATININE FOR GFR 0.57 MG/DL (0.55-1.30); GLOMERULAR FILTRATION RATE > 60.0 (>39); GLUCOSE, FASTING 159 MG/DL (74-106); POTASSIUM SERUM 3.3 MMOL/L (3.5-5.1); SODIUM LEVEL 137 MMOL/L (136-145)
[2024-02-07 11:32] LABS: PROCALCITONIN <0.04 ng/ml
[2024-02-07] MEDS: POTASSIUM CHLORIDE 10MEQ SR TABLET PO ONE (12:49)
[2024-02-07] MEDS: MIRALAX *UNIT DOSE* 17GM PACKET PO SCH (12:50)
[2024-02-08] MEDS: METAMUCIL (PSYLLIUM) PACKET PO SCH (09:00)
[2024-02-08] MEDS: CYCLOBENZAPRINE 5MG TABLET PO PRN (23:46)
[2024-02-09] MEDS: ACETAMINOPHEN TAB 650MG DOSE (2X325MG) PO PRN (08:12)
[2024-02-09] MEDS: VITAMIN D 1,000 INTERNATIONAL UNITS TABLET PO SCH (10:09)
[2024-02-10 15:59] VITALS: BP 117/60; TEMP 98.4; O2SAT 98
== END 2024-02-10 18:39 | disposition home or self-care (01) ==
LOC: M ED 16:53
DX: M25.462 Effusion, left knee (principal); W01.0XXA Fall on same level from slipping, tripping and stumbling without subsequent striking against object, initial encounter; Y92.002 Bathroom of unspecified non-institutional (private) residence as the place of occurrence of the external cause; Y93.9 Activity, unspecified; Y99.9 Unspecified external cause status; Z79.82 Long term (current) use of aspirin; Z79.899 Other long term (current) drug therapy; Z88.8 Allergy status to other drugs, medicaments and biological substances; Z91.040 Latex allergy status; Z91.89 Other specified personal risk factors, not elsewhere classified; Z91.013 Allergy to seafood
CPT/HCPCS: 51702; 73564; 73700; 80048; 81001; 84145; 85025; 85027; 85652; 86140; 87088; 87186; 87631; 97110; 97161; 97165; 97530; 99285; J1650

== ENCOUNTER 2024-02-10 15:42 | Inpatient (IN) | payer MEDICARE ==
[~2024-02-10] VITALS: Ht 172.7 cm; Wt 81.7 kg
[~2024-02-10 15:42] MED LIST changes: +POTA10CA60 PO; -POTA10CA70 PO
[2024-02-10] MEDS ORDERED: ONDANSETRON 4MG TAB PO PRN (16:20)
[2024-02-10] MEDS ORDERED: GLUCOSE 4GM CHEW TABLET PO PRN (16:20)
[2024-02-10] MEDS ORDERED: oxyCODONE 5MG TAB PO PRN (16:20)
[2024-02-10] MEDS ORDERED: GLUCAGON INJ 1MG VIAL SC PRN (16:20)
[2024-02-10] MEDS ORDERED: DEXTROSE 50% 50ML SYRINGE IV PRN (16:20)
[2024-02-10] MEDS ORDERED: ACETAMINOPHEN TAB 650MG DOSE (2X325MG) PO PRN (16:20)
[2024-02-10] MEDS ORDERED: CYCLOBENZAPRINE 5MG TABLET PO PRN (16:20)
[2024-02-10] MEDS: LACTOBACILLUS ACIDOPHILUS CAP (BACID) PO SCH (18:00)
[2024-02-10 18:33] VITALS: BP 139/63; TEMP 96.4; O2SAT 96
[2024-02-10 20:00] VITALS: BP 135/67; TEMP 96.8; O2SAT 97
[2024-02-10] MEDS ORDERED: HOME MED LIST COMPLETE! XX SCH (20:05)
[2024-02-10] MEDS: AUGMENTIN 875 MG TAB PO SCH (20:11)
[2024-02-10] MEDS: ASCORBIC ACID 500 MG TAB PO SCH (20:11)
[2024-02-11 06:00] VITALS: BP 132/64; TEMP 98.2; O2SAT 97
[2024-02-11 07:02] LABS: HEMOGLOBIN 12.1 g/dl (12.0-15.5); MEAN CORPUSCULAR HEMOGLOBIN 29.9 pg (27.0-33.0); MEAN CORPUSCULAR HGB CONC 32.7 g/dl (32.0-36.5); MEAN CORPUSCULAR VOLUME 91.4 fl (80.0-96.0); PLATELET COUNT, AUTOMATED 179 10^3/uL (150-450); RED BLOOD COUNT 4.05 10^6/uL (4.00-5.40)
[2024-02-11] MEDS: MULTIVITAMINS/MINERALS THERAP 1 TAB PO SCH (07:06)
[2024-02-11] MEDS: VITAMIN D 1,000 INTERNATIONAL UNITS TABLET PO SCH (07:06)
[2024-02-11] MEDS: ENOXAPARIN 40MG/0.4ML SYRINGE (J1650 PER 10MG) SC SCH (07:06)
[2024-02-11 07:20] LABS: ALBUMIN 3.3 G/DL (3.2-5.2); ALKALINE PHOSPHATASE 85 U/L (46-116); ALT/SGPT 15 U/L (7.0-40); AST/SGOT 11 U/L (<34); BILIRUBIN,TOTAL 0.8 MG/DL (0.3-1.2); BLOOD UREA NITROGEN 18 MG/DL (9-23); CALCIUM LEVEL 8.8 MG/DL (8.3-10.6); CARBON DIOXIDE LEVEL 27 MMOL/L (20-31); CHLORIDE LEVEL 106 MMOL/L (98-107); CREATININE FOR GFR 0.62 MG/DL (0.55-1.30); GLOMERULAR FILTRATION RATE > 60.0 (>39); GLUCOSE, FASTING 136 MG/DL (74-106); POTASSIUM SERUM 4.2 MMOL/L (3.5-5.1); SODIUM LEVEL 139 MMOL/L (136-145); TOTAL PROTEIN 6.4 G/DL (5.7-8.2)
[2024-02-11 14:00] VITALS: BP 139/67; TEMP 97; O2SAT 95
[2024-02-11 20:00] VITALS: BP 120/66; TEMP 98.1; O2SAT 96
[2024-02-12 06:00] VITALS: BP 133/60; TEMP 97.3; O2SAT 95
[2024-02-12 07:27] LABS: HEMOGLOBIN A1c 6.2 % (4.0-6.0)
[2024-02-12 14:00] VITALS: BP 130/63; TEMP 97.4; O2SAT 96
[2024-02-12 20:00] VITALS: BP 127/64; TEMP 98.1; O2SAT 96
[2024-02-13 06:00] VITALS: BP 137/67; TEMP 98.3; O2SAT 95
[2024-02-13 07:29] LABS: HEMATOCRIT 37.5 % (36.0-47.0); HEMOGLOBIN 12.5 g/dl (12.0-15.5); MEAN CORPUSCULAR HEMOGLOBIN 29.7 pg (27.0-33.0); MEAN CORPUSCULAR HGB CONC 33.3 g/dl (32.0-36.5); MEAN CORPUSCULAR VOLUME 89.1 fl (80.0-96.0); PLATELET COUNT, AUTOMATED 196 10^3/uL (150-450); RED BLOOD COUNT 4.21 10^6/uL (4.00-5.40); WHITE BLOOD COUNT 5.3 10^3/uL (4.0-10.0)
[2024-02-13 14:00] VITALS: BP 126/68; TEMP 97.3; O2SAT 94
[2024-02-13 19:39] VITALS: BP 127/60; TEMP 97.9; O2SAT 97
[2024-02-14 06:36] VITALS: BP 144/67; TEMP 97.6; O2SAT 99
[2024-02-14 14:00] VITALS: BP 130/58; TEMP 97.5; O2SAT 97
[2024-02-14 20:00] VITALS: BP 123/60; TEMP 98.6; O2SAT 96
[2024-02-15 06:00] VITALS: BP 144/74; TEMP 97.5; O2SAT 95
[2024-02-15 14:00] VITALS: BP 118/67; TEMP 97.6; O2SAT 96
[2024-02-15 20:01] VITALS: BP 121/64; TEMP 97.4; O2SAT 100
[2024-02-16 06:04] VITALS: BP 135/62; TEMP 97.8; O2SAT 95
[2024-02-16 06:25] LABS: HEMATOCRIT 38.8 % (36.0-47.0); HEMOGLOBIN 12.8 g/dl (12.0-15.5); MEAN CORPUSCULAR HEMOGLOBIN 29.6 pg (27.0-33.0); MEAN CORPUSCULAR VOLUME 89.6 fl (80.0-96.0); PLATELET COUNT, AUTOMATED 220 10^3/uL (150-450); RED BLOOD COUNT 4.33 10^6/uL (4.00-5.40); WHITE BLOOD COUNT 6.4 10^3/uL (4.0-10.0)
[2024-02-16 06:56] LABS: THYROID STIMULATING HORMONE 0.97 uIU/ML (0.55-4.78); TOTAL 25(OH) VITAMIN D 39.7 NG/ML (20.0-100.0)
[2024-02-16 14:00] VITALS: BP 138/67; TEMP 97.5; O2SAT 96
[2024-02-16 20:04] VITALS: BP 133/64; TEMP 98.1; O2SAT 97
[2024-02-17 06:12] VITALS: BP 142/66; TEMP 97; O2SAT 97
[2024-02-17 14:00] VITALS: BP 122/67; TEMP 98.5; O2SAT 97
[2024-02-17 20:06] VITALS: BP 130/61; TEMP 96.9; O2SAT 97
[2024-02-18 06:27] VITALS: BP 131/62; TEMP 97.9; O2SAT 98
[2024-02-18] MEDS ORDERED: BISACODYL 10MG SUPP PR PRN (16:20)
[2024-02-18 20:00] VITALS: BP 127/61; TEMP 97.5; O2SAT 96
[2024-02-19 05:25] VITALS: BP 140/70; TEMP 97; O2SAT 97
[2024-02-19 13:15] LABS: HEMATOCRIT 39.4 % (36.0-47.0); HEMOGLOBIN 13.1 g/dl (12.0-15.5); MEAN CORPUSCULAR HEMOGLOBIN 29.8 pg (27.0-33.0); MEAN CORPUSCULAR HGB CONC 33.2 g/dl (32.0-36.5); MEAN CORPUSCULAR VOLUME 89.5 fl (80.0-96.0); PLATELET COUNT, AUTOMATED 243 10^3/uL (150-450); WHITE BLOOD COUNT 7.7 10^3/uL (4.0-10.0)
[2024-02-19 14:03] VITALS: BP 114/72; TEMP 97.7; O2SAT 97
[2024-02-19 19:53] VITALS: BP 116/56; TEMP 98.8; O2SAT 100
[2024-02-20 04:56] VITALS: BP 122/63; TEMP 98.4; O2SAT 97
[2024-02-20 14:00] VITALS: BP 139/62; TEMP 98; O2SAT 97
[2024-02-20 20:00] VITALS: BP 122/58; TEMP 98.1; O2SAT 98
[2024-02-21 06:00] VITALS: BP 125/59; TEMP 97.9; O2SAT 97
[2024-02-21 14:00] VITALS: BP 135/71; TEMP 97.7; O2SAT 97
[2024-02-21 20:00] VITALS: BP 130/60; TEMP 98.2; O2SAT 95
[2024-02-22 06:00] VITALS: BP 132/63; TEMP 97.8; O2SAT 96
[2024-02-22 07:21] LABS: HEMATOCRIT 36.8 % (36.0-47.0); HEMOGLOBIN 12.3 g/dl (12.0-15.5); MEAN CORPUSCULAR HGB CONC 33.4 g/dl (32.0-36.5); MEAN CORPUSCULAR VOLUME 89.8 fl (80.0-96.0); PLATELET COUNT, AUTOMATED 227 10^3/uL (150-450); WHITE BLOOD COUNT 5.8 10^3/uL (4.0-10.0)
[2024-02-22 14:00] VITALS: BP 128/68; TEMP 97.9; O2SAT 96
[2024-02-22] MEDS: METAMUCIL (PSYLLIUM) PACKET PO SCH (14:33)
[2024-02-22 20:00] VITALS: BP 130/60; TEMP 98; O2SAT 98
[2024-02-23 06:00] VITALS: BP 135/70; TEMP 97.7; O2SAT 95
[2024-02-23 14:00] VITALS: BP 126/78; TEMP 98; O2SAT 97
[2024-02-23 20:09] VITALS: BP 124/58; TEMP 96.9; O2SAT 100
[2024-02-24 06:32] VITALS: BP 123/57; TEMP 97.5; O2SAT 99
[2024-02-24 14:00] VITALS: BP 139/63; TEMP 97.7; O2SAT 98
[2024-02-24] MEDS: METAMUCIL (PSYLLIUM) PACKET PO SCH (18:19)
[2024-02-24 20:05] VITALS: BP 121/58; TEMP 96.8; O2SAT 96
[2024-02-25 06:08] VITALS: BP 132/63; TEMP 97.5; O2SAT 98
[2024-02-25 14:00] VITALS: BP 135/62; TEMP 98.3; O2SAT 97
[2024-02-25 20:00] VITALS: BP 122/57; TEMP 97.8; O2SAT 98
[2024-02-26 06:00] VITALS: BP 130/63; TEMP 97.3; O2SAT 97
[2024-02-26 14:00] VITALS: BP 130/60; TEMP 98.3; O2SAT 96
[2024-02-26 20:00] VITALS: BP 112/54; TEMP 98.1; O2SAT 99
[2024-02-27 06:00] VITALS: BP 140/66; TEMP 97.6; O2SAT 96
[2024-02-27 14:00] VITALS: BP 133/65; TEMP 97.5; O2SAT 96
[2024-02-27 20:23] VITALS: BP 113/59; TEMP 97.7; O2SAT 94
[2024-02-28 05:48] VITALS: BP 131/61; TEMP 98; O2SAT 95
[2024-02-28 14:00] VITALS: BP 116/64; TEMP 98.1; O2SAT 96
[2024-02-28 19:10] VITALS: BP 127/65; TEMP 98; O2SAT 98
[2024-02-29 05:45] VITALS: BP 125/60; TEMP 97.1; O2SAT 98
[2024-02-29 14:00] VITALS: BP 154/69; TEMP 98.3; O2SAT 96
[2024-02-29 20:03] VITALS: BP 132/71; TEMP 97; O2SAT 96
[2024-03-01 06:10] VITALS: BP 134/62; TEMP 97.6; O2SAT 94
[2024-03-01 07:08] LABS: HEMATOCRIT 38.7 % (36.0-47.0); HEMOGLOBIN 12.6 g/dl (12.0-15.5); MEAN CORPUSCULAR HEMOGLOBIN 29.7 pg (27.0-33.0); MEAN CORPUSCULAR HGB CONC 32.6 g/dl (32.0-36.5); MEAN CORPUSCULAR VOLUME 91.3 fl (80.0-96.0); PLATELET COUNT, AUTOMATED 180 10^3/uL (150-450); RED BLOOD COUNT 4.24 10^6/uL (4.00-5.40); WHITE BLOOD COUNT 6.5 10^3/uL (4.0-10.0)
[2024-03-01 07:26] LABS: BLOOD UREA NITROGEN 18 MG/DL (9-23); CALCIUM LEVEL 9.1 MG/DL (8.3-10.6); CARBON DIOXIDE LEVEL 26 MMOL/L (20-31); CHLORIDE LEVEL 109 MMOL/L (98-107); CREATININE FOR GFR 0.56 MG/DL (0.55-1.30); GLOMERULAR FILTRATION RATE > 60.0 (>39); GLUCOSE, FASTING 125 MG/DL (74-106); POTASSIUM SERUM 4.3 MMOL/L (3.5-5.1); SODIUM LEVEL 143 MMOL/L (136-145)
[2024-03-01 14:20] VITALS: BP 111/59; TEMP 98; O2SAT 98
[2024-03-01 20:00] VITALS: BP 117/55; TEMP 97.6; O2SAT 97
[2024-03-02 06:00] VITALS: BP 153/66; TEMP 97.6; O2SAT 96
[2024-03-02] MEDS: MIRALAX *UNIT DOSE* 17GM PACKET PO PRN (08:19)
[2024-03-02 14:00] VITALS: BP 126/59; TEMP 97.9; O2SAT 97
[2024-03-02] MEDS ORDERED: META1POW PO (14:51)
[2024-03-02] MEDS ORDERED: MIRA33506 PO (14:51)
[2024-03-02] MEDS ORDERED: BISA10SU PR (14:51)
[2024-03-02] MEDS ORDERED: LOVE1INJ SC (14:51)
== END 2024-03-02 16:15 | DRG 92 ==
LOC: M PM&R 18:11
PROVIDERS: ADMIT Student in an Organized Health Care Education/Training Program; ATTEND Student in an Organized Health Care Education/Training Program
DX: R29.6 Repeated falls (principal); M47.16 Other spondylosis with myelopathy, lumbar region; K59.2 Neurogenic bowel, not elsewhere classified; T83.511A Infection and inflammatory reaction due to indwelling urethral catheter, initial encounter; N39.0 Urinary tract infection, site not specified; R15.9 Full incontinence of feces; R26.89 Other abnormalities of gait and mobility; R54 Age-related physical debility; F07.81 Postconcussional syndrome; R33.9 Retention of urine, unspecified; M54.9 Dorsalgia, unspecified; B95.61 Methicillin susceptible Staphylococcus aureus infection as the cause of diseases classified elsewhere; T87.89 Other complications of amputation stump; E11.42 Type 2 diabetes mellitus with diabetic polyneuropathy; Z86.16 Personal history of COVID-19; Z90.49 Acquired absence of other specified parts of digestive tract; Z90.79 Acquired absence of other genital organ(s); Z98.41 Cataract extraction status, right eye; Z98.42 Cataract extraction status, left eye; Z96.641 Presence of right artificial hip joint; Z79.899 Other long term (current) drug therapy; Z89.512 Acquired absence of left leg below knee; Z91.040 Latex allergy status; Z91.048 Other nonmedicinal substance allergy status; Z88.8 Allergy status to other drugs, medicaments and biological substances; Z91.013 Allergy to seafood; W18.30XA Fall on same level, unspecified, initial encounter; Y92.009 Unspecified place in unspecified non-institutional (private) residence as the place of occurrence of the external cause; Z87.891 Personal history of nicotine dependence; M48.56XS Collapsed vertebra, not elsewhere classified, lumbar region, sequela of fracture; Z74.1 Need for assistance with personal care; Z74.09 Other reduced mobility

== ENCOUNTER → 2024-05-17 | Outpatient (REF) | payer MEDICARE ==
[~2024-05-17] MED LIST changes: +BISA10SU PR; +LOVE1INJ SC; +META1POW PO; +MIRA33506 PO; -POTA10CA60 PO; +POTA10CA70 PO
[2024-05-18 13:48] LABS: RSV AMPLIFICATION NEGATIVE (NEGATIVE)
== END ==
LOC: M LAB REF 17:46
PROVIDERS: ATTEND Internal Medicine
DX: D51.9 Vitamin B12 deficiency anemia, unspecified (principal); R53.83 Other fatigue

== ENCOUNTER → 2024-06-07 | Outpatient (REF) | payer MEDICARE ==
[2024-06-07 14:54] LABS: APPEARANCE, URINE HAZY (CLEAR); BACTERIA, URINE AUTO 1+ (NEGATIVE); BILIRUBIN, URINE AUTO NEGATIVE (NEGATIVE); BLOOD, URINE BLOOD 1+ (NEGATIVE); COLOR, URINE YELLOW (YELLOW); GLUCOSE, URINE (UA) AUTO NEGATIVE (NEGATIVE); KETONE, URINE AUTO NEGATIVE (NEGATIVE); LEUKOCYTE ESTERASE, URINE AUTO 3+ (NEGATIVE); MUCUS, URINE SMALL (NEGATIVE); NITRITE, URINE AUTO POSITIVE (NEGATIVE); PROTEIN, URINE AUTO NEGATIVE (NEGATIVE); RBC, URINE AUTO 3 /HPF (0-3); SPECIFIC GRAVITY URINE AUTO 1.009 (1.002-1.035); SQUAMOUS EPITHELIAL CELL UR AU 1 /HPF (0-6); UROBILINOGEN, URINE AUTO 0.2 mg/dL (0.0-2.0); WBC, URINE AUTO 45 /HPF (0-3)
== END ==
LOC: M LAB REF 14:15
PROVIDERS: ATTEND Urology
DX: N39.0 Urinary tract infection, site not specified (principal)

== ENCOUNTER 2024-06-15 16:05 | Inpatient (IN) | payer MEDICARE ==
[~2024-06-15] VITALS: Ht 172.7 cm; Wt 169.4 kg
[2024-06-15 20:10] LABS: HEMATOCRIT 42.9 % (36.0-47.0); HEMOGLOBIN 14.5 g/dl (12.0-15.5); MEAN CORPUSCULAR HEMOGLOBIN 29.7 pg (27.0-33.0); MEAN CORPUSCULAR HGB CONC 33.8 g/dl (32.0-36.5); MEAN CORPUSCULAR VOLUME 87.7 fl (80.0-96.0); PLATELET COUNT, AUTOMATED 228 10^3/uL (150-450); RED BLOOD COUNT 4.89 10^6/uL (4.00-5.40); WHITE BLOOD COUNT 8.3 10^3/uL (4.0-10.0)
[2024-06-15 20:14] LABS: APPEARANCE, URINE HAZY (CLEAR); BACTERIA, URINE AUTO NEGATIVE (NEGATIVE); BILIRUBIN, URINE AUTO NEGATIVE (NEGATIVE); BLOOD, URINE BLOOD NEGATIVE (NEGATIVE); CALCIUM OXALATE CRYSTALS SMALL; COLOR, URINE YELLOW (YELLOW); GLUCOSE, URINE (UA) AUTO NEGATIVE (NEGATIVE); KETONE, URINE AUTO 1+ mg/dL (NEGATIVE); LEUKOCYTE ESTERASE, URINE AUTO 1+ (NEGATIVE); MUCUS, URINE SMALL (NEGATIVE); NITRITE, URINE AUTO NEGATIVE (NEGATIVE); PROTEIN, URINE AUTO NEGATIVE (NEGATIVE); RBC, URINE AUTO 0 /HPF (0-3); SPECIFIC GRAVITY URINE AUTO 1.018 (1.002-1.035); SQUAMOUS EPITHELIAL CELL UR AU 3 /HPF (0-6); WBC, URINE AUTO 28 /HPF (0-3)
[2024-06-15 20:39] LABS: ALBUMIN 3.4 G/DL (3.2-5.2); ALKALINE PHOSPHATASE 98 U/L (46-116); ALT/SGPT 15 U/L (7.0-40); AST/SGOT < 8 U/L (<34); BILIRUBIN,TOTAL 0.5 MG/DL (0.3-1.2); BLOOD UREA NITROGEN 10 MG/DL (9-23); CALCIUM LEVEL 9.4 MG/DL (8.3-10.6); CARBON DIOXIDE LEVEL 26 MMOL/L (20-31); CHLORIDE LEVEL 108 MMOL/L (98-107); CREATININE FOR GFR 0.55 MG/DL (0.55-1.30); GLOMERULAR FILTRATION RATE > 60.0 (>39); GLUCOSE, FASTING 126 MG/DL (74-106); POTASSIUM SERUM 3.7 MMOL/L (3.5-5.1); SODIUM LEVEL 143 MMOL/L (136-145); TOTAL PROTEIN 6.3 G/DL (5.7-8.2)
[2024-06-16] MEDS ORDERED: MOM 30ML SUSPENSION UDC PO PRN ×2 (01:40→02:15)
[2024-06-16] MEDS ORDERED: MAALOX 30 ML SUSP *UDC PO PRN ×2 (01:40→02:15)
[2024-06-16] MEDS ORDERED: ACETAMINOPHEN TAB 650MG DOSE (2X325MG) PO PRN (01:40)
[2024-06-16] MEDS ORDERED: MAGN100T PO (02:31)
[2024-06-16] MEDS ORDERED: CIPR-249 PO (02:31)
[2024-06-16] MEDS ORDERED: CYAN-1 PO (02:31)
[2024-06-16] MEDS ORDERED: TURM500T PO (02:31)
[2024-06-16] MEDS ORDERED: D3 H2000 PO (02:31)
[2024-06-16] MEDS ORDERED: HOME MED LIST COMPLETE! XX SCH (02:35)
[2024-06-16 04:08] LABS: INR 1.15; PARTIAL THROMBOPLASTIN TIME 39.9 SECONDS (24.8-34.2); PROTHROMBIN TIME 14.3 SECONDS (12.5-14.5)
[2024-06-16] MEDS ORDERED: ENOXAPARIN 40MG/0.4ML SYRINGE (J1650 PER 10MG) SC SCH (09:00)
[2024-06-16] MEDS ORDERED: DOCUSATE SODIUM 100MG CAPSULE PO SCH (09:00)
[2024-06-16] MEDS: DOCUSATE SODIUM 100MG CAPSULE PO SCH (10:00)
[2024-06-16] MEDS: ASCORBIC ACID 500 MG TAB PO SCH (10:01)
[2024-06-16] MEDS: CIPROFLOXACIN 500MG TABLET PO SCH (10:01)
[2024-06-16] MEDS: ENOXAPARIN 40MG/0.4ML SYRINGE (J1650 PER 10MG) SC SCH (10:03)
[2024-06-16 13:30] VITALS: BP 146/95; TEMP 97.3; O2SAT 96
[2024-06-16] MEDS ORDERED: DEXTROSE 50% 50ML SYRINGE IV PRN (17:20)
[2024-06-16] MEDS ORDERED: GLUCOSE 4 GM CHEW PO PRN (17:20)
[2024-06-16] MEDS ORDERED: GLUCAGON INJ 1MG VIAL SC PRN (17:20)
[2024-06-16] MEDS: INSULIN LISPRO (NovoLOG) PER UNIT SC SCH ×2 (17:30→20:11)
[2024-06-16 19:57] VITALS: BP 119/63; TEMP 97; O2SAT 96
[2024-06-16] MEDS: MULTIVITAMINS/MINERALS THERAP 1 TAB PO SCH (21:00)
[2024-06-17] MEDS ORDERED: DOCUSATE SODIUM 100MG CAPSULE As Ordered ONE (08:25)
[2024-06-17] MEDS ORDERED: MULTIVITAMINS/MINERALS THERAP 1 TAB As Ordered ONE (08:25)
[2024-06-17] MEDS ORDERED: ASCORBIC ACID 500 MG TAB As Ordered ONE (08:25)
[2024-06-17] MEDS ORDERED: CIPROFLOXACIN 250MG TAB As Ordered ONE (08:25)
[2024-06-17] MEDS ORDERED: ENOXAPARIN 40MG/0.4ML SYRINGE (J1650 PER 10MG) As Ordered ONE (08:26)
[2024-06-17 12:00] VITALS: BP 120/64; TEMP 97.7; O2SAT 97
[2024-06-17 16:09] LABS: ALBUMIN 3.3 G/DL (3.2-5.2); ALKALINE PHOSPHATASE 87 U/L (46-116); ALT/SGPT 13 U/L (7.0-40); AST/SGOT < 8 U/L (<34); BILIRUBIN,TOTAL 0.9 MG/DL (0.3-1.2); BLOOD UREA NITROGEN 9 MG/DL (9-23); CALCIUM LEVEL 9.5 MG/DL (8.3-10.6); CARBON DIOXIDE LEVEL 28 MMOL/L (20-31); CHLORIDE LEVEL 108 MMOL/L (98-107); CREATININE FOR GFR 0.51 MG/DL (0.55-1.30); GLOMERULAR FILTRATION RATE > 60.0 (>39); GLUCOSE, FASTING 140 MG/DL (74-106); MAGNESIUM LEVEL 1.8 MG/DL (1.8-2.4); POTASSIUM SERUM 3.6 MMOL/L (3.5-5.1); SODIUM LEVEL 142 MMOL/L (136-145)
[2024-06-17 16:26] LABS: HEMATOCRIT 40.4 % (36.0-47.0); HEMOGLOBIN 13.8 g/dl (12.0-15.5); MEAN CORPUSCULAR HEMOGLOBIN 29.9 pg (27.0-33.0); MEAN CORPUSCULAR HGB CONC 34.2 g/dl (32.0-36.5); MEAN CORPUSCULAR VOLUME 87.4 fl (80.0-96.0); PLATELET COUNT, AUTOMATED 190 10^3/uL (150-450); RED BLOOD COUNT 4.62 10^6/uL (4.00-5.40); WHITE BLOOD COUNT 6.3 10^3/uL (4.0-10.0)
[2024-06-17 20:58] VITALS: BP 134/75; TEMP 97.3; O2SAT 96
[2024-06-18 04:39] VITALS: BP 132/74; TEMP 97.7; O2SAT 97
[2024-06-18 12:00] VITALS: BP 131/77; TEMP 97.5; O2SAT 95
[2024-06-18 15:19] VITALS: O2SAT 94
[2024-06-18 20:00] VITALS: BP 128/72; TEMP 97.7; O2SAT 94
[2024-06-19 05:00] VITALS: BP 126/66; TEMP 97.7; O2SAT 96
[2024-06-19 09:00] VITALS: O2SAT 94
[2024-06-19 09:21] LABS: HEMATOCRIT 39.6 % (36.0-47.0); HEMOGLOBIN 13.2 g/dl (12.0-15.5); MEAN CORPUSCULAR HEMOGLOBIN 29.8 pg (27.0-33.0); MEAN CORPUSCULAR HGB CONC 33.3 g/dl (32.0-36.5); MEAN CORPUSCULAR VOLUME 89.4 fl (80.0-96.0); PLATELET COUNT, AUTOMATED 192 10^3/uL (150-450); RED BLOOD COUNT 4.43 10^6/uL (4.00-5.40); WHITE BLOOD COUNT 5.5 10^3/uL (4.0-10.0)
[2024-06-19 12:00] VITALS: BP 128/67; TEMP 97.7; O2SAT 96
[2024-06-19 20:22] VITALS: BP 130/64; TEMP 97.7; O2SAT 96
[2024-06-19 23:40] VITALS: O2SAT 95
[2024-06-20 04:34] VITALS: BP 124/61; TEMP 97.9; O2SAT 94
[2024-06-20 12:00] VITALS: BP 97/58; TEMP 97.5; O2SAT 96
[2024-06-20 12:42] VITALS: BP 120/60
[2024-06-20 20:05] VITALS: BP 131/71; TEMP 97.7; O2SAT 96
[2024-06-21 01:10] VITALS: O2SAT 96
[2024-06-21 03:47] VITALS: BP 129/69; TEMP 97.5; O2SAT 98
[2024-06-21 06:40] LABS: BLOOD UREA NITROGEN 8 MG/DL (9-23); CALCIUM LEVEL 9.1 MG/DL (8.3-10.6); CARBON DIOXIDE LEVEL 26 MMOL/L (20-31); CHLORIDE LEVEL 109 MMOL/L (98-107); CREATININE FOR GFR 0.43 MG/DL (0.55-1.30); GLOMERULAR FILTRATION RATE > 60.0 (>39); GLUCOSE, FASTING 136 MG/DL (74-106); POTASSIUM SERUM 3.7 MMOL/L (3.5-5.1); SODIUM LEVEL 143 MMOL/L (136-145)
[2024-06-21 12:00] VITALS: BP 128/68; TEMP 97.7; O2SAT 94
[2024-06-21 13:55] VITALS: BP_SYST 121; BP_SYST 128; BP_DIAS 60; BP_DIAS 85; TEMP 97.3; TEMP 97.5; O2SAT 91; O2SAT 95
[2024-06-21] MEDS: ACETAMINOPHEN TAB 650MG DOSE (2X325MG) PO PRN (16:52)
[2024-06-21 20:05] VITALS: BP 145/74; TEMP 97.7; O2SAT 96
[2024-06-22 04:03] VITALS: BP 119/68; TEMP 97.5; O2SAT 95
[2024-06-22 04:07] VITALS: BP 138/90; TEMP 97.5; O2SAT 93
[2024-06-22 06:02] LABS: HEMATOCRIT 38.1 % (36.0-47.0); HEMOGLOBIN 12.9 g/dl (12.0-15.5); MEAN CORPUSCULAR HEMOGLOBIN 30.3 pg (27.0-33.0); MEAN CORPUSCULAR HGB CONC 33.9 g/dl (32.0-36.5); MEAN CORPUSCULAR VOLUME 89.4 fl (80.0-96.0); PLATELET COUNT, AUTOMATED 184 10^3/uL (150-450); RED BLOOD COUNT 4.26 10^6/uL (4.00-5.40)
== END 2024-06-22 11:04 | DRG 884 ==
LOC: EDBD 16:05 → M ED 16:05 → M ED INP 06-16 01:39 → M MSPAV 06-16 13:50
PROVIDERS: ADMIT Preventive Medicine Undersea and Hyperbaric Medicine; ATTEND General Practice
DX: R54 Age-related physical debility (principal); N39.0 Urinary tract infection, site not specified; E11.9 Type 2 diabetes mellitus without complications; Z89.512 Acquired absence of left leg below knee; R10.31 Right lower quadrant pain; R33.9 Retention of urine, unspecified; R29.6 Repeated falls; B96.1 Klebsiella pneumoniae [K. pneumoniae] as the cause of diseases classified elsewhere; Z91.040 Latex allergy status; Z91.013 Allergy to seafood; Z88.8 Allergy status to other drugs, medicaments and biological substances; Z79.899 Other long term (current) drug therapy; Z86.16 Personal history of COVID-19; Z98.41 Cataract extraction status, right eye; Z98.42 Cataract extraction status, left eye; Z96.641 Presence of right artificial hip joint

== ENCOUNTER → 2024-06-27 | Outpatient (REF) ==
[~2024-06-27] MED LIST changes: +CIPR-249 PO; +CYAN-1 PO; +D3 H2000 PO; +MAGN100T PO; +TURM500T PO
[2024-06-27 12:16] LABS: HEMOGLOBIN 13.5 g/dl (12.0-15.5); MEAN CORPUSCULAR HGB CONC 32.9 g/dl (32.0-36.5); MEAN CORPUSCULAR VOLUME 91.1 fl (80.0-96.0); PLATELET COUNT, AUTOMATED 226 10^3/uL (150-450); WHITE BLOOD COUNT 6.6 10^3/uL (4.0-10.0)
[2024-06-27 12:52] LABS: BLOOD UREA NITROGEN 12 MG/DL (9-23); CALCIUM LEVEL 9.2 MG/DL (8.3-10.6); CARBON DIOXIDE LEVEL 29 MMOL/L (20-31); CHLORIDE LEVEL 106 MMOL/L (98-107); CREATININE FOR GFR 0.55 MG/DL (0.55-1.30); GLOMERULAR FILTRATION RATE > 60.0 (>39); GLUCOSE, FASTING 99 MG/DL (74-106); POTASSIUM SERUM 4.6 MMOL/L (3.5-5.1); SODIUM LEVEL 140 MMOL/L (136-145)
== END ==
PROVIDERS: ATTEND Physician Assistant
DX: E11.9 Type 2 diabetes mellitus without complications (principal)

== ENCOUNTER → 2024-07-04 | Outpatient (REF) ==
[2024-07-04 11:37] LABS: HEMATOCRIT 42.1 % (36.0-47.0); HEMOGLOBIN 14.2 g/dl (12.0-15.5); MEAN CORPUSCULAR HEMOGLOBIN 30.6 pg (27.0-33.0); MEAN CORPUSCULAR HGB CONC 33.7 g/dl (32.0-36.5); MEAN CORPUSCULAR VOLUME 90.7 fl (80.0-96.0); PLATELET COUNT, AUTOMATED 231 10^3/uL (150-450); RED BLOOD COUNT 4.64 10^6/uL (4.00-5.40)
[2024-07-04 11:50] LABS: BLOOD UREA NITROGEN 13 MG/DL (9-23); CALCIUM LEVEL 9.2 MG/DL (8.3-10.6); CARBON DIOXIDE LEVEL 22 MMOL/L (20-31); CHLORIDE LEVEL 105 MMOL/L (98-107); CREATININE FOR GFR 0.43 MG/DL (0.55-1.30); GLOMERULAR FILTRATION RATE > 60.0 (>39); GLUCOSE, FASTING 199 MG/DL (74-106); POTASSIUM SERUM 4.5 MMOL/L (3.5-5.1); SODIUM LEVEL 137 MMOL/L (136-145)
== END ==
PROVIDERS: ATTEND Physician Assistant
DX: E11.9 Type 2 diabetes mellitus without complications (principal)

== ENCOUNTER → 2024-07-08 | Outpatient (REF) | PROVIDERS: ATTEND Internal Medicine | DX: R05.9 Cough, unspecified (principal) ==

== ENCOUNTER → 2024-07-08 | Outpatient (REF) | PROVIDERS: ATTEND Physician Assistant | DX: R05.9 Cough, unspecified (principal) ==

== ENCOUNTER → 2024-07-20 | Outpatient (REF) ==
[2024-07-20 10:52] LABS: ALBUMIN 3.4 G/DL (3.2-5.2); ALKALINE PHOSPHATASE 74 U/L (46-116); ALT/SGPT 13 U/L (7.0-40); AST/SGOT < 8 U/L (<34); BILIRUBIN,DIRECT 0.2 MG/DL (<0.4); BILIRUBIN,TOTAL 0.7 MG/DL (0.3-1.2); TOTAL PROTEIN 6.6 G/DL (5.7-8.2)
== END ==
PROVIDERS: ATTEND Physician Assistant
DX: E11.9 Type 2 diabetes mellitus without complications (principal)

== ENCOUNTER → 2024-08-10 | Outpatient (REF) ==
[2024-08-08 08:40] LABS: HEMATOCRIT 40.2 % (36.0-47.0); HEMOGLOBIN 13.4 g/dl (12.0-15.5); MEAN CORPUSCULAR HEMOGLOBIN 30.3 pg (27.0-33.0); MEAN CORPUSCULAR HGB CONC 33.3 g/dl (32.0-36.5); PLATELET COUNT, AUTOMATED 204 10^3/uL (150-450); RED BLOOD COUNT 4.42 10^6/uL (4.00-5.40); WHITE BLOOD COUNT 6.6 10^3/uL (4.0-10.0)
[2024-08-08 09:11] LABS: BLOOD UREA NITROGEN 16 MG/DL (9-23); CALCIUM LEVEL 9.3 MG/DL (8.3-10.6); CARBON DIOXIDE LEVEL 27 MMOL/L (20-31); CHLORIDE LEVEL 108 MMOL/L (98-107); CREATININE FOR GFR 0.55 MG/DL (0.55-1.30); GLOMERULAR FILTRATION RATE > 60.0 (>39); GLUCOSE, FASTING 129 MG/DL (74-106); POTASSIUM SERUM 4.2 MMOL/L (3.5-5.1); SODIUM LEVEL 139 MMOL/L (136-145)
== END ==
PROVIDERS: ATTEND Physician Assistant
DX: E11.9 Type 2 diabetes mellitus without complications (principal)

== ENCOUNTER → 2024-09-14 | Outpatient (REF) ==
[2024-09-14 10:02] LABS: HEMATOCRIT 39.2 % (36.0-47.0); HEMOGLOBIN 13.1 g/dl (12.0-15.5); MEAN CORPUSCULAR HEMOGLOBIN 30.2 pg (27.0-33.0); MEAN CORPUSCULAR HGB CONC 33.4 g/dl (32.0-36.5); MEAN CORPUSCULAR VOLUME 90.3 fl (80.0-96.0); PLATELET COUNT, AUTOMATED 198 10^3/uL (150-450); RED BLOOD COUNT 4.34 10^6/uL (4.00-5.40); WHITE BLOOD COUNT 6.4 10^3/uL (4.0-10.0)
[2024-09-14 10:09] LABS: BLOOD UREA NITROGEN 15 MG/DL (9-23); CALCIUM LEVEL 9.3 MG/DL (8.3-10.6); CARBON DIOXIDE LEVEL 24 MMOL/L (20-31); CHLORIDE LEVEL 106 MMOL/L (98-107); GLOMERULAR FILTRATION RATE > 60.0 (>39); GLUCOSE, FASTING 208 MG/DL (74-106); POTASSIUM SERUM 4.1 MMOL/L (3.5-5.1); SODIUM LEVEL 137 MMOL/L (136-145)
== END ==
PROVIDERS: ATTEND Physician Assistant
DX: E11.9 Type 2 diabetes mellitus without complications (principal)

== ENCOUNTER → 2024-12-07 | Outpatient (REF) | payer MEDICARE ==
[2024-12-07 11:19] LABS: APPEARANCE, URINE CLOUDY (CLEAR); BACTERIA, URINE AUTO 2+ (NEGATIVE); BILIRUBIN, URINE AUTO NEGATIVE (NEGATIVE); BLOOD, URINE BLOOD NEGATIVE (NEGATIVE); COLOR, URINE AMBER (YELLOW); GLUCOSE, URINE (UA) AUTO NEGATIVE (NEGATIVE); KETONE, URINE AUTO 1+ mg/dL (NEGATIVE); LEUKOCYTE ESTERASE, URINE AUTO 2+ (NEGATIVE); MUCUS, URINE SMALL (NEGATIVE); NITRITE, URINE AUTO POSITIVE (NEGATIVE); PROTEIN, URINE AUTO 3+ mg/dL (NEGATIVE); RBC, URINE AUTO 45 /HPF (0-3); SPECIFIC GRAVITY URINE AUTO 1.018 (1.002-1.035); SQUAMOUS EPITHELIAL CELL UR AU 2 /HPF (0-6); UROBILINOGEN, URINE AUTO 0.2 mg/dL (0.0-2.0); WBC, URINE AUTO 34 /HPF (0-3)
== END ==
PROVIDERS: ATTEND Internal Medicine
DX: N39.0 Urinary tract infection, site not specified (principal)

== ENCOUNTER → 2025-01-11 | Outpatient (REF) | payer MEDICARE ==
[2025-01-11 08:36] LABS: HEMATOCRIT 42.8 % (36.0-47.0); HEMOGLOBIN 14.8 g/dl (12.0-15.5); MEAN CORPUSCULAR HEMOGLOBIN 30.6 pg (27.0-33.0); MEAN CORPUSCULAR HGB CONC 34.6 g/dl (32.0-36.5); MEAN CORPUSCULAR VOLUME 88.6 fl (80.0-96.0); PLATELET COUNT, AUTOMATED 217 10^3/uL (150-450); RED BLOOD COUNT 4.83 10^6/uL (4.00-5.40); WHITE BLOOD COUNT 12.3 10^3/uL (4.0-10.0)
[2025-01-11 09:07] LABS: ALBUMIN 3.5 G/DL (3.2-5.2); ALKALINE PHOSPHATASE 98 U/L (35-104); ALT/SGPT 9 U/L (7.0-40); AST/SGOT < 8 U/L (<34); BILIRUBIN,DIRECT 0.3 MG/DL (<0.4); BLOOD UREA NITROGEN 18 MG/DL (9-23); CALCIUM LEVEL 9.5 MG/DL (8.3-10.6); CARBON DIOXIDE LEVEL 26 MMOL/L (20-31); CHLORIDE LEVEL 99 MMOL/L (98-107); CREATININE FOR GFR 0.43 MG/DL (0.55-1.30); GLOMERULAR FILTRATION RATE > 60.0 (>39); GLUCOSE, FASTING 161 MG/DL (74-106); POTASSIUM SERUM 4.6 MMOL/L (3.5-5.1); SODIUM LEVEL 136 MMOL/L (136-145); TOTAL PROTEIN 6.6 G/DL (5.7-8.2)
[2025-01-11 10:40] LABS: HEMOGLOBIN A1c 5.9 % (4.0-6.0)
== END ==
PROVIDERS: ATTEND Physician Assistant
DX: E11.9 Type 2 diabetes mellitus without complications (principal)

== ENCOUNTER 2025-01-27 16:01 | Emergency (ER) | payer MEDICARE ==
[2025-01-27 16:33] LABS: VENOUS BASE EXCESS -11.3 (-2.0-2.0); VENOUS HCO3 13.2 MMOL/L (23.0-27.0); VENOUS O2 SATURATION 55.5 % (60.0-80.0); VENOUS PARTIAL PRESSURE CO2 26.6 mmHg (38.0-50.0); VENOUS PH 7.314 UNITS (7.330-7.430); VENOUS STANDARD HCO3 14.9 MMOL/L
[2025-01-27 16:52] LABS: BASO # 0.1 10^3/uL (0.0-0.2); BASO % 0.2 % (0.0-1.0); EOS # 0.1 10^3/uL (0.0-0.5); EOS % 0.3 % (0.0-3.0); HEMATOCRIT 36.6 % (36.0-47.0); HEMOGLOBIN 12.9 g/dl (12.0-15.5); LYMPH # 0.3 10^3/uL (1.5-5.0); LYMPH % 1.2 % (24.0-44.0); MEAN CORPUSCULAR HEMOGLOBIN 30.1 pg (27.0-33.0); MEAN CORPUSCULAR HGB CONC 35.2 g/dl (32.0-36.5); MEAN CORPUSCULAR VOLUME 85.3 fl (80.0-96.0); MONO # 0.7 10^3/uL (0.0-0.8); MONO % 2.7 % (2.0-8.0); NEUTROPHILS # 22.7 10^3/uL (1.5-8.5); NEUTROPHILS % 94.4 % (36.0-66.0); PLATELET COUNT, AUTOMATED 236 10^3/uL (150-450); RED BLOOD COUNT 4.29 10^6/uL (4.00-5.40); WHITE BLOOD COUNT 24.1 10^3/uL (4.0-10.0)
[2025-01-27 17:02] LABS: ALBUMIN 2.6 G/DL (3.2-5.2); ALKALINE PHOSPHATASE 120 U/L (35-104); ALT/SGPT 28 U/L (7.0-40); AST/SGOT 31 U/L (<34); BILIRUBIN,DIRECT 0.2 MG/DL (<0.4); BILIRUBIN,TOTAL 0.5 MG/DL (0.3-1.2); BLOOD UREA NITROGEN 86 MG/DL (9-23); C REACTIVE PROTEIN QUANTITATIV 24.75 MG/DL (<1.0); CARBON DIOXIDE LEVEL 13 MMOL/L (20-31); CHLORIDE LEVEL 99 MMOL/L (98-107); CREATININE FOR GFR 3.25 MG/DL (0.55-1.30); GLOMERULAR FILTRATION RATE 14.7 (>39); GLUCOSE, FASTING 213 MG/DL (74-106); POTASSIUM SERUM 3.5 MMOL/L (3.5-5.1); SODIUM LEVEL 132 MMOL/L (136-145); TOTAL PROTEIN 6.7 G/DL (5.7-8.2)
[2025-01-27 17:03] LABS: CK-MB VALUE MASS 1.2 NG/ML (<3.6)
[2025-01-27 17:04] LABS: AMYLASE < 20 U/L (30-118); CPK CREATINE PHOSPHOKINASE 55 U/L (34-145); MB/CK RELATIVE INDEX 2.18 (< OR =4)
[2025-01-27 17:09] LABS: PROCALCITONIN 45.48 ng/ml
[2025-01-27 17:19] LABS: INR 1.43; PARTIAL THROMBOPLASTIN TIME 35.8 SECONDS (24.8-34.2); PROTHROMBIN TIME 17.7 SECONDS (12.5-14.5)
[2025-01-27] MEDS: ACETAMINOPHEN *IV* 1,000 MG in IV 1 EA IV ONE (17:21)
[2025-01-27] MEDS: NS (Normal Saline) 0.9% 1,000 ML IV SCH (17:21)
[2025-01-27] MEDS: CEFEPIME HCL 2 GM in DEXTROSE 5% (D5W) ADV/MINI-BAG 50 ML IV ONE (17:21)
[2025-01-27 18:12] LABS: AMORPHOUS SEDIMENT MODERATE (NEGATIVE); APPEARANCE, URINE TURBID (CLEAR); BACTERIA, URINE AUTO 2+ (NEGATIVE); BILIRUBIN, URINE AUTO NEGATIVE (NEGATIVE); BLOOD, URINE BLOOD 1+ (NEGATIVE); COLOR, URINE YELLOW (YELLOW); GLUCOSE, URINE (UA) AUTO NEGATIVE (NEGATIVE); KETONE, URINE AUTO NEGATIVE (NEGATIVE); LEUKOCYTE ESTERASE, URINE AUTO 2+ (NEGATIVE); NITRITE, URINE AUTO NEGATIVE (NEGATIVE); PROTEIN, URINE AUTO 2+ mg/dL (NEGATIVE); RBC, URINE AUTO 85 /HPF (0-3); SPECIFIC GRAVITY URINE AUTO 1.013 (1.002-1.035); SQUAMOUS EPITHELIAL CELL UR AU 5 /HPF (0-6); UROBILINOGEN, URINE AUTO 0.2 mg/dL (0.0-2.0); WBC, URINE AUTO TNTC /HPF (0-3)
[2025-01-27 19:12] VITALS: TEMP 97.8
[2025-01-27] MEDS: NS (Normal Saline) 0.9% 1,000 ML IV ONE (19:17)
[2025-01-27 19:34] LABS: CK-MB VALUE MASS 1.9 NG/ML (<3.6)
[2025-01-27 19:35] LABS: MB/CK RELATIVE INDEX 3.87 (< OR =4)
[2025-01-27] MEDS: NS 0.9% IV ONE (19:45)
[2025-01-27] MEDS: [UNRECOGNIZED DRUG - OTHER] IV ONE (19:45)
[2025-01-27 19:58] VITALS: BP 98/56; O2SAT 96
== END 2025-01-27 19:45 | disposition short-term general hospital (02) ==
LOC: M ED 16:01
DX: I62.9 Nontraumatic intracranial hemorrhage, unspecified (principal); A41.9 Sepsis, unspecified organism; N39.0 Urinary tract infection, site not specified; N17.9 Acute kidney failure, unspecified; K57.30 Diverticulosis of large intestine without perforation or abscess without bleeding; R94.39 Abnormal result of other cardiovascular function study; E11.9 Type 2 diabetes mellitus without complications; I49.3 Ventricular premature depolarization; Z91.040 Latex allergy status; Z91.013 Allergy to seafood; Z91.048 Other nonmedicinal substance allergy status; Z79.899 Other long term (current) drug therapy
CPT/HCPCS: 70450; 71045; 74176; 80048; 80076; 81001; 82150; 82550; 82553; 82803; 83605; 84145; 84484; 85025; 85610; 85730; 86140; 86850; 86900; 86901; 87040; 87077; 87088; 87154; 87186; 87486; 87581; 87633; 87798; 93005; 93041; 94760; 96365; 96366; 96367; 99285; J0131; J0692

== ENCOUNTER → 2025-01-27 | Outpatient (REF) | payer MEDICARE ==
[2025-01-27 14:25] LABS: HEMATOCRIT 39.8 % (36.0-47.0); HEMOGLOBIN 13.6 g/dl (12.0-15.5); MEAN CORPUSCULAR HEMOGLOBIN 29.6 pg (27.0-33.0); MEAN CORPUSCULAR HGB CONC 34.2 g/dl (32.0-36.5); MEAN CORPUSCULAR VOLUME 86.7 fl (80.0-96.0); PLATELET COUNT, AUTOMATED 225 10^3/uL (150-450); RED BLOOD COUNT 4.59 10^6/uL (4.00-5.40); WHITE BLOOD COUNT 1.9 10^3/uL (4.0-10.0)
[2025-01-27 14:45] LABS: CALCIUM LEVEL 9.1 MG/DL (8.3-10.6); CREATININE FOR GFR 3.72 MG/DL (0.55-1.30); GLOMERULAR FILTRATION RATE 12.6 (>39); POTASSIUM SERUM 3.9 MMOL/L (3.5-5.1)
[2025-01-27 15:06] LABS: ATYPICAL LYMPH 1 % (0-5); LYMPHOCYTES 27 % (16-44); METAMYELOCYTES 1 % (0-0); MONOCYTES 1 % (0-5); MYELOCYTES 1 % (0-0); NEUTROPHILS 61 % (28-66); PLATELET CLUMPS SMALL AMT; PLATELET ESTIMATE NORMAL (NORMAL); TOXIC VACUOLATION 1+
== END ==
PROVIDERS: ATTEND Physician Assistant
DX: R41.82 Altered mental status, unspecified (principal)

== ENCOUNTER → 2025-02-06 | Outpatient (REF) | payer MEDICARE | PROVIDERS: ATTEND Physician Assistant | DX: N39.0 Urinary tract infection, site not specified (principal); Z53.9 Procedure and treatment not carried out, unspecified reason ==

== ENCOUNTER → 2025-02-08 | Outpatient (REF) | payer MEDICARE ==
[2025-02-08 09:42] LABS: HEMATOCRIT 32.5 % (36.0-47.0); HEMOGLOBIN 10.8 g/dl (12.0-15.5); MEAN CORPUSCULAR HGB CONC 33.2 g/dl (32.0-36.5); MEAN CORPUSCULAR VOLUME 90.3 fl (80.0-96.0); PLATELET COUNT, AUTOMATED 240 10^3/uL (150-450); WHITE BLOOD COUNT 9.7 10^3/uL (4.0-10.0)
[2025-02-08 10:05] LABS: BLOOD UREA NITROGEN 8 MG/DL (9-23); CALCIUM LEVEL 8.4 MG/DL (8.3-10.6); CARBON DIOXIDE LEVEL 29 MMOL/L (20-31); CHLORIDE LEVEL 108 MMOL/L (98-107); CREATININE FOR GFR 0.37 MG/DL (0.55-1.30); GLOMERULAR FILTRATION RATE > 60.0 (>39); GLUCOSE, FASTING 153 MG/DL (74-106); POTASSIUM SERUM 3.6 MMOL/L (3.5-5.1); SODIUM LEVEL 147 MMOL/L (136-145)
== END ==
PROVIDERS: ATTEND Physician Assistant
DX: N39.0 Urinary tract infection, site not specified (principal)

== ENCOUNTER → 2025-02-09 | Outpatient (REF) | payer MEDICARE | PROVIDERS: ATTEND Physician Assistant | DX: E86.0 Dehydration (principal); Z53.8 Procedure and treatment not carried out for other reasons ==

== ENCOUNTER → 2025-02-10 | Outpatient (REF) | payer MEDICARE ==
[2025-02-10 08:57] LABS: BLOOD UREA NITROGEN 8 MG/DL (9-23); CALCIUM LEVEL 8.3 MG/DL (8.3-10.6); CARBON DIOXIDE LEVEL 30 MMOL/L (20-31); CHLORIDE LEVEL 107 MMOL/L (98-107); CREATININE FOR GFR 0.34 MG/DL (0.55-1.30); GLOMERULAR FILTRATION RATE > 60.0 (>39); GLUCOSE, FASTING 143 MG/DL (74-106); POTASSIUM SERUM 3.7 MMOL/L (3.5-5.1); SODIUM LEVEL 147 MMOL/L (136-145)
== END ==
PROVIDERS: ATTEND Physician Assistant
DX: E86.0 Dehydration (principal); Z53.8 Procedure and treatment not carried out for other reasons

== ENCOUNTER → 2025-02-13 | Outpatient (REF) ==
[2025-02-13 08:58] LABS: HEMATOCRIT 34.3 % (36.0-47.0); HEMOGLOBIN 10.9 g/dl (12.0-15.5); MEAN CORPUSCULAR HEMOGLOBIN 28.9 pg (27.0-33.0); MEAN CORPUSCULAR HGB CONC 31.8 g/dl (32.0-36.5); PLATELET COUNT, AUTOMATED 234 10^3/uL (150-450); RED BLOOD COUNT 3.77 10^6/uL (4.00-5.40); WHITE BLOOD COUNT 5.8 10^3/uL (4.0-10.0)
[2025-02-13 09:26] LABS: BLOOD UREA NITROGEN 8 MG/DL (9-23); CALCIUM LEVEL 8.7 MG/DL (8.3-10.6); CARBON DIOXIDE LEVEL 31 MMOL/L (20-31); CHLORIDE LEVEL 107 MMOL/L (98-107); CREATININE FOR GFR 0.37 MG/DL (0.55-1.30); GLOMERULAR FILTRATION RATE > 60.0 (>39); GLUCOSE, FASTING 132 MG/DL (74-106); SODIUM LEVEL 146 MMOL/L (136-145)
== END ==
PROVIDERS: ATTEND Physician Assistant
DX: N39.0 Urinary tract infection, site not specified (principal)

== ENCOUNTER → 2025-03-17 | Outpatient (CLI) | payer MEDICARE | LOC: M RAD 13:21 | PROVIDERS: ATTEND Physician Assistant | DX: J90 Pleural effusion, not elsewhere classified (principal); I25.10 Atherosclerotic heart disease of native coronary artery without angina pectoris; Z90.49 Acquired absence of other specified parts of digestive tract; N28.1 Cyst of kidney, acquired; N20.0 Calculus of kidney; M25.512 Pain in left shoulder ==

== ENCOUNTER → 2025-03-22 | Outpatient (REF) | payer MEDICARE ==
[2025-03-22 08:36] LABS: HEMATOCRIT 41.7 % (36.0-47.0); HEMOGLOBIN 13.6 g/dl (12.0-15.5); MEAN CORPUSCULAR HEMOGLOBIN 29.4 pg (27.0-33.0); MEAN CORPUSCULAR HGB CONC 32.6 g/dl (32.0-36.5); MEAN CORPUSCULAR VOLUME 90.3 fl (80.0-96.0); PLATELET COUNT, AUTOMATED 257 10^3/uL (150-450); RED BLOOD COUNT 4.62 10^6/uL (4.00-5.40); WHITE BLOOD COUNT 7.6 10^3/uL (4.0-10.0)
[2025-03-22 09:07] LABS: BLOOD UREA NITROGEN 15 MG/DL (9-23); CALCIUM LEVEL 9.6 MG/DL (8.3-10.6); CARBON DIOXIDE LEVEL 26 MMOL/L (20-31); CHLORIDE LEVEL 106 MMOL/L (98-107); GLOMERULAR FILTRATION RATE > 90.0 (>39); GLUCOSE, FASTING 140 MG/DL (74-106); POTASSIUM SERUM 4.1 MMOL/L (3.5-5.1); SODIUM LEVEL 143 MMOL/L (136-145)
== END ==
PROVIDERS: ATTEND Physician Assistant
DX: D64.9 Anemia, unspecified (principal)

== ENCOUNTER → 2025-03-27 | Outpatient (REF) | payer MEDICARE ==
[2025-03-27 08:09] LABS: HEMATOCRIT 39.7 % (36.0-47.0); HEMOGLOBIN 12.7 g/dl (12.0-15.5); MEAN CORPUSCULAR HEMOGLOBIN 28.7 pg (27.0-33.0); MEAN CORPUSCULAR VOLUME 89.6 fl (80.0-96.0); PLATELET COUNT, AUTOMATED 241 10^3/uL (150-450); RED BLOOD COUNT 4.43 10^6/uL (4.00-5.40)
[2025-03-27 08:34] LABS: BLOOD UREA NITROGEN 16 MG/DL (9-23); CALCIUM LEVEL 9.3 MG/DL (8.3-10.6); CARBON DIOXIDE LEVEL 27 MMOL/L (20-31); CHLORIDE LEVEL 106 MMOL/L (98-107); CREATININE FOR GFR 0.37 MG/DL (0.55-1.30); GLOMERULAR FILTRATION RATE > 90.0 (>39); GLUCOSE, FASTING 147 MG/DL (74-106); POTASSIUM SERUM 4.1 MMOL/L (3.5-5.1); SODIUM LEVEL 144 MMOL/L (136-145)
== END ==
PROVIDERS: ATTEND Physician Assistant
DX: D64.9 Anemia, unspecified (principal)

== ENCOUNTER → 2025-07-12 | Outpatient (REF) | payer MEDICARE ==
[~2025-07-12] MED LIST changes: -BIOT1000 PO; +BIOT10002 PO
[2025-07-12 12:47] LABS: ESTIMATED AVERAGE GLUCOSE 128.0 MG/DL (60-110)
[2025-07-12 12:50] LABS: ALT/SGPT 10.0 U/L (7.0-40); AST/SGOT 13.0 U/L (<34)
== END ==
PROVIDERS: ATTEND Physician Assistant
DX: E11.9 Type 2 diabetes mellitus without complications (principal)

== ENCOUNTER → 2025-09-13 | Outpatient (REF) | payer MEDICARE ==
[~2025-09-13] MED LIST changes: -IBUP-1022 PO; +IBUP600T42 PO
[2025-09-13 13:16] LABS: PLATELET COUNT, AUTOMATED 271 10^3/uL (150-450)
[2025-09-13 13:43] LABS: CALCIUM LEVEL 9.0 MG/DL (8.3-10.6); CARBON DIOXIDE LEVEL 24 MMOL/L (20-31); CHLORIDE LEVEL 104 MMOL/L (98-107); CREATININE FOR GFR 0.30 MG/DL (0.55-1.30); GLOMERULAR FILTRATION RATE > 90.0 (>39); POTASSIUM SERUM 4.3 MMOL/L (3.5-5.1); SODIUM LEVEL 140 MMOL/L (136-145)
== END ==
PROVIDERS: ATTEND Physician Assistant
DX: E11.9 Type 2 diabetes mellitus without complications (principal)

== ENCOUNTER 2025-09-23 09:55 | Observation (INO) | payer MEDICARE ==
[~2025-09-23] VITALS: Ht 172.7 cm; Wt 77.5 kg
[2025-09-23] MEDS: APIXABAN 5 MG TAB PO SCH (09:00)
[2025-09-23 11:10] LABS: BASO # 0.0 10^3/uL (0.0-0.2); BASO % 0.3 % (0.0-1.0); EOS # 0.1 10^3/uL (0.0-0.5); EOS % 0.9 % (0.0-3.0); LYMPH # 1.6 10^3/uL (1.5-5.0); LYMPH % 16.0 % (24.0-44.0); MONO # 1.1 10^3/uL (0.0-0.8); MONO % 10.9 % (2.0-8.0); NEUTROPHILS # 7.0 10^3/uL (1.5-8.5); NEUTROPHILS % 71.6 % (36.0-66.0); PLATELET COUNT, AUTOMATED 271 10^3/uL (150-450)
[2025-09-23 11:21] LABS: KETONE, URINE AUTO RFX NEGATIVE (NEGATIVE); LEUKOCYTE ESTERASE UR AUTO RFX 3+ (NEGATIVE); MUCUS, URINE RFX SMALL (NEGATIVE); NITRITE, URINE AUTO RFX NEGATIVE (NEGATIVE); RBC, URINE AUTO RFX 0 /HPF (0-3); SQUAM EPITHELIAL CELL UR AURFX 1 /HPF (0-6); WBC, URINE AUTO RFX 43 /HPF (0-3)
[2025-09-23 11:33] LABS: CK-MB VALUE MASS 1.4 NG/ML (<3.6)
[2025-09-23 11:34] LABS: CPK CREATINE PHOSPHOKINASE 80 U/L (34-145); MB/CK RELATIVE INDEX 1.75 (< OR =4)
[2025-09-23 11:35] LABS: ALT/SGPT 10 U/L (7.0-40); AST/SGOT 13 U/L (<34); CALCIUM LEVEL 9.5 MG/DL (8.3-10.6); CARBON DIOXIDE LEVEL 25 MMOL/L (20-31); CHLORIDE LEVEL 103 MMOL/L (98-107); CREATININE FOR GFR 0.48 MG/DL (0.55-1.30); GLOMERULAR FILTRATION RATE > 90.0 (>39); POTASSIUM SERUM 4.2 MMOL/L (3.5-5.1); SODIUM LEVEL 139 MMOL/L (136-145)
[2025-09-23] MEDS: cefTRIAXone SOD 1 GM in DEXTROSE 5% (D5W) ADV/MINI-BAG 50 ML IV ONE (12:06)
[2025-09-23] MEDS ORDERED: BIOT1TAB PO (12:50)
[2025-09-23] MEDS ORDERED: ELIQ5TAB PO (12:51)
[2025-09-23] MEDS ORDERED: D31000CA4 PO (12:51)
[2025-09-23] MEDS ORDERED: HOME MED LIST COMPLETE! XX SCH (12:55)
[2025-09-23] MEDS ORDERED: ISOVUE-370 76% 100 ML VIAL As Ordered ONE (14:14)
[2025-09-23 15:06] VITALS: BP 134/71; TEMP 97.5; O2SAT 97
[2025-09-23] MEDS: NS (Normal Saline) 0.9% 1,000 ML IV ONE (18:15)
[2025-09-23 19:54] VITALS: BP 101/61; TEMP 97.3; O2SAT 97
[2025-09-23] MEDS: ASCORBIC ACID 500 MG TAB PO SCH (21:00)
[2025-09-23] MEDS: MULTIVITAMINS/MINERALS THERAP 1 TAB PO SCH (21:00)
[2025-09-24] MEDS: BISACODYL 10 MG SUPP PR ONE (00:08)
[2025-09-24 03:29] VITALS: BP 102/60; TEMP 98.1; O2SAT 95
[2025-09-24 08:00] VITALS: BP 109/60; TEMP 97; O2SAT 100
[2025-09-24 09:22] LABS: PLATELET COUNT, AUTOMATED 199 10^3/uL (150-450)
[2025-09-24 09:52] LABS: CALCIUM LEVEL 8.9 MG/DL (8.3-10.6); CARBON DIOXIDE LEVEL 26 MMOL/L (20-31); CHLORIDE LEVEL 104 MMOL/L (98-107); CREATININE FOR GFR 0.32 MG/DL (0.55-1.30); GLOMERULAR FILTRATION RATE > 90.0 (>39); POTASSIUM SERUM 3.5 MMOL/L (3.5-5.1); SODIUM LEVEL 141 MMOL/L (136-145)
[2025-09-24] MEDS: SENNOSIDES/DOCUSATE SODIUM 8.6 MG/50MG TAB PO SCH (11:06)
[2025-09-24] MEDS: FLEET ENEMA PR SCH (11:06)
[2025-09-24] MEDS: NS (Normal Saline) 0.9% 1,000 ML IV SCH (11:06)
[2025-09-24] MEDS: cefTRIAXone SOD 1 GM in DEXTROSE 5% (D5W) ADV/MINI-BAG 50 ML IV SCH (11:06)
[2025-09-24 12:00] VITALS: BP 109/59; TEMP 97.9; O2SAT 98
[2025-09-24 21:11] VITALS: BP 112/62; TEMP 97.9; O2SAT 97
[2025-09-24] MEDS: APIXABAN 5 MG TAB PO SCH (21:39)
[2025-09-25 03:27] VITALS: BP 114/62; TEMP 96.8; O2SAT 66
[2025-09-25 06:13] LABS: BASO # 0.0 10^3/uL (0.0-0.2); BASO % 0.4 % (0.0-1.0); EOS # 0.3 10^3/uL (0.0-0.5); EOS % 4.0 % (0.0-3.0); LYMPH # 1.9 10^3/uL (1.5-5.0); LYMPH % 23.2 % (24.0-44.0); MONO # 0.9 10^3/uL (0.0-0.8); MONO % 11.3 % (2.0-8.0); NEUTROPHILS # 5.0 10^3/uL (1.5-8.5); NEUTROPHILS % 60.7 % (36.0-66.0); PLATELET COUNT, AUTOMATED 228 10^3/uL (150-450)
[2025-09-25 06:45] LABS: CALCIUM LEVEL 8.2 MG/DL (8.3-10.6); CARBON DIOXIDE LEVEL 24 MMOL/L (20-31); CHLORIDE LEVEL 108 MMOL/L (98-107); CREATININE FOR GFR 0.35 MG/DL (0.55-1.30); GLOMERULAR FILTRATION RATE > 90.0 (>39); POTASSIUM SERUM 3.3 MMOL/L (3.5-5.1); SODIUM LEVEL 142 MMOL/L (136-145)
[2025-09-25] MEDS: POTASSIUM CHLORIDE 10MEQ SR TABLET PO ONE (09:02)
[2025-09-25 10:44] VITALS: BP 115/61; TEMP 97.3; O2SAT 97
[2025-09-25 10:46] VITALS: BP 115/61; TEMP 97.3; O2SAT 97
[2025-09-25] MEDS ORDERED: FLEET ENEMA PR ONE (14:00)
[2025-09-25 14:30] VITALS: BP 113/60; TEMP 97.9; O2SAT 69
[2025-09-25 20:29] VITALS: BP 110/50; TEMP 97.9; O2SAT 89
[2025-09-26 05:12] VITALS: BP 110/51; TEMP 97.3; O2SAT 91
[2025-09-26 07:10] LABS: CALCIUM LEVEL 8.9 MG/DL (8.3-10.6); CARBON DIOXIDE LEVEL 23 MMOL/L (20-31); CHLORIDE LEVEL 112 MMOL/L (98-107); CREATININE FOR GFR 0.34 MG/DL (0.55-1.30); GLOMERULAR FILTRATION RATE > 90.0 (>39); POTASSIUM SERUM 3.8 MMOL/L (3.5-5.1); SODIUM LEVEL 145 MMOL/L (136-145)
[2025-09-26] MEDS: CEFDINIR 300 MG CAP PO SCH (08:59)
[2025-09-26] MEDS ORDERED: DOCU8.6T PO (11:25)
[2025-09-26] MEDS ORDERED: CEFD300CAP PO (11:25)
[2025-09-26] MEDS ORDERED: COLA100C5 PO (11:25)
== END 2025-09-26 12:05 ==
LOC: EDBD 09:55 → M ED 09:55 → M ED INP 14:06 → INTOOBSV 14:06 → M MSPAV 15:02
PROVIDERS: ADMIT Internal Medicine; ATTEND Internal Medicine
DX: G93.41 Metabolic encephalopathy (principal); T83.511A Infection and inflammatory reaction due to indwelling urethral catheter, initial encounter; N39.0 Urinary tract infection, site not specified; N13.30 Unspecified hydronephrosis; K59.00 Constipation, unspecified; Z86.718 Personal history of other venous thrombosis and embolism; Z89.512 Acquired absence of left leg below knee; E11.9 Type 2 diabetes mellitus without complications; M54.50 Low back pain, unspecified; E55.9 Vitamin D deficiency, unspecified; D51.9 Vitamin B12 deficiency anemia, unspecified; Z79.01 Long term (current) use of anticoagulants; Z79.899 Other long term (current) drug therapy
CPT/HCPCS: 36415; 51702; 70450; 74177; 80048; 80076; 81001; 82140; 82550; 82553; 83605; 84443; 84484; 85025; 85027; 87088; 87186; 87426; 93005; 93041; 94760; 96361; 96365; 96366; 96375; 99285; G0378; J0696; Q9967

== ENCOUNTER 2025-10-07 12:01 | Emergency (ER) | payer MEDICARE ==
[~2025-10-07] VITALS: Ht 172.7 cm; Wt 76.1 kg
[~2025-10-07 12:01] MED LIST changes: +BIOT1TAB PO; +D31000CA4 PO; +DOCU8.6T PO; +ELIQ5TAB PO
[2025-10-07 12:57] LABS: BASO # 0.0 10^3/uL (0.0-0.2); BASO % 0.4 % (0.0-1.0); EOS # 0.1 10^3/uL (0.0-0.5); EOS % 1.3 % (0.0-3.0); LYMPH # 2.1 10^3/uL (1.5-5.0); LYMPH % 24.1 % (24.0-44.0); MONO # 0.5 10^3/uL (0.0-0.8); MONO % 6.0 % (2.0-8.0); NEUTROPHILS # 6.0 10^3/uL (1.5-8.5); NEUTROPHILS % 68.0 % (36.0-66.0); PLATELET COUNT, AUTOMATED 247 10^3/uL (150-450)
[2025-10-07] MEDS ORDERED: BISA10SU27 PR (13:03)
[2025-10-07] MEDS ORDERED: FLEEENE12 PR (13:03)
[2025-10-07] MEDS ORDERED: SENN-186 PO (13:03)
[2025-10-07] MEDS ORDERED: XARE20TA PO (13:03)
[2025-10-07] MEDS ORDERED: MILKSUS3 PO (13:03)
[2025-10-07] MEDS ORDERED: MAG30ORA18 PO (13:03)
[2025-10-07] MEDS ORDERED: NYST1POW3 TOP (13:03)
[2025-10-07] MEDS ORDERED: ACET1TAB55 PO (13:03)
[2025-10-07] MEDS ORDERED: GLUC1VIA14 IM (13:03)
[2025-10-07] MEDS ORDERED: DOCU100C16 PO (13:03)
[2025-10-07] MEDS ORDERED: HYDR28OI7 TOP (13:03)
[2025-10-07] MEDS ORDERED: HOME MED LIST COMPLETE! XX SCH (13:10)
[2025-10-07 13:31] LABS: ALT/SGPT 11 U/L (7.0-40); AST/SGOT 11 U/L (<34); CALCIUM LEVEL 9.1 MG/DL (8.3-10.6); CARBON DIOXIDE LEVEL 27 MMOL/L (20-31); CHLORIDE LEVEL 104 MMOL/L (98-107); CREATININE FOR GFR 0.37 MG/DL (0.55-1.30); GLOMERULAR FILTRATION RATE > 90.0 (>39); POTASSIUM SERUM 4.0 MMOL/L (3.5-5.1); SODIUM LEVEL 139 MMOL/L (136-145)
[2025-10-07 13:40] LABS: KETONE, URINE AUTO RFX NEGATIVE (NEGATIVE); MUCUS, URINE RFX MODERATE (NEGATIVE); NITRITE, URINE AUTO RFX NEGATIVE (NEGATIVE); RBC, URINE AUTO RFX 110 /HPF (0-3); SQUAM EPITHELIAL CELL UR AURFX 23 /HPF (0-6)
[2025-10-07 13:42] LABS: LEUKOCYTE ESTERASE UR AUTO RFX 3+ (NEGATIVE); WBC, URINE AUTO RFX TNTC /HPF (0-3)
[2025-10-07] MEDS ORDERED: CEFD1CAP9 PO (15:07)
[2025-10-07] MEDS: CEFDINIR 300 MG CAP PO ONE (15:13)
[2025-10-07 15:21] VITALS: BP 122/64; TEMP 97.8; O2SAT 98
== END 2025-10-07 15:53 | disposition home or self-care (01) ==
LOC: EDBD 12:01 → M ED 12:01
DX: R41.82 Altered mental status, unspecified (principal); N39.0 Urinary tract infection, site not specified; E11.9 Type 2 diabetes mellitus without complications; K21.9 Gastro-esophageal reflux disease without esophagitis; Z86.718 Personal history of other venous thrombosis and embolism; Z91.013 Allergy to seafood; Z91.040 Latex allergy status; Z91.09 Other allergy status, other than to drugs and biological substances; Z79.1 Long term (current) use of non-steroidal anti-inflammatories (NSAID); Z79.899 Other long term (current) drug therapy; Z79.2 Long term (current) use of antibiotics

== ENCOUNTER → 2025-10-11 | Outpatient (REF) | payer MEDICARE ==
[~2025-10-11] MED LIST changes: +BISA10SU27 PR; +CEFD1CAP9 PO; +DOCU100C16 PO; +FLEEENE12 PR; +GLUC1VIA14 IM; +HYDR28OI7 TOP; +MAG30ORA18 PO; +MILKSUS3 PO; +NYST1POW3 TOP; +SENN-186 PO; +XARE20TA PO
[2025-10-11 10:59] LABS: PLATELET COUNT, AUTOMATED 246 10^3/uL (150-450)
[2025-10-11 11:23] LABS: CALCIUM LEVEL 9.0 MG/DL (8.3-10.6); CARBON DIOXIDE LEVEL 27 MMOL/L (20-31); CHLORIDE LEVEL 104 MMOL/L (98-107); CREATININE FOR GFR 0.37 MG/DL (0.55-1.30); GLOMERULAR FILTRATION RATE > 90.0 (>39); POTASSIUM SERUM 4.3 MMOL/L (3.5-5.1); SODIUM LEVEL 142 MMOL/L (136-145)
== END ==
PROVIDERS: ATTEND Physician Assistant
DX: N39.0 Urinary tract infection, site not specified (principal)